=== PATIENT | female | born 1950 | race Caucasian/White ===

== ENCOUNTER 2019-06-13 16:06 | Inpatient (IN) | payer OTHER ==
[~2019-06-13] VITALS: Ht 162.6 cm; Wt 92.5 kg
[~2019-06-13 16:06] MED LIST: ALPR1TAB2 PO; ASPI-630 PO; CLOP75TA PO; CRESTOR20 MG PO; GABA-585 PO; HYDR-2769 PO; INSU100I13 SQ; ISOS30TA4 PO; METO25TA4 PO; MONT10TA49 PO; PRAM0.255 PO; RIVA20TA2 PO
[2019-06-13] MEDS ORDERED: IPRATRPIUM/ALBUTEROL 0.5/2.5MG 3 ML NEBU. NEB ONE (16:30)
--- NOTE | 2019-06-13 16:44 | PHYS DOC ---
Past Medical History Past Medical History: CAD, Diabetes-Type II, High Cholesterol, Hypertension Adult General Chief Complaint Chief Complaint: CHEST PAIN HPI HPI Patient is a 69 year old female patient with stent placement in June 02 and recent hospitalization at [facility] on June 09 with diagnosis of syncope who presents via EMS with complaining of chest pain and shortness of breath. Patient complaining of pressure substernal chest pain with radiation to her back and associated with shortness of breath, dizziness, nausea and generalized weakness. She rated her pain 8/10. Patient had 324 mg of aspirin, sublingual nitroglycerin, nitroglycerin patch, morphine 10 mg IV without change of her pain. Patient has O2 sat of 92% at arrival to ER. Patient states she had the same pain in her previous hospitalization with stent placement. Review of Systems Review of Systems Constitutional: Denies fever or chills [] Eyes: Denies change in visual acuity, redness, or eye pain [] HENT: Denies nasal congestion or sore throat [] Respiratory: Denies cough, reports shortness of breath [] Cardiovascular: No additional information not addressed in HPI [] GI: Denies abdominal pain, nausea, vomiting, bloody stools or diarrhea [] : Denies dysuria or hematuria [] Musculoskeletal: Denies back pain or joint pain [] Integument: Denies rash or skin lesions [] Neurologic: Denies headache, focal weakness or sensory changes [] Endocrine: Denies polyuria or polydipsia [] All other systems were reviewed and found to be within normal limits, except as documented in this note. Current Medications Current Medications Current Medications Medications (Trade) Dose Ordered Sig/Marily Start Time Stop Time Status Last Admin Dose Admin Albuterol/ Ipratropium (Duoneb) 3 ml 1X ONCE 06/13/19 16:30 06/13/19 16:31 DC 06/13/19 16:29 3 ML Lorazepam (Ativan Inj) 1 mg 1X ONCE 06/13/19 16:45 06/13/19 16:46 DC 06/13/19 17:01 1 MG Ondansetron HCl (Zofran) 4 mg 1X ONCE 06/13/19 17:15 06/13/19 17:16 DC 06/13/19 17:21 4 MG Allergies Allergies Allergies Coded Allergies Type Severity Reaction Last Updated Verified fentanyl Allergy Intermediate 06/13/19 Yes oxycodone Allergy Intermediate 06/13/19 Yes prednisone Allergy Unknown 06/02/19 Yes Physical Exam Physical Exam Constitutional: Well developed, well nourished, moderate distress, non-toxic appearance. [] HENT: Normocephalic, atraumatic. Eyes: PERRLA, EOMI, conjunctiva normal, no discharge. [] Neck: Normal range of motion, no tenderness, supple, no stridor. [] Cardiovascular:Heart rate regular rhythm, no murmur [] Lungs & Thorax: Hyperventilation with intercostal retractions and audible breath sounds Abdomen: Bowel sounds normal, soft, no tenderness, no masses, no pulsatile masses. [] Skin: Warm, dry, no erythema, no rash. [] Back: No tenderness, no CVA tenderness. [] Extremities: No tenderness, no cyanosis, no clubbing, ROM intact, bilateral lower extremity trace edema. [] Neurologic: Alert and oriented X 3, no focal deficits noted. [] Psychologic: Affect anxious, judgement normal, mood normal. [] Current Patient Data Vital Signs Vital Signs Date Time Temp Pulse Resp B/P (MAP) Pulse Ox O2 Delivery O2 Flow Rate FiO2 06/13/19 16:44 95 Nasal Cannula 2.0 06/13/19 16:18 98.1 68 25 159/115 (130) 98.1 Lab Values Laboratory Tests Test 06/13/19 16:35 06/13/19 16:40 06/13/19 16:44 White Blood Count 6.0 x10^3/uL (4.0-11.0) Red Blood Count 3.94 x10^6/uL (3.50-5.40) Hemoglobin 12.0 g/dL (12.0-15.5) Hematocrit 35.1 % (36.0-47.0) L Mean Corpuscular Volume 89 fL (79-100) Mean Corpuscular Hemoglobin 31 pg (25-35) Mean Corpuscular Hemoglobin Concent 34 g/dL (31-37) Red Cell Distribution Width 13.7 % (11.5-14.5) Platelet Count 195 x10^3/uL (140-400) Neutrophils (%) (Auto) 64 % (31-73) Lymphocytes (%) (Auto) 23 % (24-48) L Monocytes (%) (Auto) 8 % (0-9) Eosinophils (%) (Auto) 5 % (0-3) H Basophils (%) (Auto) 1 % (0-3) Neutrophils # (Auto) 3.8 x10^3/uL (1.8-7.7) Lymphocytes # (Auto) 1.4 x10^3/uL (1.0-4.8) Monocytes # (Auto) 0.5 x10^3/uL (0.0-1.1) Eosinophils # (Auto) 0.3 x10^3/uL (0.0-0.7) Basophils # (Auto) 0.0 x10^3/uL (0.0-0.2) Prothrombin Time 12.7 SEC (11.7-14.0) Prothrombin Time INR 1.0 (0.8-1.1) D-Dimer (Angeline) 0.53 ug/mlFEU (0.00-0.50) H Sodium Level 142 mmol/L (136-145) Potassium Level 4.2 mmol/L (3.5-5.1) Chloride Level 107 mmol/L (98-107) Carbon Dioxide Level 28 mmol/L (21-32) Anion Gap 7 (6-14) Blood Urea Nitrogen 10 mg/dL (7-20) Creatinine 0.9 mg/dL (0.6-1.0) Estimated GFR (Cockcroft-Gault) 62.1 BUN/Creatinine Ratio 11 (6-20) Glucose Level 182 mg/dL (70-99) H Lactic Acid Level 1.2 mmol/L (0.4-2.0) Calcium Level 9.0 mg/dL (8.5-10.1) Magnesium Level 1.7 mg/dL (1.8-2.4) L Total Bilirubin 0.5 mg/dL (0.2-1.0) Aspartate Amino Transferase (AST) 22 U/L (15-37) Alanine Aminotransferase (ALT) 21 U/L (14-59) Alkaline Phosphatase 107 U/L (46-116) Creatine Kinase 29 U/L (26-192) Troponin I Quantitative < 0.017 ng/mL (0.000-0.055) TO-Kav-W-Type Natriuretic Peptide 331 pg/mL (0-124) H Total Protein 7.1 g/dL (6.4-8.2) Albumin 3.3 g/dL (3.4-5.0) L Albumin/Globulin Ratio 0.9 (1.0-1.7) L Lipase 75 U/L (73-393) O2 Saturation 96 % (92-99) Arterial Blood pH 7.40 (7.35-7.45) Arterial Blood pCO2 at Patient Temp 37 mmHg (35-46) Arterial Blood pO2 at Patient Temp 91 mmHg (65-108) Arterial Blood HCO3 22 mmol/L (21-28) Arterial Blood Base Excess -2 mmol/L (-3-3) FiO2 28 POC Troponin I 0.00 ng/ml (<0.08) Laboratory Tests 06/13/19 16:35 Laboratory Tests 06/13/19 16:35 EKG EKG EKG interpreted EKG at 1460 by me. EKG at 1650 showed sinus rhythm with multiple artifacts at rate of 73, left fourth axis, Q wave in anteroseptal leads, Radiology/Procedures Radiology/Procedures [][facility] [address] [place] [address] IMAGING REPORT Signed PATIENT: VIOLETA VANG ACCOUNT: [id number] : 1950 LOCATION: ER AGE: 69 SEX: F EXAM STATUS: REG ER ORD. PHYSICIAN: LAXMI NUÑEZ MD REASON: chest pain and shortness of breath PROCEDURE: PORTABLE CHEST 1V Single view of the chest. 06/13/2019 4:38 PM Indication: Chest pain, shortness of breath. Comparison: None available Findings: No pneumothorax is identified. Mild hazy opacification of the left lung base is seen which could represent atelectasis or trace effusion. Fullness in the right hilar region could represent vascular crowding given low depth inspiration. Right hilar infiltrate or mass cannot be completely excluded. Heart size is normal. Bony thorax is intact. Postoperative changes to the right shoulder noted. Coronary stent noted. IMPRESSION: 1. Low lung volumes with hazy opacity left lung base possibly representing atelectasis or mild effusion 2. Fullness in the right perihilar region which could represent vascular crowding. Infiltrate or mass is difficult to completely exclude. Consider follow-up two-view chest radiograph with attention to depth of inspiration. Alternatively CT could be performed in the appropriate clinical setting. Electronically signed by: Gio Flowers MD (06/13/2019 4:53 PM) [facility] DICTATED and SIGNED BY: GIO FLOWERS MD DATE: 06/13/191652 Course & Med Decision Making Course & Med Decision Making Pertinent Labs and Imaging studies reviewed. (See chart for details) Evaluation of patient in ER showed 69-year-old female patient with history of percent stent placement and oriented hospitalization for syncope brought in by EMS because of chest pain and shortness of breath. Patient was anxious and had hyperventilation. Patient treated with Ativan and felt better. D-dimer was only 0.[address] of chest was not ordered. Cardiac enzymes was negative. Because of heart score of 6 plan to admit patient. Patient requiring admission for further evaluation and treatment. Discussed with Dr. Lui who is in agreement with admission. Discussed findings and plan with patient and family, who acknowledge understanding and agreement. Dragon Disclaimer Dragon Disclaimer This electronic medical record was generated, in whole or in part, using a voice recognition dictation system. Departure Departure Impression: Primary Impression: Acute chest pain Additional Impressions: Anxiety Shortness of breath Hypomagnesemia CHF (congestive heart failure) Disposition: ADMITTED INPATIENT (at 1659) Admitting Physician: FLAVIO (Dr. Lui accepted admission at 1657) Referrals: TRACEE DIAZ MD (PCP) The HEART Score for CP Pts HEART Score for Chest Pain: HEART Score for Chest Pain Response (Comments) Value History Moderately Suspicious 1 ECG Nonspecific Repolarizatio 1 Age > 65 2 Risk Factors >3 Risk Factors or Hx CAD 2 Total 6 Risk Factors: Risk Factors: DM, Current or recent (<one month) smoker, HTN, HLP, family history of CAD, obesity. Risk Scores: Score 0 - 3: 2.5% MACE over next 6 weeks - Discharge Home Score 4 - 6: 20.3% MACE over next 6 weeks - Admit for Clinical Observation Score 7 - 10: 72.7% MACE over next 6 weeks - Early Invasive Strategies Problem Qualifiers Additional Impressions: CHF (congestive heart failure) Heart failure type: unspecified Heart failure chronicity: unspecified Qualified Codes: I50.9 - Heart failure, unspecified LAXMI NUÑEZ MD Jun 13, 2019 16:44
[2019-06-13 16:46] LABS: BASE EXCESS ABG -2 mmol/L (-3-3); HCO3 ABG 22 mmol/L (21-28); PCO2 ABG 37 mmHg (35-46); PO2 ABG 91 mmHg (65-108); SAT O2 ABG 96 % (92-99)
[2019-06-13 16:47] LABS: FIO2 ABG 28
[2019-06-13 16:50] LABS: BASO % 1 % (0-3); EOS # 0.3 x10^3/uL (0.0-0.7); EOS % 5 % (0-3); HEMATOCRIT 35.1 % (36.0-47.0); LYMPH # 1.4 x10^3/uL (1.0-4.8); LYMPH % 23 % (24-48); MEAN CORPUSCULAR HEMOGLOBIN 31 pg (25-35); MEAN CORPUSCULAR HGB CONC 34 g/dL (31-37); MEAN CORPUSCULAR VOLUME 89 fL (79-100); MONO # 0.5 x10^3/uL (0.0-1.1); MONO % 8 % (0-9); NEUT # 3.8 x10^3/uL (1.8-7.7); NEUT % 64 % (31-73); PLATELET COUNT 195 x10^3/uL (140-400); RED BLOOD COUNT 3.94 x10^6/uL (3.50-5.40); RED CELL DISTRIBUTION WIDTH 13.7 % (11.5-14.5)
--- NOTE | 2019-06-13 16:56 | RAD ---
Single view of the chest. 06/13/2019 4:38 PM Indication: Chest pain, shortness of breath. Comparison: None available Findings: No pneumothorax is identified. Mild hazy opacification of the left lung base is seen which could represent atelectasis or trace effusion. Fullness in the right hilar region could represent vascular crowding given low depth inspiration. Right hilar infiltrate or mass cannot be completely excluded. Heart size is normal. Bony thorax is intact. Postoperative changes to the right shoulder noted. Coronary stent noted. IMPRESSION: 1. Low lung volumes with hazy opacity left lung base possibly representing atelectasis or mild effusion 2. Fullness in the right perihilar region which could represent vascular crowding. Infiltrate or mass is difficult to completely exclude. Consider follow-up two-view chest radiograph with attention to depth of inspiration. Alternatively CT could be performed in the appropriate clinical setting. Electronically signed by: Gio Arzate MD (06/13/2019 4:53 PM) [facility]
[2019-06-13 16:59] LABS: PROTHROMBIN TIME PATIENT 12.7 SEC (11.7-14.0)
[2019-06-13 17:02] LABS: D-DIMER 0.53 ug/mlFEU (0.00-0.50)
[2019-06-13 17:15] LABS: CREATININE 0.9 mg/dL (0.6-1.0); GFR 62.1; POTASSIUM 4.2 mmol/L (3.5-5.1)
[2019-06-13] MEDS ORDERED: ONDANSETRON PF 4 MG/2 ML VIAL. IV ONE (17:15)
[2019-06-13 17:29] LABS: ALBUMIN 3.3 g/dL (3.4-5.0); ALBUMIN/GLOBULIN RATIO 0.9 (1.0-1.7); MAGNESIUM 1.7 mg/dL (1.8-2.4); TOTAL BILIRUBIN 0.5 mg/dL (0.2-1.0); TOTAL PROTEIN 7.1 g/dL (6.4-8.2)
--- NOTE | 2019-06-13 18:47 | PDOC1 ---
History and Physical Date of Admission Date of Admission DATE: 06/13/19 TIME: 18:45 Identification/Chief Complaint Chief Complaint SEEN IN ER , 69 YR OLD Female patient with stent placement in June 02 and recent hospitalization at [facility] on June 09 with diagnosis of syncope who presents via EMS with complaining of chest pain and shortness of breath. complaining of pressure substernal chest pain with radiation to her back and associated with shortness of breath, dizziness, nausea and generalized weakness. rated her pain 8/10. Patient had 324 mg of aspirin, sublingual nitroglycerin, nitroglycerin patch, morphine 10 mg IV without change of her pain.IN ER Past Medical History Past Medical History Past Medical History Past Medical History Past Medical History: CAD, Diabetes-Type II, High Cholesterol, Hypertension FHX HTN Cardiovascular: AFIB, CAD, CHF, HTN, Hyperlipidemia, Other Pulmonary: Asthma, COPD, Pneumonia, Other CENTRAL NERVOUS SYSTEM: CVA, Seizure, Other GI: GERD Heme/Onc: Cancer Psych: Anxiety, Depression Musculoskeletal: low back pain, Osteoarthritis Endocrine: Diabetes Past Surgical History Past Surgical History: Cholecystectomy, Hysterectomy, Other Family History Family History: High Cholestrol, Hypertension Social History Smoke: No ALCOHOL: none Drugs: None Current Problem List Problem List Problems Medical Problems: (1) Acute chest pain Status: Acute (2) Anxiety Status: Acute (3) CHF (congestive heart failure) Status: Acute (4) Hypomagnesemia Status: Acute (5) Shortness of breath Status: Acute Current Medications Current Medications Current Medications Albuterol/ Ipratropium (Duoneb) 3 ml 1X ONCE NEB Last administered on 06/13/19at 16:29; Start 06/13/19 at 16:30; Stop 06/13/19 at 16:31; Status DC Lorazepam (Ativan Inj) 1 mg 1X ONCE IV Last administered on 06/13/19at 17:01; Start 06/13/19 at 16:45; Stop 06/13/19 at 16:46; Status DC Ondansetron HCl (Zofran) 4 mg 1X ONCE IV Last administered on 06/13/19at 17:21; Start 06/13/19 at 17:15; Stop 06/13/19 at 17:16; Status DC Active Scripts Active Reported Xarelto (Rivaroxaban) 20 Mg Tablet 20 Mg PO DAILY Metoprolol Tartrate 25 Mg Tablet 0.5 Tab PO BID Aspirin 81 Mg Tab.chew 1 Tab PO DAILY Clopidogrel (Clopidogrel Bisulfate) 75 Mg Tablet 1 Tab PO DAILY Lantus Solostar (Insulin Glargine,Hum.rec.anlog) 100 Unit/1 Ml Insuln.pen 12 Un it SQ QHS Crestor (Rosuvastatin Calcium) 20 Mg Tablet 20 Mg PO HS Mirapex (Pramipexole Di-Hcl) 0.25 Mg Tablet 1 Tab PO QHS Montelukast Sodium Tablet (Montelukast Sodium) 10 Mg Tablet 10 Mg PO HS Isosorbide Mononitrate Er (Isosorbide Mononitrate) 30 Mg Tab.er.24h 30 Mg PO DAILY Hydrocodone-Apap 10-325 (Hydrocodone Bit/Acetaminophen) 1 Tab Tablet 1 Tab PO PRN Q6HRS PRN Gabapentin (Gabapentin) 100 Mg Capsule 100 Mg PO BID Xanax (Alprazolam) 1 Mg Tablet 1 Tab PO TID Allergies Allergies: Coded Allergies: fentanyl (Verified Allergy, Intermediate, 06/13/19) oxycodone (Verified Allergy, Intermediate, 06/13/19) prednisone (Verified Allergy, Unknown, 06/02/19) ROS Review of System Review of Systems Review of Systems Constitutional: Denies fever or chills [] Eyes: Denies change in visual acuity, redness, or eye pain [] HENT: Denies nasal congestion or sore throat [] Respiratory: Denies cough, reports shortness of breath [] Cardiovascular: No additional information not addressed in HPI [] GI: Denies abdominal pain, nausea, vomiting, bloody stools or diarrhea [] : Denies dysuria or hematuria [] Musculoskeletal: Denies back pain or joint pain [] Integument: Denies rash or skin lesions [] Neurologic: Denies headache, focal weakness or sensory changes [] Endocrine: Denies polyuria or polydipsia [] 14 PT systems were reviewed and found to be within normal limits, except as documented Physical Exam Physical Exam Physical Exam Physical Exam Constitutional: Well developed, well nourished, moderate distress, non-toxic appearance. [] HENT: Normocephalic, atraumatic. Eyes: PERRLA, EOMI, conjunctiva normal, no discharge. [] Neck: Normal range of motion, no tenderness, supple, no stridor. [] Cardiovascular:Heart rate regular rhythm, no murmur [] Lungs & Thorax: Hyperventilation with intercostal retractions and audible breath sounds Abdomen: Bowel sounds normal, soft, no tenderness, no masses, no pulsatile masses. [] Skin: Warm, dry, no erythema, no rash. [] Back: No tenderness, no CVA tenderness. [] Extremities: No tenderness, no cyanosis, no clubbing, ROM intact, bilateral lower extremity trace edema. [] Neurologic: Alert and oriented X 3, no focal deficits noted. [] Psychologic: Affect anxious, judgment normal, mood normal. [] General: Oriented X3, Cooperative, mild distress, moderate distress HEENT: EOMI, Mucous membr. moist/pink Lungs: Clear to auscultation Heart: RRR Breasts: Not examined Abdomen: Normal bowel sounds, Soft PELVIC: Examination not indicated Extremities: No cyanosis Neuro: Normal speech, Sensation intact, Cranial nerves 3-12 NL Vitals Vitals Vital Signs Date Time Temp Pulse Resp B/P (MAP) Pulse Ox O2 Delivery O2 Flow Rate FiO2 06/13/19 16:44 95 Nasal Cannula 2.0 06/13/19 16:18 98.1 68 25 159/115 (130) 98.1 Labs Labs Laboratory Tests Test 06/13/19 16:35 06/13/19 16:40 06/13/19 16:44 White Blood Count 6.0 x10^3/uL (4.0-11.0) Red Blood Count 3.94 x10^6/uL (3.50-5.40) Hemoglobin 12.0 g/dL (12.0-15.5) Hematocrit 35.1 % (36.0-47.0) Mean Corpuscular Volume 89 fL (79-100) Mean Corpuscular Hemoglobin 31 pg (25-35) Mean Corpuscular Hemoglobin Concent 34 g/dL (31-37) Red Cell Distribution Width 13.7 % (11.5-14.5) Platelet Count 195 x10^3/uL (140-400) Neutrophils (%) (Auto) 64 % (31-73) Lymphocytes (%) (Auto) 23 % (24-48) Monocytes (%) (Auto) 8 % (0-9) Eosinophils (%) (Auto) 5 % (0-3) Basophils (%) (Auto) 1 % (0-3) Neutrophils # (Auto) 3.8 x10^3/uL (1.8-7.7) Lymphocytes # (Auto) 1.4 x10^3/uL (1.0-4.8) Monocytes # (Auto) 0.5 x10^3/uL (0.0-1.1) Eosinophils # (Auto) 0.3 x10^3/uL (0.0-0.7) Basophils # (Auto) 0.0 x10^3/uL (0.0-0.2) Prothrombin Time 12.7 SEC (11.7-14.0) Prothromb Time International Ratio 1.0 (0.8-1.1) D-Dimer (Angeline) 0.53 ug/mlFEU (0.00-0.50) Sodium Level 142 mmol/L (136-145) Potassium Level 4.2 mmol/L (3.5-5.1) Chloride Level 107 mmol/L (98-107) Carbon Dioxide Level 28 mmol/L (21-32) Anion Gap 7 (6-14) Blood Urea Nitrogen 10 mg/dL (7-20) Creatinine 0.9 mg/dL (0.6-1.0) Estimated GFR (Cockcroft-Gault) 62.1 BUN/Creatinine Ratio 11 (6-20) Glucose Level 182 mg/dL (70-99) Lactic Acid Level 1.2 mmol/L (0.4-2.0) Calcium Level 9.0 mg/dL (8.5-10.1) Magnesium Level 1.7 mg/dL (1.8-2.4) Total Bilirubin 0.5 mg/dL (0.2-1.0) Aspartate Amino Transf (AST/SGOT) 22 U/L (15-37) Alanine Aminotransferase (ALT/SGPT) 21 U/L (14-59) Alkaline Phosphatase 107 U/L (46-116) Creatine Kinase 29 U/L (26-192) Troponin I Quantitative < 0.017 ng/mL (0.000-0.055) OD-Uxz-K-Type Natriuretic Peptide 331 pg/mL (0-124) Total Protein 7.1 g/dL (6.4-8.2) Albumin 3.3 g/dL (3.4-5.0) Albumin/Globulin Ratio 0.9 (1.0-1.7) Lipase 75 U/L (73-393) O2 Saturation 96 % (92-99) Arterial Blood pH 7.40 (7.35-7.45) Arterial Blood pCO2 at Patient Temp 37 mmHg (35-46) Arterial Blood pO2 at Patient Temp 91 mmHg (65-108) Arterial Blood HCO3 22 mmol/L (21-28) Arterial Blood Base Excess -2 mmol/L (-3-3) FiO2 28 Bedside Troponin I 0.00 ng/ml (<0.08) Laboratory Tests Test 06/13/19 16:35 06/13/19 16:40 06/13/19 16:44 White Blood Count 6.0 x10^3/uL (4.0-11.0) Red Blood Count 3.94 x10^6/uL (3.50-5.40) Hemoglobin 12.0 g/dL (12.0-15.5) Hematocrit 35.1 % (36.0-47.0) Mean Corpuscular Volume 89 fL (79-100) Mean Corpuscular Hemoglobin 31 pg (25-35) Mean Corpuscular Hemoglobin Concent 34 g/dL (31-37) Red Cell Distribution Width 13.7 % (11.5-14.5) Platelet Count 195 x10^3/uL (140-400) Neutrophils (%) (Auto) 64 % (31-73) Lymphocytes (%) (Auto) 23 % (24-48) Monocytes (%) (Auto) 8 % (0-9) Eosinophils (%) (Auto) 5 % (0-3) Basophils (%) (Auto) 1 % (0-3) Neutrophils # (Auto) 3.8 x10^3/uL (1.8-7.7) Lymphocytes # (Auto) 1.4 x10^3/uL (1.0-4.8) Monocytes # (Auto) 0.5 x10^3/uL (0.0-1.1) Eosinophils # (Auto) 0.3 x10^3/uL (0.0-0.7) Basophils # (Auto) 0.0 x10^3/uL (0.0-0.2) Prothrombin Time 12.7 SEC (11.7-14.0) Prothromb Time International Ratio 1.0 (0.8-1.1) D-Dimer (Angeline) 0.53 ug/mlFEU (0.00-0.50) Sodium Level 142 mmol/L (136-145) Potassium Level 4.2 mmol/L (3.5-5.1) Chloride Level 107 mmol/L (98-107) Carbon Dioxide Level 28 mmol/L (21-32) Anion Gap 7 (6-14) Blood Urea Nitrogen 10 mg/dL (7-20) Creatinine 0.9 mg/dL (0.6-1.0) Estimated GFR (Cockcroft-Gault) 62.1 BUN/Creatinine Ratio 11 (6-20) Glucose Level 182 mg/dL (70-99) Lactic Acid Level 1.2 mmol/L (0.4-2.0) Calcium Level 9.0 mg/dL (8.5-10.1) Magnesium Level 1.7 mg/dL (1.8-2.4) Total Bilirubin 0.5 mg/dL (0.2-1.0) Aspartate Amino Transf (AST/SGOT) 22 U/L (15-37) Alanine Aminotransferase (ALT/SGPT) 21 U/L (14-59) Alkaline Phosphatase 107 U/L (46-116) Creatine Kinase 29 U/L (26-192) Troponin I Quantitative < 0.017 ng/mL (0.000-0.055) WH-Cyd-J-Type Natriuretic Peptide 331 pg/mL (0-124) Total Protein 7.1 g/dL (6.4-8.2) Albumin 3.3 g/dL (3.4-5.0) Albumin/Globulin Ratio 0.9 (1.0-1.7) Lipase 75 U/L (73-393) O2 Saturation 96 % (92-99) Arterial Blood pH 7.40 (7.35-7.45) Arterial Blood pCO2 at Patient Temp 37 mmHg (35-46) Arterial Blood pO2 at Patient Temp 91 mmHg (65-108) Arterial Blood HCO3 22 mmol/L (21-28) Arterial Blood Base Excess -2 mmol/L (-3-3) FiO2 28 Bedside Troponin I 0.00 ng/ml (<0.08) Images Images INDICATION: Altered mental status TECHNIQUE: Sequential axial images through the head were obtained without the administration of IV contrast. Comparisons: None FINDINGS: No focal parenchymal lesion or hemorrhage is identified. There is no midline shift or sulcal effacement. Subtle patchy opacity in the deep white matter of the left frontal lobe which appears similar when compared to prior exam in 2015. No acute vascular territory infarction is identified. De Jesus-white distinction is preserved. The ventricular system is within normal limits without compression hydrocephalus. The basal cisterns are well maintained. The visualized portions of the paranasal sinuses and mastoid air cells are well-pneumatized. No acute fractures. IMPRESSION: No acute intracranial abnormality. If symptoms persist MRI would better evaluate. Exposure: One or more of the following in the visualized dose reduction techniques were utilized for this examination: 1. Automated exposure control 2. Adjustment of the MA and/or KV according to patient size Use of iterative of reconstructive technique Single view of the chest. 06/13/2019 4:38 PM Indication: Chest pain, shortness of breath. Comparison: None available Findings: No pneumothorax is identified. Mild hazy opacification of the left lung base is seen which could represent atelectasis or trace effusion. Fullness in the right hilar region could represent vascular crowding given low depth inspiration. Right hilar infiltrate or mass cannot be completely excluded. Heart size is normal. Bony thorax is intact. Postoperative changes to the right shoulder noted. Coronary stent noted. IMPRESSION: 1. Low lung volumes with hazy opacity left lung base possibly representing atelectasis or mild effusion 2. Fullness in the right perihilar region which could represent vascular crowding. Infiltrate or mass is difficult to completely exclude. Consider follow-up two-view chest radiograph with attention to depth of inspiration. Alternatively CT could be performed in the appropriate clinical setting. Electronically signed by: Kristy Flowers MD (06/13/2019 4:53 PM) [facility] DICTATED and SIGNED BY: KRISTY FLOWERS MD DATE: 06/13/19 2810 VTE Prophylaxis Ordered VTE Prophylaxis Devices: Yes VTE Pharmacological Prophylaxi: Yes Assessment/Plan Assessment/Plan IMPRESSION 1. angina, status post percutaneous coronary intervention with drug-eluting stent placement to left circumflex. 2. Coronary artery disease, status post left anterior descending stent placement as continues to be patent. The left heart catheterization, ejection fraction, wall motion were all normal. 3. Type 2 diabetes, 4. Hypertension. 5. Hyperlipidemia. 6. Chronic obstructive pulmonary disease/bronchial asthma. ON CXR Fullness in the right perihilar region which could represent vascular crowding. Infiltrate or mass is difficult to completely exclude. Consider follow-up two-view chest radiograph with attention to depth of inspiration. Alternatively CT could be performed in the appropriate clinical setting. 7. Deep venous thrombosis and pulmonary embolism, on Xarelto. 8. Paroxysmal supraventricular tachycardia. 9. History of cerebrovascular accident. Subtle patchy opacity in the deep white matter of the left frontal lobe which appears similar when compared to prior exam in 2015 PLAN ADMIT SERIAL TROPONIN I CARDIOLOGY CONSULT O2 SUPPORT HOME MEDS ECHO 58 MIN PT EXAM, CHART REVIEW, > 50% OF TIME SPENT WITH EXAM, CHART REVIEW, PT CARE COORDINATION ROD GUSMAN MD Jun 13, 2019 18:47
[2019-06-13] MEDS ORDERED: ACETAMINOPHEN 325 MG TABLET. PO PRN (19:00)
[2019-06-13] MEDS ORDERED: ONDANSETRON PF 4 MG/2 ML VIAL. IV PRN (19:00)
[2019-06-13] MEDS ORDERED: MAG HYDROX/ALUMINUM HYD/SIMETH 30 ML ORAL.SUSP PO PRN (19:00)
[2019-06-13] MEDS ORDERED: guaiFENesin ORAL 200 MG/10 ML LIQUID. PO PRN (19:00)
[2019-06-13] MEDS ORDERED: LORazepam 0.5 MG TABLET PO PRN (19:00)
[2019-06-13] MEDS ORDERED: DOCUSATE SODIUM 100 MG CAPSULE. PO PRN (19:00)
[2019-06-13] MEDS ORDERED: 0.9 % SODIUM CHLORIDE 10 ML DISP.SYRIN. IV PRN (19:00)
[2019-06-13] MEDS ORDERED: cloNIDine HCL 0.1 MG TABLET PO PRN (19:00)
[2019-06-13 20:28] VITALS: BP 133/70
[2019-06-13] MEDS: IPRATRPIUM/ALBUTEROL 0.5/2.5MG 3 ML NEBU. NEB SCH (20:49)
[2019-06-13] MEDS: ALPRAZolam 1 MG TABLET PO SCH (21:48)
[2019-06-13] MEDS: ATORVASTATIN CALCIUM 40 MG TABLET. PO SCH (21:48)
[2019-06-13] MEDS: HYDROcodone/APAP 10/325 1 TAB TABLET PO PRN ×2 (21:48→21:49)
[2019-06-13] MEDS: MONTELUKAST SODIUM 10 MG TABLET. PO SCH (21:48)
[2019-06-13] MEDS: RIVAROXABAN 10 MG TABLET. PO SCH (21:48)
[2019-06-13] MEDS: PRAMIPEXOLE 0.25 MG TABLET. PO SCH (21:48)
[2019-06-13] MEDS: GABAPENTIN 100 MG CAPSULE. PO SCH (21:49)
[2019-06-13] MEDS: METOPROLOL TART IMMED RELEASE 25 MG TABLET. PO SCH (21:49)
[2019-06-13] MEDS: INSULIN GLARGINE SYRINGE. SQ SCH (21:56)
[2019-06-13 22:02] VITALS: BP 136/65
[2019-06-14] MEDS: IPRATRPIUM/ALBUTEROL 0.5/2.5MG 3 ML NEBU. NEB SCH ×7 (00:02→23:55)
[2019-06-14 03:04] VITALS: BP 102/59
[2019-06-14] MEDS: HYDROcodone/APAP 10/325 1 TAB TABLET PO PRN (03:40)
--- NOTE | 2019-06-14 06:23 | EKG ---
[facility] [address] [place] [address] Test Date: 2019-06-13 Test Time: 16:15:48 Pat Name: VIOLETA VANG Department: Room: Gender: F Cipher Expert: : 1950 Requested By: LAXMI NUÑEZ Order Number: [id number] Reading MD: Measurements Intervals [place] Rate: 73 P: SC: QRS: -19 QRSD: 84 T: 28 QT: 408 QTc: 453 Interpretive Statements IRREGULAR RHYTHM, NO P-WAVE FOUND LEFTWARD AXIS QRS(T) CONTOUR ABNORMALITY CONSIDER ANTEROSEPTAL MYOCARDIAL DAMAGE POSSIBLY ABNORMAL ECG RI6.01 Unconfirmed report No previous ECG available for comparison
[2019-06-14 07:00] VITALS: BP 118/76
[2019-06-14] MEDS ORDERED: ANTI-COAG MONITOR BY PHARMACY. MC PRN (08:00)
--- NOTE | 2019-06-14 08:34 | PDOC2 ---
SARMAD PERSAUD PLASTIC EXTRUSION OPERATOR 06/14/19 0834: CARDIAC CONSULT DATE OF CONSULT Date of Consult DATE: 06/14/19 TIME: 08:30 REASON FOR CONSULT Reason for Consult: Angina REFERRING PHYSICIAN Referring Physician: Fullbright SOURCE Source: Chart review, Patient HISTORY OF PRESENT ILLNESS HISTORY OF PRESENT ILLNESS This is a pleasant 69 yo female admitted for complains of dizziness and shortness of breath. Reports that she has been having nonproductive cough and has been wheezing. She has been using her nebulizer quite often. Monday she even passed out which prompted her to go [facility] which she was deemed with acute en cephalopathy and no seizures. She had a recent PCI and has not been having any palpitations. She did have some chest tightness but this was also associated with wheezing and coughing. No significant leg swelling. She has been complaint with her medications. PAST MEDICAL HISTORY Past Medical History Coronary artery disease Diabetes mellitus type 2 Hypertension Hyperlipidemia COPD/asthma DVT/PE Osteoarthritis CVA Lymphoma Anxiety Depression PSVT Seizure PAST SURGICAL HISTORY Past Surgical History Right rotator cuff repair Cholecystectomy Hysterectomy Carpal tunnel release surgery s/p PCI/stent placement FAMILY HISTORY Family History: Coronary Artery Disease SOCIAL HISTORY Smoke: No ALCOHOL: none Drugs: None Lives: with Family CURRENT MEDICATIONS CURRENT MEDICATIONS Current Medications Medications (Trade) Dose Ordered Sig/Marily Route PRN Reason Start Time Stop Time Status Last Admin Dose Admin Albuterol/ Ipratropium (Duoneb) 3 ml 1X ONCE NEB 06/13/19 16:30 06/13/19 16:31 DC 06/13/19 16:29 Lorazepam (Ativan Inj) 1 mg 1X ONCE IV 06/13/19 16:45 06/13/19 16:46 DC 06/13/19 17:01 Ondansetron HCl (Zofran) 4 mg 1X ONCE IV 06/13/19 17:15 06/13/19 17:16 DC 06/13/19 17:21 Alprazolam (Xanax) 1 mg TID PO 06/13/19 21:00 06/13/19 21:48 Gabapentin (Neurontin) 100 mg BID PO 06/13/19 21:00 06/13/19 21:56 Acetaminophen/ Hydrocodone Bitart (Lortab 10/325) 1 tab PRN Q6HRS PRN PO PAIN 06/13/19 19:00 06/14/19 03:40 Metoprolol Tartrate (Lopressor) 12.5 mg BID PO 06/13/19 21:00 06/13/19 21:56 Montelukast Sodium (Singulair) 10 mg HS PO 06/13/19 21:00 06/13/19 21:48 Pramipexole Dihydrochloride (miraPEX) 0.25 mg QHS PO 06/13/19 21:00 06/13/19 21:48 Insulin Glargine (Lantus Syringe) 12 unit QHS SQ 06/13/19 21:00 06/13/19 21:56 Rivaroxaban (Xarelto) 20 mg QEVNG PO 06/13/19 18:00 06/13/19 21:48 Atorvastatin Calcium (Lipitor) 80 mg QHS PO 06/13/19 21:00 06/13/19 21:48 Albuterol/ Ipratropium (Duoneb) 3 ml Q4H NEB 06/13/19 20:00 06/14/19 07:42 Lorazepam (Ativan) 0.5 mg PRN Q4HRS PRN PO ANXIETY / AGITATION 06/13/19 19:00 06/13/19 22:39 ALLERGIES ALLERGIES: Coded Allergies: fentanyl (Verified Allergy, Intermediate, 06/13/19) oxycodone (Verified Allergy, Intermediate, 06/13/19) prednisone (Verified Allergy, Intermediate, 06/13/19) ROS Review of System 14 point ROS evaluated with pertinent positives noted per HPI PHYSICAL EXAM General: Alert, Oriented X3, Cooperative, No acute distress HEENT: Mucous membr. moist/pink Heart: Regular rate (SR), Normal S1, Normal S2, No murmurs Abdomen: Soft, No tenderness Extremities: No cyanosis, No edema Skin: No breakdown, No significant lesion Neuro: Normal speech, Sensation intact Psych/Mental Status: Mental status NL, Mood NL MUSCULOSKELETAL: Osteoarthritic changes both hands VITALS/I&O VITALS/I&O: Vital Signs Date Time Temp Pulse Resp B/P (MAP) Pulse Ox O2 Delivery O2 Flow Rate FiO2 06/14/19 07:42 95 Nasal Cannula 2.0 06/14/19 03:04 97.8 65 20 102/59 (73) 97.8 I & O 06/13/19 06/13/19 06/14/19 15:00 23:00 07:00 Intake Total 120 ml 240 ml Output Total 400 ml 500 ml Balance -280 ml -260 ml LABS Lab: Laboratory Tests Test 06/13/19 16:35 06/13/19 16:40 06/13/19 16:44 06/13/19 20:45 White Blood Count 6.0 x10^3/uL (4.0-11.0) Red Blood Count 3.94 x10^6/uL (3.50-5.40) Hemoglobin 12.0 g/dL (12.0-15.5) Hematocrit 35.1 % (36.0-47.0) L Mean Corpuscular Volume 89 fL (79-100) Mean Corpuscular Hemoglobin 31 pg (25-35) Mean Corpuscular Hemoglobin Concent 34 g/dL (31-37) Red Cell Distribution Width 13.7 % (11.5-14.5) Platelet Count 195 x10^3/uL (140-400) Neutrophils (%) (Auto) 64 % (31-73) Lymphocytes (%) (Auto) 23 % (24-48) L Monocytes (%) (Auto) 8 % (0-9) Eosinophils (%) (Auto) 5 % (0-3) H Basophils (%) (Auto) 1 % (0-3) Neutrophils # (Auto) 3.8 x10^3/uL (1.8-7.7) Lymphocytes # (Auto) 1.4 x10^3/uL (1.0-4.8) Monocytes # (Auto) 0.5 x10^3/uL (0.0-1.1) Eosinophils # (Auto) 0.3 x10^3/uL (0.0-0.7) Basophils # (Auto) 0.0 x10^3/uL (0.0-0.2) Prothrombin Time 12.7 SEC (11.7-14.0) Prothrombin Time INR 1.0 (0.8-1.1) D-Dimer (Angeline) 0.53 ug/mlFEU (0.00-0.50) H Sodium Level 142 mmol/L (136-145) Potassium Level 4.2 mmol/L (3.5-5.1) Chloride Level 107 mmol/L (98-107) Carbon Dioxide Level 28 mmol/L (21-32) Anion Gap 7 (6-14) Blood Urea Nitrogen 10 mg/dL (7-20) Creatinine 0.9 mg/dL (0.6-1.0) Estimated GFR (Cockcroft-Gault) 62.1 BUN/Creatinine Ratio 11 (6-20) Glucose Level 182 mg/dL (70-99) H Lactic Acid Level 1.2 mmol/L (0.4-2.0) Calcium Level 9.0 mg/dL (8.5-10.1) Magnesium Level 1.7 mg/dL (1.8-2.4) L Total Bilirubin 0.5 mg/dL (0.2-1.0) Aspartate Amino Transferase (AST) 22 U/L (15-37) Alanine Aminotransferase (ALT) 21 U/L (14-59) Alkaline Phosphatase 107 U/L (46-116) Creatine Kinase 29 U/L (26-192) Troponin I Quantitative < 0.017 ng/mL (0.000-0.055) [id number]-Type Natriuretic Peptide 331 pg/mL (0-124) H Total Protein 7.1 g/dL (6.4-8.2) Albumin 3.3 g/dL (3.4-5.0) L Albumin/Globulin Ratio 0.9 (1.0-1.7) L Lipase 75 U/L (73-393) O2 Saturation 96 % (92-99) Arterial Blood pH 7.40 (7.35-7.45) Arterial Blood pCO2 at Patient Temp 37 mmHg (35-46) Arterial Blood pO2 at Patient Temp 91 mmHg (65-108) Arterial Blood HCO3 22 mmol/L (21-28) Arterial Blood Base Excess -2 mmol/L (-3-3) FiO2 28 POC Troponin I 0.00 ng/ml (<0.08) Glucose (Fingerstick) 185 mg/dL (70-99) H Test 06/13/19 21:10 06/13/19 23:30 Troponin I Quantitative < 0.017 ng/mL (0.000-0.055) < 0.017 ng/mL (0.000-0.055) Laboratory Tests 06/13/19 16:35 Laboratory Tests 06/13/19 16:35 IMAGES IMAGES FINDINGS: No evidence of a pulmonary embolism. Suboptimal visualization of the more peripheral pulmonary artery branches. No evidence of aortic aneurysm or dissection. Mild aortic calcification. Great vessel origins appear grossly patent. Thyroid appears unremarkable and symmetric. No significant lymph node enlargement. Coronary artery calcifications. No significant pericardial or pleural effusion. Emphysematous changes in both lungs. Ill-defined and mostly linear opacities in both lungs, most likely represent areas of fibrosis and scarring, greatest in the upper lobes. No consolidating airspace infiltrate. There are several areas of slightly more nodular opacity in the right upper lobe, such as on series 3, image 36 and series 3, image 31. No definite dominant mass is identified. Trachea and mainstem bronchi are grossly patent. Degenerative spondylosis. Vertebral body height and alignment are intact. Posterior left rib irregularities, may be due to old fractures. Scans to the upper abdomen are limited by technique. Low-density lesion in the right kidney measures fluid Hounsfield units, most likely a cyst, although measurements may be compromised by artifact, presumably from the patient's arms. IMPRESSION: 1. No evidence of pulmonary embolism. Note that there is limited visualization of the more peripheral pulmonary artery branches, possibly due to suboptimal opacification. 2. Mostly reticular opacities in both lungs, with several areas of mild nodular component. Overall these are thought to most likely be related to chronic scarring or fibrosis. However, follow-up CT chest in about 3-6 months could be of benefit for further evaluation, or sooner if warranted by clinical worsening. 3. Left upper pole renal lesion, likely a cyst. DATE: 06/10/19 1750 ECHOCARDIOGRAM ECHOCARDIOGRAM <Conclusion> The left ventricle is normal size. The left ventricular systolic function is normal and the ejection fraction is within normal range. The Ejection Fraction is 55-60%. There is mild concentric left ventricular hypertrophy. There is no significant aortic valvular stenosis. Doppler and Color Flow revealed no significant aortic regurgitation. Doppler and Color-flow revealed trace mitral regurgitation. Doppler and Color Flow revealed trace to mild tricuspid regurgitation with an estimated PAP of 44 mmHg. DATE: 06/04/19 1203 HEART CATH HEART CATH Conclusion 1. 80% stenosis involving a large caliber left circumflex artery. The previously placed stent in the left anterior descending artery was widely patent. The diagonal branch which is a small to medium caliber vessel appeared to have been jailed by the stent resulting in 80% ostial/proximal segment stenosis. 2. Successful PCI/drug eluting stent placement to the left circumflex artery 3. Normal left ventricle systolic function with ejection fraction estimated at 60% Recommendations 1. Aspirin 325 mg daily 2. Plavix 75 mg daily for preferably one year 3. Cardiovascular risk factor modification DATE: 06/03/19 1102 ASSESSMENT/PLAN ASSESSMENT/PLAN 1. CP: likely due to coughing and bronchospasm 2. CAD: S/P past LAD stent patent per LHC. Recent PCI/PRASHANTH to LCxEF and WM nml 3. DM2: uncontrolled, improving 4. HTN: controlled 5. HLP: on goal 6. Asthma exacerbation with possible pulmonary fibrosis. Reported never a smoker. COPD? 7. DVT/PE: noted 6 mo ago 8. PSVT 9. Hx of CVA with left side hemiparesis 10. Syncope: unclear. x1 Monday nontraumatic. Recommendations 1. Consider for outpt event monitor. Could hold BB if wheezing continues 2. Consult pulmonary 3. Continue with DAPT and secondary prevention measures. BRADEN CORNEJO MD 06/15/19 1811: CARDIAC CONSULT ASSESSMENT/PLAN ASSESSMENT/PLAN Patient seen and examined 06/14/19. Agree with REHAB THERAPIST's assessment and plan. CP atypical, non cardiac and probably from bronchospasm CAD status clinically stable. Continue DAPT Plan outpatient event monitor to evaluate syncope Agree with pulm team consultation Thank you for your consult SARMAD PERSAUD APRN Jun 14, 2019 08:34 BRADEN CORNEJO MD Jun 15, 2019 18:11
[2019-06-14] MEDS ORDERED: ENOXAPARIN 40 MG/0.4 ML SYRINGE. SQ SCH (09:00)
[2019-06-14] MEDS: ASPIRIN CHEWABLE 81 MG TABLET. PO SCH (09:33)
[2019-06-14] MEDS: ALPRAZolam 1 MG TABLET PO SCH ×2 (09:33→13:35)
[2019-06-14 09:34] LABS: CALCIUM 8.4 mg/dL (8.5-10.1); CREATININE 0.9 mg/dL (0.6-1.0); GFR 62.1; MAGNESIUM 1.7 mg/dL (1.8-2.4); POTASSIUM 4.1 mmol/L (3.5-5.1)
[2019-06-14] MEDS: GABAPENTIN 100 MG CAPSULE. PO SCH ×2 (09:34→21:51)
[2019-06-14] MEDS: METOPROLOL TART IMMED RELEASE 25 MG TABLET. PO SCH ×2 (09:34→21:52)
[2019-06-14] MEDS: ISOSORBIDE MONONITRATE ER 30 MG TAB.ER.24H PO SCH (09:34)
[2019-06-14] MEDS: CLOPIDOGREL BISULFATE 75 MG TABLET PO SCH (09:34)
--- NOTE | 2019-06-14 10:08 | PDOC ---
PROGRESS NOTES History of Present Illness History of Present Illness VTE Prophylaxis Ordered VTE Prophylaxis Devices: Yes VTE Pharmacological Prophylaxi: Yes Assessment/Plan Assessment/Plan IMPRESSION 1. angina, status post percutaneous coronary intervention with drug-eluting stent placement to left circumflex. 2. Coronary artery disease, status post left anterior descending stent placement as continues to be patent. The left heart catheterization, ejection fraction, wall motion were all normal. 3. Type 2 diabetes, 4. Hypertension. 5. Hyperlipidemia. 6. Chronic obstructive pulmonary disease/bronchial asthma. ON CXR Fullness in the right perihilar region which could represent vascular crowding. Infiltrate or mass is difficult to completely exclude. Consider follow-up two-view chest radiograph with attention to depth of inspiration. Alternatively CT could be performed in the appropriate clinical setting. 7. Deep venous thrombosis and pulmonary embolism, on Xarelto. 8. Paroxysmal supraventricular tachycardia. 9. History of cerebrovascular accident. Subtle patchy opacity in the deep white matter of the left frontal lobe which appears similar when compared to prior exam in 2015 10. PROB GERD PLAN ADMIT SERIAL TROPONIN I CARDIOLOGY CONSULT O2 SUPPORT HOME MEDS ECHO PENDING outpt event monitor. PULM CONSULT NEBS PULMOCORT 37 MIN PT EXAM, CHART REVIEW, > 50% OF TIME SPENT WITH EXAM, CHART REVIEW, PT CARE COORDINATION Vitals Vitals Vital Signs Date Time Temp Pulse Resp B/P (MAP) Pulse Ox O2 Delivery O2 Flow Rate FiO2 06/14/19 09:35 89 118/76 06/14/19 07:42 95 Nasal Cannula 2.0 06/14/19 07:00 97.5 20 97.5 Physical Exam General: Oriented X3, Cooperative, mild distress, moderate distress Lungs: Other (FEW WHEEZES) Abdomen: Normal bowel sounds, Soft, No tenderness Extremities: No cyanosis Labs LABS Laboratory Tests Test 06/13/19 16:35 06/13/19 16:40 06/13/19 16:44 06/13/19 20:45 White Blood Count 6.0 x10^3/uL (4.0-11.0) Red Blood Count 3.94 x10^6/uL (3.50-5.40) Hemoglobin 12.0 g/dL (12.0-15.5) Hematocrit 35.1 % (36.0-47.0) Mean Corpuscular Volume 89 fL (79-100) Mean Corpuscular Hemoglobin 31 pg (25-35) Mean Corpuscular Hemoglobin Concent 34 g/dL (31-37) Red Cell Distribution Width 13.7 % (11.5-14.5) Platelet Count 195 x10^3/uL (140-400) Neutrophils (%) (Auto) 64 % (31-73) Lymphocytes (%) (Auto) 23 % (24-48) Monocytes (%) (Auto) 8 % (0-9) Eosinophils (%) (Auto) 5 % (0-3) Basophils (%) (Auto) 1 % (0-3) Neutrophils # (Auto) 3.8 x10^3/uL (1.8-7.7) Lymphocytes # (Auto) 1.4 x10^3/uL (1.0-4.8) Monocytes # (Auto) 0.5 x10^3/uL (0.0-1.1) Eosinophils # (Auto) 0.3 x10^3/uL (0.0-0.7) Basophils # (Auto) 0.0 x10^3/uL (0.0-0.2) Prothrombin Time 12.7 SEC (11.7-14.0) Prothromb Time International Ratio 1.0 (0.8-1.1) D-Dimer (Angeline) 0.53 ug/mlFEU (0.00-0.50) Sodium Level 142 mmol/L (136-145) Potassium Level 4.2 mmol/L (3.5-5.1) Chloride Level 107 mmol/L (98-107) Carbon Dioxide Level 28 mmol/L (21-32) Anion Gap 7 (6-14) Blood Urea Nitrogen 10 mg/dL (7-20) Creatinine 0.9 mg/dL (0.6-1.0) Estimated GFR (Cockcroft-Gault) 62.1 BUN/Creatinine Ratio 11 (6-20) Glucose Level 182 mg/dL (70-99) Lactic Acid Level 1.2 mmol/L (0.4-2.0) Calcium Level 9.0 mg/dL (8.5-10.1) Magnesium Level 1.7 mg/dL (1.8-2.4) Total Bilirubin 0.5 mg/dL (0.2-1.0) Aspartate Amino Transf (AST/SGOT) 22 U/L (15-37) Alanine Aminotransferase (ALT/SGPT) 21 U/L (14-59) Alkaline Phosphatase 107 U/L (46-116) Creatine Kinase 29 U/L (26-192) Troponin I Quantitative < 0.017 ng/mL (0.000-0.055) ZM-Hzs-F-Type Natriuretic Peptide 331 pg/mL (0-124) Total Protein 7.1 g/dL (6.4-8.2) Albumin 3.3 g/dL (3.4-5.0) Albumin/Globulin Ratio 0.9 (1.0-1.7) Lipase 75 U/L (73-393) O2 Saturation 96 % (92-99) Arterial Blood pH 7.40 (7.35-7.45) Arterial Blood pCO2 at Patient Temp 37 mmHg (35-46) Arterial Blood pO2 at Patient Temp 91 mmHg (65-108) Arterial Blood HCO3 22 mmol/L (21-28) Arterial Blood Base Excess -2 mmol/L (-3-3) FiO2 28 Bedside Troponin I 0.00 ng/ml (<0.08) Glucose (Fingerstick) 185 mg/dL (70-99) Test 06/13/19 21:10 06/13/19 23:30 06/14/19 08:03 06/14/19 09:10 Troponin I Quantitative < 0.017 ng/mL (0.000-0.055) < 0.017 ng/mL (0.000-0.055) Glucose (Fingerstick) 161 mg/dL (70-99) Sodium Level 142 mmol/L (136-145) Potassium Level 4.1 mmol/L (3.5-5.1) Chloride Level 105 mmol/L (98-107) Carbon Dioxide Level 30 mmol/L (21-32) Anion Gap 7 (6-14) Blood Urea Nitrogen 10 mg/dL (7-20) Creatinine 0.9 mg/dL (0.6-1.0) Estimated GFR (Cockcroft-Gault) 62.1 Glucose Level 192 mg/dL (70-99) Calcium Level 8.4 mg/dL (8.5-10.1) Magnesium Level 1.7 mg/dL (1.8-2.4) Assessment and Plan Assessmemt and Plan Problems Medical Problems: (1) Acute chest pain Status: Acute (2) Anxiety Status: Acute (3) Asthma Status: Chronic (4) CAD (coronary artery disease) Status: Chronic (5) CHF (congestive heart failure) Status: Acute (6) COPD (chronic obstructive pulmonary disease) Status: Chronic (7) DM2 (diabetes mellitus, type 2) Status: Chronic (8) HLD (hyperlipidemia) Status: Chronic (9) HTN (hypertension) Status: Chronic (10) Hypomagnesemia Status: Acute (11) Shortness of breath Status: Acute Comment Review of Relevant I have reviewed the following items alma (where applicable) has been applied. Labs Laboratory Tests Test 06/13/19 16:35 06/13/19 16:40 06/13/19 16:44 06/13/19 20:45 White Blood Count 6.0 x10^3/uL (4.0-11.0) Red Blood Count 3.94 x10^6/uL (3.50-5.40) Hemoglobin 12.0 g/dL (12.0-15.5) Hematocrit 35.1 % (36.0-47.0) Mean Corpuscular Volume 89 fL (79-100) Mean Corpuscular Hemoglobin 31 pg (25-35) Mean Corpuscular Hemoglobin Concent 34 g/dL (31-37) Red Cell Distribution Width 13.7 % (11.5-14.5) Platelet Count 195 x10^3/uL (140-400) Neutrophils (%) (Auto) 64 % (31-73) Lymphocytes (%) (Auto) 23 % (24-48) Monocytes (%) (Auto) 8 % (0-9) Eosinophils (%) (Auto) 5 % (0-3) Basophils (%) (Auto) 1 % (0-3) Neutrophils # (Auto) 3.8 x10^3/uL (1.8-7.7) Lymphocytes # (Auto) 1.4 x10^3/uL (1.0-4.8) Monocytes # (Auto) 0.5 x10^3/uL (0.0-1.1) Eosinophils # (Auto) 0.3 x10^3/uL (0.0-0.7) Basophils # (Auto) 0.0 x10^3/uL (0.0-0.2) Prothrombin Time 12.7 SEC (11.7-14.0) Prothromb Time International Ratio 1.0 (0.8-1.1) D-Dimer (Angeline) 0.53 ug/mlFEU (0.00-0.50) Sodium Level 142 mmol/L (136-145) Potassium Level 4.2 mmol/L (3.5-5.1) Chloride Level 107 mmol/L (98-107) Carbon Dioxide Level 28 mmol/L (21-32) Anion Gap 7 (6-14) Blood Urea Nitrogen 10 mg/dL (7-20) Creatinine 0.9 mg/dL (0.6-1.0) Estimated GFR (Cockcroft-Gault) 62.1 BUN/Creatinine Ratio 11 (6-20) Glucose Level 182 mg/dL (70-99) Lactic Acid Level 1.2 mmol/L (0.4-2.0) Calcium Level 9.0 mg/dL (8.5-10.1) Magnesium Level 1.7 mg/dL (1.8-2.4) Total Bilirubin 0.5 mg/dL (0.2-1.0) Aspartate Amino Transf (AST/SGOT) 22 U/L (15-37) Alanine Aminotransferase (ALT/SGPT) 21 U/L (14-59) Alkaline Phosphatase 107 U/L (46-116) Creatine Kinase 29 U/L (26-192) Troponin I Quantitative < 0.017 ng/mL (0.000-0.055) IR-Hnb-Q-Type Natriuretic Peptide 331 pg/mL (0-124) Total Protein 7.1 g/dL (6.4-8.2) Albumin 3.3 g/dL (3.4-5.0) Albumin/Globulin Ratio 0.9 (1.0-1.7) Lipase 75 U/L (73-393) O2 Saturation 96 % (92-99) Arterial Blood pH 7.40 (7.35-7.45) Arterial Blood pCO2 at Patient Temp 37 mmHg (35-46) Arterial Blood pO2 at Patient Temp 91 mmHg (65-108) Arterial Blood HCO3 22 mmol/L (21-28) Arterial Blood Base Excess -2 mmol/L (-3-3) FiO2 28 Bedside Troponin I 0.00 ng/ml (<0.08) Glucose (Fingerstick) 185 mg/dL (70-99) Test 06/13/19 21:10 06/13/19 23:30 06/14/19 08:03 06/14/19 09:10 Troponin I Quantitative < 0.017 ng/mL (0.000-0.055) < 0.017 ng/mL (0.000-0.055) Glucose (Fingerstick) 161 mg/dL (70-99) Sodium Level 142 mmol/L (136-145) Potassium Level 4.1 mmol/L (3.5-5.1) Chloride Level 105 mmol/L (98-107) Carbon Dioxide Level 30 mmol/L (21-32) Anion Gap 7 (6-14) Blood Urea Nitrogen 10 mg/dL (7-20) Creatinine 0.9 mg/dL (0.6-1.0) Estimated GFR (Cockcroft-Gault) 62.1 Glucose Level 192 mg/dL (70-99) Calcium Level 8.4 mg/dL (8.5-10.1) Magnesium Level 1.7 mg/dL (1.8-2.4) Laboratory Tests Test 06/13/19 16:35 06/13/19 16:40 06/13/19 16:44 06/13/19 20:45 White Blood Count 6.0 x10^3/uL (4.0-11.0) Red Blood Count 3.94 x10^6/uL (3.50-5.40) Hemoglobin 12.0 g/dL (12.0-15.5) Hematocrit 35.1 % (36.0-47.0) Mean Corpuscular Volume 89 fL (79-100) Mean Corpuscular Hemoglobin 31 pg (25-35) Mean Corpuscular Hemoglobin Concent 34 g/dL (31-37) Red Cell Distribution Width 13.7 % (11.5-14.5) Platelet Count 195 x10^3/uL (140-400) Neutrophils (%) (Auto) 64 % (31-73) Lymphocytes (%) (Auto) 23 % (24-48) Monocytes (%) (Auto) 8 % (0-9) Eosinophils (%) (Auto) 5 % (0-3) Basophils (%) (Auto) 1 % (0-3) Neutrophils # (Auto) 3.8 x10^3/uL (1.8-7.7) Lymphocytes # (Auto) 1.4 x10^3/uL (1.0-4.8) Monocytes # (Auto) 0.5 x10^3/uL (0.0-1.1) Eosinophils # (Auto) 0.3 x10^3/uL (0.0-0.7) Basophils # (Auto) 0.0 x10^3/uL (0.0-0.2) Prothrombin Time 12.7 SEC (11.7-14.0) Prothromb Time International Ratio 1.0 (0.8-1.1) D-Dimer (Angeline) 0.53 ug/mlFEU (0.00-0.50) Sodium Level 142 mmol/L (136-145) Potassium Level 4.2 mmol/L (3.5-5.1) Chloride Level 107 mmol/L (98-107) Carbon Dioxide Level 28 mmol/L (21-32) Anion Gap 7 (6-14) Blood Urea Nitrogen 10 mg/dL (7-20) Creatinine 0.9 mg/dL (0.6-1.0) Estimated GFR (Cockcroft-Gault) 62.1 BUN/Creatinine Ratio 11 (6-20) Glucose Level 182 mg/dL (70-99) Lactic Acid Level 1.2 mmol/L (0.4-2.0) Calcium Level 9.0 mg/dL (8.5-10.1) Magnesium Level 1.7 mg/dL (1.8-2.4) Total Bilirubin 0.5 mg/dL (0.2-1.0) Aspartate Amino Transf (AST/SGOT) 22 U/L (15-37) Alanine Aminotransferase (ALT/SGPT) 21 U/L (14-59) Alkaline Phosphatase 107 U/L (46-116) Creatine Kinase 29 U/L (26-192) Troponin I Quantitative < 0.017 ng/mL (0.000-0.055) FT-Zlm-X-Type Natriuretic Peptide 331 pg/mL (0-124) Total Protein 7.1 g/dL (6.4-8.2) Albumin 3.3 g/dL (3.4-5.0) Albumin/Globulin Ratio 0.9 (1.0-1.7) Lipase 75 U/L (73-393) O2 Saturation 96 % (92-99) Arterial Blood pH 7.40 (7.35-7.45) Arterial Blood pCO2 at Patient Temp 37 mmHg (35-46) Arterial Blood pO2 at Patient Temp 91 mmHg (65-108) Arterial Blood HCO3 22 mmol/L (21-28) Arterial Blood Base Excess -2 mmol/L (-3-3) FiO2 28 Bedside Troponin I 0.00 ng/ml (<0.08) Glucose (Fingerstick) 185 mg/dL (70-99) Test 06/13/19 21:10 06/13/19 23:30 06/14/19 08:03 06/14/19 09:10 Troponin I Quantitative < 0.017 ng/mL (0.000-0.055) < 0.017 ng/mL (0.000-0.055) Glucose (Fingerstick) 161 mg/dL (70-99) Sodium Level 142 mmol/L (136-145) Potassium Level 4.1 mmol/L (3.5-5.1) Chloride Level 105 mmol/L (98-107) Carbon Dioxide Level 30 mmol/L (21-32) Anion Gap 7 (6-14) Blood Urea Nitrogen 10 mg/dL (7-20) Creatinine 0.9 mg/dL (0.6-1.0) Estimated GFR (Cockcroft-Gault) 62.1 Glucose Level 192 mg/dL (70-99) Calcium Level 8.4 mg/dL (8.5-10.1) Magnesium Level 1.7 mg/dL (1.8-2.4) Medications Current Medications Albuterol/ Ipratropium (Duoneb) 3 ml 1X ONCE NEB Last administered on 06/13/19at 16:29; Start 06/13/19 at 16:30; Stop 06/13/19 at 16:31; Status DC Lorazepam (Ativan Inj) 1 mg 1X ONCE IV Last administered on 06/13/19at 17:01; Start 06/13/19 at 16:45; Stop 06/13/19 at 16:46; Status DC Ondansetron HCl (Zofran) 4 mg 1X ONCE IV Last administered on 06/13/19at 17:21; Start 06/13/19 at 17:15; Stop 06/13/19 at 17:16; Status DC Alprazolam (Xanax) 1 mg TID PO Last administered on 06/14/19 09:35; Start 06/13/19 at 21:00 Aspirin (Children'S Aspirin) 81 mg DAILY PO Last administered on 06/14/19 09:35; Start 06/14/19 at 09:00 Clopidogrel Bisulfate (Plavix) 75 mg DAILY PO Last administered on 06/14/19 09:35; Start 06/14/19 at 09:00 Gabapentin (Neurontin) 100 mg BID PO Last administered on 06/14/19 09:35; Start 06/13/19 at 21:00 Acetaminophen/ Hydrocodone Bitart (Lortab 10/325) 1 tab PRN Q6HRS PRN PO PAIN MODERATE TO SEVERE Last administered on 06/14/19 03:40; Start 06/13/19 at 19:00 Isosorbide Mononitrate (Imdur) 30 mg DAILY PO Last administered on 06/14/19 09:35; Start 06/14/19 at 09:00 Metoprolol Tartrate (Lopressor) 12.5 mg BID PO Last administered on 06/14/19 09:35; Start 06/13/19 at 21:00 Montelukast Sodium (Singulair) 10 mg HS PO Last administered on 06/13/19 21:48; Start 06/13/19 at 21:00 Pramipexole Dihydrochloride (miraPEX) 0.25 mg QHS PO Last administered on 06/13/19 21:48; Start 06/13/19 at 21:00 Insulin Glargine (Lantus Syringe) 12 unit QHS SQ Last administered on 06/13/19 21:56; Start 06/13/19 at 21:00 Rivaroxaban (Xarelto) 20 mg QEVNG PO Last administered on 06/13/19 21:48; Start 06/13/19 at 18:00 Atorvastatin Calcium (Lipitor) 80 mg QHS PO Last administered on 06/13/19 21:48; Start 06/13/19 at 21:00 Sodium Chloride (Normal Saline Flush) 3 ml QSHIFT PRN IV AFTER MEDS AND BLOOD DRAWS; Start 06/13/19 at 19:00 Ondansetron HCl (Zofran) 4 mg PRN Q4HRS PRN IV NAUSEA/VOMITING; Start 06/13/19 at 19:00 Acetaminophen (Tylenol) 650 mg PRN Q4HRS PRN PO TEMP OVER 100.4F OR MILD PAIN; Start 06/13/19 at 19:00 Al Hydroxide/Mg Hydroxide (Mylanta Plus Xs) 30 ml PRN DAILY PRN PO HEARTBURN / GAS; Start 06/13/19 at 19:00 Clonidine HCl (Catapres) 0.1 mg PRN Q6HRS PRN PO SBP>160 OR DBP>90; Start 06/13/19 at 19:00 Docusate Sodium (Colace) 100 mg PRN BID PRN PO CONSTIPATION; Start 06/13/19 at 19:00 Albuterol/ Ipratropium (Duoneb) 3 ml Q4H NEB Last administered on 06/14/19at 07:42; Start 06/13/19 at 20:00 Guaifenesin (Robitussin) 200 mg PRN Q4HRS PRN PO COUGH; Start 06/13/19 at 19:00 Lorazepam (Ativan) 0.5 mg PRN Q4HRS PRN PO ANXIETY / AGITATION Last administered on 06/13/19at 22:39; Start 06/13/19 at 19:00 Enoxaparin Sodium (Lovenox 40mg Syringe) 40 mg DAILY SQ ; Start 06/14/19 at 09:00; Stop 06/14/19 at 07:51; Status DC Info (Anti-Coagulation Monitoring By Pharmacy) 1 each PRN DAILY PRN [facility] SEE COMMENTS; Start 06/14/19 at 08:00 Active Scripts Active Reported Xarelto (Rivaroxaban) 20 Mg Tablet 20 Mg PO DAILY Metoprolol Tartrate 25 Mg Tablet 0.5 Tab PO BID Aspirin 81 Mg Tab.chew 1 Tab PO DAILY Clopidogrel (Clopidogrel Bisulfate) 75 Mg Tablet 1 Tab PO DAILY Lantus Solostar (Insulin Glargine,Hum.rec.anlog) 100 Unit/1 Ml Insuln.pen 12 Unit SQ QHS Crestor (Rosuvastatin Calcium) 20 Mg Tablet 20 Mg PO HS Mirapex (Pramipexole Di-Hcl) 0.25 Mg Tablet 1 Tab PO QHS Montelukast Sodium Tablet (Montelukast Sodium) 10 Mg Tablet 10 Mg PO HS Isosorbide Mononitrate Er (Isosorbide Mononitrate) 30 Mg Tab.er.24h 30 Mg PO DAILY Hydrocodone-Apap 10-325 (Hydrocodone Bit/Acetaminophen) 1 Tab Tablet 1 Tab PO PRN Q6HRS PRN Gabapentin (Gabapentin) 100 Mg Capsule 100 Mg PO BID Xanax (Alprazolam) 1 Mg Tablet 1 Tab PO TID Vitals/I & O Vital Sign - Last 24 Hours 06/13/19 06/13/19 06/13/19 06/13/19 16:18 16:29 16:44 16:45 Temp 98.1 98.1 Pulse 68 70 Resp 25 25 B/P (MAP) 159/115 (130) 164/85 (111) Pulse Ox 95 95 95 96 O2 Delivery Nasal Cannula Nasal Cannula Nasal Cannula Nasal Cannula O2 Flow Rate 3.0 2.0 2.0 2.0 06/13/19 06/13/19 06/13/19 06/13/19 17:15 17:45 18:15 18:45 Pulse 76 78 66 66 Resp 21 21 19 20 B/P (MAP) 119/63 (81) 114/59 (77) 108/72 (84) 139/71 (93) Pulse Ox 97 97 97 97 O2 Delivery Nasal Cannula Nasal Cannula Nasal Cannula Nasal Cannula O2 Flow Rate 2.0 2.0 2.0 2.0 06/13/19 06/13/19 06/13/19 06/13/19 19:15 20:00 20:28 20:51 Temp 97.9 97.9 Pulse 68 113 Resp 17 18 B/P (MAP) 144/69 (94) 133/70 (91) Pulse Ox 97 98 98 O2 Delivery Nasal Cannula Nasal Cannula Nasal Cannula O2 Flow Rate 2.0 2.0 2.0 2.0 06/13/19 06/13/19 06/13/19 06/14/19 21:56 21:56 22:02 00:03 Temp 97.3 97.3 Pulse 113 96 Resp 18 B/P (MAP) 133/70 136/65 (88) Pulse Ox 98 98 95 O2 Delivery Nasal Cannula Nasal Cannula O2 Flow Rate 2.0 2.0 2.0 06/14/19 06/14/19 06/14/19 06/14/19 02:06 03:04 03:40 03:54 Temp 97.8 97.8 Pulse 65 Resp 20 B/P (MAP) 102/59 (73) Pulse Ox 95 98 98 97 O2 Delivery Nasal Cannula Nasal Cannula Nasal Cannula O2 Flow Rate 2.0 2.0 2.0 2.0 06/14/19 06/14/19 06/14/19 06/14/19 05:00 07:00 07:42 09:35 Temp 97.5 97.5 Pulse 89 89 Resp 20 B/P (MAP) 118/76 (90) 118/76 Pulse Ox 97 92 95 O2 Delivery Nasal Cannula Nasal Cannula O2 Flow Rate 2.0 2.0 2.0 06/14/19 09:35 Pulse 89 B/P (MAP) 118/76 Intake and Output 06/13/19 06/14/19 06/14/19 16:59 00:59 08:59 Intake Total 120 ml 240 ml Output Total 400 ml 500 ml Balance -280 ml -260 ml ROD GUSMAN MD Jun 14, 2019 10:08
[2019-06-14 11:00] VITALS: BP 102/55
[2019-06-14] MEDS ORDERED: MAGNESIUM SULFATE 2GM 50 ML IV ONE (11:00)
[2019-06-14] MEDS ORDERED: FUROSEMIDE 40 MG/4 ML VIAL. IVP ONE (11:15)
--- NOTE | 2019-06-14 11:16 | CONS ---
DATE OF CONSULTATION: PULMONARY CONSULTATION ATTENDING PHYSICIAN: Rufino Lui MD REASON FOR CONSULTATION: Bronchospasm. HISTORY OF PRESENT ILLNESS: The patient is a 69-year-old who has history of coronary artery disease and had recent stent placement on 06/02. She also had recent hospitalization at [facility] on 06/09 with diagnosis of syncope. She was hospitalized again with chest pain and shortness of breath. The patient denies any significant cough, fever or chills. She has some mild shortness of breath and she has been having wheezing. The patient had a left heart catheterization on 06/03/2019 and she had successful PCI of the left circumflex artery. Her left ventricular end-diastolic pressure was 15. Her echocardiogram revealed an ejection fraction of 55%. No significant valvular heart disease. The patient underwent CT angiogram on 06/10 and which was reviewed by me. There was no evidence of pulmonary embolism. The patient had some reticular opacities in both lungs and likely appears to be parenchymal scarring. The patient reports having history of pulmonary embolism on the left lung and DVT in the right leg when she was hospitalized at [facility] in September of this year. She has been on Xarelto. She also was diagnosed with asthma about a year ago. She states she has been on Symbicort at home. She has been noted to be wheezing. PAST MEDICAL HISTORY: History of coronary artery disease, recent stent to RCA. History of diabetes type 2, dyslipidemia, hypertension, atrial fibrillation. History of pneumonia, asthma and history of pulmonary embolism and DVT, September of this year. History of cancer, anxiety, depression, osteoarthritis. PAST SURGICAL HISTORY: Cholecystectomy, hysterectomy and cardiac catheterization with stent. FAMILY HISTORY: Dyslipidemia and hypertension. SOCIAL HISTORY: Does not smoke cigarettes. ALLERGIES: FENTANYL, OXYCODONE, PREDNISONE. CURRENT MEDICATIONS: Reviewed as listed in the MRAD, including metoprolol. She is on DuoNeb. REVIEW OF SYSTEMS: Twelve-point system obtained. Pertinent positives discussed in my history of present illness, otherwise noncontributory. All systems that were negative were reviewed as well. PHYSICAL EXAMINATION: VITAL SIGNS: Reviewed. Blood pressure stable, pulse ox 95% on 2 liters. NECK: Supple. LUNGS: With faint expiratory wheezes. CARDIOVASCULAR: With a regular rate. ABDOMEN: Soft, nontender. EXTREMITIES: With no pitting edema. LABORATORY DATA: Reviewed. White cell count 6.0, hemoglobin 12.0 and platelets are 195. BUN and creatinine normal. ABGs with pH of 7.40, pCO2 of 37, a pO2 of 91. IMPRESSION: 1. Bronchospasm in a patient who has a history of asthma diagnosed about a year ago. However, the chest x-ray done yesterday also shows prominent interstitial markings and I cannot exclude the possibility of mild interstitial edema contributing to bronchospasm. She is also on metoprolol low dose, which can also contribute to bronchospasm as well. 2. The patient with history of pulmonary embolism in the left lung and deep venous thrombosis in the right lower leg in September when she was hospitalized at [facility]. She has been on Xarelto. Her recent CT angiogram on 06/10/2019 shows no convincing evidence of pulmonary embolism. There are some reticular opacities in both lungs, which appears to be parenchymal scarring, especially in the upper lobes. However, that should be a followup CT chest that will be suggested in 3-4 months. 3. No significant history of tobacco use. 4. The patient with known coronary artery disease, status post recent left heart catheterization on 06/03/2019 with successful PCI of the left circumflex artery. She had normal left ventricular ejection fraction. RECOMMENDATIONS: 1. Continue present oxygen. 2. We will optimize bronchodilator treatment. We will add Pulmicort and continue DuoNeb. PATIENT IS ALLERGIC TO PREDNISONE.( told by neurologist not to take it while on seizure meds) 3. If bronchospasm does not improve, then consider holding metoprolol. 4. We will also repeat a chest x-ray and consider diuresis, and see response to her wheezing. 5. Continue present Xarelto. The recent CTA has not shown any evidence of any pulmonary embolism and from a pulmonary standpoint, in future, Xarelto can be stopped unless she needs it for atrial fibrillation. 6. Discussed with RN and will follow along with you. HENRIQUE ORNELAS MD DR: GABBY/oliverio JOB#: [id number] / [id number] STEVAN
[2019-06-14 15:00] VITALS: BP 108/64
[2019-06-14] MEDS: RIVAROXABAN 10 MG TABLET. PO SCH (18:39)
[2019-06-14 19:45] VITALS: BP 113/67
[2019-06-14] MEDS: BUDESONIDE 0.5 MG/2 ML NEBU. NEB SCH (20:13)
[2019-06-14] MEDS: PRAMIPEXOLE 0.25 MG TABLET. PO SCH (21:53)
[2019-06-14] MEDS: MONTELUKAST SODIUM 10 MG TABLET. PO SCH (21:53)
[2019-06-14] MEDS: ATORVASTATIN CALCIUM 40 MG TABLET. PO SCH (21:53)
[2019-06-14] MEDS: INSULIN GLARGINE SYRINGE. SQ SCH (21:56)
[2019-06-14] MEDS: ALPRAZolam 1 MG TABLET PO PRN (23:24)
[2019-06-14 23:48] VITALS: BP 142/71
[2019-06-15 03:45] VITALS: BP 111/57
[2019-06-15] MEDS: IPRATRPIUM/ALBUTEROL 0.5/2.5MG 3 ML NEBU. NEB SCH ×5 (04:00→18:39)
[2019-06-15] MEDS: HYDROcodone/APAP 10/325 1 TAB TABLET PO PRN (06:56)
[2019-06-15 07:00] VITALS: BP 99/57
[2019-06-15] MEDS: BUDESONIDE 0.5 MG/2 ML NEBU. NEB SCH ×2 (07:36→18:39)
[2019-06-15] MEDS: GABAPENTIN 100 MG CAPSULE. PO SCH ×2 (09:04→21:19)
[2019-06-15] MEDS: ISOSORBIDE MONONITRATE ER 30 MG TAB.ER.24H PO SCH (09:04)
[2019-06-15] MEDS: ASPIRIN CHEWABLE 81 MG TABLET. PO SCH (09:04)
[2019-06-15] MEDS: METOPROLOL TART IMMED RELEASE 25 MG TABLET. PO SCH ×2 (09:04→21:19)
[2019-06-15] MEDS: CLOPIDOGREL BISULFATE 75 MG TABLET PO SCH (09:04)
--- NOTE | 2019-06-15 10:06 | PDOC ---
PROGRESS NOTES History of Present Illness History of Present Illness VTE Prophylaxis Ordered VTE Prophylaxis Devices: Yes VTE Pharmacological Prophylaxi: Yes Assessment/Plan Assessment/Plan IMPRESSION 1. angina, status post percutaneous coronary intervention with drug-eluting stent placement to left circumflex. 2. Coronary artery disease, status post left anterior descending stent placement as continues to be patent. The left heart catheterization, ejection fraction, wall motion were all normal. 3. Type 2 diabetes, 4. Hypertension. 5. Hyperlipidemia. 6. Chronic obstructive pulmonary disease/bronchial asthma. ON CXR Fullness in the right perihilar region which could represent vascular crowding. Infiltrate or mass is difficult to completely exclude. Consider follow-up two-view chest radiograph with attention to depth of inspiration. Alternatively CT could be performed in the appropriate clinical setting. 7. Deep venous thrombosis and pulmonary embolism, on Xarelto. 8. Paroxysmal supraventricular tachycardia. 9. History of cerebrovascular accident. Subtle patchy opacity in the deep white matter of the left frontal lobe which appears similar when compared to prior exam in 2015 10. PROB GERD 11 ON ECHO Ejection Fraction WAS 55-60%. mild concentric left ventricular hypertrophy. no significant aortic valvular stenosis. no significant aortic regurgitation. trace mitral regurgitation. trace to mild tricuspid regurgitation with an estimated PAP of 44 mmHg. C/W MOD PULMONARY HYPERTENSION PLAN ADMIT SERIAL TROPONIN I CARDIOLOGY CONSULT O2 SUPPORT HOME MEDS ECHO REVIEWED outpt event monitor. PULM CONSULT NEBS QID PULMACORT 27 MIN PT EXAM, CHART REVIEW, > 50% OF TIME SPENT WITH EXAM, CHART REVIEW, PT CARE COORDINATION Vitals Vitals Vital Signs Date Time Temp Pulse Resp B/P (MAP) Pulse Ox O2 Delivery O2 Flow Rate FiO2 06/15/19 09:05 90 99/57 06/15/19 09:02 97 Nasal Cannula 2.0 06/15/19 07:00 97.8 18 97.8 Physical Exam General: Alert, Oriented X3, Cooperative, No acute distress Heart: Regular rate (SR), Normal S1, Normal S2, No murmurs Lungs: Wheezing, Other (FEW WHEEZES) Abdomen: Soft, No tenderness Extremities: No cyanosis, No edema Skin: No breakdown, No significant lesion Labs LABS APPROVED REPORT EXAM: Two-dimensional and M-mode echocardiogram with Doppler and color Doppler. Other Information Quality : Average HR: 78bpm INDICATION Cardiac Disease: CAD RISK FACTORS Diabetes 2D DIMENSIONS RVDd 3.3 (2.9-3.5cm) Left Atrium(2D) 3.2 (1.6-4.0cm) IVSd 1.4 (0.7-1.1cm) Aortic Root(2D) 3.5 (2.0-3.7cm) LVDd 4.7 (3.9-5.9cm) LVOT Diameter 2.2 (1.8-2.4cm) PWd 1.0 (0.7-1.1cm) LVDs 2.8 (2.5-4.0cm) FS (%) 40.4 % SV 74.0 ml Aortic Valve AoV Peak Best. 133.7cm/s AoV VTI 24.2cm AO Peak GR. 7.2mmHg LVOT Peak Best. 105.6cm/s LVOT VTI 23.48cm AO Mean GR. 3mmHg SOFY (VMAX) 2.09cm2 SOFY (VTI) 3.53cm2 Mitral Valve MV E Velocity 61.1cm/s MV DECEL TIME 286ms MV A Velocity 76.3cm/s MV PHT 83ms E/A Ratio 0.8 MVA (PHT) 2.65cm2 TDI E/Lateral E' 5.7 E/Medial E' 7.2 Pulmonary Valve PV Peak Velocity 96.6cm/s PV Peak Grad. 4mmHg Tricuspid Valve TR P. Velocity 271cm/s RAP ESTIMATE 3mmHg TR Peak Gr. 41mmHg RVSP 44mmHg Pulmonary Vein S1 Velocity 66.8cm/s D2 Velocity 73.7cm/s PVa duration 138msec LEFT VENTRICLE The left ventricle is normal size. There is mild concentric left ventricular hypertrophy. The left ventricular systolic function is normal and the ejection fraction is within normal range. The Ejection Fraction is 55-60%. There is normal LV segmental wall motion. The left ventricular diastolic function and filling is normal for age. RIGHT VENTRICLE The right ventricle is normal size. There is normal right ventricular wall thickness. The right ventricular systolic function is normal. ATRIA The left atrium size is normal. The right atrium size is normal. The interatrial septum is intact with no evidence for an atrial septal defect or patent foramen ovale as noted on 2-D or Doppler imaging. AORTIC VALVE The aortic valve is normal in structure and function. Doppler and Color Flow revealed no significant aortic regurgitation. There is no significant aortic valvular stenosis. MITRAL VALVE The mitral valve is normal in structure and function. There is no evidence of mitral valve prolapse. There is no mitral valve stenosis. Doppler and Color-flow revealed trace mitral regurgitation. TRICUSPID VALVE The tricuspid valve is normal in structure and function. Doppler and Color Flow revealed trace to mild tricuspid regurgitation with an estimated PAP of 44 mmHg. There is no tricuspid valve stenosis. PULMONIC VALVE The pulmonic valve is not well visualized. Doppler and Color Flow revealed trace to mild pulmonic valvular regurgitation. GREAT VESSELS The aortic root is normal in size. The IVC is normal in size and collapses >50% with inspiration. PERICARDIAL EFFUSION There is no evidence of significant pericardial effusion. Critical Notification Critical Value: No <Conclusion> The left ventricle is normal size. The left ventricular systolic function is normal and the ejection fraction is within normal range. The Ejection Fraction is 55-60%. There is mild concentric left ventricular hypertrophy. There is no significant aortic valvular stenosis. Doppler and Color Flow revealed no significant aortic regurgitation. Doppler and Color-flow revealed trace mitral regurgitation. Doppler and Color Flow revealed trace to mild tricuspid regurgitation with an estimated PAP of 44 mmHg. Signed by : Bipin Gomez MD Electronically Approved : 06/04/2019 12:39:41 STATUS: ADM IN TLOC: -------- ---- SPEC #: [id number] ELENITA: 06/13/19 STATUS: RES REQ #: [id number] RECD: 06/13/19 [facility]: LAXMI NUÑEZ MD SOURCE: BLOOD ENTR: 06/13/[address] [facility] [address]: TRACEE DIAZ MD [facility]: ORDERED: BCULT Procedure Result BLOOD CULTURE Preliminary NO GROWTH AFTER 1 DAY Laboratory Tests Test 06/14/19 12:00 06/14/19 17:27 06/14/19 21:17 06/15/19 08:04 Glucose (Fingerstick) 214 mg/dL (70-99) 208 mg/dL (70-99) 187 mg/dL (70-99) 151 mg/dL (70-99) Assessment and Plan Assessmemt and Plan Problems Medical Problems: (1) Acute chest pain Status: Acute (2) Anxiety Status: Acute (3) Asthma Status: Chronic (4) CAD (coronary artery disease) Status: Chronic (5) CHF (congestive heart failure) Status: Acute (6) COPD (chronic obstructive pulmonary disease) Status: Chronic (7) DM2 (diabetes mellitus, type 2) Status: Chronic (8) HLD (hyperlipidemia) Status: Chronic (9) HTN (hypertension) Status: Chronic (10) Hypomagnesemia Status: Acute (11) Shortness of breath Status: Acute Comment Review of Relevant I have reviewed the following items alma (where applicable) has been applied. Labs Laboratory Tests Test 06/13/19 16:35 06/13/19 16:40 06/13/19 16:44 06/13/19 20:45 White Blood Count 6.0 x10^3/uL (4.0-11.0) Red Blood Count 3.94 x10^6/uL (3.50-5.40) Hemoglobin 12.0 g/dL (12.0-15.5) Hematocrit 35.1 % (36.0-47.0) Mean Corpuscular Volume 89 fL (79-100) Mean Corpuscular Hemoglobin 31 pg (25-35) Mean Corpuscular Hemoglobin Concent 34 g/dL (31-37) Red Cell Distribution Width 13.7 % (11.5-14.5) Platelet Count 195 x10^3/uL (140-400) Neutrophils (%) (Auto) 64 % (31-73) Lymphocytes (%) (Auto) 23 % (24-48) Monocytes (%) (Auto) 8 % (0-9) Eosinophils (%) (Auto) 5 % (0-3) Basophils (%) (Auto) 1 % (0-3) Neutrophils # (Auto) 3.8 x10^3/uL (1.8-7.7) Lymphocytes # (Auto) 1.4 x10^3/uL (1.0-4.8) Monocytes # (Auto) 0.5 x10^3/uL (0.0-1.1) Eosinophils # (Auto) 0.3 x10^3/uL (0.0-0.7) Basophils # (Auto) 0.0 x10^3/uL (0.0-0.2) Prothrombin Time 12.7 SEC (11.7-14.0) Prothromb Time International Ratio 1.0 (0.8-1.1) D-Dimer (Angeline) 0.53 ug/mlFEU (0.00-0.50) Sodium Level 142 mmol/L (136-145) Potassium Level 4.2 mmol/L (3.5-5.1) Chloride Level 107 mmol/L (98-107) Carbon Dioxide Level 28 mmol/L (21-32) Anion Gap 7 (6-14) Blood Urea Nitrogen 10 mg/dL (7-20) Creatinine 0.9 mg/dL (0.6-1.0) Estimated GFR (Cockcroft-Gault) 62.1 BUN/Creatinine Ratio 11 (6-20) Glucose Level 182 mg/dL (70-99) Lactic Acid Level 1.2 mmol/L (0.4-2.0) Calcium Level 9.0 mg/dL (8.5-10.1) Magnesium Level 1.7 mg/dL (1.8-2.4) Total Bilirubin 0.5 mg/dL (0.2-1.0) Aspartate Amino Transf (AST/SGOT) 22 U/L (15-37) Alanine Aminotransferase (ALT/SGPT) 21 U/L (14-59) Alkaline Phosphatase 107 U/L (46-116) Creatine Kinase 29 U/L (26-192) Troponin I Quantitative < 0.017 ng/mL (0.000-0.055) TQ-Vzc-S-Type Natriuretic Peptide 331 pg/mL (0-124) Total Protein 7.1 g/dL (6.4-8.2) Albumin 3.3 g/dL (3.4-5.0) Albumin/Globulin Ratio 0.9 (1.0-1.7) Lipase 75 U/L (73-393) O2 Saturation 96 % (92-99) Arterial Blood pH 7.40 (7.35-7.45) Arterial Blood pCO2 at Patient Temp 37 mmHg (35-46) Arterial Blood pO2 at Patient Temp 91 mmHg (65-108) Arterial Blood HCO3 22 mmol/L (21-28) Arterial Blood Base Excess -2 mmol/L (-3-3) FiO2 28 Bedside Troponin I 0.00 ng/ml (<0.08) Glucose (Fingerstick) 185 mg/dL (70-99) Test 06/13/19 21:10 06/13/19 23:30 06/14/19 08:03 06/14/19 09:10 Troponin I Quantitative < 0.017 ng/mL (0.000-0.055) < 0.017 ng/mL (0.000-0.055) Glucose (Fingerstick) 161 mg/dL (70-99) Sodium Level 142 mmol/L (136-145) Potassium Level 4.1 mmol/L (3.5-5.1) Chloride Level 105 mmol/L (98-107) Carbon Dioxide Level 30 mmol/L (21-32) Anion Gap 7 (6-14) Blood Urea Nitrogen 10 mg/dL (7-20) Creatinine 0.9 mg/dL (0.6-1.0) Estimated GFR (Cockcroft-Gault) 62.1 Glucose Level 192 mg/dL (70-99) Calcium Level 8.4 mg/dL (8.5-10.1) Magnesium Level 1.7 mg/dL (1.8-2.4) Test 06/14/19 12:00 06/14/19 17:27 06/14/19 21:17 06/15/19 08:04 Glucose (Fingerstick) 214 mg/dL (70-99) 208 mg/dL (70-99) 187 mg/dL (70-99) 151 mg/dL (70-99) Laboratory Tests Test 06/14/19 12:00 06/14/19 17:27 06/14/19 21:17 06/15/19 08:04 Glucose (Fingerstick) 214 mg/dL (70-99) 208 mg/dL (70-99) 187 mg/dL (70-99) 151 mg/dL (70-99) Microbiology 06/13/19 Blood Culture - Preliminary, Resulted NO GROWTH AFTER 1 DAY Medications Current Medications Albuterol/ Ipratropium (Duoneb) 3 ml 1X ONCE NEB Last administered on 06/13/19at 16:29; Start 06/13/19 at 16:30; Stop 06/13/19 at 16:31; Status DC Lorazepam (Ativan Inj) 1 mg 1X ONCE IV Last administered on 06/13/19at 17:01; Start 06/13/19 at 16:45; Stop 06/13/19 at 16:46; Status DC Ondansetron HCl (Zofran) 4 mg 1X ONCE IV Last administered on 06/13/19at 17:21; Start 06/13/19 at 17:15; Stop 06/13/19 at 17:16; Status DC Alprazolam (Xanax) 1 mg TID PO Last administered on 06/14/19at 13:35; Start 06/13/19 at 21:00; Stop 06/14/19 at 19:15; Status DC Aspirin (Children'S Aspirin) 81 mg DAILY PO Last administered on 06/15/19at 09:05; Start 06/14/19 at 09:00 Clopidogrel Bisulfate (Plavix) 75 mg DAILY PO Last administered on 06/15/19 09:05; Start 06/14/19 at 09:00 Gabapentin (Neurontin) 100 mg BID PO Last administered on 06/15/19 09:05; Start 06/13/19 at 21:00 Acetaminophen/ Hydrocodone Bitart (Lortab 10/325) 1 tab PRN Q6HRS PRN PO PAIN MODERATE TO SEVERE Last administered on 06/15/19 06:56; Start 06/13/19 at 19:00 Isosorbide Mononitrate (Imdur) 30 mg DAILY PO Last administered on 06/15/19 09:05; Start 06/14/19 at 09:00 Metoprolol Tartrate (Lopressor) 12.5 mg BID PO Last administered on 06/15/19 09:05; Start 06/13/19 at 21:00 Montelukast Sodium (Singulair) 10 mg HS PO Last administered on 06/14/19 21:56; Start 06/13/19 at 21:00 Pramipexole Dihydrochloride (miraPEX) 0.25 mg QHS PO Last administered on 06/14/19 21:56; Start 06/13/19 at 21:00 Insulin Glargine (Lantus Syringe) 12 unit QHS SQ Last administered on 06/14/19 21:56; Start 06/13/19 at 21:00 Rivaroxaban (Xarelto) 20 mg QEVNG PO Last administered on 06/14/19 18:39; Start 06/13/19 at 18:00 Atorvastatin Calcium (Lipitor) 80 mg QHS PO Last administered on 06/14/19 21:56; Start 06/13/19 at 21:00 Sodium Chloride (Normal Saline Flush) 3 ml QSHIFT PRN IV AFTER MEDS AND BLOOD DRAWS; Start 06/13/19 at 19:00 Ondansetron HCl (Zofran) 4 mg PRN Q4HRS PRN IV NAUSEA/VOMITING; Start 06/13/19 at 19:00 Acetaminophen (Tylenol) 650 mg PRN Q4HRS PRN PO TEMP OVER 100.4F OR MILD PAIN; Start 06/13/19 at 19:00 Al Hydroxide/Mg Hydroxide (Mylanta Plus Xs) 30 ml PRN DAILY PRN PO HEARTBURN / GAS; Start 06/13/19 at 19:00 Clonidine HCl (Catapres) 0.1 mg PRN Q6HRS PRN PO SBP>160 OR DBP>90; Start 06/13/19 at 19:00 Docusate Sodium (Colace) 100 mg PRN BID PRN PO CONSTIPATION; Start 06/13/19 at 19:00 Albuterol/ Ipratropium (Duoneb) 3 ml Q4H NEB Last administered on 06/15/19at 07: 36; Start 06/13/19 at 20:00 Guaifenesin (Robitussin) 200 mg PRN Q4HRS PRN PO COUGH; Start 06/13/19 at 19:00 Lorazepam (Ativan) 0.5 mg PRN Q4HRS PRN PO ANXIETY / AGITATION Last administered on 06/13/19at 22:39; Start 06/13/19 at 19:00 Enoxaparin Sodium (Lovenox 40mg Syringe) 40 mg DAILY SQ ; Start 06/14/19 at 09:00; Stop 06/14/19 at 07:51; Status DC Info (Anti-Coagulation Monitoring By Pharmacy) 1 each PRN DAILY PRN MC SEE COMMENTS Last administered on 06/14/19at 13:26; Start 06/14/19 at 08:00 Magnesium Sulfate 50 ml @ 25 mls/hr 1X ONCE IV Last administered on 06/14/19at 12:25; Start 06/14/19 at 11:00; Stop 06/14/19 at 12:59; Status DC Furosemide (Lasix) 40 mg 1X ONCE IVP Last administered on 06/14/19at 12:25; Start 06/14/19 at 11:15; Stop 06/14/19 at 11:16; Status DC Budesonide (Pulmicort) 0.5 mg RTBID NEB Last administered on 06/15/19at 07:36; Start 06/14/19 at 20:00 Alprazolam (Xanax) 1 mg PRN TID PRN PO ANXIETY / AGITATION Last administered on 06/14/19at 23:24; Start 06/14/19 at 19:15 Active Scripts Active Reported Xarelto (Rivaroxaban) 20 Mg Tablet 20 Mg PO DAILY Metoprolol Tartrate 25 Mg Tablet 0.5 Tab PO BID Aspirin 81 Mg Tab.chew 1 Tab PO DAILY Clopidogrel (Clopidogrel Bisulfate) 75 Mg Tablet 1 Tab PO DAILY Lantus Solostar (Insulin Glargine,Hum.rec.anlog) 100 Unit/1 Ml Insuln.pen 12 Unit SQ QHS Crestor (Rosuvastatin Calcium) 20 Mg Tablet 20 Mg PO HS Mirapex (Pramipexole Di-Hcl) 0.25 Mg Tablet 1 Tab PO QHS Montelukast Sodium Tablet (Montelukast Sodium) 10 Mg Tablet 10 Mg PO HS Isosorbide Mononitrate Er (Isosorbide Mononitrate) 30 Mg Tab.er.24h 30 Mg PO DAILY Hydrocodone-Apap 10-325 (Hydrocodone Bit/Acetaminophen) 1 Tab Tablet 1 Tab PO PRN Q6HRS PRN Gabapentin (Gabapentin) 100 Mg Capsule 100 Mg PO BID Xanax (Alprazolam) 1 Mg Tablet 1 Tab PO TID Vitals/I & O Vital Sign - Last 24 Hours 06/14/19 06/14/19 06/14/19 06/14/19 11:00 11:27 15:00 15:50 Temp 97.5 97.6 97.5 97.6 Pulse 76 100 Resp 20 20 B/P (MAP) 102/55 (71) 108/64 (79) Pulse Ox 94 95 95 O2 Delivery Nasal Cannula Nasal Cannula Nasal Cannula Room Air O2 Flow Rate 2.0 2.0 2.0 06/14/19 06/14/19 06/14/19 06/14/19 19:37 19:45 20:14 21:56 Temp 97.8 97.8 Pulse 84 84 Resp 26 B/P (MAP) 113/67 (82) 113/67 Pulse Ox 96 95 O2 Delivery Nasal Cannula Nasal Cannula Room Air O2 Flow Rate 2.0 2.0 06/14/19 06/14/19 06/15/19 06/15/19 23:48 23:55 03:45 06:56 Temp 97.7 97.6 97.7 97.6 Pulse 110 76 Resp 32 22 18 B/P (MAP) 142/71 (94) 111/57 (75) Pulse Ox 98 95 92 O2 Delivery Nasal Cannula Room Air Room Air Nasal Cannula O2 Flow Rate 2.0 2.0 06/15/19 06/15/19 06/15/19 06/15/19 07:00 07:37 09:02 09:05 Temp 97.8 97.8 Pulse 90 90 Resp 18 B/P (MAP) 99/57 (71) 99/57 Pulse Ox 97 97 97 O2 Delivery Nasal Cannula Nasal Cannula Nasal Cannula O2 Flow Rate 2.0 2.0 2.0 06/15/19 09:05 Pulse 90 B/P (MAP) 99/57 l Intake and Output 06/14/19 06/14/19 06/15/19 14:59 22:59 06:59 Intake Total 160 ml Output Total 150 ml 600 ml Balance -150 ml -440 ml ROD GUSMAN MD Jun 15, 2019 10:06
[2019-06-15 11:48] VITALS: BP 97/54
[2019-06-15] MEDS: ALPRAZolam 1 MG TABLET PO PRN (12:08)
--- NOTE | 2019-06-15 13:37 | PDOC ---
PULMONARY PROGRESS NOTES Subjective The patient is a 69-year-old who has history of coronary artery disease and had recent stent placement on 06/02. She also had recent hospitalization at [facility] on 06/09 with diagnosis of syncope. She was hospitalized again with chest pain and shortness of breath. The patient denies any significant cough, fever or chills. She has some mild shortness of breath and she has been having wheezing. The patient had a left heart catheterization on 06/03/2019 and she had successful PCI of the left circumflex artery. Her left ventricular end-diastolic pressure was 15. Her echocardiogram revealed an ejection fraction of 55%. No significant valvular heart disease. The patient underwent CT angiogram on 06/10. There was no evidence of pulmonary embolism. The patient had some reticular opacities in both lungs and likely appears to be parenchymal scarring. She also had emphysema. The patient reports having history of pulmonary embolism on the left lung and DVT in the right leg when she was hospitalized at [facility] in September of this year. She has been on Xarelto. She has had lifelong allergic rhinitis. she denies asthma prior to one year ago (?uncertain timing to starting ASA and beta shayna). She also was diagnosed with asthma about a year ago. She states she has been on Symbicort at home. Her wheezing is precipitated by exertion, but not so much airway irritants or ambient weather. She never smoked, but extensive second hand smoke from father, siblings and children. Strong FH of COPD. She also notes that she had seizure after systemic steroids. 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 She has been on inhaled steroids and bronchodilators and feels about the same. Vitals Vital Signs Date Time Temp Pulse Resp B/P (MAP) Pulse Ox O2 Delivery O2 Flow Rate FiO2 06/15/19 11:48 97.8 70 18 97/54 (68) 94 Nasal Cannula 2.0 97.8 Comments no acute distress General: Alert, Oriented X4, No acute distress Lungs: Clear, Other (FEW WHEEZES) Cardiovascular: S1, S2 Abdomen: Soft, Non-tender Neuro Exam: Alert, Oriented, No Focal Findings Extremities: No Edema Skin: Warm Labs Laboratory Tests Test 06/13/19 16:35 06/13/19 16:40 06/13/19 16:44 06/13/19 20:45 White Blood Count 6.0 x10^3/uL (4.0-11.0) Red Blood Count 3.94 x10^6/uL (3.50-5.40) Hemoglobin 12.0 g/dL (12.0-15.5) Hematocrit 35.1 % (36.0-47.0) Mean Corpuscular Volume 89 fL (79-100) Mean Corpuscular Hemoglobin 31 pg (25-35) Mean Corpuscular Hemoglobin Concent 34 g/dL (31-37) Red Cell Distribution Width 13.7 % (11.5-14.5) Platelet Count 195 x10^3/uL (140-400) Neutrophils (%) (Auto) 64 % (31-73) Lymphocytes (%) (Auto) 23 % (24-48) Monocytes (%) (Auto) 8 % (0-9) Eosinophils (%) (Auto) 5 % (0-3) Basophils (%) (Auto) 1 % (0-3) Neutrophils # (Auto) 3.8 x10^3/uL (1.8-7.7) Lymphocytes # (Auto) 1.4 x10^3/uL (1.0-4.8) Monocytes # (Auto) 0.5 x10^3/uL (0.0-1.1) Eosinophils # (Auto) 0.3 x10^3/uL (0.0-0.7) Basophils # (Auto) 0.0 x10^3/uL (0.0-0.2) Prothrombin Time 12.7 SEC (11.7-14.0) Prothromb Time International Ratio 1.0 (0.8-1.1) D-Dimer (Angeline) 0.53 ug/mlFEU (0.00-0.50) Sodium Level 142 mmol/L (136-145) Potassium Level 4.2 mmol/L (3.5-5.1) Chloride Level 107 mmol/L (98-107) Carbon Dioxide Level 28 mmol/L (21-32) Anion Gap 7 (6-14) Blood Urea Nitrogen 10 mg/dL (7-20) Creatinine 0.9 mg/dL (0.6-1.0) Estimated GFR (Cockcroft-Gault) 62.1 BUN/Creatinine Ratio 11 (6-20) Glucose Level 182 mg/dL (70-99) Lactic Acid Level 1.2 mmol/L (0.4-2.0) Calcium Level 9.0 mg/dL (8.5-10.1) Magnesium Level 1.7 mg/dL (1.8-2.4) Total Bilirubin 0.5 mg/dL (0.2-1.0) Aspartate Amino Transf (AST/SGOT) 22 U/L (15-37) Alanine Aminotransferase (ALT/SGPT) 21 U/L (14-59) Alkaline Phosphatase 107 U/L (46-116) Creatine Kinase 29 U/L (26-192) Troponin I Quantitative < 0.017 ng/mL (0.000-0.055) GB-Ayw-J-Type Natriuretic Peptide 331 pg/mL (0-124) Total Protein 7.1 g/dL (6.4-8.2) Albumin 3.3 g/dL (3.4-5.0) Albumin/Globulin Ratio 0.9 (1.0-1.7) Lipase 75 U/L (73-393) O2 Saturation 96 % (92-99) Arterial Blood pH 7.40 (7.35-7.45) Arterial Blood pCO2 at Patient Temp 37 mmHg (35-46) Arterial Blood pO2 at Patient Temp 91 mmHg (65-108) Arterial Blood HCO3 22 mmol/L (21-28) Arterial Blood Base Excess -2 mmol/L (-3-3) FiO2 28 Bedside Troponin I 0.00 ng/ml (<0.08) Glucose (Fingerstick) 185 mg/dL (70-99) Test 06/13/19 21:10 06/13/19 23:30 06/14/19 08:03 06/14/19 09:10 Troponin I Quantitative < 0.017 ng/mL (0.000-0.055) < 0.017 ng/mL (0.000-0.055) Glucose (Fingerstick) 161 mg/dL (70-99) Sodium Level 142 mmol/L (136-145) Potassium Level 4.1 mmol/L (3.5-5.1) Chloride Level 105 mmol/L (98-107) Carbon Dioxide Level 30 mmol/L (21-32) Anion Gap 7 (6-14) Blood Urea Nitrogen 10 mg/dL (7-20) Creatinine 0.9 mg/dL (0.6-1.0) Estimated GFR (Cockcroft-Gault) 62.1 Glucose Level 192 mg/dL (70-99) Calcium Level 8.4 mg/dL (8.5-10.1) Magnesium Level 1.7 mg/dL (1.8-2.4) Test 06/14/19 12:00 06/14/19 17:27 06/14/19 21:17 06/15/19 08:04 Glucose (Fingerstick) 214 mg/dL (70-99) 208 mg/dL (70-99) 187 mg/dL (70-99) 151 mg/dL (70-99) Test 06/15/19 12:01 Glucose (Fingerstick) 191 mg/dL (70-99) Laboratory Tests Test 06/14/19 17:27 06/14/19 21:17 06/15/19 08:04 06/15/19 12:01 Glucose (Fingerstick) 208 mg/dL (70-99) 187 mg/dL (70-99) 151 mg/dL (70-99) 191 mg/dL (70-99) Medications Active Scripts Medications Dose Route/Sig Max Daily Dose Days Date Category Xarelto (Rivaroxaban) 20 Mg Tablet 20 Mg PO DAILY 06/04/19 Reported Metoprolol Tartrate 25 Mg Tablet 0.5 Tab PO BID 06/04/19 Reported Aspirin 81 Mg Tab.chew 1 Tab PO DAILY 06/04/19 Reported Clopidogrel (Clopidogrel Bisulfate) 75 Mg Tablet 1 Tab PO DAILY 06/04/19 Reported Lantus Solostar (Insulin Glargine,Hum.rec.anlog) 100 Unit/1 Ml Insuln.pen 12 Unit SQ QHS 06/03/19 Reported Crestor (Rosuvastatin Calcium) 20 Mg Tablet 20 Mg PO HS 06/03/19 Reported Mirapex (Pramipexole Di-Hcl) 0.25 Mg Tablet 1 Tab PO QHS 06/03/19 Reported Montelukast Sodium Tablet (Montelukast Sodium) 10 Mg Tablet 10 Mg PO HS 06/03/19 Reported Isosorbide Mononitrate Er (Isosorbide Mononitrate) 30 Mg Tab.er.24h 30 Mg PO DAILY 06/03/19 Reported Hydrocodone-Apap 10-325 (Hydrocodone Bit/Acetaminophen) 1 Tab Tablet 1 Tab PO PRN Q6HRS PRN 06/03/19 Reported Gabapentin (Gabapentin) 100 Mg Capsule 100 Mg PO BID 06/03/19 Reported Xanax (Alprazolam) 1 Mg Tablet 1 Tab PO TID 06/03/[address] description above Impression . IMPRESSION: 1. Bronchospasm in a patient who has a history of asthma diagnosed about a year ago. It is possible that this is related to ASA and/or beta shayna. However I do believe that she has an atopic background not necessarily related to those drugs. Those drugs obviously have significant cardiovasccular benefit. She is not wheezing today on my exam which appears to be responding to nebulized bronchodilator and inhaled steroid therapy. 2. mild emphysema in non-smoker. she did have significant second hand exposure, but I am still surprised. She also has strong family hx of COPD in smoking family. that suggest protease inhibitor deficiency. 3. Mild scarring/ interstitial lung disease. 4. The patient with history of pulmonary embolism in the left lung and deep venous thrombosis in the right lower leg in September when she was hospitalized at [facility]. She has been on Xarelto. Her recent CT angiogram on 06/10/2019 shows no convincing evidence of pulmonary embolism. 5. The patient with known coronary artery disease, status post recent left heart catheterization on 06/03/2019 with successful PCI of the left circumflex artery. She had normal left ventricular ejection fraction. Plan . RECOMMENDATIONS: 1. Continue nebulized bronchodilators and steroids. 2. Would cont ASA and beta shayna for now. 3. check alpha one antitrypsin level 4. PFTs and pulmonary follow up after discharge 5. Continue present Xarelto. The recent CTA has not shown any evidence of any pulmonary embolism . [address] in 3 - 4 months Discussed with RN and will follow along with you. SNEHA TAN MD Jun 15, 2019 13:37
[2019-06-15 15:00] VITALS: BP 94/51
[2019-06-15] MEDS: RIVAROXABAN 10 MG TABLET. PO SCH (17:50)
[2019-06-15 19:50] VITALS: BP 111/56
[2019-06-15] MEDS: INSULIN GLARGINE SYRINGE. SQ SCH (21:00)
[2019-06-15] MEDS: MONTELUKAST SODIUM 10 MG TABLET. PO SCH (21:19)
[2019-06-15] MEDS: ATORVASTATIN CALCIUM 40 MG TABLET. PO SCH (21:19)
[2019-06-15] MEDS: PRAMIPEXOLE 0.25 MG TABLET. PO SCH (21:27)
[2019-06-15 23:00] VITALS: BP 111/58
[2019-06-16] MEDS: IPRATRPIUM/ALBUTEROL 0.5/2.5MG 3 ML NEBU. NEB SCH ×4 (00:27→12:07)
[2019-06-16 03:00] VITALS: BP 129/60
[2019-06-16 04:55] LABS: BASO % 1 % (0-3); EOS # 0.4 x10^3/uL (0.0-0.7); EOS % 8 % (0-3); HEMATOCRIT 36.2 % (36.0-47.0); HEMOGLOBIN 12.4 g/dL (12.0-15.5); LYMPH # 0.9 x10^3/uL (1.0-4.8); LYMPH % 17 % (24-48); MEAN CORPUSCULAR HEMOGLOBIN 31 pg (25-35); MEAN CORPUSCULAR HGB CONC 34 g/dL (31-37); MEAN CORPUSCULAR VOLUME 91 fL (79-100); MONO # 0.3 x10^3/uL (0.0-1.1); MONO % 7 % (0-9); NEUT # 3.4 x10^3/uL (1.8-7.7); NEUT % 67 % (31-73); PLATELET COUNT 182 x10^3/uL (140-400); RED CELL DISTRIBUTION WIDTH 13.8 % (11.5-14.5)
[2019-06-16 05:20] LABS: ALBUMIN 3.3 g/dL (3.4-5.0); ALBUMIN/GLOBULIN RATIO 0.9 (1.0-1.7); CALCIUM 9.4 mg/dL (8.5-10.1); CREATININE 0.8 mg/dL (0.6-1.0); GFR 71.1; POTASSIUM 4.4 mmol/L (3.5-5.1); TOTAL BILIRUBIN 0.8 mg/dL (0.2-1.0); TOTAL PROTEIN 7.1 g/dL (6.4-8.2)
[2019-06-16 07:00] VITALS: BP 115/64
[2019-06-16] MEDS: BUDESONIDE 0.5 MG/2 ML NEBU. NEB SCH (08:10)
--- NOTE | 2019-06-16 08:28 | PDOC ---
PROGRESS NOTES History of Present Illness History of Present Illness VTE Prophylaxis Ordered VTE Prophylaxis Devices: Yes VTE Pharmacological Prophylaxi: Yes Assessment/Plan Assessment/Plan IMPRESSION 1. angina, status post percutaneous coronary intervention with drug-eluting stent placement to left circumflex. 2. Coronary artery disease, status post left anterior descending stent placement as continues to be patent. The left heart catheterization, ejection fraction, wall motion were all normal. 3. Type 2 diabetes, 4. Hypertension. 5. Hyperlipidemia. 6. Chronic obstructive pulmonary disease/bronchial asthma. ON CXR Fullness in the right perihilar region which could represent vascular crowding. Infiltrate or mass is difficult to completely exclude. Consider follow-up two-view chest radiograph with attention to depth of inspiration. Alternatively CT could be performed in the appropriate clinical setting. 7. Deep venous thrombosis and pulmonary embolism, on Xarelto. 8. Paroxysmal supraventricular tachycardia. 9. History of cerebrovascular accident. Subtle patchy opacity in the deep white matter of the left frontal lobe which appears similar when compared to prior exam in 2015 10. PROB GERD 11 ON ECHO Ejection Fraction WAS 55-60%. mild concentric left ventricular hypertrophy. no significant aortic valvular stenosis. no significant aortic regurgitation. trace mitral regurgitation. trace to mild tricuspid regurgitation with an estimated PAP of 44 mmHg. C/W MOD PULMONARY HYPERTENSION 12. strong family hx of COPD in smoking family. that suggest protease inhibitor deficiency. PLAN ADMIT SERIAL TROPONIN I CARDIOLOGY CONSULT O2 SUPPORT HOME MEDS ECHO REVIEWED outpt event monitor. PULM CONSULT NEBS QID PULMACORT Discharge Recommendations * Home with Assistance * Home with Home Health 37 MIN PT EXAM, CHART REVIEW d/c planning, > 50% OF TIME SPENT WITH EXAM, CHART REVIEW, PT CARE COORDINATION Vitals Vitals Vital Signs Date Time Temp Pulse Resp B/P (MAP) Pulse Ox O2 Delivery O2 Flow Rate FiO2 06/16/19 08:11 94 Room Air 06/16/19 07:00 97.6 82 18 115/64 (81) 97.6 06/15/19 18:41 2.0 Physical Exam General: Alert, Oriented X3, Cooperative, No acute distress Heart: Regular rate (SR), Normal S1, Normal S2, No murmurs Lungs: Clear, Other (FEW WHEEZES) Abdomen: Normal bowel sounds, Soft, No tenderness Extremities: No clubbing, No cyanosis, No edema Skin: No breakdown, No significant lesion Labs LABS Lee Martinez M.D., Configuration Consultant PATIENT: VIOLETA VANG ACCT: [id number] LOC: [address] [place] [address] U: [id number] AGE/SX: 69/F ROOM: 261 RE06/13/[address]: ROD GUSMAN MD : 1950 BED: 1 DIS: STATUS: ADM IN TLOC: SPEC #: [id number] ELENITA: 06/13/19 STATUS: RES REQ #: [id number] RECD: 06/13/[address] [facility] [address]: LAXMI NUÑEZ MD SOURCE: BLOOD ENTR: 06/13/[address] [facility] [address]: TRACEE DIAZ [facility] BC[facility] Procedure Result BLOOD CULTURE Preliminary NO GROWTH AFTER 2 DAYS Laboratory Tests Test 06/15/19 12:01 06/15/19 16:58 06/15/19 21:13 06/16/19 04:30 Glucose (Fingerstick) 191 mg/dL (70-99) 170 mg/dL (70-99) 190 mg/dL (70-99) White Blood Count 5.0 x10^3/uL (4.0-11.0) Red Blood Count 4.00 x10^6/uL (3.50-5.40) Hemoglobin 12.4 g/dL (12.0-15.5) Hematocrit 36.2 % (36.0-47.0) Mean Corpuscular Volume 91 fL (79-100) Mean Corpuscular Hemoglobin 31 pg (25-35) Mean Corpuscular Hemoglobin Concent 34 g/dL (31-37) Red Cell Distribution Width 13.8 % (11.5-14.5) Platelet Count 182 x10^3/uL (140-400) Neutrophils (%) (Auto) 67 % (31-73) Lymphocytes (%) (Auto) 17 % (24-48) Monocytes (%) (Auto) 7 % (0-9) Eosinophils (%) (Auto) 8 % (0-3) Basophils (%) (Auto) 1 % (0-3) Neutrophils # (Auto) 3.4 x10^3/uL (1.8-7.7) Lymphocytes # (Auto) 0.9 x10^3/uL (1.0-4.8) Monocytes # (Auto) 0.3 x10^3/uL (0.0-1.1) Eosinophils # (Auto) 0.4 x10^3/uL (0.0-0.7) Basophils # (Auto) 0.0 x10^3/uL (0.0-0.2) Sodium Level 141 mmol/L (136-145) Potassium Level 4.4 mmol/L (3.5-5.1) Chloride Level 104 mmol/L (98-107) Carbon Dioxide Level 29 mmol/L (21-32) Anion Gap 8 (6-14) Blood Urea Nitrogen 10 mg/dL (7-20) Creatinine 0.8 mg/dL (0.6-1.0) Estimated GFR (Cockcroft-Gault) 71.1 BUN/Creatinine Ratio 13 (6-20) Glucose Level 137 mg/dL (70-99) Calcium Level 9.4 mg/dL (8.5-10.1) Total Bilirubin 0.8 mg/dL (0.2-1.0) Aspartate Amino Transf (AST/SGOT) 16 U/L (15-37) Alanine Aminotransferase (ALT/SGPT) 16 U/L (14-59) Alkaline Phosphatase 105 U/L (46-116) Total Protein 7.1 g/dL (6.4-8.2) Albumin 3.3 g/dL (3.4-5.0) Albumin/Globulin Ratio 0.9 (1.0-1.7) Test 06/16/19 08:04 Glucose (Fingerstick) 172 mg/dL (70-99) Assessment and Plan Assessmemt and Plan Problems Medical Problems: (1) Acute chest pain Status: Acute (2) Anxiety Status: Acute (3) Asthma Status: Chronic (4) CAD (coronary artery disease) Status: Chronic (5) CHF (congestive heart failure) Status: Acute (6) COPD (chronic obstructive pulmonary disease) Status: Chronic (7) DM2 (diabetes mellitus, type 2) Status: Chronic (8) HLD (hyperlipidemia) Status: Chronic (9) HTN (hypertension) Status: Chronic (10) Hypomagnesemia Status: Acute (11) Shortness of breath Status: Acute * Pillow Squeeze Rehab Potential to Achieve Goals * Fair Learning Preferences * One-on-One Instruction Factors Facilitating Goal Achievement * Prior level of function Problem List (body system elements) * Impaired fnctnl mobility * Balance Clinical Presentation * Stable Evaluation Complexity Level * Low Complexity Patient condition at conclusion of therapy * Pt in chair * Bed alarm on * Call light in reach * Phone in reach * PtIn no apparent distress * Pt denies further needs Communicated Patient Care With (Name, Title) * BREANN Anaya Goal 1 - Bed Mobility Assistance Required * Independent Goal 1 Assessment * Appropriate - Continue Goal 2 - Transfers Assistance Required * Independent Goal 2 - Transfer Type * Sit to Stand Goal 2 Assessment * Appropriate - Continue Goal 3 - Ambulation Assistance Required * Independent Goal 3 - Ambulation Distance * 250' Goal 3 - Ambulation Device * No Device Goal 3 Assessment * Appropriate - Continue Goal 4 - Stairs Assistance Required * Independent Goal 4 - Number of Stairs * 2-4 Goal 4 - Device on Stairs * No Device * Rail on Right Goal 4 Assessment * Appropriate - Continue Duration of Treatment Expected * 1 week Discharge Recommendations * Home with Assistance * Home with Home Health Comment Review of Relevant I have reviewed the following items alma (where applicable) has been applied. Labs Laboratory Tests Test 06/14/19 09:10 06/14/19 12:00 06/14/19 17:27 06/14/19 21:17 Sodium Level 142 mmol/L (136-145) Potassium Level 4.1 mmol/L (3.5-5.1) Chloride Level 105 mmol/L (98-107) Carbon Dioxide Level 30 mmol/L (21-32) Anion Gap 7 (6-14) Blood Urea Nitrogen 10 mg/dL (7-20) Creatinine 0.9 mg/dL (0.6-1.0) Estimated GFR (Cockcroft-Gault) 62.1 Glucose Level 192 mg/dL (70-99) Calcium Level 8.4 mg/dL (8.5-10.1) Magnesium Level 1.7 mg/dL (1.8-2.4) Glucose (Fingerstick) 214 mg/dL (70-99) 208 mg/dL (70-99) 187 mg/dL (70-99) Test 06/15/19 08:04 06/15/19 12:01 06/15/19 16:58 06/15/19 21:13 Glucose (Fingerstick) 151 mg/dL (70-99) 191 mg/dL (70-99) 170 mg/dL (70-99) 190 mg/dL (70-99) Test 06/16/19 04:30 06/16/19 08:04 White Blood Count 5.0 x10^3/uL (4.0-11.0) Red Blood Count 4.00 x10^6/uL (3.50-5.40) Hemoglobin 12.4 g/dL (12.0-15.5) Hematocrit 36.2 % (36.0-47.0) Mean Corpuscular Volume 91 fL (79-100) Mean Corpuscular Hemoglobin 31 pg (25-35) Mean Corpuscular Hemoglobin Concent 34 g/dL (31-37) Red Cell Distribution Width 13.8 % (11.5-14.5) Platelet Count 182 x10^3/uL (140-400) Neutrophils (%) (Auto) 67 % (31-73) Lymphocytes (%) (Auto) 17 % (24-48) Monocytes (%) (Auto) 7 % (0-9) Eosinophils (%) (Auto) 8 % (0-3) Basophils (%) (Auto) 1 % (0-3) Neutrophils # (Auto) 3.4 x10^3/uL (1.8-7.7) Lymphocytes # (Auto) 0.9 x10^3/uL (1.0-4.8) Monocytes # (Auto) 0.3 x10^3/uL (0.0-1.1) Eosinophils # (Auto) 0.4 x10^3/uL (0.0-0.7) Basophils # (Auto) 0.0 x10^3/uL (0.0-0.2) Sodium Level 141 mmol/L (136-145) Potassium Level 4.4 mmol/L (3.5-5.1) Chloride Level 104 mmol/L (98-107) Carbon Dioxide Level 29 mmol/L (21-32) Anion Gap 8 (6-14) Blood Urea Nitrogen 10 mg/dL (7-20) Creatinine 0.8 mg/dL (0.6-1.0) Estimated GFR (Cockcroft-Gault) 71.1 BUN/Creatinine Ratio 13 (6-20) Glucose Level 137 mg/dL (70-99) Calcium Level 9.4 mg/dL (8.5-10.1) Total Bilirubin 0.8 mg/dL (0.2-1.0) Aspartate Amino Transf (AST/SGOT) 16 U/L (15-37) Alanine Aminotransferase (ALT/SGPT) 16 U/L (14-59) Alkaline Phosphatase 105 U/L (46-116) Total Protein 7.1 g/dL (6.4-8.2) Albumin 3.3 g/dL (3.4-5.0) Albumin/Globulin Ratio 0.9 (1.0-1.7) Glucose (Fingerstick) 172 mg/dL (70-99) Laboratory Tests Test 06/15/19 12:01 06/15/19 16:58 06/15/19 21:13 06/16/19 04:30 Glucose (Fingerstick) 191 mg/dL (70-99) 170 mg/dL (70-99) 190 mg/dL (70-99) White Blood Count 5.0 x10^3/uL (4.0-11.0) Red Blood Count 4.00 x10^6/uL (3.50-5.40) Hemoglobin 12.4 g/dL (12.0-15.5) Hematocrit 36.2 % (36.0-47.0) Mean Corpuscular Volume 91 fL (79-100) Mean Corpuscular Hemoglobin 31 pg (25-35) Mean Corpuscular Hemoglobin Concent 34 g/dL (31-37) Red Cell Distribution Width 13.8 % (11.5-14.5) Platelet Count 182 x10^3/uL (140-400) Neutrophils (%) (Auto) 67 % (31-73) Lymphocytes (%) (Auto) 17 % (24-48) Monocytes (%) (Auto) 7 % (0-9) Eosinophils (%) (Auto) 8 % (0-3) Basophils (%) (Auto) 1 % (0-3) Neutrophils # (Auto) 3.4 x10^3/uL (1.8-7.7) Lymphocytes # (Auto) 0.9 x10^3/uL (1.0-4.8) Monocytes # (Auto) 0.3 x10^3/uL (0.0-1.1) Eosinophils # (Auto) 0.4 x10^3/uL (0.0-0.7) Basophils # (Auto) 0.0 x10^3/uL (0.0-0.2) Sodium Level 141 mmol/L (136-145) Potassium Level 4.4 mmol/L (3.5-5.1) Chloride Level 104 mmol/L (98-107) Carbon Dioxide Level 29 mmol/L (21-32) Anion Gap 8 (6-14) Blood Urea Nitrogen 10 mg/dL (7-20) Creatinine 0.8 mg/dL (0.6-1.0) Estimated GFR (Cockcroft-Gault) 71.1 BUN/Creatinine Ratio 13 (6-20) Glucose Level 137 mg/dL (70-99) Calcium Level 9.4 mg/dL (8.5-10.1) Total Bilirubin 0.8 mg/dL (0.2-1.0) Aspartate Amino Transf (AST/SGOT) 16 U/L (15-37) Alanine Aminotransferase (ALT/SGPT) 16 U/L (14-59) Alkaline Phosphatase 105 U/L (46-116) Total Protein 7.1 g/dL (6.4-8.2) Albumin 3.3 g/dL (3.4-5.0) Albumin/Globulin Ratio 0.9 (1.0-1.7) Test 06/16/19 08:04 Glucose (Fingerstick) 172 mg/dL (70-99) Microbiology 06/13/19 Blood Culture - Preliminary, Resulted NO GROWTH AFTER 2 DAYS Medications Current Medications Albuterol/ Ipratropium (Duoneb) 3 ml 1X ONCE NEB Last administered on 06/13/19at 16:29; Start 06/13/19 at 16:30; Stop 06/13/19 at 16:31; Status DC Lorazepam (Ativan Inj) 1 mg 1X ONCE IV Last administered on 06/13/19at 17:01; Start 06/13/19 at 16:45; Stop 06/13/19 at 16:46; Status DC Ondansetron HCl (Zofran) 4 mg 1X ONCE IV Last administered on 06/13/19at 17:21; Start 06/13/19 at 17:15; Stop 06/13/19 at 17:16; Status DC Alprazolam (Xanax) 1 mg TID PO Last administered on 06/14/19at 13:35; Start 06/13/19 at 21:00; Stop 06/14/19 at 19:15; Status DC Aspirin (Children'S Aspirin) 81 mg DAILY PO Last administered on 06/15/19 09:05; Start 06/14/19 at 09:00 Clopidogrel Bisulfate (Plavix) 75 mg DAILY PO Last administered on 06/15/19 09:05; Start 06/14/19 at 09:00 Gabapentin (Neurontin) 100 mg BID PO Last administered on 06/15/19 21:20; Start 06/13/19 at 21:00 Acetaminophen/ Hydrocodone Bitart (Lortab 10/325) 1 tab PRN Q6HRS PRN PO PAIN MODERATE TO SEVERE Last administered on 06/15/19 06:56; Start 06/13/19 at 19:00 Isosorbide Mononitrate (Imdur) 30 mg DAILY PO Last administered on 06/15/19 09:05; Start 06/14/19 at 09:00 Metoprolol Tartrate (Lopressor) 12.5 mg BID PO Last administered on 06/15/19 21:20; Start 06/13/19 at 21:00 Montelukast Sodium (Singulair) 10 mg HS PO Last administered on 06/15/19 21:20; Start 06/13/19 at 21:00 Pramipexole Dihydrochloride (miraPEX) 0.25 mg QHS PO Last administered on 06/15/19 21:30; Start 06/13/19 at 21:00 Insulin Glargine (Lantus Syringe) 12 unit QHS SQ Last administered on 06/15/19 21:30; Start 06/13/19 at 21:00 Rivaroxaban (Xarelto) 20 mg QEVNG PO Last administered on 06/15/19at 17:50; Start 06/13/19 at 18:00 Atorvastatin Calcium (Lipitor) 80 mg QHS PO Last administered on 06/15/19 21:20; Start 06/13/19 at 21:00 Sodium Chloride (Normal Saline Flush) 3 ml QSHIFT PRN IV AFTER MEDS AND BLOOD DRAWS; Start 06/13/19 at 19:00 Ondansetron HCl (Zofran) 4 mg PRN Q4HRS PRN IV NAUSEA/VOMITING; Start 06/13/19 at 19:00 Acetaminophen (Tylenol) 650 mg PRN Q4HRS PRN PO TEMP OVER 100.4F OR MILD PAIN; Start 06/13/19 at 19:00 Al Hydroxide/Mg Hydroxide (Mylanta Plus Xs) 30 ml PRN DAILY PRN PO HEARTBURN / GAS; Start 06/13/19 at 19:00 Clonidine HCl (Catapres) 0.1 mg PRN Q6HRS PRN PO SBP>160 OR DBP>90; Start 06/13/19 at 19:00 Docusate Sodium (Colace) 100 mg PRN BID PRN PO CONSTIPATION; Start 06/13/19 at 19:00 Albuterol/ Ipratropium (Duoneb) 3 ml Q4H NEB Last administered on 06/16/19at 08:10; Start 06/13/19 at 20:00 Guaifenesin (Robitussin) 200 mg PRN Q4HRS PRN PO COUGH; Start 06/13/19 at 19:00 Lorazepam (Ativan) 0.5 mg PRN Q4HRS PRN PO ANXIETY / AGITATION Last administered on 06/13/19at 22:39; Start 06/13/19 at 19:00 Enoxaparin Sodium (Lovenox 40mg Syringe) 40 mg DAILY SQ ; Start 06/14/19 at 09:00; Stop 06/14/19 at 07:51; Status DC Info (Anti-Coagulation Monitoring By Pharmacy) 1 each PRN DAILY PRN MC SEE COMMENTS Last administered on 06/14/19at 13:26; Start 06/14/19 at 08:00 Magnesium Sulfate 50 ml @ 25 mls/hr 1X ONCE IV Last administered on 06/14/19at 12:25; Start 06/14/19 at 11:00; Stop 06/14/19 at 12:59; Status DC Furosemide (Lasix) 40 mg 1X ONCE IVP Last administered on 06/14/19 12:25; Start 06/14/19 at 11:15; Stop 06/14/19 at 11:16; Status DC Budesonide (Pulmicort) 0.5 mg RTBID NEB Last administered on 06/16/19at 08:10; Start 06/14/19 at 20:00 Alprazolam (Xanax) 1 mg PRN TID PRN PO ANXIETY / AGITATION Last administered on 06/15/19at 12:08; Start 06/14/19 at 19:15 Active Scripts Active Reported Xarelto (Rivaroxaban) 20 Mg Tablet 20 Mg PO DAILY Metoprolol Tartrate 25 Mg Tablet 0.5 Tab PO BID Aspirin 81 Mg Tab.chew 1 Tab PO DAILY Clopidogrel (Clopidogrel Bisulfate) 75 Mg Tablet 1 Tab PO DAILY Lantus Solostar (Insulin Glargine,Hum.rec.anlog) 100 Unit/1 Ml Insuln.pen 12 Unit SQ QHS Crestor (Rosuvastatin Calcium) 20 Mg Tablet 20 Mg PO HS Mirapex (Pramipexole Di-Hcl) 0.25 Mg Tablet 1 Tab PO QHS Montelukast Sodium Tablet (Montelukast Sodium) 10 Mg Tablet 10 Mg PO HS Isosorbide Mononitrate Er (Isosorbide Mononitrate) 30 Mg Tab.er.24h 30 Mg PO DAILY Hydrocodone-Apap 10-325 (Hydrocodone Bit/Acetaminophen) 1 Tab Tablet 1 Tab PO PRN Q6HRS PRN Gabapentin (Gabapentin) 100 Mg Capsule 100 Mg PO BID Xanax (Alprazolam) 1 Mg Tablet 1 Tab PO TID Vitals/I & O Vital Sign - Last 24 Hours 06/15/19 06/15/19 06/15/19 06/15/19 09:02 09:05 09:05 11:48 Temp 97.8 97.8 Pulse 90 90 70 Resp 18 B/P (MAP) 99/57 99/57 97/54 (68) Pulse Ox 97 94 O2 Delivery Nasal Cannula Nasal Cannula O2 Flow Rate 2.0 2.0 06/15/19 06/15/19 06/15/19 06/15/19 15:00 15:32 18:41 19:36 Temp 97.6 97.6 Pulse 67 Resp 18 B/P (MAP) 94/51 (65) Pulse Ox 97 97 97 O2 Delivery Nasal Cannula Nasal Cannula Nasal Cannula Room Air O2 Flow Rate 2.0 2.0 2.0 06/15/19 06/15/19 06/15/19 06/16/19 19:50 21:20 23:00 00:28 Temp 97.6 97.7 97.6 97.7 Pulse 95 95 80 Resp 21 20 B/P (MAP) 111/56 (74) 111/56 111/58 (75) Pulse Ox 90 92 93 O2 Delivery Room Air Room Air Room Air 06/16/19 06/16/19 06/16/19 06/16/19 03:00 04:13 07:00 08:11 Temp 97.6 97.6 97.6 97.6 Pulse 86 82 Resp 18 18 B/P (MAP) 129/60 (83) 115/64 (81) Pulse Ox 92 94 94 94 O2 Delivery Room Air Room Air Room Air Room Air Intake and Output 06/15/19 06/15/19 06/16/19 15:00 23:00 07:00 Intake Total 220 ml 420 ml 60 ml Output Total 350 ml 800 ml Balance 220 ml 70 ml -740 ml ROD GUSMAN MD Jun 16, 2019 08:28
[2019-06-16] MEDS: GABAPENTIN 100 MG CAPSULE. PO SCH (08:46)
[2019-06-16] MEDS: ASPIRIN CHEWABLE 81 MG TABLET. PO SCH (08:46)
[2019-06-16] MEDS: METOPROLOL TART IMMED RELEASE 25 MG TABLET. PO SCH (08:47)
[2019-06-16] MEDS: CLOPIDOGREL BISULFATE 75 MG TABLET PO SCH (08:47)
[2019-06-16] MEDS: ISOSORBIDE MONONITRATE ER 30 MG TAB.ER.24H PO SCH (08:47)
[2019-06-16 11:00] VITALS: BP 102/57
--- NOTE | 2019-06-16 11:06 | PDOC3 ---
Discharge Summary Date of Admission: Jun 14, 2019 Date of Discharge: Jun 16, 2019 Follow-Up: 3-5 days Admitting Diagnosis comment: discharge dx Assessment/Plan IMPRESSION 1. angina, status post percutaneous coronary intervention with drug-eluting stent placement to left circumflex. 2. Coronary artery disease, status post left anterior descending stent placement as continues to be patent. The left heart catheterization, ejection fraction, wall motion were all normal. 3. Type 2 diabetes, 4. Hypertension. 5. Hyperlipidemia. 6. Chronic obstructive pulmonary disease/bronchial asthma. ON CXR Fullness in the right perihilar region which could represent vascular crowding. Infiltrate or mass is difficult to completely exclude. Consider follow-up two-view chest radiograph with attention to depth of inspiration. Alternatively CT could be performed in the appropriate clinical setting. 7. Deep venous thrombosis and pulmonary embolism, on Xarelto. 8. Paroxysmal supraventricular tachycardia. 9. History of cerebrovascular accident. Subtle patchy opacity in the deep white matter of the left frontal lobe which appears similar when compared to prior exam in 2014 10. PROB GERD 11 ON ECHO e Ejection Fraction WAS 55-60%. mild concentric left ventricular hypertrophy. no significant aortic valvular stenosis. no significant aortic regurgitation. trace mitral regurgitation. trace to mild tricuspid regurgitation with an estimated PAP of 44 mmHg. C/W MOD PULMONARY HYPERTENSION 12. strong family hx of COPD in smoking family. that suggest protease inhibitor deficiency. PLAN ADMIT SERIAL TROPONIN I CARDIOLOGY CONSULT O2 SUPPORT HOME MEDS ECHO REVIEWED outpt event monitor. PULM CONSULT NEBS QID PULMACORT Discharge Recommendations * Home with Assistance * Home with Home Health 37 MIN PT EXAM, CHART REVIEW d/c planning, > 50% OF TIME SPENT WITH EXAM, CHART REVIEW, PT CARE COORDINATION Vitals FINAL DIAGNOSIS Problems Medical Problems: (1) Acute chest pain Status: Acute (2) Anxiety Status: Acute (3) Asthma Status: Chronic (4) CAD (coronary artery disease) Status: Chronic (5) CHF (congestive heart failure) Status: Acute (6) COPD (chronic obstructive pulmonary disease) Status: Chronic (7) DM2 (diabetes mellitus, type 2) Status: Chronic (8) HLD (hyperlipidemia) Status: Chronic (9) HTN (hypertension) Status: Chronic (10) Hypomagnesemia Status: Acute (11) Shortness of breath Status: Acute Brief Hospital Course Ms. Prasad is a 69 old [sex] who presented with [ angina] CONDITION AT DISCHARGE: Improved Discharge Medications Current Medications Albuterol/ Ipratropium (Duoneb) 3 ml 1X ONCE NEB Last administered on 06/13/19 16:29; Start 06/13/19 at 16:30; Stop 06/13/19 at 16:31; Status DC Lorazepam (Ativan Inj) 1 mg 1X ONCE IV Last administered on 06/13/19at 17:01; Start 06/13/19 at 16:45; Stop 06/13/19 at 16:46; Status DC Ondansetron HCl (Zofran) 4 mg 1X ONCE IV Last administered on 06/13/19 17:21; Start 06/13/19 at 17:15; Stop 06/13/19 at 17:16; Status DC Alprazolam (Xanax) 1 mg TID PO Last administered on 06/14/19at 13:35; Start 06/13/19 at 21:00; Stop 06/14/19 at 19:15; Status DC Aspirin (Children'S Aspirin) 81 mg DAILY PO Last administered on 06/16/19 08:48; Start 06/14/19 at 09:00 Clopidogrel Bisulfate (Plavix) 75 mg DAILY PO Last administered on 06/16/19 08:48; Start 06/14/19 at 09:00 Gabapentin (Neurontin) 100 mg BID PO Last administered on 06/16/19 08:48; Start 06/13/19 at 21:00 Acetaminophen/ Hydrocodone Bitart (Lortab 10/325) 1 tab PRN Q6HRS PRN PO PAIN MODERATE TO SEVERE Last administered on 06/15/19at 06:56; Start 06/13/19 at 19:00 Isosorbide Mononitrate (Imdur) 30 mg DAILY PO Last administered on 06/16/19 08:48; Start 06/14/19 at 09:00 Metoprolol Tartrate (Lopressor) 12.5 mg BID PO Last administered on 06/16/19 08:48; Start 06/13/19 at 21:00 Montelukast Sodium (Singulair) 10 mg HS PO Last administered on 06/15/19at 21:20; Start 06/13/19 at 21:00 Pramipexole Dihydrochloride (miraPEX) 0.25 mg QHS PO Last administered on 06/15/19at 21:30; Start 06/13/19 at 21:00 Insulin Glargine (Lantus Syringe) 12 unit QHS SQ Last administered on 06/15/19at 21:30; Start 06/13/19 at 21:00 Rivaroxaban (Xarelto) 20 mg QEVNG PO Last administered on 06/15/19at 17:50; Start 06/13/19 at 18:00 Atorvastatin Calcium (Lipitor) 80 mg QHS PO Last administered on 06/15/19at 21:20; Start 06/13/19 at 21:00 Sodium Chloride (Normal Saline Flush) 3 ml QSHIFT PRN IV AFTER MEDS AND BLOOD DRAWS; Start 06/13/19 at 19:00 Ondansetron HCl (Zofran) 4 mg PRN Q4HRS PRN IV NAUSEA/VOMITING; Start 06/13/19 at 19:00 Acetaminophen (Tylenol) 650 mg PRN Q4HRS PRN PO TEMP OVER 100.4F OR MILD PAIN; Start 06/13/19 at 19:00 Al Hydroxide/Mg Hydroxide (Mylanta Plus Xs) 30 ml PRN DAILY PRN PO HEARTBURN / GAS; Start 06/13/19 at 19:00 Clonidine HCl (Catapres) 0.1 mg PRN Q6HRS PRN PO SBP>160 OR DBP>90; Start 06/13/19 at 19:00 Docusate Sodium (Colace) 100 mg PRN BID PRN PO CONSTIPATION; Start 06/13/19 at 19:00 Albuterol/ Ipratropium (Duoneb) 3 ml Q4H NEB Last administered on 06/16/19at 08:10; Start 06/13/19 at 20:00 Guaifenesin (Robitussin) 200 mg PRN Q4HRS PRN PO COUGH; Start 06/13/19 at 19:00 Lorazepam (Ativan) 0.5 mg PRN Q4HRS PRN PO ANXIETY / AGITATION Last administered on 06/13/19at 22:39; Start 06/13/19 at 19:00 Enoxaparin Sodium (Lovenox 40mg Syringe) 40 mg DAILY SQ ; Start 06/14/19 at 09:00; Stop 06/14/19 at 07:51; Status DC Info (Anti-Coagulation Monitoring By Pharmacy) 1 each PRN DAILY PRN MC SEE COMMENTS Last administered on 06/14/19at 13:26; Start 06/14/19 at 08:00 Magnesium Sulfate 50 ml @ 25 mls/hr 1X ONCE IV Last administered on 06/14/19at 12:25; Start 06/14/19 at 11:00; Stop 06/14/19 at 12:59; Status DC Furosemide (Lasix) 40 mg 1X ONCE IVP Last administered on 06/14/19at 12:25; Start 06/14/19 at 11:15; Stop 06/14/19 at 11:16; Status DC Budesonide (Pulmicort) 0.5 mg RTBID NEB Last administered on 06/16/19at 08:10; Start 06/14/19 at 20:00 Alprazolam (Xanax) 1 mg PRN TID PRN PO ANXIETY / AGITATION Last administered on 06/15/19at 12:08; Start 06/14/19 at 19:15 Active Scripts Active Reported Xarelto (Rivaroxaban) 20 Mg Tablet 20 Mg PO DAILY Metoprolol Tartrate 25 Mg Tablet 0.5 Tab PO BID Aspirin 81 Mg Tab.chew 1 Tab PO DAILY Clopidogrel (Clopidogrel Bisulfate) 75 Mg Tablet 1 Tab PO DAILY Lantus Solostar (Insulin Glargine,Hum.rec.anlog) 100 Unit/1 Ml Insuln.pen 12 Unit SQ QHS Crestor (Rosuvastatin Calcium) 20 Mg Tablet 20 Mg PO HS Mirapex (Pramipexole Di-Hcl) 0.25 Mg Tablet 1 Tab PO QHS Montelukast Sodium Tablet (Montelukast Sodium) 10 Mg Tablet 10 Mg PO HS Isosorbide Mononitrate Er (Isosorbide Mononitrate) 30 Mg Tab.er.24h 30 Mg PO DAILY Hydrocodone-Apap 10-325 (Hydrocodone Bit/Acetaminophen) 1 Tab Tablet 1 Tab PO PRN Q6HRS PRN Gabapentin (Gabapentin) 100 Mg Capsule 100 Mg PO BID Xanax (Alprazolam) 1 Mg Tablet 1 Tab PO TID Vital Signs Vital Signs Date Time Temp Pulse Resp B/P (MAP) Pulse Ox O2 Delivery O2 Flow Rate FiO2 9/22/19 08:48 82 115/64 06/16/19 08:11 94 Room Air 06/16/19 07:00 97.6 18 97.6 06/15/19 18:41 2.0 Labs Laboratory Tests Test 06/14/19 12:00 06/14/19 17:27 06/14/19 21:17 06/15/19 08:04 Glucose (Fingerstick) 214 mg/dL (70-99) 208 mg/dL (70-99) 187 mg/dL (70-99) 151 mg/dL (70-99) Test 06/15/19 12:01 06/15/19 16:58 06/15/19 21:13 06/16/19 04:30 Glucose (Fingerstick) 191 mg/dL (70-99) 170 mg/dL (70-99) 190 mg/dL (70-99) White Blood Count 5.0 x10^3/uL (4.0-11.0) Red Blood Count 4.00 x10^6/uL (3.50-5.40) Hemoglobin 12.4 g/dL (12.0-15.5) Hematocrit 36.2 % (36.0-47.0) Mean Corpuscular Volume 91 fL (79-100) Mean Corpuscular Hemoglobin 31 pg (25-35) Mean Corpuscular Hemoglobin Concent 34 g/dL (31-37) Red Cell Distribution Width 13.8 % (11.5-14.5) Platelet Count 182 x10^3/uL (140-400) Neutrophils (%) (Auto) 67 % (31-73) Lymphocytes (%) (Auto) 17 % (24-48) Monocytes (%) (Auto) 7 % (0-9) Eosinophils (%) (Auto) 8 % (0-3) Basophils (%) (Auto) 1 % (0-3) Neutrophils # (Auto) 3.4 x10^3/uL (1.8-7.7) Lymphocytes # (Auto) 0.9 x10^3/uL (1.0-4.8) Monocytes # (Auto) 0.3 x10^3/uL (0.0-1.1) Eosinophils # (Auto) 0.4 x10^3/uL (0.0-0.7) Basophils # (Auto) 0.0 x10^3/uL (0.0-0.2) Sodium Level 141 mmol/L (136-145) Potassium Level 4.4 mmol/L (3.5-5.1) Chloride Level 104 mmol/L (98-107) Carbon Dioxide Level 29 mmol/L (21-32) Anion Gap 8 (6-14) Blood Urea Nitrogen 10 mg/dL (7-20) Creatinine 0.8 mg/dL (0.6-1.0) Estimated GFR (Cockcroft-Gault) 71.1 BUN/Creatinine Ratio 13 (6-20) Glucose Level 137 mg/dL (70-99) Calcium Level 9.4 mg/dL (8.5-10.1) Total Bilirubin 0.8 mg/dL (0.2-1.0) Aspartate Amino Transf (AST/SGOT) 16 U/L (15-37) Alanine Aminotransferase (ALT/SGPT) 16 U/L (14-59) Alkaline Phosphatase 105 U/L (46-116) Total Protein 7.1 g/dL (6.4-8.2) Albumin 3.3 g/dL (3.4-5.0) Albumin/Globulin Ratio 0.9 (1.0-1.7) Test 06/16/19 08:04 Glucose (Fingerstick) 172 mg/dL (70-99) Laboratory Tests Test 06/15/19 12:01 06/15/19 16:58 06/15/19 21:13 06/16/19 04:30 Glucose (Fingerstick) 191 mg/dL (70-99) 170 mg/dL (70-99) 190 mg/dL (70-99) White Blood Count 5.0 x10^3/uL (4.0-11.0) Red Blood Count 4.00 x10^6/uL (3.50-5.40) Hemoglobin 12.4 g/dL (12.0-15.5) Hematocrit 36.2 % (36.0-47.0) Mean Corpuscular Volume 91 fL (79-100) Mean Corpuscular Hemoglobin 31 pg (25-35) Mean Corpuscular Hemoglobin Concent 34 g/dL (31-37) Red Cell Distribution Width 13.8 % (11.5-14.5) Platelet Count 182 x10^3/uL (140-400) Neutrophils (%) (Auto) 67 % (31-73) Lymphocytes (%) (Auto) 17 % (24-48) Monocytes (%) (Auto) 7 % (0-9) Eosinophils (%) (Auto) 8 % (0-3) Basophils (%) (Auto) 1 % (0-3) Neutrophils # (Auto) 3.4 x10^3/uL (1.8-7.7) Lymphocytes # (Auto) 0.9 x10^3/uL (1.0-4.8) Monocytes # (Auto) 0.3 x10^3/uL (0.0-1.1) Eosinophils # (Auto) 0.4 x10^3/uL (0.0-0.7) Basophils # (Auto) 0.0 x10^3/uL (0.0-0.2) Sodium Level 141 mmol/L (136-145) Potassium Level 4.4 mmol/L (3.5-5.1) Chloride Level 104 mmol/L (98-107) Carbon Dioxide Level 29 mmol/L (21-32) Anion Gap 8 (6-14) Blood Urea Nitrogen 10 mg/dL (7-20) Creatinine 0.8 mg/dL (0.6-1.0) Estimated GFR (Cockcroft-Gault) 71.1 BUN/Creatinine Ratio 13 (6-20) Glucose Level 137 mg/dL (70-99) Calcium Level 9.4 mg/dL (8.5-10.1) Total Bilirubin 0.8 mg/dL (0.2-1.0) Aspartate Amino Transf (AST/SGOT) 16 U/L (15-37) Alanine Aminotransferase (ALT/SGPT) 16 U/L (14-59) Alkaline Phosphatase 105 U/L (46-116) Total Protein 7.1 g/dL (6.4-8.2) Albumin 3.3 g/dL (3.4-5.0) Albumin/Globulin Ratio 0.9 (1.0-1.7) Test 06/16/19 08:04 Glucose (Fingerstick) 172 mg/dL (70-99) Allergies Allergies Coded Allergies Type Severity Reaction Last Updated Verified fentanyl Allergy Intermediate 06/13/19 Yes oxycodone Allergy Intermediate 06/13/19 Yes prednisone Allergy Intermediate 06/13/19 Yes Disposition/Orders: D/C to Home w/ HH Patient Instructions d/c planning 37 min ROD GUSMAN MD Jun 16, 2019 11:06
[2019-06-16] MEDS ORDERED: IPRA3AMP29 NEB (11:08)
[2019-06-16] MEDS ORDERED: GUAI100L12 PO (11:08)
[2019-06-16] MEDS ORDERED: ACET325T9 PO (11:08)
--- NOTE | 2019-06-16 11:11 | SNU/HH DC ---
DISCHARGE WITH HOME HEALTH DISCHARGE INFORMATION: Final Diagnosis: Problems Medical Problems: (1) Acute chest pain Status: Acute (2) Anxiety Status: Acute (3) Asthma Status: Chronic (4) CAD (coronary artery disease) Status: Chronic (5) CHF (congestive heart failure) Status: Acute (6) COPD (chronic obstructive pulmonary disease) Status: Chronic (7) DM2 (diabetes mellitus, type 2) Status: Chronic (8) HLD (hyperlipidemia) Status: Chronic (9) HTN (hypertension) Status: Chronic (10) Hypomagnesemia Status: Acute (11) Shortness of breath Status: Acute Condition on Discharge: Stable CODE STATUS: Code Status: Full HOME HEALTH: Face to Face: I certify this patient is under my care and that I, or a nurse practitioner or physician's doctor assistant working with me, had a face to face encounter that meets the physician face to face encounter requirements with this patient on []. Medical Complications: COPD RN For Eval/Treatment: Yes Physical Therapy For: Evalulation/Treatment Occupational Therapy For: Evaluation/Treatment Speech Language Pathology For: Evaluation/Treatment Home Health Aide For: Self-care HUMAN RESOURCE PROFESSIONAL For: Community Resources Pt Meets Homebound Status: Unsteady balance w/ amb, POST DISCHARGE ORDERS: Activity Instructions for Disc: Other, see below Weight Bearing Status after Di: As tolerated Bathing Instructions: No Tub Bath until see DIET AFTER DISCHARGE: Cardiac Wound/Incision Care: Keep wound/cast CDI, Other, see below CHECKS AFTER DISCHARGE: Checks after discharge: Check blood press - daily, Check blood sugar, ac/hs, Check your Temp as needed, Weigh Yourself Daily CERTIFICATION STATEMENT: Certification Statement: Certification Statement: Based on the above finding, I certify that this patient is confined to the home and needs intermittent fci care, physical therapy and/or speech therapy, or continues to need occupational therapy.~ This patient is under my care, and I have initiated the establishment of the plan of care.~ This patient will be followed by myself or a community physician who will periodically review the plan of care. Home Meds Active Scripts Guaifenesin (GUAIFENESIN) 100 Mg/5 Ml Liquid, 200 MG PO PRN Q4HRS PRN for COUGH for 30 Days, #120 LIQUID Prov:ROD GUSMAN MD 06/16/19 Acetaminophen (TYLENOL) 325 Mg Tablet, 650 MG PO PRN Q4HRS PRN for TEMP OVER 100.4F OR MILD PAIN for 30 Days, #100 TAB Prov:ROD GUSMAN MD 06/16/19 Ipratropium/Albuterol Sulfate (DUONEB 0.5-3(2.5) MG/3 ML) 3 Ml Ampul.neb, 3 ML NEB Q4H for copd for 30 Days, #180 EACH Prov:ROD GUSMAN MD 06/16/19 Reported Medications Rivaroxaban (XARELTO) 20 Mg Tablet, 20 MG PO DAILY for dvt/pe prevention, TAB 06/04/19 Metoprolol Tartrate (METOPROLOL TARTRATE) 25 Mg Tablet, 0.5 TAB PO BID for heart, #60 TAB 3 Refills 06/04/19 Aspirin (ASPIRIN) 81 Mg Tab.chew, 1 TAB PO DAILY for heart, #30 TAB 3 Refills 06/04/19 Clopidogrel Bisulfate (CLOPIDOGREL) 75 Mg Tablet, 1 TAB PO DAILY for heart stent, #30 TAB 3 Refills 06/04/19 Insulin Glargine,Hum.rec.anlog (LANTUS SOLOSTAR) 100 Unit/1 Ml Insuln.pen, 12 UNIT SQ QHS for , SYR 06/03/19 Rosuvastatin Calcium (CRESTOR) 20 Mg Tablet, 20 MG PO HS for FOR CHOLESTEROL, #30 TAB 0 Refills 06/03/19 Pramipexole Di-Hcl (MIRAPEX) 0.25 Mg Tablet, 1 TAB PO QHS for , #90 TAB 1 Refill 06/03/19 Montelukast Sodium (MONTELUKAST SODIUM TABLET ) 10 Mg Tablet, 10 MG PO HS for FOR ASTHMA, TAB 0 Refills 06/03/19 Isosorbide Mononitrate (ISOSORBIDE MONONITRATE ER) 30 Mg Tab.er.24h, 30 MG PO DAILY for , TAB.SR 06/03/19 Gabapentin (GABAPENTIN ) 100 Mg Capsule, 100 MG PO BID for NEUROGENIC PAIN, CAP 06/03/19 Discontinued Reported Medications Hydrocodone Bit/Acetaminophen (HYDROCODONE-APAP 10-325 ) 1 Tab Tablet, 1 TAB PO PRN Q6HRS PRN for PAIN, TAB 0 Refills 06/03/19 Alprazolam (XANAX) 1 Mg Tablet, 1 TAB PO TID for anxiety, #90 TAB 06/03/19 ROD GUSMAN MD Jun 16, 2019 11:11
--- NOTE | 2019-06-16 13:19 | PDOC ---
PULMONARY PROGRESS NOTES Subjective The patient is a 69-year-old who has history of coronary artery disease and had recent stent placement on 06/02. She also had recent hospitalization at [facility] on 06/09 with diagnosis of syncope. She was hospitalized again with chest pain and shortness of breath. The patient denies any significant cough, fever or chills. She has some mild shortness of breath and she has been having wheezing. The patient had a left heart catheterization on 06/03/2019 and she had successful PCI of the left circumflex artery. Her left ventricular end-diastolic pressure was 15. Her echocardiogram revealed an ejection fraction of 55%. No significant valvular heart disease. The patient underwent CT angiogram on 06/10. There was no evidence of pulmonary embolism. The patient had some reticular opacities in both lungs and likely appears to be parenchymal scarring. She also had emphysema. The patient reports having history of pulmonary embolism on the left lung and DVT in the right leg when she was hospitalized at [facility] in September of this year. She has been on Xarelto. She has had lifelong allergic rhinitis. she denies asthma prior to one year ago (?uncertain timing to starting ASA and beta shayna). She also was diagnosed with asthma about a year ago. She states she has been on Symbicort at home. Her wheezing is precipitated by exertion, but not so much airway irritants or ambient weather. She never smoked, but extensive second hand smoke from father, siblings and children. Strong FH of COPD. She also notes that she had seizure after systemic steroids. 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 She has been on inhaled steroids and bronchodilators. Today she feels markedly improved and without wheezing or shortness of breath. Vitals Vital Signs Date Time Temp Pulse Resp B/P (MAP) Pulse Ox O2 Delivery O2 Flow Rate FiO2 06/16/19 12:07 94 Room Air 06/16/19 11:00 97.6 75 18 102/57 (72) 97.6 06/16/19 08:00 2.0 Comments no acute distress General: Alert, Oriented X4, No acute distress Lungs: Clear, Other (FEW WHEEZES) Cardiovascular: S1, S2 Abdomen: Soft, Non-tender Neuro Exam: Alert, Oriented, No Focal Findings Extremities: No Edema Skin: Warm Labs Laboratory Tests Test 06/14/19 17:27 06/14/19 21:17 06/15/19 08:04 06/15/19 12:01 Glucose (Fingerstick) 208 mg/dL (70-99) 187 mg/dL (70-99) 151 mg/dL (70-99) 191 mg/dL (70-99) Test 06/15/19 16:58 06/15/19 21:13 06/16/19 04:30 06/16/19 08:04 Glucose (Fingerstick) 170 mg/dL (70-99) 190 mg/dL (70-99) 172 mg/dL (70-99) White Blood Count 5.0 x10^3/uL (4.0-11.0) Red Blood Count 4.00 x10^6/uL (3.50-5.40) Hemoglobin 12.4 g/dL (12.0-15.5) Hematocrit 36.2 % (36.0-47.0) Mean Corpuscular Volume 91 fL (79-100) Mean Corpuscular Hemoglobin 31 pg (25-35) Mean Corpuscular Hemoglobin Concent 34 g/dL (31-37) Red Cell Distribution Width 13.8 % (11.5-14.5) Platelet Count 182 x10^3/uL (140-400) Neutrophils (%) (Auto) 67 % (31-73) Lymphocytes (%) (Auto) 17 % (24-48) Monocytes (%) (Auto) 7 % (0-9) Eosinophils (%) (Auto) 8 % (0-3) Basophils (%) (Auto) 1 % (0-3) Neutrophils # (Auto) 3.4 x10^3/uL (1.8-7.7) Lymphocytes # (Auto) 0.9 x10^3/uL (1.0-4.8) Monocytes # (Auto) 0.3 x10^3/uL (0.0-1.1) Eosinophils # (Auto) 0.4 x10^3/uL (0.0-0.7) Basophils # (Auto) 0.0 x10^3/uL (0.0-0.2) Sodium Level 141 mmol/L (136-145) Potassium Level 4.4 mmol/L (3.5-5.1) Chloride Level 104 mmol/L (98-107) Carbon Dioxide Level 29 mmol/L (21-32) Anion Gap 8 (6-14) Blood Urea Nitrogen 10 mg/dL (7-20) Creatinine 0.8 mg/dL (0.6-1.0) Estimated GFR (Cockcroft-Gault) 71.1 BUN/Creatinine Ratio 13 (6-20) Glucose Level 137 mg/dL (70-99) Calcium Level 9.4 mg/dL (8.5-10.1) Total Bilirubin 0.8 mg/dL (0.2-1.0) Aspartate Amino Transf (AST/SGOT) 16 U/L (15-37) Alanine Aminotransferase (ALT/SGPT) 16 U/L (14-59) Alkaline Phosphatase 105 U/L (46-116) Total Protein 7.1 g/dL (6.4-8.2) Albumin 3.3 g/dL (3.4-5.0) Albumin/Globulin Ratio 0.9 (1.0-1.7) Test 06/16/19 12:05 Glucose (Fingerstick) 180 mg/dL (70-99) Laboratory Tests Test 06/15/19 16:58 06/15/19 21:13 06/16/19 04:30 06/16/19 08:04 Glucose (Fingerstick) 170 mg/dL (70-99) 190 mg/dL (70-99) 172 mg/dL (70-99) White Blood Count 5.0 x10^3/uL (4.0-11.0) Red Blood Count 4.00 x10^6/uL (3.50-5.40) Hemoglobin 12.4 g/dL (12.0-15.5) Hematocrit 36.2 % (36.0-47.0) Mean Corpuscular Volume 91 fL (79-100) Mean Corpuscular Hemoglobin 31 pg (25-35) Mean Corpuscular Hemoglobin Concent 34 g/dL (31-37) Red Cell Distribution Width 13.8 % (11.5-14.5) Platelet Count 182 x10^3/uL (140-400) Neutrophils (%) (Auto) 67 % (31-73) Lymphocytes (%) (Auto) 17 % (24-48) Monocytes (%) (Auto) 7 % (0-9) Eosinophils (%) (Auto) 8 % (0-3) Basophils (%) (Auto) 1 % (0-3) Neutrophils # (Auto) 3.4 x10^3/uL (1.8-7.7) Lymphocytes # (Auto) 0.9 x10^3/uL (1.0-4.8) Monocytes # (Auto) 0.3 x10^3/uL (0.0-1.1) Eosinophils # (Auto) 0.4 x10^3/uL (0.0-0.7) Basophils # (Auto) 0.0 x10^3/uL (0.0-0.2) Sodium Level 141 mmol/L (136-145) Potassium Level 4.4 mmol/L (3.5-5.1) Chloride Level 104 mmol/L (98-107) Carbon Dioxide Level 29 mmol/L (21-32) Anion Gap 8 (6-14) Blood Urea Nitrogen 10 mg/dL (7-20) Creatinine 0.8 mg/dL (0.6-1.0) Estimated GFR (Cockcroft-Gault) 71.1 BUN/Creatinine Ratio 13 (6-20) Glucose Level 137 mg/dL (70-99) Calcium Level 9.4 mg/dL (8.5-10.1) Total Bilirubin 0.8 mg/dL (0.2-1.0) Aspartate Amino Transf (AST/SGOT) 16 U/L (15-37) Alanine Aminotransferase (ALT/SGPT) 16 U/L (14-59) Alkaline Phosphatase 105 U/L (46-116) Total Protein 7.1 g/dL (6.4-8.2) Albumin 3.3 g/dL (3.4-5.0) Albumin/Globulin Ratio 0.9 (1.0-1.7) Test 06/16/19 12:05 Glucose (Fingerstick) 180 mg/dL (70-99) Medications Active Scripts Medications Dose Route/Sig Max Daily Dose Days Date Category Xarelto (Rivaroxaban) 20 Mg Tablet 20 Mg PO DAILY 06/04/19 Reported Metoprolol Tartrate 25 Mg Tablet 0.5 Tab PO BID 06/04/19 Reported Aspirin 81 Mg Tab.chew 1 Tab PO DAILY 06/04/19 Reported Clopidogrel (Clopidogrel Bisulfate) 75 Mg Tablet 1 Tab PO DAILY 06/04/19 Reported Lantus Solostar (Insulin Glargine,Hum.rec.anlog) 100 Unit/1 Ml Insuln.pen 12 Unit SQ QHS 06/03/19 Reported Crestor (Rosuvastatin Calcium) 20 Mg Tablet 20 Mg PO HS 06/03/19 Reported Mirapex (Pramipexole Di-Hcl) 0.25 Mg Tablet 1 Tab PO QHS 06/03/19 Reported Montelukast Sodium Tablet (Montelukast Sodium) 10 Mg Tablet 10 Mg PO HS 06/03/19 Reported Isosorbide Mononitrate Er (Isosorbide Mononitrate) 30 Mg Tab.er.24h 30 Mg PO DAILY 06/03/19 Reported Hydrocodone-Apap 10-325 (Hydrocodone Bit/Acetaminophen) 1 Tab Tablet 1 Tab PO PRN Q6HRS PRN 06/03/19 Reported Gabapentin (Gabapentin) 100 Mg Capsule 100 Mg PO BID 06/03/19 Reported Xanax (Alprazolam) 1 Mg Tablet 1 Tab PO TID 06/03/[address] description above Impression . IMPRESSION: 1. Asthma with good response to inhaled bronchodilators and inhaled steroids. It is possible that this is related to ASA and/or beta shayna, but I do not think so. Those drugs obviously have significant cardiovasccular benefit. 2. mild emphysema in non-smoker. she did have significant second hand exposure, but I am still surprised. She also has strong family hx of COPD in smoking family. that suggest protease inhibitor deficiency. 3. Mild scarring/ interstitial lung disease. 4. The patient with history of pulmonary embolism in the left lung and deep venous thrombosis in the right lower leg in September when she was hospitalized at [facility]. She has been on Xarelto. Her recent CT angiogram on 06/10/2019 shows no convincing evidence of pulmonary embolism. 5. The patient with known coronary artery disease, status post recent left heart catheterization on 06/03/2019 with successful PCI of the left circumflex artery. She had normal left ventricular ejection fraction. Plan . RECOMMENDATIONS: 1. Continue nebulized bronchodilators and steroids. when discharged, she should continue inhaled steroids (medium strength such as Flovent 220) and PRN albuterol 2. Would cont ASA and beta shayna. 3. alpha one antitrypsin level drawn and pending 4. PFTs and pulmonary follow up after discharge 5. Continue present Xarelto. The recent CTA has not shown any evidence of any pulmonary embolism . [address] in 3 - 4 months . SNEHA TAN MD Jun 16, 2019 13:19
--- NOTE | 2019-06-16 14:47 | NUR ---
Discharge Note: VIOLETA VANG [address] Discharge instructions and discharge home medications reviewed with Patient and a copy given. All questions have been answered and understanding verbalized. Instructions and handouts were given. Discontinued lines. Patient discharged to home with home health.
[2019-06-18 14:10] LABS: A1A SERUM 154 mg/dL (90-200)
== END 2019-06-16 14:48 | disposition home health service (06) | DRG 202 ==
LOC: ER 16:06 → ED HOLD 18:00 → 2 SOUTH 18:49
PROVIDERS: ADMIT Family Medicine; ATTEND Family Medicine
DX: J45.901 Unspecified asthma with (acute) exacerbation (principal); I47.1 Supraventricular tachycardia; I69.354 Hemiplegia and hemiparesis following cerebral infarction affecting left non-dominant side; I25.119 Atherosclerotic heart disease of native coronary artery with unspecified angina pectoris; E78.00 Pure hypercholesterolemia, unspecified; F41.9 Anxiety disorder, unspecified; E83.42 Hypomagnesemia; I11.0 Hypertensive heart disease with heart failure; I50.9 Heart failure, unspecified; I48.91 Unspecified atrial fibrillation; E78.5 Hyperlipidemia, unspecified; K21.9 Gastro-esophageal reflux disease without esophagitis; F32.9 Major depressive disorder, single episode, unspecified; M19.90 Unspecified osteoarthritis, unspecified site; I08.1 Rheumatic disorders of both mitral and tricuspid valves; E11.9 Type 2 diabetes mellitus without complications; I27.20 Pulmonary hypertension, unspecified; J43.9 Emphysema, unspecified; Z95.5 Presence of coronary angioplasty implant and graft; Z88.6 Allergy status to analgesic agent; Z88.5 Allergy status to narcotic agent; Z88.8 Allergy status to other drugs, medicaments and biological substances; Z82.49 Family history of ischemic heart disease and other diseases of the circulatory system; Z90.710 Acquired absence of both cervix and uterus; Z90.49 Acquired absence of other specified parts of digestive tract; Z86.718 Personal history of other venous thrombosis and embolism; Z86.711 Personal history of pulmonary embolism; Z79.01 Long term (current) use of anticoagulants; Z87.01 Personal history of pneumonia (recurrent); Z85.72 Personal history of non-Hodgkin lymphomas; Z82.5 Family history of asthma and other chronic lower respiratory diseases
CPT/HCPCS: 36415; 36600; 71045; 80048; 80053; 82104; 82550; 82805; 82962; 83605; 83690; 83735; 83880; 84484; 85025; 85379; 85610; 87040; 93005; 94640; 94760; 96374; 96375; J1815; J1940; J2060; J2405; J3475; J7620; J7626; 97110; 97116; 99285-25; G0378

== ENCOUNTER 2019-06-18 11:59 | Inpatient (IN) | payer OTHER ==
[~2019-06-18] VITALS: Ht 172.7 cm; Wt 92.5 kg
[~2019-06-18 11:59] MED LIST changes: +ACET325T9 PO; +GUAI100L12 PO; +IPRA3AMP29 NEB
[2019-06-18] MEDS ORDERED: IPRATRPIUM/ALBUTEROL 0.5/2.5MG 3 ML NEBU. NEB ONE ×2 (12:15→14:15)
--- NOTE | 2019-06-18 12:17 | PHYS DOC ---
Past Medical History Past Medical History: CAD, Diabetes-Type II, High Cholesterol, Hypertension Additional Past Surgical Histo: stent placement 05/26/2019 Alcohol Use: None Drug Use: None Adult General HPI HPI Patient is a 69-year-old female who arrives in the emergency department via EMS. She states that she was doing physical therapy and began expressing some sharp left-sided chest discomfort, which has been waxing and waning, associated with shortness of breath. She states the pain feels similar to the pain that she had when she was hospitalized earlier this month, and went up having a cardiac stent placed. She doesn't a history of COPD and is on oxygen. She has not had any fevers. She denies any cough or pleuritic pain. She has not had any vomiting, numbness, or weakness. She does exhibit a significantly anxious affect. There are no alleviating or exacerbating factors to the patient's symptoms, except as noted above. The patient was hospitalized here once after her stent was placed. Notes from her initial and subsequent hospitalization of been reviewed. Patient was given aspirin and nitroglycerin by EMS. She was given 324 mg of aspirin and nitroglycerin did not affect her pain. Review of Systems Review of Systems Constitutional: Denies fever or chills [] Eyes: Denies change in visual acuity, redness, or eye pain [] HENT: Denies nasal congestion or sore throat [] Respiratory: Denies cough. Reports shortness of breath [] Cardiovascular: No additional information not addressed in HPI [] GI: Denies abdominal pain, nausea, vomiting, bloody stools or diarrhea [] : Denies dysuria or hematuria [] Musculoskeletal: Denies back pain or joint pain [] Integument: Denies rash or skin lesions [] Neurologic: Denies headache, focal weakness or sensory changes [] Endocrine: Denies polyuria or polydipsia [] All other systems were reviewed and found to be within normal limits, except as documented in this note. Current Medications Current Medications Current Medications Medications (Trade) Dose Ordered Sig/Marily Start Time Stop Time Status Last Admin Dose Admin Albuterol/ Ipratropium (Duoneb) 3 ml 1X ONCE 06/18/19 14:15 06/18/19 14:16 DC Lorazepam (Ativan Inj) 0.5 mg 1X ONCE 06/18/19 12:15 06/18/19 12:16 DC 06/18/19 12:31 0.5 MG Methylprednisolone Sodium Succinate (SOLU-Medrol 40MG VIAL) 40 mg 1X ONCE 06/18/19 14:15 06/18/19 14:16 DC Ondansetron HCl (Zofran) 4 mg 1X ONCE 06/18/19 12:30 06/18/19 12:31 DC 06/18/19 12:31 4 MG Allergies Allergies Allergies Coded Allergies Type Severity Reaction Last Updated Verified fentanyl Allergy Intermediate 06/13/19 Yes oxycodone Allergy Intermediate 06/13/19 Yes prednisone Allergy Intermediate 06/13/19 Yes Physical Exam Physical Exam PHYSICAL EXAM: CONSTITUTIONAL: Well developed, well nourished HEAD: normocephalic, atraumatic EENT: PERRL, EOMI. Conjunctivae normal color, sclerae non-icteric; moist mucous membranes. NECK: Supple, non-tender; no meningismus. LUNGS: There are globally diminished breath sounds, with mildly increased work of breathing, there are faint expiratory wheezes. HEART: Regular rate and rhythm, no murmur CHEST: No deformity; non-tender ABDOMEN: The abdomen is soft, and non-tender, no masses or bruits. EXTREM: Normal ROM; no deformity, no calf tenderness. Normal pulses palpable in all extremities. There is no pedal edema. SKIN: No rash; no diaphoresis NEURO: Alert; normal speech and cognition; CN's grossly intact; strength grossly intact without focal deficit. BACK: No CVA TTP. PSYCHIATRIC: The patient exhibits a significantly anxious affect. Current Patient Data Vital Signs Vital Signs Date Time Temp Pulse Resp B/P (MAP) Pulse Ox O2 Delivery O2 Flow Rate FiO2 06/18/19 12:34 96 Room Air 06/18/19 12:34 76 28 133/70 (91) 06/18/19 11:59 98.0 98.0 Lab Values Laboratory Tests Test 06/18/19 12:15 06/18/19 12:55 White Blood Count 6.7 x10^3/uL (4.0-11.0) Red Blood Count 4.26 x10^6/uL (3.50-5.40) Hemoglobin 13.1 g/dL (12.0-15.5) Hematocrit 38.7 % (36.0-47.0) Mean Corpuscular Volume 91 fL (79-100) Mean Corpuscular Hemoglobin 31 pg (25-35) Mean Corpuscular Hemoglobin Concent 34 g/dL (31-37) Red Cell Distribution Width 14.0 % (11.5-14.5) Platelet Count 200 x10^3/uL (140-400) Neutrophils (%) (Auto) 60 % (31-73) Lymphocytes (%) (Auto) 28 % (24-48) Monocytes (%) (Auto) 7 % (0-9) Eosinophils (%) (Auto) 5 % (0-3) H Basophils (%) (Auto) 1 % (0-3) Neutrophils # (Auto) 4.0 x10^3/uL (1.8-7.7) Lymphocytes # (Auto) 1.9 x10^3/uL (1.0-4.8) Monocytes # (Auto) 0.5 x10^3/uL (0.0-1.1) Eosinophils # (Auto) 0.4 x10^3/uL (0.0-0.7) Basophils # (Auto) 0.1 x10^3/uL (0.0-0.2) Prothrombin Time 12.3 SEC (11.7-14.0) Prothrombin Time INR 0.9 (0.8-1.1) Sodium Level 140 mmol/L (136-145) Potassium Level 4.1 mmol/L (3.5-5.1) Chloride Level 104 mmol/L (98-107) Carbon Dioxide Level 25 mmol/L (21-32) Anion Gap 11 (6-14) Blood Urea Nitrogen 12 mg/dL (7-20) Creatinine 0.8 mg/dL (0.6-1.0) Estimated GFR (Cockcroft-Gault) 71.1 BUN/Creatinine Ratio 15 (6-20) Glucose Level 182 mg/dL (70-99) H Calcium Level 9.2 mg/dL (8.5-10.1) Total Bilirubin 0.9 mg/dL (0.2-1.0) Aspartate Amino Transferase (AST) 31 U/L (15-37) Alanine Aminotransferase (ALT) 27 U/L (14-59) Alkaline Phosphatase 128 U/L (46-116) H Troponin I Quantitative < 0.017 ng/mL (0.000-0.055) WV-Wfn-G-Type Natriuretic Peptide 175 pg/mL (0-124) H Total Protein 7.3 g/dL (6.4-8.2) Albumin 3.8 g/dL (3.4-5.0) Albumin/Globulin Ratio 1.1 (1.0-1.7) Laboratory Tests 06/18/19 12:15 Laboratory Tests 06/18/19 12:55 EKG EKG Normal sinus rhythm at a rate of 77 beats for minute, left axis deviation, normal intervals, there are no acute ischemic ST/T changes.[] Radiology/Procedures Radiology/Procedures PROCEDURE: PORTABLE CHEST 1V EXAM: Chest, single view. HISTORY: Chest pain. COMPARISON: 06/13/2019 FINDINGS: A frontal view of the chest is obtained. There is no infiltrate, pleural effusion or pneumothorax. The heart is normal in size. There is a surgical anchor within the right humeral head. IMPRESSION: No acute pulmonary finding. [] Course & Med Decision Making Course & Med Decision Making Pertinent Labs and Imaging studies reviewed. (See chart for details) []2:15 PM: The patient's condition remains stable. I spoke with the hospitalist, who accepted the patient to the hospital for further evaluation and treatment. Hospitalist doxycycline and an influenza swab. Dragon Disclaimer Dragon Disclaimer This electronic medical record was generated, in whole or in part, using a voice recognition dictation system. Departure Departure Impression: Primary Impression: COPD (chronic obstructive pulmonary disease) Additional Impressions: Atypical chest pain CAD (coronary artery disease) Disposition: 09 ADMITTED INPATIENT Admitting Physician: HIMS Condition: STABLE Referrals: TRACEE DIAZ MD (PCP) Problem Qualifiers ALEX ROGER MD Jun 18, 2019 12:17
[2019-06-18] MEDS ORDERED: ONDANSETRON PF 4 MG/2 ML VIAL. IV ONE (12:30)
--- NOTE | 2019-06-18 12:31 | RAD ---
EXAM: Chest, single view. HISTORY: Chest pain. COMPARISON: 06/13/2019 FINDINGS: A frontal view of the chest is obtained. There is no infiltrate, pleural effusion or pneumothorax. The heart is normal in size. There is a surgical anchor within the right humeral head. IMPRESSION: No acute pulmonary finding. Electronically signed by: Yesi Chatterjee MD (06/18/2019 12:28 PM) [place] [id number]
[2019-06-18 12:32] LABS: BASO # 0.1 x10^3/uL (0.0-0.2); BASO % 1 % (0-3); EOS # 0.4 x10^3/uL (0.0-0.7); EOS % 5 % (0-3); HEMATOCRIT 38.7 % (36.0-47.0); HEMOGLOBIN 13.1 g/dL (12.0-15.5); LYMPH # 1.9 x10^3/uL (1.0-4.8); LYMPH % 28 % (24-48); MEAN CORPUSCULAR HEMOGLOBIN 31 pg (25-35); MEAN CORPUSCULAR HGB CONC 34 g/dL (31-37); MEAN CORPUSCULAR VOLUME 91 fL (79-100); MONO # 0.5 x10^3/uL (0.0-1.1); MONO % 7 % (0-9); NEUT % 60 % (31-73); PLATELET COUNT 200 x10^3/uL (140-400); RED BLOOD COUNT 4.26 x10^6/uL (3.50-5.40); WHITE BLOOD COUNT 6.7 x10^3/uL (4.0-11.0)
[2019-06-18 12:38] LABS: PROTHROMBIN TIME PATIENT 12.3 SEC (11.7-14.0)
--- NOTE | 2019-06-18 12:40 | EKG ---
[facility] [address] [place] [address] Test Date: 2019-06-18 Test Time: 12:07:00 Pat Name: VIOLETA VANG Department: Room: Gender: F Optometrist/Practice Owner: : 1950 Requested By: ALEX ROGER Order Number: [id number] Reading MD: Measurements Intervals [place] Rate: 77 P: 90 MO: 170 QRS: -17 QRSD: 80 T: 6 QT: 396 QTc: 450 Interpretive Statements SINUS RHYTHM LEFTWARD AXIS R-S TRANSITION ZONE IN V LEADS DISPLACED TO THE LEFT OTHERWISE NORMAL ECG RI6.01 No previous ECG available for comparison
[2019-06-18 13:46] LABS: CALCIUM 9.2 mg/dL (8.5-10.1); CREATININE 0.8 mg/dL (0.6-1.0); GFR 71.1; POTASSIUM 4.1 mmol/L (3.5-5.1)
[2019-06-18 13:51] LABS: ALBUMIN 3.8 g/dL (3.4-5.0); ALBUMIN/GLOBULIN RATIO 1.1 (1.0-1.7); TOTAL BILIRUBIN 0.9 mg/dL (0.2-1.0); TOTAL PROTEIN 7.3 g/dL (6.4-8.2)
[2019-06-18] MEDS ORDERED: methylPREDNISolone SOD SUCC PF 40 MG/ML VIAL. IV ONE (14:15)
[2019-06-18] MEDS ORDERED: DOXYCYCLINE HYCLATE 100 MG TABLET PO ONE (14:30)
[2019-06-18 16:03] LABS: INFLUENZA A PATIENT NEGATIVE (NEGATIVE); INFLUENZA B PATIENT NEGATIVE (NEGATIVE)
[2019-06-18 17:30] VITALS: BP 112/53
[2019-06-18] MEDS ORDERED: ACETAMINOPHEN 325 MG TABLET. PO PRN (17:45)
[2019-06-18] MEDS: IPRATRPIUM/ALBUTEROL 0.5/2.5MG 3 ML NEBU. NEB SCH ×2 (17:59→20:20)
[2019-06-18] MEDS ORDERED: IV DEXTROSE 5% 250 ML BAG. IV PRN (18:30)
[2019-06-18] MEDS ORDERED: DEXTROSE 50% 25 GM / 50ML DISP.SYRIN. IV PRN (18:30)
[2019-06-18 19:45] VITALS: BP 127/77
--- NOTE | 2019-06-18 20:16 | PDOC1 ---
History and Physical Date of Admission Date of Admission DATE: 06/18/19 TIME: 19:59 Identification/Chief Complaint Chief Complaint sob Problems: (1) Asthma Source Source: Chart review, Patient History of Present Illness History of Present Illness 69-year hx of CAD s/p stenting, asthma dx 1 year ago, recent hospitalization 2 days ago for bronchospasm admitted for sob since 2 days. at baseline can walk to the kitchen. reports chest pain too with sob. noted hx of coronary artery disease and had recent stent placement on 06/02. The patient had a left heart catheterization on 06/03/2019 and she had successful PCI of the left circumflex artery. patient had normal chest xray this admission. got breathing treatment in ED with improvement. trop X 2 negative. states feels better with breathing treatment. patient reports having history of pulmonary embolism on the left lung and DVT in the right leg when she was hospitalized at [facility] in September of this year. She has been on Xarelto. bc of un resolved SOB she was admitted to the hospitalist service for further care. Past Medical History Cardiovascular: AFIB, CAD, CHF, HTN, Hyperlipidemia, Other Pulmonary: Asthma, COPD, Pneumonia, Other CENTRAL NERVOUS SYSTEM: CVA, Seizure, Other GI: GERD Heme/Onc: Cancer Psych: Anxiety, Depression Musculoskeletal: low back pain, Osteoarthritis Endocrine: Diabetes Past Surgical History Past Surgical History: Cholecystectomy, Hysterectomy, Other Family History Family History: Coronary Artery Disease Social History ALCOHOL: none Drugs: None Current Problem List Problem List Problems Medical Problems: (1) Atypical chest pain Status: Acute (2) CAD (coronary artery disease) Status: Chronic (3) COPD (chronic obstructive pulmonary disease) Status: Chronic Current Medications Current Medications Current Medications Lorazepam (Ativan Inj) 0.5 mg 1X ONCE IV Last administered on 06/18/19at 12:31; Start 06/18/19 at 12:15; Stop 06/18/19 at 12:16; Status DC Albuterol/ Ipratropium (Duoneb) 3 ml 1X ONCE NEB Last administered on 06/18/19at 12:33; Start 06/18/19 at 12:15; Stop 06/18/19 at 12:16; Status DC Ondansetron HCl (Zofran) 4 mg 1X ONCE IV Last administered on 06/18/19at 12:31; Start 06/18/19 at 12:30; Stop 06/18/19 at 12:31; Status DC Methylprednisolone Sodium Succinate (SOLU-Medrol 40MG VIAL) 40 mg 1X ONCE IV Last administered on 06/18/19at 14:28; Start 06/18/19 at 14:15; Stop 06/18/19 at 14:16; Status DC Albuterol/ Ipratropium (Duoneb) 3 ml 1X ONCE NEB Last administered on 06/18/19at 14:37; Start 06/18/19 at 14:15; Stop 06/18/19 at 14:16; Status DC Doxycycline Hyclate (Vibra-Tab) 100 mg BID PO ; Start 06/18/19 at 21:00 Doxycycline Hyclate (Vibra-Tab) 100 mg ONCE ONCE PO Last administered on 06/18/19at 14:36; Start 06/18/19 at 14:30; Stop 06/18/19 at 14:31; Status DC Lorazepam (Ativan Inj) 0.5 mg 1X ONCE IV Last administered on 06/18/19at 15:11; Start 06/18/19 at 15:15; Stop 06/18/19 at 15:16; Status DC Acetaminophen (Tylenol) 650 mg PRN Q4HRS PRN PO TEMP OVER 100.4F OR MILD PAIN; Start 06/18/19 at 17:45 Aspirin (Children'S Aspirin) 81 mg DAILY PO ; Start 06/19/19 at 09:00 Clopidogrel Bisulfate (Plavix) 75 mg DAILY PO ; Start 06/19/19 at 09:00 Gabapentin (Neurontin) 100 mg BID PO ; Start 06/18/19 at 21:00 Guaifenesin (Robitussin) 200 mg PRN Q4HRS PRN PO COUGH; Start 06/18/19 at 17:45 Albuterol/ Ipratropium (Duoneb) 3 ml Q4H NEB Last administered on 06/18/19at 18:01; Start 06/18/19 at 17:45 Isosorbide Mononitrate (Imdur) 30 mg DAILY PO ; Start 06/19/19 at 09:00 Metoprolol Tartrate (Lopressor) 12.5 mg BID PO ; Start 06/18/19 at 21:00 Montelukast Sodium (Singulair) 10 mg HS PO ; Start 06/18/19 at 21:00 Pramipexole Dihydrochloride (miraPEX) 0.25 mg QHS PO ; Start 06/18/19 at 21:00 Insulin Glargine (Lantus Syringe) 12 unit QHS SQ ; Start 06/18/19 at 21:00 Rivaroxaban (Xarelto) 20 mg DAILYWBKFT PO ; Start 06/19/19 at 08:00 Atorvastatin Calcium (Lipitor) 80 mg QHS PO ; Start 06/18/19 at 21:00 Methylprednisolone Sodium Succinate (SOLU-Medrol 40MG VIAL) 60 mg Q6HRS IV ; Start 06/19/19 at 00:00 Insulin Human Lispro (HumaLOG) 0-7 UNITS TIDWMEALS SQ ; Start 06/19/19 at 08:00 Dextrose (Dextrose 50%-Water Syringe) 12.5 gm PRN Q15MIN PRN IV SEE COMMENTS; Start 06/18/19 at 18:30 Dextrose 250 ml PRN Q15MIN PRN IV SEE COMMENTS; Start 06/18/19 at 18:30 Active Scripts Active Guaifenesin 100 Mg/5 Ml Liquid 200 Mg PO PRN Q4HRS PRN 30 Days Tylenol (Acetaminophen) 325 Mg Tablet 650 Mg PO PRN Q4HRS PRN 30 Days Duoneb 0.5-3(2.5) Mg/3 Ml (Albuterol/Ipratropium) 3 Ml Ampul.neb 3 Ml NEB Q4H 30 Days Reported Xarelto (Rivaroxaban) 20 Mg Tablet 20 Mg PO DAILY Metoprolol Tartrate 25 Mg Tablet 0.5 Tab PO BID Aspirin 81 Mg Tab.chew 1 Tab PO DAILY Clopidogrel (Clopidogrel Bisulfate) 75 Mg Tablet 1 Tab PO DAILY Lantus Solostar (Insulin Glargine,Hum.rec.anlog) 100 Unit/1 Ml Insuln.pen 12 Unit SQ QHS Crestor (Rosuvastatin Calcium) 20 Mg Tablet 20 Mg PO HS Mirapex (Pramipexole Di-Hcl) 0.25 Mg Tablet 1 Tab PO QHS Montelukast Sodium Tablet (Montelukast Sodium) 10 Mg Tablet 10 Mg PO HS Isosorbide Mononitrate Er (Isosorbide Mononitrate) 30 Mg Tab.er.24h 30 Mg PO DAILY Gabapentin (Gabapentin) 100 Mg Capsule 100 Mg PO BID Allergies Allergies: Coded Allergies: fentanyl (Verified Allergy, Intermediate, 06/13/19) oxycodone (Verified Allergy, Intermediate, 06/13/19) prednisone (Verified Allergy, Intermediate, 06/13/19) ROS Review of System CONSTITUTIONAL: No fever or chills EYES: No recent changes SKIN: No rash or itching CARDIOVASCULAR: No chest pain, syncope, palpitations, or edema RESPIRATORY: No SOB or cough GASTROINTESTINAL: No nausea, vomiting or abdominal pain NEUROLOGICAL: No headaches or weakness ENDOCRINE: No cold or heat intolerance GENITOURINARY: No urgency or frequency of urination MUSCULOSKELETAL: No back pain or joint pain LYMPHATICS: No enlarged lymph nodes PSYCHIATRIC: No anxiety or depression Physical Exam Physical Exam GENERAL: No apparent distress. Alert and oriented. HEENT: Head normocephalic, atraumatic. NECK: Supple LUNGS: Clear to auscultation. HEART: RRR, S1, S2 present, pulses intact ABDOMEN: Soft, positive bowel sounds. EXTREMITIES: No cyanosis or edema. NEUROLOGIC: Normal speech, normal tone PSYCHIATRIC: Normal affect, normal mood. SKIN: No ulceration. Vitals Vitals Vital Signs Date Time Temp Pulse Resp B/P (MAP) Pulse Ox O2 Delivery O2 Flow Rate FiO2 06/18/19 18:01 93 Room Air 06/18/19 17:30 98.2 87 18 112/53 (72) 98.2 Labs Labs Laboratory Tests Test 06/18/19 12:15 06/18/19 12:55 06/18/19 15:35 06/18/19 17:10 White Blood Count 6.7 x10^3/uL (4.0-11.0) Red Blood Count 4.26 x10^6/uL (3.50-5.40) Hemoglobin 13.1 g/dL (12.0-15.5) Hematocrit 38.7 % (36.0-47.0) Mean Corpuscular Volume 91 fL (79-100) Mean Corpuscular Hemoglobin 31 pg (25-35) Mean Corpuscular Hemoglobin Concent 34 g/dL (31-37) Red Cell Distribution Width 14.0 % (11.5-14.5) Platelet Count 200 x10^3/uL (140-400) Neutrophils (%) (Auto) 60 % (31-73) Lymphocytes (%) (Auto) 28 % (24-48) Monocytes (%) (Auto) 7 % (0-9) Eosinophils (%) (Auto) 5 % (0-3) Basophils (%) (Auto) 1 % (0-3) Neutrophils # (Auto) 4.0 x10^3/uL (1.8-7.7) Lymphocytes # (Auto) 1.9 x10^3/uL (1.0-4.8) Monocytes # (Auto) 0.5 x10^3/uL (0.0-1.1) Eosinophils # (Auto) 0.4 x10^3/uL (0.0-0.7) Basophils # (Auto) 0.1 x10^3/uL (0.0-0.2) Prothrombin Time 12.3 SEC (11.7-14.0) Prothromb Time International Ratio 0.9 (0.8-1.1) Sodium Level 140 mmol/L (136-145) Potassium Level 4.1 mmol/L (3.5-5.1) Chloride Level 104 mmol/L (98-107) Carbon Dioxide Level 25 mmol/L (21-32) Anion Gap 11 (6-14) Blood Urea Nitrogen 12 mg/dL (7-20) Creatinine 0.8 mg/dL (0.6-1.0) Estimated GFR (Cockcroft-Gault) 71.1 BUN/Creatinine Ratio 15 (6-20) Glucose Level 182 mg/dL (70-99) Calcium Level 9.2 mg/dL (8.5-10.1) Total Bilirubin 0.9 mg/dL (0.2-1.0) Aspartate Amino Transf (AST/SGOT) 31 U/L (15-37) Alanine Aminotransferase (ALT/SGPT) 27 U/L (14-59) Alkaline Phosphatase 128 U/L (46-116) Troponin I Quantitative < 0.017 ng/mL (0.000-0.055) < 0.017 ng/mL (0.000-0.055) NR-Xjn-V-Type Natriuretic Peptide 175 pg/mL (0-124) Total Protein 7.3 g/dL (6.4-8.2) Albumin 3.8 g/dL (3.4-5.0) Albumin/Globulin Ratio 1.1 (1.0-1.7) Influenza Type A Antigen Negative (NEGATIVE) Influenza Type B Antigen Negative (NEGATIVE) Laboratory Tests Test 06/18/19 12:15 06/18/19 12:55 06/18/19 15:35 06/18/19 17:10 White Blood Count 6.7 x10^3/uL (4.0-11.0) Red Blood Count 4.26 x10^6/uL (3.50-5.40) Hemoglobin 13.1 g/dL (12.0-15.5) Hematocrit 38.7 % (36.0-47.0) Mean Corpuscular Volume 91 fL (79-100) Mean Corpuscular Hemoglobin 31 pg (25-35) Mean Corpuscular Hemoglobin Concent 34 g/dL (31-37) Red Cell Distribution Width 14.0 % (11.5-14.5) Platelet Count 200 x10^3/uL (140-400) Neutrophils (%) (Auto) 60 % (31-73) Lymphocytes (%) (Auto) 28 % (24-48) Monocytes (%) (Auto) 7 % (0-9) Eosinophils (%) (Auto) 5 % (0-3) Basophils (%) (Auto) 1 % (0-3) Neutrophils # (Auto) 4.0 x10^3/uL (1.8-7.7) Lymphocytes # (Auto) 1.9 x10^3/uL (1.0-4.8) Monocytes # (Auto) 0.5 x10^3/uL (0.0-1.1) Eosinophils # (Auto) 0.4 x10^3/uL (0.0-0.7) Basophils # (Auto) 0.1 x10^3/uL (0.0-0.2) Prothrombin Time 12.3 SEC (11.7-14.0) Prothromb Time International Ratio 0.9 (0.8-1.1) Sodium Level 140 mmol/L (136-145) Potassium Level 4.1 mmol/L (3.5-5.1) Chloride Level 104 mmol/L (98-107) Carbon Dioxide Level 25 mmol/L (21-32) Anion Gap 11 (6-14) Blood Urea Nitrogen 12 mg/dL (7-20) Creatinine 0.8 mg/dL (0.6-1.0) Estimated GFR (Cockcroft-Gault) 71.1 BUN/Creatinine Ratio 15 (6-20) Glucose Level 182 mg/dL (70-99) Calcium Level 9.2 mg/dL (8.5-10.1) Total Bilirubin 0.9 mg/dL (0.2-1.0) Aspartate Amino Transf (AST/SGOT) 31 U/L (15-37) Alanine Aminotransferase (ALT/SGPT) 27 U/L (14-59) Alkaline Phosphatase 128 U/L (46-116) Troponin I Quantitative < 0.017 ng/mL (0.000-0.055) < 0.017 ng/mL (0.000-0.055) HD-Hbp-D-Type Natriuretic Peptide 175 pg/mL (0-124) Total Protein 7.3 g/dL (6.4-8.2) Albumin 3.8 g/dL (3.4-5.0) Albumin/Globulin Ratio 1.1 (1.0-1.7) Influenza Type A Antigen Negative (NEGATIVE) Influenza Type B Antigen Negative (NEGATIVE) VTE Prophylaxis Ordered VTE Prophylaxis Devices: No VTE Pharmacological Prophylaxi: Yes Assessment/Plan Assessment/Plan Assessment 1. bronchospasm with acute exacerbation 2. 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 3. No significant history of tobacco use. 4. coronary artery disease, status post recent left heart catheterization on 06/03/2019 with successful PCI of the left circumflex artery. 5. type 2 dm 6. hx of CVA 7. hx of Paroxysmal supraventricular tachycardia. PLAN - continue oxygen, IV steroids, doxy. patient allergic to prednisone - consult pulm - continnue pulm - continue Pulmicort - continue Xarelto. recent CTA has not shown any evidence of any pulmonary embolism . Discussed with RN and will follow along with you. - continue SSI Deep venous thrombosis and pulmonary embolism, on Xarelto. continue BB - continue ASA plavix and statin KAREN BIRCH MD Jun 18, 2019 20:16
[2019-06-18] MEDS ORDERED: traMADol 50 MG TABLET PO PRN (20:30)
[2019-06-18] MEDS: ATORVASTATIN CALCIUM 40 MG TABLET. PO SCH (20:51)
[2019-06-18] MEDS: MONTELUKAST SODIUM 10 MG TABLET. PO SCH (20:51)
[2019-06-18] MEDS: METOPROLOL TART IMMED RELEASE 25 MG TABLET. PO SCH (20:54)
[2019-06-18] MEDS: PRAMIPEXOLE 0.25 MG TABLET. PO SCH (20:55)
[2019-06-18] MEDS: GABAPENTIN 100 MG CAPSULE. PO SCH (20:55)
[2019-06-18] MEDS: DOXYCYCLINE HYCLATE 100 MG TABLET PO SCH (20:55)
[2019-06-18] MEDS: guaiFENesin ORAL 200 MG/10 ML LIQUID. PO PRN (20:55)
[2019-06-18] MEDS: INSULIN GLARGINE SYRINGE. SQ SCH (22:12)
[2019-06-18] MEDS ORDERED: INSULIN LISPRO 300 UNITS/3 ML VIAL. SQ ONE (22:45)
[2019-06-18 23:45] VITALS: BP 107/71
[2019-06-19] MEDS: methylPREDNISolone SOD SUCC PF 40 MG/ML VIAL. IV SCH ×4 (00:02→17:44)
[2019-06-19] MEDS: MORPHINE SULFATE 2 MG/ML VIAL. IV PRN ×4 (00:02→21:42)
[2019-06-19] MEDS: IPRATRPIUM/ALBUTEROL 0.5/2.5MG 3 ML NEBU. NEB SCH ×7 (00:25→23:38)
[2019-06-19] MEDS: guaiFENesin ORAL 200 MG/10 ML LIQUID. PO PRN ×2 (03:39→09:13)
[2019-06-19 03:45] VITALS: BP 121/54
[2019-06-19 07:00] VITALS: BP 116/64
[2019-06-19] MEDS ORDERED: INSULIN LISPRO 300 UNITS/3 ML VIAL. SQ SCH (08:00)
[2019-06-19] MEDS: GABAPENTIN 100 MG CAPSULE. PO SCH ×2 (09:13→21:37)
[2019-06-19] MEDS: CLOPIDOGREL BISULFATE 75 MG TABLET PO SCH (09:13)
[2019-06-19] MEDS: ISOSORBIDE MONONITRATE ER 30 MG TAB.ER.24H PO SCH (09:13)
[2019-06-19] MEDS: DOXYCYCLINE HYCLATE 100 MG TABLET PO SCH ×2 (09:13→21:38)
[2019-06-19] MEDS: RIVAROXABAN 10 MG TABLET. PO SCH (09:14)
[2019-06-19] MEDS: METOPROLOL TART IMMED RELEASE 25 MG TABLET. PO SCH ×2 (09:14→21:37)
[2019-06-19] MEDS: ASPIRIN CHEWABLE 81 MG TABLET. PO SCH (09:14)
--- NOTE | 2019-06-19 10:38 | CONS ---
DATE OF CONSULTATION: 06/19/2019 PULMONARY CONSULTATION ATTENDING PHYSICIAN: Dr. Ariel Coffman. REASON FOR CONSULTATION: Dyspnea, bronchospasm. HISTORY OF PRESENT ILLNESS: The patient is a 69-year-old who has history of coronary artery disease, status post stenting and history of asthma diagnosed about a year ago. She was recently hospitalized for shortness of breath and bronchospasm. She had a history of coronary artery disease and had recently had a left heart catheterization on 06/03/2019 and had successful PCI of left circumflex artery. The patient underwent CT angiogram. There was no evidence of pulmonary embolism. There were parenchymal scarring in the upper lobes and some scattered scars in the midlung as well. No definite mass was seen. She has a history of pulmonary embolism and has been on Xarelto. No PE was observed during this admission. The patient states she was at home and she was having physical therapy when she was noted to be lightheaded and jittery, and then her blood pressure was markedly elevated. As a result, she was referred back to the ER. She is still having some wheezing, mostly upper airway. She has a cough, which is dry. No fever; no chills; no chest pains; no headaches; no nausea, vomiting, diarrhea. Her chest x-ray did not reveal any acute infiltrate. PAST MEDICAL HISTORY: History of atrial fibrillation, history of coronary artery disease, CHF, hypertension, hyperlipidemia, history of DVT in the right leg, history of pulmonary embolism in the left lung when she was hospitalized in [facility] in September of this year, history of GERD, depression, low back pain, osteoarthritis, diabetes. PAST SURGICAL HISTORY: Cholecystectomy and hysterectomy. FAMILY HISTORY: Coronary artery disease. SOCIAL HISTORY: Nonalcoholic. Nonsmoker. ALLERGIES: FENTANYL, OXYCODONE, AND PREDNISONE. CURRENT MEDICATIONS: Reviewed as listed in the MRAD, including IV Solu-Medrol. She is also on metoprolol along with DuoNebs. REVIEW OF SYSTEMS: Twelve-point system obtained. Pertinent positives discussed in my history of present illness, otherwise noncontributory. All systems that were negative were reviewed as well. PHYSICAL EXAMINATION: VITAL SIGNS: Reviewed. Blood pressure stable, pulse ox 91% on room air, afebrile. HEENT: Sclerae nonicteric. NECK: Supple. LUNGS: With faint bilateral expiratory wheezes, mostly upper airway. CARDIOVASCULAR: With a regular rate. ABDOMEN: Soft, nontender. EXTREMITIES: With no pitting edema. LABORATORY DATA: Reviewed. White cell count 6.7, hemoglobin 13.1, platelets are 200. IMPRESSION: 1. Dyspnea secondary to acute asthma exacerbation. The patient has mostly upper airway wheezing. No evidence of congestive heart failure. Recent CT angiogram revealed no evidence of pulmonary embolism. She is ALLERGIC TO CAT DANDER. She does have a dog, which is very close to her and it may be one of the triggers as well. She is currently on metoprolol as well and one needs to closely follow her if the bronchospasm persist. 2. History of pulmonary embolism and deep venous thrombosis in September of this year when she was hospitalized in [facility]. She will be on Xarelto and no evidence of recurrent pulmonary embolism. 3. History of coronary artery disease, status post recent stent for left circumflex. 4. No significant tobacco history. RECOMMENDATIONS: 1. We will continue with present IV steroids. 2. Continue with DuoNebs. 3. Add Pulmicort. 4. At home, she uses Symbicort. 5. If wheezing does not resolve, then consider holding metoprolol. 6. Continue with Xarelto. 7. Continue with Plavix per Cardiology. 8. We will follow along with you. HENRIQUE ORNELAS MD DR: GABBY/oliverio JOB#: [id number] / [id number] STEVAN
[2019-06-19 11:20] VITALS: BP 119/64
[2019-06-19] MEDS ORDERED: INSULIN GLARGINE SYRINGE. SQ SCH (11:45)
[2019-06-19] MEDS: BUDESONIDE 0.5 MG/2 ML NEBU. NEB SCH ×2 (12:17→19:15)
[2019-06-19] MEDS: INSULIN LISPRO 300 UNITS/3 ML VIAL. SQ SCH ×2 (12:24→17:52)
[2019-06-19] MEDS ORDERED: INSULIN GLARGINE SYRINGE. SQ ONE ×2 (12:45→17:15)
--- NOTE | 2019-06-19 15:02 | PDOC ---
PROGRESS NOTES Chief Complaint Chief Complaint sob slightly improved. feels better. difficult with IV access this AM. nurses trying to acquire IV site. History of Present Illness History of Present Illness Assessment 1. bronchospasm with acute exacerbation 2. 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 3. No significant history of tobacco use. 4. coronary artery disease, status post recent left heart catheterization on 06/03/2019 with successful PCI of the left circumflex artery. 5. type 2 dm, with hyperglycemia 6. hx of CVA 7. hx of Paroxysmal supraventricular tachycardia. PLAN - continue oxygen, IV steroids, doxy. patient allergic to prednisone - consult pulm - continue pulmicort - continue Xarelto. recent CTA has not shown any evidence of any pulmonary embolism . - continue SSI Deep venous thrombosis and pulmonary embolism, on Xarelto. continue BB - continue ASA plavix and statin - elevated sugars. add lantus 10 units. Vitals Vitals Vital Signs Date Time Temp Pulse Resp B/P (MAP) Pulse Ox O2 Delivery O2 Flow Rate FiO2 06/19/19 13:20 Room Air 06/19/19 12:19 98 06/19/19 11:20 97.8 20 119/64 (82) 97.8 06/19/19 09:21 107 Physical Exam Lungs: Clear, Other Labs LABS Laboratory Tests Test 06/18/19 15:35 06/18/19 17:10 06/18/19 20:35 06/18/19 22:10 Influenza Type A Antigen Negative (NEGATIVE) Influenza Type B Antigen Negative (NEGATIVE) Troponin I Quantitative < 0.017 ng/mL (0.000-0.055) < 0.017 ng/mL (0.000-0.055) Glucose (Fingerstick) 409 mg/dL (70-99) Test 06/19/19 07:18 06/19/19 11:28 Glucose (Fingerstick) 344 mg/dL (70-99) 456 mg/dL (70-99) Assessment and Plan Assessmemt and Plan Problems Medical Problems: (1) Atypical chest pain Status: Acute (2) CAD (coronary artery disease) Status: Chronic (3) COPD (chronic obstructive pulmonary disease) Status: Chronic Comment Review of Relevant I have reviewed the following items alma (where applicable) has been applied. Labs Laboratory Tests Test 06/18/19 12:15 06/18/19 12:55 06/18/19 15:35 06/18/19 17:10 White Blood Count 6.7 x10^3/uL (4.0-11.0) Red Blood Count 4.26 x10^6/uL (3.50-5.40) Hemoglobin 13.1 g/dL (12.0-15.5) Hematocrit 38.7 % (36.0-47.0) Mean Corpuscular Volume 91 fL (79-100) Mean Corpuscular Hemoglobin 31 pg (25-35) Mean Corpuscular Hemoglobin Concent 34 g/dL (31-37) Red Cell Distribution Width 14.0 % (11.5-14.5) Platelet Count 200 x10^3/uL (140-400) Neutrophils (%) (Auto) 60 % (31-73) Lymphocytes (%) (Auto) 28 % (24-48) Monocytes (%) (Auto) 7 % (0-9) Eosinophils (%) (Auto) 5 % (0-3) Basophils (%) (Auto) 1 % (0-3) Neutrophils # (Auto) 4.0 x10^3/uL (1.8-7.7) Lymphocytes # (Auto) 1.9 x10^3/uL (1.0-4.8) Monocytes # (Auto) 0.5 x10^3/uL (0.0-1.1) Eosinophils # (Auto) 0.4 x10^3/uL (0.0-0.7) Basophils # (Auto) 0.1 x10^3/uL (0.0-0.2) Prothrombin Time 12.3 SEC (11.7-14.0) Prothromb Time International Ratio 0.9 (0.8-1.1) Sodium Level 140 mmol/L (136-145) Potassium Level 4.1 mmol/L (3.5-5.1) Chloride Level 104 mmol/L (98-107) Carbon Dioxide Level 25 mmol/L (21-32) Anion Gap 11 (6-14) Blood Urea Nitrogen 12 mg/dL (7-20) Creatinine 0.8 mg/dL (0.6-1.0) Estimated GFR (Cockcroft-Gault) 71.1 BUN/Creatinine Ratio 15 (6-20) Glucose Level 182 mg/dL (70-99) Calcium Level 9.2 mg/dL (8.5-10.1) Total Bilirubin 0.9 mg/dL (0.2-1.0) Aspartate Amino Transf (AST/SGOT) 31 U/L (15-37) Alanine Aminotransferase (ALT/SGPT) 27 U/L (14-59) Alkaline Phosphatase 128 U/L (46-116) Troponin I Quantitative < 0.017 ng/mL (0.000-0.055) < 0.017 ng/mL (0.000-0.055) YK-Xbu-S-Type Natriuretic Peptide 175 pg/mL (0-124) Total Protein 7.3 g/dL (6.4-8.2) Albumin 3.8 g/dL (3.4-5.0) Albumin/Globulin Ratio 1.1 (1.0-1.7) Influenza Type A Antigen Negative (NEGATIVE) Influenza Type B Antigen Negative (NEGATIVE) Test 06/18/19 20:35 06/18/19 22:10 06/19/19 07:18 06/19/19 11:28 Troponin I Quantitative < 0.017 ng/mL (0.000-0.055) Glucose (Fingerstick) 409 mg/dL (70-99) 344 mg/dL (70-99) 456 mg/dL (70-99) Laboratory Tests Test 06/18/19 15:35 06/18/19 17:10 06/18/19 20:35 06/18/19 22:10 Influenza Type A Antigen Negative (NEGATIVE) Influenza Type B Antigen Negative (NEGATIVE) Troponin I Quantitative < 0.017 ng/mL (0.000-0.055) < 0.017 ng/mL (0.000-0.055) Glucose (Fingerstick) 409 mg/dL (70-99) Test 06/19/19 07:18 06/19/19 11:28 Glucose (Fingerstick) 344 mg/dL (70-99) 456 mg/dL (70-99) Medications Current Medications Lorazepam (Ativan Inj) 0.5 mg 1X ONCE IV Last administered on 06/18/19at 12:31; Start 06/18/19 at 12:15; Stop 06/18/19 at 12:16; Status DC Albuterol/ Ipratropium (Duoneb) 3 ml 1X ONCE NEB Last administered on 06/18/19 12:33; Start 06/18/19 at 12:15; Stop 06/18/19 at 12:16; Status DC Ondansetron HCl (Zofran) 4 mg 1X ONCE IV Last administered on 06/18/19 12:31; Start 06/18/19 at 12:30; Stop 06/18/19 at 12:31; Status DC Methylprednisolone Sodium Succinate (SOLU-Medrol 40MG VIAL) 40 mg 1X ONCE IV Last administered on 06/18/19 14:28; Start 06/18/19 at 14:15; Stop 06/18/19 at 14:16; Status DC Albuterol/ Ipratropium (Duoneb) 3 ml 1X ONCE NEB Last administered on 06/18/19 14:37; Start 06/18/19 at 14:15; Stop 06/18/19 at 14:16; Status DC Doxycycline Hyclate (Vibra-Tab) 100 mg BID PO Last administered on 06/19/19 09:21; Start 06/18/19 at 21:00 Doxycycline Hyclate (Vibra-Tab) 100 mg ONCE ONCE PO Last administered on 06/18/19 14:36; Start 06/18/19 at 14:30; Stop 06/18/19 at 14:31; Status DC Lorazepam (Ativan Inj) 0.5 mg 1X ONCE IV Last administered on 06/18/19 15:11; Start 06/18/19 at 15:15; Stop 06/18/19 at 15:16; Status DC Acetaminophen (Tylenol) 650 mg PRN Q4HRS PRN PO TEMP OVER 100.4F OR MILD PAIN; Start 06/18/19 at 17:45 Aspirin (Children'S Aspirin) 81 mg DAILY PO Last administered on 06/19/19 09:21; Start 06/19/19 at 09:00 Clopidogrel Bisulfate (Plavix) 75 mg DAILY PO Last administered on 06/19/19 09:21; Start 06/19/19 at 09:00 Gabapentin (Neurontin) 100 mg BID PO Last administered on 06/19/19 09:21; Start 06/18/19 at 21:00 Guaifenesin (Robitussin) 200 mg PRN Q4HRS PRN PO COUGH Last administered on 06/19/19 09:21; Start 06/18/19 at 17:45 Albuterol/ Ipratropium (Duoneb) 3 ml Q4H NEB Last administered on 06/19/19 12:17; Start 06/18/19 at 17:45 Isosorbide Mononitrate (Imdur) 30 mg DAILY PO Last administered on 06/19/19 09:21; Start 06/19/19 at 09:00 Metoprolol Tartrate (Lopressor) 12.5 mg BID PO Last administered on 06/19/19 09:21; Start 06/18/19 at 21:00 Montelukast Sodium (Singulair) 10 mg HS PO Last administered on 06/18/19 20:56; Start 06/18/19 at 21:00 Pramipexole Dihydrochloride (miraPEX) 0.25 mg QHS PO Last administered on 06/18/19 20:56; Start 06/18/19 at 21:00 Insulin Glargine (Lantus Syringe) 12 unit QHS SQ Last administered on 06/18/19 22:13; Start 06/18/19 at 21:00 Rivaroxaban (Xarelto) 20 mg DAILYWBKFT PO Last administered on 06/19/19 09:21; Start 06/19/19 at 08:00 Atorvastatin Calcium (Lipitor) 80 mg QHS PO Last administered on 06/18/19 20:56; Start 06/18/19 at 21:00 Methylprednisolone Sodium Succinate (SOLU-Medrol 40MG VIAL) 60 mg Q6HRS IV Last administered on 06/19/19 12:18; Start 06/19/19 at 00:00 Insulin Human Lispro (HumaLOG) 0-7 UNITS TIDWMEALS SQ Last administered on 06/19/19 09:21; Start 06/19/19 at 08:00; Stop 06/19/19 at 11:45; Status DC Dextrose (Dextrose 50%-Water Syringe) 12.5 gm PRN Q15MIN PRN IV SEE COMMENTS; Start 06/18/19 at 18:30 Dextrose 250 ml PRN Q15MIN PRN IV SEE COMMENTS; Start 06/18/19 at 18:30 Tramadol HCl (Ultram) 50 mg PRN Q6HRS PRN PO PAIN Last administered on 06/18/19at 20:56; Start 06/18/19 at 20:30 Morphine Sulfate (Morphine Sulfate) 1 mg PRN Q4HRS PRN IV PAIN Last administered on 06/19/19at 13:20; Start 06/18/19 at 20:30 Lorazepam (Ativan Inj) 2 mg PRN Q6HRS PRN IV ANXIETY / AGITATION Last administered on 06/19/19at 06:05; Start 06/18/19 at 22:45 Insulin Human Lispro (HumaLOG) 10 units 1X ONCE SQ Last administered on 06/19/19at 00:36; Start 06/18/19 at 22:45; Stop 06/18/19 at 22:46; Status DC Budesonide (Pulmicort) 0.5 mg RTBID NEB Last administered on 06/19/19at 12:17; Start 06/19/19 at 10:00 Insulin Glargine (Lantus Syringe) 10 unit 1X SQ ; Start 06/19/19 at 11:45; Stop 06/19/19 at 12:44; Status DC Insulin Human Lispro (HumaLOG) 0-7 UNITS TIDWMEALS SQ Last administered on 06/19/19at 12:24; Start 06/19/19 at 12:00 Insulin Glargine (Lantus Syringe) 10 unit 1X ONCE SQ Last administered on 06/19/19at 12:45; Start 06/19/19 at 12:45; Stop 06/19/19 at 12:46; Status DC Active Scripts Active Guaifenesin 100 Mg/5 Ml Liquid 200 Mg PO PRN Q4HRS PRN 30 Days Tylenol (Acetaminophen) 325 Mg Tablet 650 Mg PO PRN Q4HRS PRN 30 Days Duoneb 0.5-3(2.5) Mg/3 Ml (Albuterol/Ipratropium) 3 Ml Ampul.neb 3 Ml NEB Q4H 30 Days Reported Xarelto (Rivaroxaban) 20 Mg Tablet 20 Mg PO DAILY Metoprolol Tartrate 25 Mg Tablet 0.5 Tab PO BID Aspirin 81 Mg Tab.chew 1 Tab PO DAILY Clopidogrel (Clopidogrel Bisulfate) 75 Mg Tablet 1 Tab PO DAILY Lantus Solostar (Insulin Glargine,Hum.rec.anlog) 100 Unit/1 Ml Insuln.pen 12 Uni t SQ QHS Crestor (Rosuvastatin Calcium) 20 Mg Tablet 20 Mg PO HS Mirapex (Pramipexole Di-Hcl) 0.25 Mg Tablet 1 Tab PO QHS Montelukast Sodium Tablet (Montelukast Sodium) 10 Mg Tablet 10 Mg PO HS Isosorbide Mononitrate Er (Isosorbide Mononitrate) 30 Mg Tab.er.24h 30 Mg PO DAILY Gabapentin (Gabapentin) 100 Mg Capsule 100 Mg PO BID Vitals/I & O Vital Sign - Last 24 Hours 06/18/19 06/18/19 06/18/19 06/18/19 15:08 15:58 16:35 17:05 Pulse 87 90 89 93 Resp 20 20 20 18 B/P (MAP) 145/70 (95) 112/56 (74) 122/63 (82) 111/61 (78) Pulse Ox 93 93 93 93 O2 Delivery Room Air Room Air Room Air 06/18/19 06/18/19 06/18/19 06/18/19 17:30 17:30 18:01 19:45 Temp 98.2 98.4 98.2 98.4 Pulse 87 112 Resp 18 19 B/P (MAP) 112/53 (72) 127/77 (94) Pulse Ox 92 93 95 O2 Delivery Room Air Room Air Room Air Room Air 06/18/19 06/18/19 06/18/19 06/18/19 20:05 20:21 20:56 23:45 Temp 98.3 98.3 Pulse 112 113 Resp 17 B/P (MAP) 127/77 107/71 (83) Pulse Ox 95 95 O2 Delivery Room Air Room Air Room Air 06/19/19 06/19/19 06/19/19 06/19/19 00:25 03:20 03:45 07:00 Temp 97.9 98.6 97.9 98.6 Pulse 107 Resp 17 20 B/P (MAP) 121/54 (76) 116/64 (81) Pulse Ox 93 90 O2 Delivery Room Air Room Air Room Air Room Air 06/19/19 06/19/19 06/19/19 06/19/19 08:00 08:21 09:21 09:21 Pulse 107 107 B/P (MAP) 116/64 116/64 Pulse Ox 91 O2 Delivery Room Air Room Air 06/19/19 06/19/19 06/19/19 11:20 12:19 13:20 Temp 97.8 97.8 Resp 20 B/P (MAP) 119/64 (82) Pulse Ox 91 98 O2 Delivery Room Air Room Air Room Air Intake and Output 06/18/19 06/18/19 06/19/19 15:00 23:00 07:00 Intake Total 300 ml 850 ml Balance 300 ml 850 ml KAREN BIRCH MD Jun 19, 2019 15:02
[2019-06-19 15:28] VITALS: BP 110/54
--- NOTE | 2019-06-19 16:28 | PDOC2 ---
NEUROLOGY CONSULT Date of Admission Date of Admission DATE: 06/19/19 TIME: 16:21 Reason for Consult Reason for Consult: stroke symptoms Referring Physician Referring Physician: Dr. Coffman Source Source: Chart review, Patient History of Present Illness History of Present Illness Patient is a 69-year-old right-handed female admitted for COPD exacerbation. I was called in on a code stroke which started about 1600. The patient had stuttering speech and left-sided weakness. She has had a stroke in the past as well as history of seizure. Past Medical History Cardiovascular: AFIB, CAD, HTN, DC, Hyperlipidemia Pulmonary: Asthma, COPD, Pneumonia, Other (pulmonary embolism, sleep apnea) CENTRAL NERVOUS SYSTEM: CVA, Seizure GI: GERD, Peptic Ulcer disease Heme/Onc: Cancer (lymphoma) Psych: Anxiety, Depression Musculoskeletal: low back pain, Osteoarthritis Endocrine: Diabetes Past Surgical History Past Surgical History: Cholecystectomy, Hysterectomy, Other (coronary stent) Family History Family History: No pertinent hx Social History Social History , ex smoker, no alcohol Current Medications Current Medications Current Medications Lorazepam (Ativan Inj) 0.5 mg 1X ONCE IV Last administered on 06/18/19at 12:31; Start 06/18/19 at 12:15; Stop 06/18/19 at 12:16; Status DC Albuterol/ Ipratropium (Duoneb) 3 ml 1X ONCE NEB Last administered on 06/18/19at 12:33; Start 06/18/19 at 12:15; Stop 06/18/19 at 12:16; Status DC Ondansetron HCl (Zofran) 4 mg 1X ONCE IV Last administered on 06/18/19at 12:31; Start 06/18/19 at 12:30; Stop 06/18/19 at 12:31; Status DC Methylprednisolone Sodium Succinate (SOLU-Medrol 40MG VIAL) 40 mg 1X ONCE IV Last administered on 06/18/19at 14:28; Start 06/18/19 at 14:15; Stop 06/18/19 at 14:16; Status DC Albuterol/ Ipratropium (Duoneb) 3 ml 1X ONCE NEB Last administered on 06/18/19at 14:37; Start 06/18/19 at 14:15; Stop 06/18/19 at 14:16; Status DC Doxycycline Hyclate (Vibra-Tab) 100 mg BID PO Last administered on 06/19/19 09:21; Start 06/18/19 at 21:00 Doxycycline Hyclate (Vibra-Tab) 100 mg ONCE ONCE PO Last administered on 06/18/19 14:36; Start 06/18/19 at 14:30; Stop 06/18/19 at 14:31; Status DC Lorazepam (Ativan Inj) 0.5 mg 1X ONCE IV Last administered on 06/18/19 15:11; Start 06/18/19 at 15:15; Stop 06/18/19 at 15:16; Status DC Acetaminophen (Tylenol) 650 mg PRN Q4HRS PRN PO TEMP OVER 100.4F OR MILD PAIN; Start 06/18/19 at 17:45 Aspirin (Children'S Aspirin) 81 mg DAILY PO Last administered on 06/19/19 09:21; Start 06/19/19 at 09:00 Clopidogrel Bisulfate (Plavix) 75 mg DAILY PO Last administered on 06/19/19 09:21; Start 06/19/19 at 09:00 Gabapentin (Neurontin) 100 mg BID PO Last administered on 06/19/19 09:21; Start 06/18/19 at 21:00 Guaifenesin (Robitussin) 200 mg PRN Q4HRS PRN PO COUGH Last administered on 06/19/19 09:21; Start 06/18/19 at 17:45 Albuterol/ Ipratropium (Duoneb) 3 ml Q4H NEB Last administered on 06/19/19 12:17; Start 06/18/19 at 17:45 Isosorbide Mononitrate (Imdur) 30 mg DAILY PO Last administered on 06/19/19 09:21; Start 06/19/19 at 09:00 Metoprolol Tartrate (Lopressor) 12.5 mg BID PO Last administered on 06/19/19 09:21; Start 06/18/19 at 21:00 Montelukast Sodium (Singulair) 10 mg HS PO Last administered on 06/18/19 20:56; Start 06/18/19 at 21:00 Pramipexole Dihydrochloride (miraPEX) 0.25 mg QHS PO Last administered on 06/18/19 20:56; Start 06/18/19 at 21:00 Insulin Glargine (Lantus Syringe) 12 unit QHS SQ Last administered on 06/18/19 22:13; Start 06/18/19 at 21:00 Rivaroxaban (Xarelto) 20 mg DAILYWBKFT PO Last administered on 06/19/19 09:21; Start 06/19/19 at 08:00 Atorvastatin Calcium (Lipitor) 80 mg QHS PO Last administered on 06/18/19 20:56; Start 06/18/19 at 21:00 Methylprednisolone Sodium Succinate (SOLU-Medrol 40MG VIAL) 60 mg Q6HRS IV Last administered on 06/19/19 12:18; Start 06/19/19 at 00:00 Insulin Human Lispro (HumaLOG) 0-7 UNITS TIDWMEALS SQ Last administered on 06/19/19 09:21; Start 06/19/19 at 08:00; Stop 06/19/19 at 11:45; Status DC Dextrose (Dextrose 50%-Water Syringe) 12.5 gm PRN Q15MIN PRN IV SEE COMMENTS; Start 06/18/19 at 18:30 Dextrose 250 ml PRN Q15MIN PRN IV SEE COMMENTS; Start 06/18/19 at 18:30 Tramadol HCl (Ultram) 50 mg PRN Q6HRS PRN PO PAIN Last administered on 06/18/19at 20:56; Start 06/18/19 at 20:30 Morphine Sulfate (Morphine Sulfate) 1 mg PRN Q4HRS PRN IV PAIN Last administered on 06/19/19at 13:20; Start 06/18/19 at 20:30 Lorazepam (Ativan Inj) 2 mg PRN Q6HRS PRN IV ANXIETY / AGITATION Last administered on 06/19/19 06:05; Start 06/18/19 at 22:45 Insulin Human Lispro (HumaLOG) 10 units 1X ONCE SQ Last administered on 06/19/19at 00:36; Start 06/18/19 at 22:45; Stop 06/18/19 at 22:46; Status DC Budesonide (Pulmicort) 0.5 mg RTBID NEB Last administered on 06/19/19 12:17; Start 06/19/19 at 10:00 Insulin Glargine (Lantus Syringe) 10 unit 1X SQ ; Start 06/19/19 at 11:45; Stop 06/19/19 at 12:44; Status DC Insulin Human Lispro (HumaLOG) 0-7 UNITS TIDWMEALS SQ Last administered on 06/19/19at 12:24; Start 06/19/19 at 12:00 Insulin Glargine (Lantus Syringe) 10 unit 1X ONCE SQ Last administered on 06/19at 12:45; Start 06/19/19 at 12:45; Stop 06/19/19 at 12:46; Status DC Active Scripts Active Guaifenesin 100 Mg/5 Ml Liquid 200 Mg PO PRN Q4HRS PRN 30 Days Tylenol (Acetaminophen) 325 Mg Tablet 650 Mg PO PRN Q4HRS PRN 30 Days Duoneb 0.5-3(2.5) Mg/3 Ml (Albuterol/Ipratropium) 3 Ml Ampul.neb 3 Ml NEB Q4H 30 Days Reported Xarelto (Rivaroxaban) 20 Mg Tablet 20 Mg PO DAILY Metoprolol Tartrate 25 Mg Tablet 0.5 Tab PO BID Aspirin 81 Mg Tab.chew 1 Tab PO DAILY Clopidogrel (Clopidogrel Bisulfate) 75 Mg Tablet 1 Tab PO DAILY Lantus Solostar (Insulin Glargine,Hum.rec.anlog) 100 Unit/1 Ml Insuln.pen 12 Unit SQ QHS Crestor (Rosuvastatin Calcium) 20 Mg Tablet 20 Mg PO HS Mirapex (Pramipexole Di-Hcl) 0.25 Mg Tablet 1 Tab PO QHS Montelukast Sodium Tablet (Montelukast Sodium) 10 Mg Tablet 10 Mg PO HS Isosorbide Mononitrate Er (Isosorbide Mononitrate) 30 Mg Tab.er.24h 30 Mg PO DAILY Gabapentin (Gabapentin) 100 Mg Capsule 100 Mg PO BID Allergies Allergies: Coded Allergies: fentanyl (Verified Allergy, Intermediate, 06/13/19) oxycodone (Verified Allergy, Intermediate, 06/13/19) prednisone (Verified Allergy, Intermediate, 06/13/19) ROS Review of System Negative for fever, chills, weight loss, shortness of breath, chest pain, indigestion, hematochezia, melena, and dysuria. Full 14-point review of systems is negative. Physical Exam Physical Examination General: Well-developed, well-nourished white female in some distress HEENT: Normocephalic and�atraumatic.�Temporal arteries�pulsatile and nontender. Neck: Supple without bruit, no meningismus� Musculoskeletal: Stability:�see neurologic. Gait exam:�see neurologic. Tone:�see neurologic.�Strength:�see neurologic.� Neurological: Mental Status: orientation, memory, attention span/concentration, language, fund of knowledge: She is able to follow some commands and answer some questions. Cranial Nerves:�Pupils equal and reactive to light, extraocular movements are�intact, visual mandel are full to confrontation. Facial sensation is normal. There is no facial asymmetry. Vestibulo-ocular reflex is intact. Palate elevates and tongue protrudes in midline. All other cranial related problems are negative except as mentioned before.�Reflexes:�2+ and symmetric with flexor plantar responses. Motor:�She is trembling on the left side and can stop it on command. Left side is weaker than the right, but there is no pronator drift. Coordination: Not cooperative Gait:�Not tested. Sensory:�Normal pinprick. Vitals VITALS Vital Signs Date Time Temp Pulse Resp B/P (MAP) Pulse Ox O2 Delivery O2 Flow Rate FiO2 06/19/19 15:28 98.3 22 110/54 (72) 96 Room Air 98.3 06/19/19 09:21 107 Labs Labs Laboratory Tests Test 06/18/19 12:15 06/18/19 12:55 06/18/19 15:35 06/18/19 17:10 White Blood Count 6.7 x10^3/uL (4.0-11.0) Red Blood Count 4.26 x10^6/uL (3.50-5.40) Hemoglobin 13.1 g/dL (12.0-15.5) Hematocrit 38.7 % (36.0-47.0) Mean Corpuscular Volume 91 fL (79-100) Mean Corpuscular Hemoglobin 31 pg (25-35) Mean Corpuscular Hemoglobin Concent 34 g/dL (31-37) Red Cell Distribution Width 14.0 % (11.5-14.5) Platelet Count 200 x10^3/uL (140-400) Neutrophils (%) (Auto) 60 % (31-73) Lymphocytes (%) (Auto) 28 % (24-48) Monocytes (%) (Auto) 7 % (0-9) Eosinophils (%) (Auto) 5 % (0-3) Basophils (%) (Auto) 1 % (0-3) Neutrophils # (Auto) 4.0 x10^3/uL (1.8-7.7) Lymphocytes # (Auto) 1.9 x10^3/uL (1.0-4.8) Monocytes # (Auto) 0.5 x10^3/uL (0.0-1.1) Eosinophils # (Auto) 0.4 x10^3/uL (0.0-0.7) Basophils # (Auto) 0.1 x10^3/uL (0.0-0.2) Prothrombin Time 12.3 SEC (11.7-14.0) Prothromb Time International Ratio 0.9 (0.8-1.1) Sodium Level 140 mmol/L (136-145) Potassium Level 4.1 mmol/L (3.5-5.1) Chloride Level 104 mmol/L (98-107) Carbon Dioxide Level 25 mmol/L (21-32) Anion Gap 11 (6-14) Blood Urea Nitrogen 12 mg/dL (7-20) Creatinine 0.8 mg/dL (0.6-1.0) Estimated GFR (Cockcroft-Gault) 71.1 BUN/Creatinine Ratio 15 (6-20) Glucose Level 182 mg/dL (70-99) Calcium Level 9.2 mg/dL (8.5-10.1) Total Bilirubin 0.9 mg/dL (0.2-1.0) Aspartate Amino Transf (AST/SGOT) 31 U/L (15-37) Alanine Aminotransferase (ALT/SGPT) 27 U/L (14-59) Alkaline Phosphatase 128 U/L (46-116) Troponin I Quantitative < 0.017 ng/mL (0.000-0.055) < 0.017 ng/mL (0.000-0.055) GD-Gsz-D-Type Natriuretic Peptide 175 pg/mL (0-124) Total Protein 7.3 g/dL (6.4-8.2) Albumin 3.8 g/dL (3.4-5.0) Albumin/Globulin Ratio 1.1 (1.0-1.7) Influenza Type A Antigen Negative (NEGATIVE) Influenza Type B Antigen Negative (NEGATIVE) Test 06/18/19 20:35 06/18/19 22:10 06/19/19 07:18 06/19/19 11:28 Troponin I Quantitative < 0.017 ng/mL (0.000-0.055) Glucose (Fingerstick) 409 mg/dL (70-99) 344 mg/dL (70-99) 456 mg/dL (70-99) Test 06/19/19 15:51 Glucose (Fingerstick) 470 mg/dL (70-99) Laboratory Tests Test 06/18/19 17:10 06/18/19 20:35 06/18/19 22:10 06/19/19 07:18 Troponin I Quantitative < 0.017 ng/mL (0.000-0.055) < 0.017 ng/mL (0.000-0.055) Glucose (Fingerstick) 409 mg/dL (70-99) 344 mg/dL (70-99) Test 06/19/19 11:28 06/19/19 15:51 Glucose (Fingerstick) 456 mg/dL (70-99) 470 mg/dL (70-99) Assessment/Plan Assessment/Plan Impression: I am skeptical that the patient is having a stroke giving the trembling, which is a positive symptom, the lack of pronator drift, the fact that she can suppress the trembling, the fact that she is anxious and has history of anxiety. I also doubt this is a seizure given her ability to suppress the trembling voluntarily. She is also having chest pain and COPD exacerbation. Recommendations: She is a candidate for alteplase, but I hesitate to give it without a positive finding on a definitive study. Therefore I am skipping right to a stat MRI, unless her recent coronary stent precludes this. Otherwise I will check a head CT Further workup depending on these results. Thank you for letting me help with the patient's care. WING BAZZI MD Jun 19, 2019 16:28
--- NOTE | 2019-06-19 16:41 | RAD ---
MRI brain without contrast dated 06/19/2019. Comparison made to 12/29/2006. CLINICAL INDICATION: Acute left-sided weakness and numbness. Right-sided facial droop. TECHNIQUE: Routine multiplanar multisequence MR imaging of brain performed. No contrast administered. FINDINGS: Ventricles and sulci are within normal limits for age. No midline shift or mass effect. Mild patchy hyperintense FLAIR signal abnormality in the deep/subcortical periventricular white matter. No hemorrhage or extra-axial collection. Posterior fossa and brainstem unremarkable. No evidence of restricted diffusion abnormality. Major intracranial flow-voids are present. Postcontrast imaging was not performed. Visualized paranasal sinuses and mastoid air cells are clear. No apparent calvarial abnormality. Midline structures intact. IMPRESSION: 1. No evidence of acute intracranial hemorrhage, mass or acute infarct. 2. Mild spotty hyperintense FLAIR signal abnormality in the deep/subcortical periventricular white matter, nonspecific but likely related to chronic small vessel ischemic disease. Electronically signed by: Rudolph Nur MD (06/19/2019 4:38 PM) [id number]
[2019-06-19 16:59] LABS: HEMATOCRIT 37.4 % (36.0-47.0); HEMOGLOBIN 12.6 g/dL (12.0-15.5); RED BLOOD COUNT 4.11 x10^6/uL (3.50-5.40); RED CELL DISTRIBUTION WIDTH 14.1 % (11.5-14.5); WHITE BLOOD COUNT 9.5 x10^3/uL (4.0-11.0)
[2019-06-19] MEDS ORDERED: INSULIN NPH/REG INSULIN 70/30 300 UNITS/3 ML INSULN.PEN. SQ SCH (17:00)
[2019-06-19 17:08] LABS: PROTHROMBIN TIME PATIENT 24.2 SEC (11.7-14.0)
[2019-06-19 17:13] LABS: ALBUMIN 3.6 g/dL (3.4-5.0); ALBUMIN/GLOBULIN RATIO 0.9 (1.0-1.7); CALCIUM 9.5 mg/dL (8.5-10.1); CREATININE 1.3 mg/dL (0.6-1.0); GFR 40.6; POTASSIUM 4.8 mmol/L (3.5-5.1); TOTAL BILIRUBIN 0.6 mg/dL (0.2-1.0); TOTAL PROTEIN 7.8 g/dL (6.4-8.2)
[2019-06-19 19:57] VITALS: BP 113/68
[2019-06-19] MEDS: LACTOBACILLUS RHAMNOSUS GG 1 CAPSULE. PO SCH (21:36)
[2019-06-19] MEDS: PRAMIPEXOLE 0.25 MG TABLET. PO SCH (21:37)
[2019-06-19] MEDS: ATORVASTATIN CALCIUM 40 MG TABLET. PO SCH (21:37)
[2019-06-19] MEDS: MONTELUKAST SODIUM 10 MG TABLET. PO SCH (21:37)
[2019-06-19] MEDS: INSULIN GLARGINE SYRINGE. SQ SCH (21:54)
[2019-06-19 23:33] VITALS: BP 109/53
[2019-06-20] MEDS: methylPREDNISolone SOD SUCC PF 40 MG/ML VIAL. IV SCH ×2 (00:03→06:11)
[2019-06-20 03:31] VITALS: BP 118/64
[2019-06-20] MEDS: IPRATRPIUM/ALBUTEROL 0.5/2.5MG 3 ML NEBU. NEB SCH ×4 (03:40→15:43)
[2019-06-20] MEDS: guaiFENesin ORAL 200 MG/10 ML LIQUID. PO PRN ×2 (06:15→08:25)
[2019-06-20] MEDS: BUDESONIDE 0.5 MG/2 ML NEBU. NEB SCH (07:31)
[2019-06-20 07:42] VITALS: BP 118/63
[2019-06-20] MEDS: RIVAROXABAN 10 MG TABLET. PO SCH (08:24)
[2019-06-20] MEDS: GABAPENTIN 100 MG CAPSULE. PO SCH (08:25)
[2019-06-20] MEDS: ASPIRIN CHEWABLE 81 MG TABLET. PO SCH (08:25)
[2019-06-20] MEDS: CLOPIDOGREL BISULFATE 75 MG TABLET PO SCH (08:26)
[2019-06-20] MEDS: METOPROLOL TART IMMED RELEASE 25 MG TABLET. PO SCH (08:26)
[2019-06-20] MEDS: ISOSORBIDE MONONITRATE ER 30 MG TAB.ER.24H PO SCH (08:26)
[2019-06-20] MEDS: LACTOBACILLUS RHAMNOSUS GG 1 CAPSULE. PO SCH (08:26)
[2019-06-20] MEDS: INSULIN LISPRO 300 UNITS/3 ML VIAL. SQ SCH ×2 (08:32→12:52)
--- NOTE | 2019-06-20 08:49 | PDOC ---
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 There is no evidence of organic neurological issue. It sounds like she had a stress reaction related to the steroids. Note normal MRI Plan No additional neurological studies needed. Okay for discharge Subjective feels much better, no neuro complaints Objective Vital Signs Date Time Temp Pulse Resp B/P (MAP) Pulse Ox O2 Delivery O2 Flow Rate FiO2 06/20/19 08:26 94 118/63 06/20/19 07:42 97.8 20 94 Nasal Cannula 2.0 97.8 Intake and Output 06/20/19 06:59 Intake Total 950 ml Output Total 1 ml Balance 949 ml Intake Oral 950 ml Output Stool Total 1 ml # Voids 2 PHYSICAL EXAM Alert. Oriented to time, place and person. PERRL. EOMI. CN: no focal findings. Muscle tone: normal. Muscle strength: 5/5 DTR: 2+ Plantar reflex: flexor Gait: not examined in bed. Sensory exam: no abnormal findings. No cerebellar signs elicited. Review of Relevant I have reviewed the following items alma (where applicable) has been applied. Labs Laboratory Tests Test 06/18/19 12:15 06/18/19 12:55 06/18/19 15:35 06/18/19 17:10 White Blood Count 6.7 x10^3/uL (4.0-11.0) Red Blood Count 4.26 x10^6/uL (3.50-5.40) Hemoglobin 13.1 g/dL (12.0-15.5) Hematocrit 38.7 % (36.0-47.0) Mean Corpuscular Volume 91 fL (79-100) Mean Corpuscular Hemoglobin 31 pg (25-35) Mean Corpuscular Hemoglobin Concent 34 g/dL (31-37) Red Cell Distribution Width 14.0 % (11.5-14.5) Platelet Count 200 x10^3/uL (140-400) Neutrophils (%) (Auto) 60 % (31-73) Lymphocytes (%) (Auto) 28 % (24-48) Monocytes (%) (Auto) 7 % (0-9) Eosinophils (%) (Auto) 5 % (0-3) Basophils (%) (Auto) 1 % (0-3) Neutrophils # (Auto) 4.0 x10^3/uL (1.8-7.7) Lymphocytes # (Auto) 1.9 x10^3/uL (1.0-4.8) Monocytes # (Auto) 0.5 x10^3/uL (0.0-1.1) Eosinophils # (Auto) 0.4 x10^3/uL (0.0-0.7) Basophils # (Auto) 0.1 x10^3/uL (0.0-0.2) Prothrombin Time 12.3 SEC (11.7-14.0) Prothromb Time International Ratio 0.9 (0.8-1.1) Sodium Level 140 mmol/L (136-145) Potassium Level 4.1 mmol/L (3.5-5.1) Chloride Level 104 mmol/L (98-107) Carbon Dioxide Level 25 mmol/L (21-32) Anion Gap 11 (6-14) Blood Urea Nitrogen 12 mg/dL (7-20) Creatinine 0.8 mg/dL (0.6-1.0) Estimated GFR (Cockcroft-Gault) 71.1 BUN/Creatinine Ratio 15 (6-20) Glucose Level 182 mg/dL (70-99) Calcium Level 9.2 mg/dL (8.5-10.1) Total Bilirubin 0.9 mg/dL (0.2-1.0) Aspartate Amino Transf (AST/SGOT) 31 U/L (15-37) Alanine Aminotransferase (ALT/SGPT) 27 U/L (14-59) Alkaline Phosphatase 128 U/L (46-116) Troponin I Quantitative < 0.017 ng/mL (0.000-0.055) < 0.017 ng/mL (0.000-0.055) EL-Iov-J-Type Natriuretic Peptide 175 pg/mL (0-124) Total Protein 7.3 g/dL (6.4-8.2) Albumin 3.8 g/dL (3.4-5.0) Albumin/Globulin Ratio 1.1 (1.0-1.7) Influenza Type A Antigen Negative (NEGATIVE) Influenza Type B Antigen Negative (NEGATIVE) Test 06/18/19 20:35 06/18/19 22:10 06/19/19 07:18 06/19/19 11:28 Troponin I Quantitative < 0.017 ng/mL (0.000-0.055) Glucose (Fingerstick) 409 mg/dL (70-99) 344 mg/dL (70-99) 456 mg/dL (70-99) Test 06/19/19 15:51 06/19/19 16:06 06/19/19 17:37 06/19/19 20:42 Glucose (Fingerstick) 470 mg/dL (70-99) 442 mg/dL (70-99) 372 mg/dL (70-99) White Blood Count 9.5 x10^3/uL (4.0-11.0) Red Blood Count 4.11 x10^6/uL (3.50-5.40) Hemoglobin 12.6 g/dL (12.0-15.5) Hematocrit 37.4 % (36.0-47.0) Mean Corpuscular Volume 91 fL (79-100) Mean Corpuscular Hemoglobin 31 pg (25-35) Mean Corpuscular Hemoglobin Concent 34 g/dL (31-37) Red Cell Distribution Width 14.1 % (11.5-14.5) Platelet Count 227 x10^3/uL (140-400) Prothrombin Time 24.2 SEC (11.7-14.0) Prothromb Time International Ratio 2.2 (0.8-1.1) Sodium Level 138 mmol/L (136-145) Potassium Level 4.8 mmol/L (3.5-5.1) Chloride Level 102 mmol/L (98-107) Carbon Dioxide Level 23 mmol/L (21-32) Anion Gap 13 (6-14) Blood Urea Nitrogen 18 mg/dL (7-20) Creatinine 1.3 mg/dL (0.6-1.0) Estimated GFR (Cockcroft-Gault) 40.6 BUN/Creatinine Ratio 14 (6-20) Glucose Level 477 mg/dL (70-99) Calcium Level 9.5 mg/dL (8.5-10.1) Total Bilirubin 0.6 mg/dL (0.2-1.0) Aspartate Amino Transf (AST/SGOT) 16 U/L (15-37) Alanine Aminotransferase (ALT/SGPT) 25 U/L (14-59) Alkaline Phosphatase 116 U/L (46-116) Total Protein 7.8 g/dL (6.4-8.2) Albumin 3.6 g/dL (3.4-5.0) Albumin/Globulin Ratio 0.9 (1.0-1.7) Test 06/20/19 07:29 Glucose (Fingerstick) 366 mg/dL (70-99) Laboratory Tests Test 06/19/19 11:28 06/19/19 15:51 06/19/19 16:06 06/19/19 17:37 Glucose (Fingerstick) 456 mg/dL (70-99) 470 mg/dL (70-99) 442 mg/dL (70-99) White Blood Count 9.5 x10^3/uL (4.0-11.0) Red Blood Count 4.11 x10^6/uL (3.50-5.40) Hemoglobin 12.6 g/dL (12.0-15.5) Hematocrit 37.4 % (36.0-47.0) Mean Corpuscular Volume 91 fL (79-100) Mean Corpuscular Hemoglobin 31 pg (25-35) Mean Corpuscular Hemoglobin Concent 34 g/dL (31-37) Red Cell Distribution Width 14.1 % (11.5-14.5) Platelet Count 227 x10^3/uL (140-400) Prothrombin Time 24.2 SEC (11.7-14.0) Prothromb Time International Ratio 2.2 (0.8-1.1) Sodium Level 138 mmol/L (136-145) Potassium Level 4.8 mmol/L (3.5-5.1) Chloride Level 102 mmol/L (98-107) Carbon Dioxide Level 23 mmol/L (21-32) Anion Gap 13 (6-14) Blood Urea Nitrogen 18 mg/dL (7-20) Creatinine 1.3 mg/dL (0.6-1.0) Estimated GFR (Cockcroft-Gault) 40.6 BUN/Creatinine Ratio 14 (6-20) Glucose Level 477 mg/dL (70-99) Calcium Level 9.5 mg/dL (8.5-10.1) Total Bilirubin 0.6 mg/dL (0.2-1.0) Aspartate Amino Transf (AST/SGOT) 16 U/L (15-37) Alanine Aminotransferase (ALT/SGPT) 25 U/L (14-59) Alkaline Phosphatase 116 U/L (46-116) Total Protein 7.8 g/dL (6.4-8.2) Albumin 3.6 g/dL (3.4-5.0) Albumin/Globulin Ratio 0.9 (1.0-1.7) Test 06/19/19 20:42 06/20/19 07:29 Glucose (Fingerstick) 372 mg/dL (70-99) 366 mg/dL (70-99) Medications Current Medications Lorazepam (Ativan Inj) 0.5 mg 1X ONCE IV Last administered on 06/18/19at 12:31; Start 06/18/19 at 12:15; Stop 06/18/19 at 12:16; Status DC Albuterol/ Ipratropium (Duoneb) 3 ml 1X ONCE NEB Last administered on 06/18/19at 12:33; Start 06/18/19 at 12:15; Stop 06/18/19 at 12:16; Status DC Ondansetron HCl (Zofran) 4 mg 1X ONCE IV Last administered on 06/18/19at 12:31; Start 06/18/19 at 12:30; Stop 06/18/19 at 12:31; Status DC Methylprednisolone Sodium Succinate (SOLU-Medrol 40MG VIAL) 40 mg 1X ONCE IV Last administered on 06/18/19at 14:28; Start 06/18/19 at 14:15; Stop 06/18/19 at 14:16; Status DC Albuterol/ Ipratropium (Duoneb) 3 ml 1X ONCE NEB Last administered on 06/18/19at 14:37; Start 06/18/19 at 14:15; Stop 06/18/19 at 14:16; Status DC Doxycycline Hyclate (Vibra-Tab) 100 mg BID PO Last administered on 06/19/19at 21:38; Start 06/18/19 at 21:00 Doxycycline Hyclate (Vibra-Tab) 100 mg ONCE ONCE PO Last administered on 06/18/19at 14:36; Start 06/18/19 at 14:30; Stop 06/18/19 at 14:31; Status DC Lorazepam (Ativan Inj) 0.5 mg 1X ONCE IV Last administered on 06/18/19 15:11; Start 06/18/19 at 15:15; Stop 06/18/19 at 15:16; Status DC Acetaminophen (Tylenol) 650 mg PRN Q4HRS PRN PO TEMP OVER 100.4F OR MILD PAIN; Start 06/18/19 at 17:45 Aspirin (Children'S Aspirin) 81 mg DAILY PO Last administered on 06/20/19 08:25; Start 06/19/19 at 09:00 Clopidogrel Bisulfate (Plavix) 75 mg DAILY PO Last administered on 06/20/19 08:26; Start 06/19/19 at 09:00 Gabapentin (Neurontin) 100 mg BID PO Last administered on 06/20/19 08:25; Start 06/18/19 at 21:00 Guaifenesin (Robitussin) 200 mg PRN Q4HRS PRN PO COUGH Last administered on 06/20/19 08:25; Start 06/18/19 at 17:45 Albuterol/ Ipratropium (Duoneb) 3 ml Q4H NEB Last administered on 06/20/19 07:30; Start 06/18/19 at 17:45 Isosorbide Mononitrate (Imdur) 30 mg DAILY PO Last administered on 06/20/19 08:26; Start 06/19/19 at 09:00 Metoprolol Tartrate (Lopressor) 12.5 mg BID PO Last administered on 06/20/19 08:26; Start 06/18/19 at 21:00 Montelukast Sodium (Singulair) 10 mg HS PO Last administered on 06/19/19 21:37; Start 06/18/19 at 21:00 Pramipexole Dihydrochloride (miraPEX) 0.25 mg QHS PO Last administered on 06/19/19 21:37; Start 06/18/19 at 21:00 Insulin Glargine (Lantus Syringe) 12 unit QHS SQ Last administered on 06/19/19 21:54; Start 06/18/19 at 21:00 Rivaroxaban (Xarelto) 20 mg [id number] PO Last administered on 06/20/19 08:24; Start 06/19/19 at 08:00 Atorvastatin Calcium (Lipitor) 80 mg QHS PO Last administered on 06/19/19 21:37; Start 06/18/19 at 21:00 Methylprednisolone Sodium Succinate (SOLU-Medrol 40MG VIAL) 60 mg Q6HRS IV Last administered on 06/20/19at 06:11; Start 06/19/19 at 00:00 Insulin Human Lispro (HumaLOG) 0-7 UNITS TIDWMEALS SQ Last administered on 06/19/19 09:21; Start 06/19/19 at 08:00; Stop 06/19/19 at 11:45; Status DC Dextrose (Dextrose 50%-Water Syringe) 12.5 gm PRN Q15MIN PRN IV SEE COMMENTS; Start 06/18/19 at 18:30 Dextrose 250 ml PRN Q15MIN PRN IV SEE COMMENTS; Start 06/18/19 at 18:30 Tramadol HCl (Ultram) 50 mg PRN Q6HRS PRN PO PAIN Last administered on 06/18/19at 20:56; Start 06/18/19 at 20:30 Morphine Sulfate (Morphine Sulfate) 1 mg PRN Q4HRS PRN IV PAIN Last administered on 06/19/19 21:42; Start 06/18/19 at 20:30 Lorazepam (Ativan Inj) 2 mg PRN Q6HRS PRN IV ANXIETY / AGITATION Last administered on 06/19/19 21:42; Start 06/18/19 at 22:45 Insulin Human Lispro (HumaLOG) 10 units 1X ONCE SQ Last administered on 06/19/19at 00:36; Start 06/18/19 at 22:45; Stop 06/18/19 at 22:46; Status DC Budesonide (Pulmicort) 0.5 mg RTBID NEB Last administered on 06/20/19at 07:31; Start 06/19/19 at 10:00 Insulin Glargine (Lantus Syringe) 10 unit 1X SQ ; Start 06/19/19 at 11:45; Stop 06/19/19 at 12:44; Status DC Insulin Human Lispro (HumaLOG) 0-7 UNITS TIDWMEALS SQ Last administered on 06/20/19at 08:32; Start 06/19/19 at 12:00 Insulin Glargine (Lantus Syringe) 10 unit 1X ONCE SQ Last administered on 06/19/19at 12:45; Start 06/19/19 at 12:45; Stop 06/19/19 at 12:46; Status DC Insulin Human Isoph/Insulin Regular (HumuLIN 70/30) 15 units 1X SQ ; Start 06/19/19 at 17:00; Stop 06/19/19 at 17:09; Status DC Insulin Glargine (Lantus Syringe) 15 unit ONCE ONCE SQ Last administered on 06/19/19at 17:53; Start 06/19/19 at 17:15; Stop 06/19/19 at 17:16; Status DC Lactobacillus Rhamnosus (Culturelle) 1 cap BID PO Last administered on 06/20/19at 08:26; Start 06/19/19 at 21:00 Active Scripts Active Guaifenesin 100 Mg/5 Ml Liquid 200 Mg PO PRN Q4HRS PRN 30 Days Tylenol (Acetaminophen) 325 Mg Tablet 650 Mg PO PRN Q4HRS PRN 30 Days Duoneb 0.5-3(2.5) Mg/3 Ml (Albuterol/Ipratropium) 3 Ml Ampul.neb 3 Ml NEB Q4H 30 Days Reported Xarelto (Rivaroxaban) 20 Mg Tablet 20 Mg PO DAILY Metoprolol Tartrate 25 Mg Tablet 0.5 Tab PO BID Aspirin 81 Mg Tab.chew 1 Tab PO DAILY Clopidogrel (Clopidogrel Bisulfate) 75 Mg Tablet 1 Tab PO DAILY Lantus Solostar (Insulin Glargine,Hum.rec.anlog) 100 Unit/1 Ml Insuln.pen 12 Unit SQ QHS Crestor (Rosuvastatin Calcium) 20 Mg Tablet 20 Mg PO HS Mirapex (Pramipexole Di-Hcl) 0.25 Mg Tablet 1 Tab PO QHS Montelukast Sodium Tablet (Montelukast Sodium) 10 Mg Tablet 10 Mg PO HS Isosorbide Mononitrate Er (Isosorbide Mononitrate) 30 Mg Tab.er.24h 30 Mg PO DAILY Gabapentin (Gabapentin) 100 Mg Capsule 100 Mg PO BID Vitals/I & O Vital Sign - Last 24 Hours 06/19/19 06/19/19 06/19/19 06/19/19 09:21 09:21 11:20 12:19 Temp 97.8 97.8 Pulse 107 107 Resp 20 B/P (MAP) 116/64 116/64 119/64 (82) Pulse Ox 91 98 O2 Delivery Room Air Room Air 06/19/19 06/19/19 06/19/19 06/19/19 13:20 13:50 15:28 17:10 Temp 98.3 98.3 Resp 22 B/P (MAP) 110/54 (72) Pulse Ox 96 95 O2 Delivery Room Air Room Air Room Air Nasal Cannula O2 Flow Rate 2.0 06/19/19 06/19/19 06/19/19 06/19/19 19:17 19:57 20:00 21:37 Temp 97.8 97.8 Pulse 109 109 Resp 16 B/P (MAP) 113/68 (83) 113/68 Pulse Ox 95 94 O2 Delivery Nasal Cannula Nasal Cannula Room Air O2 Flow Rate 2.0 2.0 06/19/19 06/19/19 06/20/19 06/20/19 23:33 23:39 03:31 03:40 Temp 98.6 98.4 98.6 98.4 Pulse 103 97 Resp 16 16 B/P (MAP) 109/53 (71) 118/64 (82) Pulse Ox 90 94 O2 Delivery Room Air Nasal Cannula Nasal Cannula Nasal Cannula O2 Flow Rate 2.0 2.0 2.0 06/20/19 06/20/19 06/20/19 06/20/19 07:31 07:42 08:26 08:26 Temp 97.8 97.8 Pulse 94 94 94 Resp 20 B/P (MAP) 118/63 (81) 118/63 118/63 Pulse Ox 94 94 O2 Delivery Room Air Nasal Cannula O2 Flow Rate 2.0 Intake and Output 06/19/19 06/19/19 06/20/19 14:59 22:59 06:59 Intake Total 550 ml 100 ml 300 ml Output Total 1 ml Balance 550 ml 99 ml 300 ml Images MRI brain without contrast dated 06/19/2019. Comparison made to 12/29/2006. CLINICAL INDICATION: Acute left-sided weakness and numbness. Right-sided facial droop. TECHNIQUE: Routine multiplanar multisequence MR imaging of brain performed. No contrast administered. FINDINGS: Ventricles and sulci are within normal limits for age. No midline shift or mass effect. Mild patchy hyperintense FLAIR signal abnormality in the deep/subcortical periventricular white matter. No hemorrhage or extra-axial collection. Posterior fossa and brainstem unremarkable. No evidence of restricted diffusion abnormality. Major intracranial flow-voids are present. Postcontrast imaging was not performed. Visualized paranasal sinuses and mastoid air cells are clear. No apparent calvarial abnormality. Midline structures intact. IMPRESSION: 1. No evidence of acute intracranial hemorrhage, mass or acute infarct. 2. Mild spotty hyperintense FLAIR signal abnormality in the deep/subcortical periventricular white matter, nonspecific but likely related to chronic small vessel ischemic disease. WING BAZZI MD Jun 20, 2019 08:49
--- NOTE | 2019-06-20 09:10 | PDOC ---
PROGRESS NOTES Chief Complaint Chief Complaint sob slightly improved. feels better. difficult with IV access History of Present Illness History of Present Illness Assessment 1. bronchospasm with acute exacerbation 2. 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 3. No significant history of tobacco use. 4. coronary artery disease, status post recent left heart catheterization on 06/03/2019 with successful PCI of the left circumflex artery. 5. type 2 dm, with hyperglycemia, uncontrolled 6. hx of CVA 7. hx of Paroxysmal supraventricular tachycardia. 8. acute kidney injury, vasomotor nephropathy PLAN - continue oxygen, IV steroids taper , doxy. patient allergic to prednisone - consult pulm - continue pulmicort - continue Xarelto. recent CTA has not shown any evidence of any pulmonary embolism . - continue SSI Deep venous thrombosis and pulmonary embolism, on Xarelto. continue BB - continue ASA plavix and statin - elevated sugars. add lantus 14 units. - hydrate 28 min pt exam, chart review, > 50% of time spent with exam, chart review, pt care coordination Vitals Vitals Vital Signs Date Time Temp Pulse Resp B/P (MAP) Pulse Ox O2 Delivery O2 Flow Rate FiO2 06/20/19 08:26 94 118/63 06/20/19 07:42 97.8 20 94 Nasal Cannula 2.0 97.8 Physical Exam Physical Exam Physical Exam Physical Exam GENERAL: No apparent distress. Alert and oriented. HEENT: Head normocephalic, atraumatic. NECK: Supple LUNGS: Clear to auscultation. HEART: RRR, S1, S2 present, pulses intact ABDOMEN: Soft, positive bowel sounds. EXTREMITIES: No cyanosis or edema. NEUROLOGIC: Normal speech, normal tone PSYCHIATRIC: Normal affect, normal mood. SKIN: No ulceration. General: Alert, Oriented X3, Cooperative, No acute distress Heart: Regular rate, Normal S1 Lungs: Clear, Other Abdomen: Normal bowel sounds, Soft, No tenderness Extremities: No cyanosis Skin: No significant lesion Labs LABS Laboratory Tests Test 06/19/19 11:28 06/19/19 15:51 06/19/19 16:06 06/19/19 17:37 Glucose (Fingerstick) 456 mg/dL (70-99) 470 mg/dL (70-99) 442 mg/dL (70-99) White Blood Count 9.5 x10^3/uL (4.0-11.0) Red Blood Count 4.11 x10^6/uL (3.50-5.40) Hemoglobin 12.6 g/dL (12.0-15.5) Hematocrit 37.4 % (36.0-47.0) Mean Corpuscular Volume 91 fL (79-100) Mean Corpuscular Hemoglobin 31 pg (25-35) Mean Corpuscular Hemoglobin Concent 34 g/dL (31-37) Red Cell Distribution Width 14.1 % (11.5-14.5) Platelet Count 227 x10^3/uL (140-400) Prothrombin Time 24.2 SEC (11.7-14.0) Prothromb Time International Ratio 2.2 (0.8-1.1) Sodium Level 138 mmol/L (136-145) Potassium Level 4.8 mmol/L (3.5-5.1) Chloride Level 102 mmol/L (98-107) Carbon Dioxide Level 23 mmol/L (21-32) Anion Gap 13 (6-14) Blood Urea Nitrogen 18 mg/dL (7-20) Creatinine 1.3 mg/dL (0.6-1.0) Estimated GFR (Cockcroft-Gault) 40.6 BUN/Creatinine Ratio 14 (6-20) Glucose Level 477 mg/dL (70-99) Calcium Level 9.5 mg/dL (8.5-10.1) Total Bilirubin 0.6 mg/dL (0.2-1.0) Aspartate Amino Transf (AST/SGOT) 16 U/L (15-37) Alanine Aminotransferase (ALT/SGPT) 25 U/L (14-59) Alkaline Phosphatase 116 U/L (46-116) Total Protein 7.8 g/dL (6.4-8.2) Albumin 3.6 g/dL (3.4-5.0) Albumin/Globulin Ratio 0.9 (1.0-1.7) Test 06/19/19 20:42 06/20/19 07:29 Glucose (Fingerstick) 372 mg/dL (70-99) 366 mg/dL (70-99) Assessment and Plan Assessmemt and Plan Problems Medical Problems: (1) Atypical chest pain Status: Acute (2) CAD (coronary artery disease) Status: Chronic (3) COPD (chronic obstructive pulmonary disease) Assessment 1. bronchospasm with acute exacerbation 2. 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 3. No significant history of tobacco use. 4. coronary artery disease, status post recent left heart catheterization on 06/03/2019 with successful PCI of the left circumflex artery. 5. type 2 dm, with hyperglycemia 6. hx of CVA 7. hx of Paroxysmal supraventricular tachycardia. PLAN - continue oxygen, IV steroids, doxy. patient allergic to prednisone - consult pulm - continue pulmicort - continue Xarelto. recent CTA has not shown any evidence of any pulmonary embolism . - continue SSI Deep venous thrombosis and pulmonary embolism, on Xarelto. continue BB - continue ASA plavix and statin - elevated sugars. add lantus 10 units. Comment Review of Relevant I have reviewed the following items alma (where applicable) has been applied. Labs Laboratory Tests Test 06/18/19 12:15 06/18/19 12:55 06/18/19 15:35 06/18/19 17:10 White Blood Count 6.7 x10^3/uL (4.0-11.0) Red Blood Count 4.26 x10^6/uL (3.50-5.40) Hemoglobin 13.1 g/dL (12.0-15.5) Hematocrit 38.7 % (36.0-47.0) Mean Corpuscular Volume 91 fL (79-100) Mean Corpuscular Hemoglobin 31 pg (25-35) Mean Corpuscular Hemoglobin Concent 34 g/dL (31-37) Red Cell Distribution Width 14.0 % (11.5-14.5) Platelet Count 200 x10^3/uL (140-400) Neutrophils (%) (Auto) 60 % (31-73) Lymphocytes (%) (Auto) 28 % (24-48) Monocytes (%) (Auto) 7 % (0-9) Eosinophils (%) (Auto) 5 % (0-3) Basophils (%) (Auto) 1 % (0-3) Neutrophils # (Auto) 4.0 x10^3/uL (1.8-7.7) Lymphocytes # (Auto) 1.9 x10^3/uL (1.0-4.8) Monocytes # (Auto) 0.5 x10^3/uL (0.0-1.1) Eosinophils # (Auto) 0.4 x10^3/uL (0.0-0.7) Basophils # (Auto) 0.1 x10^3/uL (0.0-0.2) Prothrombin Time 12.3 SEC (11.7-14.0) Prothromb Time International Ratio 0.9 (0.8-1.1) Sodium Level 140 mmol/L (136-145) Potassium Level 4.1 mmol/L (3.5-5.1) Chloride Level 104 mmol/L (98-107) Carbon Dioxide Level 25 mmol/L (21-32) Anion Gap 11 (6-14) Blood Urea Nitrogen 12 mg/dL (7-20) Creatinine 0.8 mg/dL (0.6-1.0) Estimated GFR (Cockcroft-Gault) 71.1 BUN/Creatinine Ratio 15 (6-20) Glucose Level 182 mg/dL (70-99) Calcium Level 9.2 mg/dL (8.5-10.1) Total Bilirubin 0.9 mg/dL (0.2-1.0) Aspartate Amino Transf (AST/SGOT) 31 U/L (15-37) Alanine Aminotransferase (ALT/SGPT) 27 U/L (14-59) Alkaline Phosphatase 128 U/L (46-116) Troponin I Quantitative < 0.017 ng/mL (0.000-0.055) < 0.017 ng/mL (0.000-0.055) ZR-Ujn-R-Type Natriuretic Peptide 175 pg/mL (0-124) Total Protein 7.3 g/dL (6.4-8.2) Albumin 3.8 g/dL (3.4-5.0) Albumin/Globulin Ratio 1.1 (1.0-1.7) Influenza Type A Antigen Negative (NEGATIVE) Influenza Type B Antigen Negative (NEGATIVE) Test 06/18/19 20:35 06/18/19 22:10 06/19/19 07:18 06/19/19 11:28 Troponin I Quantitative < 0.017 ng/mL (0.000-0.055) Glucose (Fingerstick) 409 mg/dL (70-99) 344 mg/dL (70-99) 456 mg/dL (70-99) Test 06/19/19 15:51 06/19/19 16:06 06/19/19 17:37 06/19/19 20:42 Glucose (Fingerstick) 470 mg/dL (70-99) 442 mg/dL (70-99) 372 mg/dL (70-99) White Blood Count 9.5 x10^3/uL (4.0-11.0) Red Blood Count 4.11 x10^6/uL (3.50-5.40) Hemoglobin 12.6 g/dL (12.0-15.5) Hematocrit 37.4 % (36.0-47.0) Mean Corpuscular Volume 91 fL (79-100) Mean Corpuscular Hemoglobin 31 pg (25-35) Mean Corpuscular Hemoglobin Concent 34 g/dL (31-37) Red Cell Distribution Width 14.1 % (11.5-14.5) Platelet Count 227 x10^3/uL (140-400) Prothrombin Time 24.2 SEC (11.7-14.0) Prothromb Time International Ratio 2.2 (0.8-1.1) Sodium Level 138 mmol/L (136-145) Potassium Level 4.8 mmol/L (3.5-5.1) Chloride Level 102 mmol/L (98-107) Carbon Dioxide Level 23 mmol/L (21-32) Anion Gap 13 (6-14) Blood Urea Nitrogen 18 mg/dL (7-20) Creatinine 1.3 mg/dL (0.6-1.0) Estimated GFR (Cockcroft-Gault) 40.6 BUN/Creatinine Ratio 14 (6-20) Glucose Level 477 mg/dL (70-99) Calcium Level 9.5 mg/dL (8.5-10.1) Total Bilirubin 0.6 mg/dL (0.2-1.0) Aspartate Amino Transf (AST/SGOT) 16 U/L (15-37) Alanine Aminotransferase (ALT/SGPT) 25 U/L (14-59) Alkaline Phosphatase 116 U/L (46-116) Total Protein 7.8 g/dL (6.4-8.2) Albumin 3.6 g/dL (3.4-5.0) Albumin/Globulin Ratio 0.9 (1.0-1.7) Test 06/20/19 07:29 Glucose (Fingerstick) 366 mg/dL (70-99) Laboratory Tests Test 06/19/19 11:28 06/19/19 15:51 06/19/19 16:06 06/19/19 17:37 Glucose (Fingerstick) 456 mg/dL (70-99) 470 mg/dL (70-99) 442 mg/dL (70-99) White Blood Count 9.5 x10^3/uL (4.0-11.0) Red Blood Count 4.11 x10^6/uL (3.50-5.40) Hemoglobin 12.6 g/dL (12.0-15.5) Hematocrit 37.4 % (36.0-47.0) Mean Corpuscular Volume 91 fL (79-100) Mean Corpuscular Hemoglobin 31 pg (25-35) Mean Corpuscular Hemoglobin Concent 34 g/dL (31-37) Red Cell Distribution Width 14.1 % (11.5-14.5) Platelet Count 227 x10^3/uL (140-400) Prothrombin Time 24.2 SEC (11.7-14.0) Prothromb Time International Ratio 2.2 (0.8-1.1) Sodium Level 138 mmol/L (136-145) Potassium Level 4.8 mmol/L (3.5-5.1) Chloride Level 102 mmol/L (98-107) Carbon Dioxide Level 23 mmol/L (21-32) Anion Gap 13 (6-14) Blood Urea Nitrogen 18 mg/dL (7-20) Creatinine 1.3 mg/dL (0.6-1.0) Estimated GFR (Cockcroft-Gault) 40.6 BUN/Creatinine Ratio 14 (6-20) Glucose Level 477 mg/dL (70-99) Calcium Level 9.5 mg/dL (8.5-10.1) Total Bilirubin 0.6 mg/dL (0.2-1.0) Aspartate Amino Transf (AST/SGOT) 16 U/L (15-37) Alanine Aminotransferase (ALT/SGPT) 25 U/L (14-59) Alkaline Phosphatase 116 U/L (46-116) Total Protein 7.8 g/dL (6.4-8.2) Albumin 3.6 g/dL (3.4-5.0) Albumin/Globulin Ratio 0.9 (1.0-1.7) Test 06/19/19 20:42 06/20/19 07:29 Glucose (Fingerstick) 372 mg/dL (70-99) 366 mg/dL (70-99) Medications Current Medications Lorazepam (Ativan Inj) 0.5 mg 1X ONCE IV Last administered on 06/18/19at 12:31; Start 06/18/19 at 12:15; Stop 06/18/19 at 12:16; Status DC Albuterol/ Ipratropium (Duoneb) 3 ml 1X ONCE NEB Last administered on 06/18/19at 12:33; Start 06/18/19 at 12:15; Stop 06/18/19 at 12:16; Status DC Ondansetron HCl (Zofran) 4 mg 1X ONCE IV Last administered on 06/18/19at 12:31; Start 06/18/19 at 12:30; Stop 06/18/19 at 12:31; Status DC Methylprednisolone Sodium Succinate (SOLU-Medrol 40MG VIAL) 40 mg 1X ONCE IV Last administered on 06/18/19at 14:28; Start 06/18/19 at 14:15; Stop 06/18/19 at 14:16; Status DC Albuterol/ Ipratropium (Duoneb) 3 ml 1X ONCE NEB Last administered on 06/18/19at 14:37; Start 06/18/19 at 14:15; Stop 06/18/19 at 14:16; Status DC Doxycycline Hyclate (Vibra-Tab) 100 mg BID PO Last administered on 06/19/19at 21:38; Start 06/18/19 at 21:00 Doxycycline Hyclate (Vibra-Tab) 100 mg ONCE ONCE PO Last administered on 06/18/19at 14:36; Start 06/18/19 at 14:30; Stop 06/18/19 at 14:31; Status DC Lorazepam (Ativan Inj) 0.5 mg 1X ONCE IV Last administered on 06/18/19at 15:11; Start 06/18/19 at 15:15; Stop 06/18/19 at 15:16; Status DC Acetaminophen (Tylenol) 650 mg PRN Q4HRS PRN PO TEMP OVER 100.4F OR MILD PAIN; Start 06/18/19 at 17:45 Aspirin (Children'S Aspirin) 81 mg DAILY PO Last administered on 06/20/19 08:25; Start 06/19/19 at 09:00 Clopidogrel Bisulfate (Plavix) 75 mg DAILY PO Last administered on 06/20/19 08:26; Start 06/19/19 at 09:00 Gabapentin (Neurontin) 100 mg BID PO Last administered on 06/20/19 08:25; Start 06/18/19 at 21:00 Guaifenesin (Robitussin) 200 mg PRN Q4HRS PRN PO COUGH Last administered on 06/20/19 08:25; Start 06/18/19 at 17:45 Albuterol/ Ipratropium (Duoneb) 3 ml Q4H NEB Last administered on 06/20/19 07:30; Start 06/18/19 at 17:45 Isosorbide Mononitrate (Imdur) 30 mg DAILY PO Last administered on 06/20/19 08:26; Start 06/19/19 at 09:00 Metoprolol Tartrate (Lopressor) 12.5 mg BID PO Last administered on 06/20/19 08:26; Start 06/18/19 at 21:00 Montelukast Sodium (Singulair) 10 mg HS PO Last administered on 06/19/19 21:37 ; Start 06/18/19 at 21:00 Pramipexole Dihydrochloride (miraPEX) 0.25 mg QHS PO Last administered on 06/19/19 21:37; Start 06/18/19 at 21:00 Insulin Glargine (Lantus Syringe) 12 unit QHS SQ Last administered on 06/19/19 21:54; Start 06/18/19 at 21:00 Rivaroxaban (Xarelto) 20 mg [id number] PO Last administered on 06/20/19 08:24; Start 06/19/19 at 08:00 Atorvastatin Calcium (Lipitor) 80 mg QHS PO Last administered on 06/19/19 21:37; Start 06/18/19 at 21:00 Methylprednisolone Sodium Succinate (SOLU-Medrol 40MG VIAL) 60 mg Q6HRS IV Last administered on 06/20/19 06:11; Start 06/19/19 at 00:00 Insulin Human Lispro (HumaLOG) 0-7 UNITS TIDWMEALS SQ Last administered on 06/19/19at 09:21; Start 06/19/19 at 08:00; Stop 06/19/19 at 11:45; Status DC Dextrose (Dextrose 50%-Water Syringe) 12.5 gm PRN Q15MIN PRN IV SEE COMMENTS; Start 06/18/19 at 18:30 Dextrose 250 ml PRN Q15MIN PRN IV SEE COMMENTS; Start 06/18/19 at 18:30 Tramadol HCl (Ultram) 50 mg PRN Q6HRS PRN PO PAIN Last administered on 06/18/19at 20:56; Start 06/18/19 at 20:30 Morphine Sulfate (Morphine Sulfate) 1 mg PRN Q4HRS PRN IV PAIN Last administered on 06/19/19at 21:42; Start 06/18/19 at 20:30 Lorazepam (Ativan Inj) 2 mg PRN Q6HRS PRN IV ANXIETY / AGITATION Last administered on 06/19/19at 21:42; Start 06/18/19 at 22:45 Insulin Human Lispro (HumaLOG) 10 units 1X ONCE SQ Last administered on 06/19/19at 00:36; Start 06/18/19 at 22:45; Stop 06/18/19 at 22:46; Status DC Budesonide (Pulmicort) 0.5 mg RTBID NEB Last administered on 06/20/19at 07:31; Start 06/19/19 at 10:00 Insulin Glargine (Lantus Syringe) 10 unit 1X SQ ; Start 06/19/19 at 11:45; Stop 06/19/19 at 12:44; Status DC Insulin Human Lispro (HumaLOG) 0-7 UNITS TIDWMEALS SQ Last administered on 06/20/19at 08:32; Start 06/19/19 at 12:00 Insulin Glargine (Lantus Syringe) 10 unit 1X ONCE SQ Last administered on 06/19/19at 12:45; Start 06/19/19 at 12:45; Stop 06/19/19 at 12:46; Status DC Insulin Human Isoph/Insulin Regular (HumuLIN 70/30) 15 units 1X SQ ; Start 06/19/19 at 17:00; Stop 06/19/19 at 17:09; Status DC Insulin Glargine (Lantus Syringe) 15 unit ONCE ONCE SQ Last administered on 06/19/19at 17:53; Start 06/19/19 at 17:15; Stop 06/19/19 at 17:16; Status DC Lactobacillus Rhamnosus (Culturelle) 1 cap BID PO Last administered on 06/20/19at 08:26; Start 06/19/19 at 21:00 Active Scripts Active Guaifenesin 100 Mg/5 Ml Liquid 200 Mg PO PRN Q4HRS PRN 30 Days Tylenol (Acetaminophen) 325 Mg Tablet 650 Mg PO PRN Q4HRS PRN 30 Days Duoneb 0.5-3(2.5) Mg/3 Ml (Albuterol/Ipratropium) 3 Ml Ampul.neb 3 Ml NEB Q4H 30 Days Reported Xarelto (Rivaroxaban) 20 Mg Tablet 20 Mg PO DAILY Metoprolol Tartrate 25 Mg Tablet 0.5 Tab PO BID Aspirin 81 Mg Tab.chew 1 Tab PO DAILY Clopidogrel (Clopidogrel Bisulfate) 75 Mg Tablet 1 Tab PO DAILY Lantus Solostar (Insulin Glargine,Hum.rec.anlog) 100 Unit/1 Ml Insuln.pen 12 Unit SQ QHS Crestor (Rosuvastatin Calcium) 20 Mg Tablet 20 Mg PO HS Mirapex (Pramipexole Di-Hcl) 0.25 Mg Tablet 1 Tab PO QHS Montelukast Sodium Tablet (Montelukast Sodium) 10 Mg Tablet 10 Mg PO HS Isosorbide Mononitrate Er (Isosorbide Mononitrate) 30 Mg Tab.er.24h 30 Mg PO DAILY Gabapentin (Gabapentin) 100 Mg Capsule 100 Mg PO BID Vitals/I & O Vital Sign - Last 24 Hours 06/19/19 06/19/19 06/19/19 06/19/19 09:21 09:21 11:20 12:19 Temp 97.8 97.8 Pulse 107 107 Resp 20 B/P (MAP) 116/64 116/64 119/64 (82) Pulse Ox 91 98 O2 Delivery Room Air Room Air 06/19/19 06/19/19 06/19/19 06/19/19 13:20 13:50 15:28 17:10 Temp 98.3 98.3 Resp 22 B/P (MAP) 110/54 (72) Pulse Ox 96 95 O2 Delivery Room Air Room Air Room Air Nasal Cannula O2 Flow Rate 2.0 06/19/19 06/19/19 06/19/19 06/19/19 19:17 19:57 20:00 21:37 Temp 97.8 97.8 Pulse 109 109 Resp 16 B/P (MAP) 113/68 (83) 113/68 Pulse Ox 95 94 O2 Delivery Nasal Cannula Nasal Cannula Room Air O2 Flow Rate 2.0 2.0 06/19/19 06/19/19 06/20/19 06/20/19 23:33 23:39 03:31 03:40 Temp 98.6 98.4 98.6 98.4 Pulse 103 97 Resp 16 16 B/P (MAP) 109/53 (71) 118/64 (82) Pulse Ox 90 94 O2 Delivery Room Air Nasal Cannula Nasal Cannula Nasal Cannula O2 Flow Rate 2.0 2.0 2.0 06/20/19 06/20/19 06/20/19 06/20/19 07:31 07:42 08:26 08:26 Temp 97.8 97.8 Pulse 94 94 94 Resp 20 B/P (MAP) 118/63 (81) 118/63 118/63 Pulse Ox 94 94 O2 Delivery Room Air Nasal Cannula O2 Flow Rate 2.0 Intake and Output 06/19/19 06/19/19 06/20/19 15:00 23:00 07:00 Intake Total 550 ml 100 ml 300 ml Output Total 1 ml Balance 550 ml 99 ml 300 ml ROD GUSMAN MD Jun 20, 2019 09:10
[2019-06-20] MEDS: DOXYCYCLINE HYCLATE 100 MG TABLET PO SCH (10:40)
[2019-06-20 11:16] VITALS: BP 137/73
--- NOTE | 2019-06-20 12:41 | PDOC ---
PULMONARY PROGRESS NOTES Subjective feels better wants to go home Vitals Vital Signs Date Time Temp Pulse Resp B/P (MAP) Pulse Ox O2 Delivery O2 Flow Rate FiO2 06/20/19 11:32 94 Room Air 06/20/19 11:16 97.5 98 18 137/73 (94) 2.0 97.5 General: Alert, Oriented X4, No acute distress Lungs: Clear Cardiovascular: S1, S2 Abdomen: Soft, Non-tender Neuro Exam: Alert Extremities: No Edema Skin: Warm Labs Laboratory Tests Test 06/18/19 12:55 06/18/19 15:35 06/18/19 17:10 06/18/19 20:35 Sodium Level 140 mmol/L (136-145) Potassium Level 4.1 mmol/L (3.5-5.1) Chloride Level 104 mmol/L (98-107) Carbon Dioxide Level 25 mmol/L (21-32) Anion Gap 11 (6-14) Blood Urea Nitrogen 12 mg/dL (7-20) Creatinine 0.8 mg/dL (0.6-1.0) Estimated GFR (Cockcroft-Gault) 71.1 BUN/Creatinine Ratio 15 (6-20) Glucose Level 182 mg/dL (70-99) Calcium Level 9.2 mg/dL (8.5-10.1) Total Bilirubin 0.9 mg/dL (0.2-1.0) Aspartate Amino Transf (AST/SGOT) 31 U/L (15-37) Alanine Aminotransferase (ALT/SGPT) 27 U/L (14-59) Alkaline Phosphatase 128 U/L (46-116) Troponin I Quantitative < 0.017 ng/mL (0.000-0.055) < 0.017 ng/mL (0.000-0.055) < 0.017 ng/mL (0.000-0.055) IW-Gbm-O-Type Natriuretic Peptide 175 pg/mL (0-124) Total Protein 7.3 g/dL (6.4-8.2) Albumin 3.8 g/dL (3.4-5.0) Albumin/Globulin Ratio 1.1 (1.0-1.7) Influenza Type A Antigen Negative (NEGATIVE) Influenza Type B Antigen Negative (NEGATIVE) Test 06/18/19 22:10 06/19/19 07:18 06/19/19 11:28 06/19/19 15:51 Glucose (Fingerstick) 409 mg/dL (70-99) 344 mg/dL (70-99) 456 mg/dL (70-99) 470 mg/dL (70-99) Test 06/19/19 16:06 06/19/19 17:37 06/19/19 20:42 06/20/19 07:29 White Blood Count 9.5 x10^3/uL (4.0-11.0) Red Blood Count 4.11 x10^6/uL (3.50-5.40) Hemoglobin 12.6 g/dL (12.0-15.5) Hematocrit 37.4 % (36.0-47.0) Mean Corpuscular Volume 91 fL (79-100) Mean Corpuscular Hemoglobin 31 pg (25-35) Mean Corpuscular Hemoglobin Concent 34 g/dL (31-37) Red Cell Distribution Width 14.1 % (11.5-14.5) Platelet Count 227 x10^3/uL (140-400) Prothrombin Time 24.2 SEC (11.7-14.0) Prothromb Time International Ratio 2.2 (0.8-1.1) Sodium Level 138 mmol/L (136-145) Potassium Level 4.8 mmol/L (3.5-5.1) Chloride Level 102 mmol/L (98-107) Carbon Dioxide Level 23 mmol/L (21-32) Anion Gap 13 (6-14) Blood Urea Nitrogen 18 mg/dL (7-20) Creatinine 1.3 mg/dL (0.6-1.0) Estimated GFR (Cockcroft-Gault) 40.6 BUN/Creatinine Ratio 14 (6-20) Glucose Level 477 mg/dL (70-99) Calcium Level 9.5 mg/dL (8.5-10.1) Total Bilirubin 0.6 mg/dL (0.2-1.0) Aspartate Amino Transf (AST/SGOT) 16 U/L (15-37) Alanine Aminotransferase (ALT/SGPT) 25 U/L (14-59) Alkaline Phosphatase 116 U/L (46-116) Total Protein 7.8 g/dL (6.4-8.2) Albumin 3.6 g/dL (3.4-5.0) Albumin/Globulin Ratio 0.9 (1.0-1.7) Glucose (Fingerstick) 442 mg/dL (70-99) 372 mg/dL (70-99) 366 mg/dL (70-99) Test 06/20/19 10:38 Glucose (Fingerstick) 392 mg/dL (70-99) Laboratory Tests Test 06/19/19 15:51 06/19/19 16:06 06/19/19 17:37 06/19/19 20:42 Glucose (Fingerstick) 470 mg/dL (70-99) 442 mg/dL (70-99) 372 mg/dL (70-99) White Blood Count 9.5 x10^3/uL (4.0-11.0) Red Blood Count 4.11 x10^6/uL (3.50-5.40) Hemoglobin 12.6 g/dL (12.0-15.5) Hematocrit 37.4 % (36.0-47.0) Mean Corpuscular Volume 91 fL (79-100) Mean Corpuscular Hemoglobin 31 pg (25-35) Mean Corpuscular Hemoglobin Concent 34 g/dL (31-37) Red Cell Distribution Width 14.1 % (11.5-14.5) Platelet Count 227 x10^3/uL (140-400) Prothrombin Time 24.2 SEC (11.7-14.0) Prothromb Time International Ratio 2.2 (0.8-1.1) Sodium Level 138 mmol/L (136-145) Potassium Level 4.8 mmol/L (3.5-5.1) Chloride Level 102 mmol/L (98-107) Carbon Dioxide Level 23 mmol/L (21-32) Anion Gap 13 (6-14) Blood Urea Nitrogen 18 mg/dL (7-20) Creatinine 1.3 mg/dL (0.6-1.0) Estimated GFR (Cockcroft-Gault) 40.6 BUN/Creatinine Ratio 14 (6-20) Glucose Level 477 mg/dL (70-99) Calcium Level 9.5 mg/dL (8.5-10.1) Total Bilirubin 0.6 mg/dL (0.2-1.0) Aspartate Amino Transf (AST/SGOT) 16 U/L (15-37) Alanine Aminotransferase (ALT/SGPT) 25 U/L (14-59) Alkaline Phosphatase 116 U/L (46-116) Total Protein 7.8 g/dL (6.4-8.2) Albumin 3.6 g/dL (3.4-5.0) Albumin/Globulin Ratio 0.9 (1.0-1.7) Test 06/20/19 07:29 06/20/19 10:38 Glucose (Fingerstick) 366 mg/dL (70-99) 392 mg/dL (70-99) Medications Active Scripts Medications Dose Route/Sig Max Daily Dose Days Date Category Guaifenesin 100 Mg/5 Ml Liquid 200 Mg PO PRN Q4HRS PRN 30 06/16/19 Rx Tylenol (Acetaminophen) 325 Mg Tablet 650 Mg PO PRN Q4HRS PRN 30 06/16/19 Rx Duoneb 0.5-3(2.5) Mg/3 Ml (Albuterol/Ipratropium) 3 Ml Ampul.neb 3 Ml NEB Q4H 30 06/16/19 Rx Xarelto (Rivaroxaban) 20 Mg Tablet 20 Mg PO DAILY 06/04/19 Reported Metoprolol Tartrate 25 Mg Tablet 0.5 Tab PO BID 06/04/19 Reported Aspirin 81 Mg Tab.chew 1 Tab PO DAILY 06/04/19 Reported Clopidogrel (Clopidogrel Bisulfate) 75 Mg Tablet 1 Tab PO DAILY 06/04/19 Reported Lantus Solostar (Insulin Glargine,Hum.rec.anlog) 100 Unit/1 Ml Insuln.pen 12 Unit SQ QHS 06/03/19 Reported Crestor (Rosuvastatin Calcium) 20 Mg Tablet 20 Mg PO HS 06/03/19 Reported Mirapex (Pramipexole Di-Hcl) 0.25 Mg Tablet 1 Tab PO QHS 06/03/19 Reported Montelukast Sodium Tablet (Montelukast Sodium) 10 Mg Tablet 10 Mg PO HS 06/03/19 Reported Isosorbide Mononitrate Er (Isosorbide Mononitrate) 30 Mg Tab.er.24h 30 Mg PO DAILY 06/03/19 Reported Gabapentin (Gabapentin) 100 Mg Capsule 100 Mg PO BID 06/03/19 Reported Impression . 1. Dyspnea secondary to acute asthma exacerbation. The patient has mostly upper airway wheezing. No evidence of congestive heart failure. Recent CT angiogram revealed no evidence of pulmonary embolism. She is ALLERGIC TO [employer]. She does have a dog, which is very close to her and it may be one of the triggers as well. She is currently on metoprolol as well and one needs to closely follow her if the bronchospasm persist. 2. History of pulmonary embolism and deep venous thrombosis in September of this year when she was hospitalized in [facility]. She will be on Xarelto and no evidence of recurrent pulmonary embolism. 3. History of coronary artery disease, status post recent stent for left circumflex. 4. No significant tobacco history. Plan . 1. Wheezing resolved. change to PO steroid taper 2. Continue with DuoNebs. 3. Pulmicort. 4. At home, she uses Symbicort. 6. Continue with Xarelto. 7. Continue with Plavix per Cardiology. 8. d/w PCP. ok with dc home HENRIQUE ORNELAS MD Jun 20, 2019 12:41
[2019-06-20] MEDS ORDERED: methylPREDNISolone SOD SUCC PF 40 MG/ML VIAL. IV SCH (14:00)
[2019-06-20] MEDS ORDERED: INSULIN GLARGINE SYRINGE. SQ SCH (21:00)
--- NOTE | 2019-06-20 21:42 | PDOC3 ---
Discharge Summary Date of Admission: Jun 18, 2019 Date of Discharge: Jun 20, 2019 Follow-Up: 1-2 days Admitting Diagnosis comment: Chief Complaint Chief Complaint sob slightly improved. feels better. difficult with IV access discharge dx History of Present Illness Assessment 1. bronchospasm with acute exacerbation 2. 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 3. No significant history of tobacco use. 4. coronary artery disease, status post recent left heart catheterization on 06/03/2019 with successful PCI of the left circumflex artery. 5. type 2 dm, with hyperglycemia, uncontrolled 6. hx of CVA 7. hx of Paroxysmal supraventricular tachycardia. 8. acute kidney injury, vasomotor nephropathy PLAN - continue oxygen, IV steroids taper , doxy. patient allergic to prednisone - consult pulm - continue pulmicort - continue Xarelto. recent CTA has not shown any evidence of any pulmonary embolism . - continue SSI Deep venous thrombosis and pulmonary embolism, on Xarelto. continue BB - continue ASA plavix and statin - elevated sugars. add lantus 14 units. - hydrate 33 min pt exam, chart review, d/c planning, left ama > 50% of time spent with exam, chart review, pt care coordination Vitals Vitals Vital Signs Date Time Temp Pulse Resp B/P (MAP) Pulse Ox O2 Delivery O2 Flow Rate FiO2 06/20/19 08:26 94 118/63 06/20/19 07:42 97.8 20 94 Nasal Cannula 2.0 97.8 Physical Exam Physical Exam Physical Exam Physical Exam GENERAL: No apparent distress. Alert and oriented. HEENT: Head normocephalic, atraumatic. NECK: Supple LUNGS: Clear to auscultation. HEART: RRR, S1, S2 present, pulses intact ABDOMEN: Soft, positive bowel sounds. EXTREMITIES: No cyanosis or edema. NEUROLOGIC: Normal speech, normal tone PSYCHIATRIC: Normal affect, normal mood. SKIN: No ulceration. General: Alert, Oriented X3, Cooperative, No acute distress Heart: Regular rate, Normal S1 Lungs: Clear, Other Abdomen: Normal bowel sounds, Soft, No tenderness Extremities: No cyanosis Skin: No significant lesion FINAL DIAGNOSIS Problems Medical Problems: (1) Atypical chest pain Status: Acute (2) CAD (coronary artery disease) Status: Chronic (3) COPD (chronic obstructive pulmonary disease) Status: Chronic Brief Hospital Course Ms. Prasad is a 69 old [sex] who presented with [ ] Discharge Medications Current Medications Lorazepam (Ativan Inj) 0.5 mg 1X ONCE IV Last administered on 06/18/19at 12:31; Start 06/18/19 at 12:15; Stop 06/18/19 at 12:16; Status DC Albuterol/ Ipratropium (Duoneb) 3 ml 1X ONCE NEB Last administered on 06/18/19at 12:33; Start 06/18/19 at 12:15; Stop 06/18/19 at 12:16; Status DC Ondansetron HCl (Zofran) 4 mg 1X ONCE IV Last administered on 06/18/19at 12:31; Start 06/18/19 at 12:30; Stop 06/18/19 at 12:31; Status DC Methylprednisolone Sodium Succinate (SOLU-Medrol 40MG VIAL) 40 mg 1X ONCE IV Last administered on 06/18/19at 14:28; Start 06/18/19 at 14:15; Stop 06/18/19 at 14:16; Status DC Albuterol/ Ipratropium (Duoneb) 3 ml 1X ONCE NEB Last administered on 06/18at 14:37; Start 06/18/19 at 14:15; Stop 06/18/19 at 14:16; Status DC Doxycycline Hyclate (Vibra-Tab) 100 mg BID PO Last administered on 06/20/19at 10:40; Start 06/18/19 at 21:00; Stop 06/20/19 at 16:25; Status DC Doxycycline Hyclate (Vibra-Tab) 100 mg ONCE ONCE PO Last administered on 06/18/19at 14:36; Start 06/18/19 at 14:30; Stop 06/18/19 at 14:31; Status DC Lorazepam (Ativan Inj) 0.5 mg 1X ONCE IV Last administered on 06/18/19at 15:11; Start 06/18/19 at 15:15; Stop 06/18/19 at 15:16; Status DC Acetaminophen (Tylenol) 650 mg PRN Q4HRS PRN PO TEMP OVER 100.4F OR MILD PAIN; Start 06/18/19 at 17:45; Stop 06/20/19 at 16:25; Status DC Aspirin (Children'S Aspirin) 81 mg DAILY PO Last administered on 06/20/19at 08:25; Start 06/19/19 at 09:00; Stop 06/20/19 at 16:25; Status DC Clopidogrel Bisulfate (Plavix) 75 mg DAILY PO Last administered on 06/20/19at 08:26; Start 06/19/19 at 09:00; Stop 06/20/19 at 16:25; Status DC Gabapentin (Neurontin) 100 mg BID PO Last administered on 06/20/19at 08:25; Start 06/18/19 at 21:00; Stop 06/20/19 at 16:25; Status DC Guaifenesin (Robitussin) 200 mg PRN Q4HRS PRN PO COUGH Last administered on 06/20/19at 08:25; Start 06/18/19 at 17:45; Stop 06/20/19 at 16:25; Status DC Albuterol/ Ipratropium (Duoneb) 3 ml Q4H NEB Last administered on 06/20/19at 15:43; Start 06/18/19 at 17:45; Stop 06/20/19 at 16:25; Status DC Isosorbide Mononitrate (Imdur) 30 mg DAILY PO Last administered on 06/20/19at 08:26; Start 06/19/19 at 09:00; Stop 06/20/19 at 16:25; Status DC Metoprolol Tartrate (Lopressor) 12.5 mg BID PO Last administered on 06/20/19at 08:26; Start 06/18/19 at 21:00; Stop 06/20/19 at 16:25; Status DC Montelukast Sodium (Singulair) 10 mg HS PO Last administered on 06/19/19at 21:37; Start 06/18/19 at 21:00; Stop 06/20/19 at 16:25; Status DC Pramipexole Dihydrochloride (miraPEX) 0.25 mg QHS PO Last administered on 06/19/19at 21:37; Start 06/18/19 at 21:00; Stop 06/20/19 at 16:25; Status DC Insulin Glargine (Lantus Syringe) 12 unit QHS SQ Last administered on 06/19/19at 21:54; Start 06/18/19 at 21:00; Stop 06/20/19 at 10:23; Status DC Rivaroxaban (Xarelto) 20 mg DAILYWBKFT PO Last administered on 06/20/19at 08:24; Start 06/19/19 at 08:00; Stop 06/20/19 at 16:25; Status DC Atorvastatin Calcium (Lipitor) 80 mg QHS PO Last administered on 06/19/19at 21:37; Start 06/18/19 at 21:00; Stop 06/20/19 at 16:25; Status DC Methylprednisolone Sodium Succinate (SOLU-Medrol 40MG VIAL) 60 mg Q6HRS IV Last administered on 06/20/19at 06:11; Start 06/19/19 at 00:00; Stop 06/20/19 at 12:32; Status DC Insulin Human Lispro (HumaLOG) 0-7 UNITS TIDWMEALS SQ Last administered on 06/19/19at 09:21; Start 06/19/19 at 08:00; Stop 06/19/19 at 11:45; Status DC Dextrose (Dextrose 50%-Water Syringe) 12.5 gm PRN Q15MIN PRN IV SEE COMMENTS; Start 06/18/19 at 18:30; Stop 06/20/19 at 16:25; Status DC Dextrose 250 ml PRN Q15MIN PRN IV SEE COMMENTS; Start 06/18/19 at 18:30; Stop 06/20/19 at 16:25; Status DC Tramadol HCl (Ultram) 50 mg PRN Q6HRS PRN PO PAIN Last administered on 06/18/19at 20:56; Start 06/18/19 at 20:30; Stop 06/20/19 at 16:25; Status DC Morphine Sulfate (Morphine Sulfate) 1 mg PRN Q4HRS PRN IV PAIN Last administered on 06/19/19at 21:42; Start 06/18/19 at 20:30; Stop 06/20/19 at 16:25; Status DC Lorazepam (Ativan Inj) 2 mg PRN Q6HRS PRN IV ANXIETY / AGITATION Last administered on 06/20/19at 10:40; Start 06/18/19 at 22:45; Stop 06/20/19 at 16:25; Status DC Insulin Human Lispro (HumaLOG) 10 units 1X ONCE SQ Last administered on 06/19/19at 00:36; Start 06/18/19 at 22:45; Stop 06/18/19 at 22:46; Status DC Budesonide (Pulmicort) 0.5 mg RTBID NEB Last administered on 06/20/19at 07:31; Start 06/19/19 at 10:00; Stop 06/20/19 at 16:25; Status DC Insulin Glargine (Lantus Syringe) 10 unit 1X SQ ; Start 06/19/19 at 11:45; Stop 06/19/19 at 12:44; Status DC Insulin Human Lispro (HumaLOG) 0-7 UNITS TIDWMEALS SQ Last administered on 06/20/19at 12:52; Start 06/19/19 at 12:00; Stop 06/20/19 at 16:25; Status DC Insulin Glargine (Lantus Syringe) 10 unit 1X ONCE SQ Last administered on 06/19/19at 12:45; Start 06/19/19 at 12:45; Stop 06/19/19 at 12:46; Status DC Insulin Human Isoph/Insulin Regular (HumuLIN 70/30) 15 units 1X SQ ; Start at 17:00; Stop 06/19/19 at 17:09; Status DC Insulin Glargine (Lantus Syringe) 15 unit ONCE ONCE SQ Last administered on 06/19/19at 17:53; Start 06/19/19 at 17:15; Stop 06/19/19 at 17:16; Status DC Lactobacillus Rhamnosus (Culturelle) 1 cap BID PO Last administered on 06/20/19at 08:26; Start 06/19/19 at 21:00; Stop 06/20/19 at 16:25; Status DC Insulin Glargine (Lantus Syringe) 14 unit QHS SQ ; Start 06/20/19 at 21:00; Stop 06/20/19 at 16:25; Status DC Methylprednisolone Sodium Succinate (SOLU-Medrol 40MG VIAL) 40 mg Q8HRS IV Last administered on 06/20/19at 12:47; Start 06/20/19 at 14:00; Stop 06/20/19 at 16:25; Status DC Active Scripts Active Guaifenesin 100 Mg/5 Ml Liquid 200 Mg PO PRN Q4HRS PRN 30 Days Tylenol (Acetaminophen) 325 Mg Tablet 650 Mg PO PRN Q4HRS PRN 30 Days Duoneb 0.5-3(2.5) Mg/3 Ml (Albuterol/Ipratropium) 3 Ml Ampul.neb 3 Ml NEB Q4H 30 Days Reported Xarelto (Rivaroxaban) 20 Mg Tablet 20 Mg PO DAILY Metoprolol Tartrate 25 Mg Tablet 0.5 Tab PO BID Aspirin 81 Mg Tab.chew 1 Tab PO DAILY Clopidogrel (Clopidogrel Bisulfate) 75 Mg Tablet 1 Tab PO DAILY Lantus Solostar (Insulin Glargine,Hum.rec.anlog) 100 Unit/1 Ml Insuln.pen 12 Unit SQ QHS Crestor (Rosuvastatin Calcium) 20 Mg Tablet 20 Mg PO HS Mirapex (Pramipexole Di-Hcl) 0.25 Mg Tablet 1 Tab PO QHS Montelukast Sodium Tablet (Montelukast Sodium) 10 Mg Tablet 10 Mg PO HS Isosorbide Mononitrate Er (Isosorbide Mononitrate) 30 Mg Tab.er.24h 30 Mg PO DAILY Gabapentin (Gabapentin) 100 Mg Capsule 100 Mg PO BID Vital Signs Vital Signs Date Time Temp Pulse Resp B/P (MAP) Pulse Ox O2 Delivery O2 Flow Rate FiO2 06/20/19 15:44 94 Room Air 06/20/19 11:16 97.5 98 18 137/73 (94) 2.0 97.5 Labs Laboratory Tests Test 06/18/19 22:10 06/19/19 07:18 06/19/19 11:28 06/19/19 15:51 Glucose (Fingerstick) 409 mg/dL (70-99) 344 mg/dL (70-99) 456 mg/dL (70-99) 470 mg/dL (70-99) Test 06/19/19 16:06 06/19/19 17:37 06/19/19 20:42 06/20/19 07:29 White Blood Count 9.5 x10^3/uL (4.0-11.0) Red Blood Count 4.11 x10^6/uL (3.50-5.40) Hemoglobin 12.6 g/dL (12.0-15.5) Hematocrit 37.4 % (36.0-47.0) Mean Corpuscular Volume 91 fL (79-100) Mean Corpuscular Hemoglobin 31 pg (25-35) Mean Corpuscular Hemoglobin Concent 34 g/dL (31-37) Red Cell Distribution Width 14.1 % (11.5-14.5) Platelet Count 227 x10^3/uL (140-400) Prothrombin Time 24.2 SEC (11.7-14.0) Prothromb Time International Ratio 2.2 (0.8-1.1) Sodium Level 138 mmol/L (136-145) Potassium Level 4.8 mmol/L (3.5-5.1) Chloride Level 102 mmol/L (98-107) Carbon Dioxide Level 23 mmol/L (21-32) Anion Gap 13 (6-14) Blood Urea Nitrogen 18 mg/dL (7-20) Creatinine 1.3 mg/dL (0.6-1.0) Estimated GFR (Cockcroft-Gault) 40.6 BUN/Creatinine Ratio 14 (6-20) Glucose Level 477 mg/dL (70-99) Calcium Level 9.5 mg/dL (8.5-10.1) Total Bilirubin 0.6 mg/dL (0.2-1.0) Aspartate Amino Transf (AST/SGOT) 16 U/L (15-37) Alanine Aminotransferase (ALT/SGPT) 25 U/L (14-59) Alkaline Phosphatase 116 U/L (46-116) Total Protein 7.8 g/dL (6.4-8.2) Albumin 3.6 g/dL (3.4-5.0) Albumin/Globulin Ratio 0.9 (1.0-1.7) Glucose (Fingerstick) 442 mg/dL (70-99) 372 mg/dL (70-99) 366 mg/dL (70-99) Test 06/20/19 10:38 Glucose (Fingerstick) 392 mg/dL (70-99) Laboratory Tests Test 06/20/19 07:29 06/20/19 10:38 Glucose (Fingerstick) 366 mg/dL (70-99) 392 mg/dL (70-99) Allergies Allergies Coded Allergies Type Severity Reaction Last Updated Verified fentanyl Allergy Intermediate 06/13/19 Yes oxycodone Allergy Intermediate 06/13/19 Yes prednisone Allergy Intermediate 06/13/19 Yes Disposition/Orders: D/C to Home, Other (left ama,) Patient Instructions d/c planning 33 min ROD GUSMAN MD Jun 20, 2019 21:42
== END 2019-06-20 16:00 | disposition left against medical advice (07) | DRG 190 ==
LOC: ER 11:59 → ED HOLD 14:15 → 6 SOUTH 17:33
PROVIDERS: ADMIT Internal Medicine; ATTEND Internal Medicine
DX: J44.1 Chronic obstructive pulmonary disease with (acute) exacerbation (principal); N17.0 Acute kidney failure with tubular necrosis; J45.901 Unspecified asthma with (acute) exacerbation; E11.65 Type 2 diabetes mellitus with hyperglycemia; I25.10 Atherosclerotic heart disease of native coronary artery without angina pectoris; E78.00 Pure hypercholesterolemia, unspecified; E78.5 Hyperlipidemia, unspecified; I11.0 Hypertensive heart disease with heart failure; G47.30 Sleep apnea, unspecified; F44.5 Conversion disorder with seizures or convulsions; I48.91 Unspecified atrial fibrillation; I50.9 Heart failure, unspecified; F32.9 Major depressive disorder, single episode, unspecified; F41.9 Anxiety disorder, unspecified; K21.9 Gastro-esophageal reflux disease without esophagitis; M19.90 Unspecified osteoarthritis, unspecified site; Z90.710 Acquired absence of both cervix and uterus; Z86.73 Personal history of transient ischemic attack (TIA), and cerebral infarction without residual deficits; Z90.49 Acquired absence of other specified parts of digestive tract; Z88.5 Allergy status to narcotic agent; Z88.8 Allergy status to other drugs, medicaments and biological substances; Z95.5 Presence of coronary angioplasty implant and graft; Z86.711 Personal history of pulmonary embolism; Z86.718 Personal history of other venous thrombosis and embolism; Z82.49 Family history of ischemic heart disease and other diseases of the circulatory system; Z87.11 Personal history of peptic ulcer disease; Z85.72 Personal history of non-Hodgkin lymphomas; Z87.891 Personal history of nicotine dependence; Z53.21 Procedure and treatment not carried out due to patient leaving prior to being seen by health care provider
CPT/HCPCS: 36415; 70551; 71045; 80053; 82962; 83880; 84484; 85025; 85027; 85610; 87804; 93005; 94640; 96374; 96375; 96376; J1815; J2060; J2270; J2405; J2920; J7620; J7626; 99285-25; G0378

== ENCOUNTER 2020-05-12 15:26 | Inpatient (IN) | payer MEDICARE ==
[~2020-05-12] VITALS: Ht 162.6 cm; Wt 97.9 kg
[~2020-05-12 15:26] MED LIST changes: +ALPR2TAB2 PO; +AMOX1TAB61 PO; +CARB1TAB2 PO; +GABA300C18 PO; +GABA600T7 PO; +PANT40TA77 PO; +PHEN100C PO
[2020-05-12] MEDS ORDERED: MORPHINE SULFATE 4 MG/ML VIAL. IV PRN (15:45)
[2020-05-12] MEDS ORDERED: NITROGLYCERIN SUBLINGUAL 0.4 MG BOTTLE OF 25. SL PRN (15:45)
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
[2020-05-12] MEDS ORDERED: IV NORMAL SALINE 500ML BAG 500 ML IV ONE (18:30)
[2020-05-12 18:57] VITALS: BP 112/62
[2020-05-12] MEDS: ATORVASTATIN CALCIUM 40 MG TABLET. PO SCH (21:14)
[2020-05-12] MEDS: MONTELUKAST SODIUM 10 MG TABLET. PO SCH (21:14)
[2020-05-12] MEDS: ALPRAZolam 1 MG TABLET PO PRN (21:14)
[2020-05-12] MEDS: GABAPENTIN 100 MG CAPSULE. PO SCH (21:14)
[2020-05-12] MEDS: PRAMIPEXOLE 0.25 MG TABLET. PO SCH (21:14)
[2020-05-12] MEDS: HYDROcodone/APAP 10/325 1 TAB TABLET PO PRN (21:15)
[2020-05-12] MEDS: METOPROLOL TART IMMED RELEASE 25 MG TABLET. PO SCH (21:15)
[2020-05-12] MEDS: INSULIN GLARGINE SYRINGE. SQ SCH (21:19)
[2020-05-12 23:00] VITALS: BP 110/56
[2020-05-13] VITALS (16 sets, daily range): BP systolic 93–175; BP diastolic 52–97
[2020-05-13 07:31] LABS: BASO % 1 % (0-3); EOS # 0.3 x10^3/uL (0.0-0.7); EOS % 8 % (0-3); HEMATOCRIT 32.9 % (36.0-47.0); HEMOGLOBIN 11.1 g/dL (12.0-15.5); LYMPH % 26 % (24-48); MEAN CORPUSCULAR HEMOGLOBIN 30 pg (25-35); MEAN CORPUSCULAR HGB CONC 34 g/dL (31-37); MEAN CORPUSCULAR VOLUME 89 fL (79-100); MONO # 0.4 x10^3/uL (0.0-1.1); MONO % 10 % (0-9); NEUT # 2.2 x10^3/uL (1.8-7.7); NEUT % 57 % (31-73); PLATELET COUNT 181 x10^3/uL (140-400); RED BLOOD COUNT 3.69 x10^6/uL (3.50-5.40); RED CELL DISTRIBUTION WIDTH 14.2 % (11.5-14.5); WHITE BLOOD COUNT 3.9 x10^3/uL (4.0-11.0)
[2020-05-13 07:32] LABS: PROTHROMBIN TIME PATIENT 13.4 SEC (11.7-14.0)
[2020-05-13 07:52] LABS: ALBUMIN 2.9 g/dL (3.4-5.0); ALBUMIN/GLOBULIN RATIO 0.9 (1.0-1.7); CREATININE 0.8 mg/dL (0.6-1.0); GFR 70.9; POTASSIUM 3.8 mmol/L (3.5-5.1); TOTAL BILIRUBIN 0.5 mg/dL (0.2-1.0)
[2020-05-13] MEDS: CLOPIDOGREL BISULFATE 75 MG TABLET PO SCH (09:32)
[2020-05-13] MEDS: METOPROLOL TART IMMED RELEASE 25 MG TABLET. PO SCH ×2 (09:34→20:58)
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
--- NOTE | 2020-05-13 10:09 | HP ---
ADMIT DATE: 05/13/2020 HISTORY OF PRESENT ILLNESS: The patient is a 70-year-old female patient, who was brought to the Emergency Room of [facility] with sudden-onset chest pain that started about an hour prior to arrival. She came actually by private vehicle. The patient was lying in bed when the pain started. She described it as moderate to severe chest pressure. She feels short of breath. Nothing seems to make it better or worse. She tried 2 nitroglycerin at home without relief. She was recently discharged from [facility] after being admitted there for similar symptoms. They did a stress test and found some abnormal finding, but no intervention was performed. No new stents or surgery. She was told to follow up as an outpatient. She had 2 stents and the most recent one was a year ago. She denied any fever or chills. She had an EKG done, which showed that she was in sinus rhythm at 77 beats per minute with no ST segment elevation or depression. Her first set of cardiac enzymes showed a troponin of less than 0.017. She was admitted to the ICU and has 2 more sets of cardiac enzymes that ruled out myocardial infarction. She was seen in consultation by Cardiology team and they recommended basically to transfer her to [facility] for cardiac catheterization. While in the ICU, she had also seizures, which seemed to be atypical as her previous seizures and according to the nursing staff, the seizure lasted up to 15 minutes, although the patient did not bite her tongue nor did she wet herself. When I saw her immediately after the seizure, she immediately recognized me and did not have any postictal state. I believe that she has had video EEG done at [facility] before and it showed that these are also the seizures and in fact her Keppra was discontinued. She was treated with 2 mg of Ativan and 1000 mg of Keppra and we plan to consult Dr. Chaves when she arrives to [facility] here. PAST MEDICAL HISTORY: Significant for coronary artery disease, status post PCI with stent deployment to the left anterior descending and left circumflex, type 2 diabetes mellitus, hypertension, hyperlipidemia, chronic obstructive pulmonary disease/bronchial asthma, DVT and PE, generalized osteoarthritis, CVA, lymphoma, anxiety and depression, paroxysmal supraventricular tachycardia, and seizures/pseudoseizures. PAST SURGICAL HISTORY: Significant for right rotator cuff repair, cholecystectomy, hysterectomy, carpal tunnel release, cardiac catheterization with PCI and stent deployment. FAMILY HISTORY: Positive for diabetes, heart disease, and hypertension. SOCIAL HISTORY: She is , has 1 son and 2 daughters. She has been a secondhand smoker. She does not herself smoke, drink alcohol, or use any recreational drugs. She is a retired registered nurse. REVIEW OF SYSTEMS: As per history of present illness. MEDICATIONS: She is on following medications: She is on Plavix 75 mg once a day, Crestor 20 mg at bedtime, isosorbide mononitrate 30 mg once a day, metoprolol tartrate 12.5 mg twice a day, hydrocodone/APAP 10/325 one tablet every 6 hours, gabapentin 100 mg twice a day, escitalopram oxalate 10 mg once a day, alprazolam 1 mg 4 times a day, Mirapex 0.5 mg at bedtime. She is also on Singulair 10 mg once a day, Lantus 15 units at bedtime. She was started on Keppra yesterday. PHYSICAL EXAMINATION: GENERAL: When I saw her this morning, she was resting slightly propped up in bed, in no apparent distress. On questioning her, denied any complaint. Her chest pain is much less today than it was yesterday. Apparently, she has had no further seizures episode. When I examined her, she looked pale. No jaundice, cyanosis, or thyromegaly. No jugular venous distention. No lower limb edema. VITAL SIGNS: Her heart rate was 66, blood pressure was 123/59, temperature was 98, respiratory rate was 16, and oxygen saturation was 98% on 2 liters of oxygen. HEAD, EYES, EARS, NOSE, AND THROAT: Normocephalic, atraumatic. NECK: Supple. HEART: Normal first and second heart sounds. No gallop, rub, or murmur. CHEST: Clear to auscultation. No crepitation or rhonchi. ABDOMEN: Distended, soft, nontender. NEUROLOGIC: She is awake, alert, responding appropriately. All cranial nerves intact. EXTREMITIES: She moves extremities without difficulty. LABORATORY WORK: This morning showed white cell count of 3900, hemoglobin 11, hematocrit 33, MCV 89, and platelet count of 181,000. Serum sodium was 143, potassium 3.8, chloride 107, bicarbonate 29, anion gap of 7, BUN 13, creatinine 0.8, estimated GFR was 70 mL per minute. Her glucose 148, calcium was 8. Total bilirubin, AST, ALT, alkaline phosphatase were normal. Total protein was 6, albumin was 2.9. Her prothrombin time, INR, and aPTT were normal. ASSESSMENT AND PLAN: In summary, this is a 70-year-old female patient, who was admitted with chest pain, where she had 3 sets of cardiac enzymes that ruled out acute myocardial infarction. Given that she continued to have this episode of chest pain, a decision was made to transfer her to [facility] to consult the Cardiology team as she is scheduled for cardiac catheterization today. She has also these episodes of seizures that seem to be atypical. The patient did not bite her tongue, did not wet herself. She does not have any postictal state even after receiving 2 mg of Ativan and 1000 mg of Keppra. We will also consult Dr. Chaves to assist with her management. ALFONSO BURNHAM MD DR: SANTI/oliverio JOB#: [id number] / [id number]
[2020-05-13] MEDS: ISOSORBIDE MONONITRATE ER 30 MG TAB.ER.24H PO SCH (10:17)
[2020-05-13] MEDS ORDERED: IOHEXOL 300 MG/ML 100ML VIAL. ONE (11:06)
[2020-05-13] MEDS ORDERED: LIDOCAINE 1% PF 2 ML VIAL. ONE (11:06)
[2020-05-13] MEDS ORDERED: VERAPAMIL 5 MG/2 ML VIAL. ONE (11:13)
[2020-05-13] MEDS ORDERED: HEPARIN for IV BOLUS 10,000 UNIT/10 ML VIAL. ONE (11:13)
[2020-05-13] MEDS ORDERED: diphenhydrAMINE 50 MG/ML VIAL ONE (11:13)
[2020-05-13] MEDS ORDERED: NITROGLYCERIN 200 MCG/2 ML SYRINGE FOR CATH/VASC LAB. ONE (11:13)
[2020-05-13] MEDS ORDERED: MIDAZOLAM HCL/PF 5 MG/5 ML VIAL. ONE (11:13)
--- NOTE | 2020-05-13 11:26 | NUR ---
SS following for discharge planning. SS reviewed pt chart and discussed with pt RN. Pt is from home and is currently requiring oxygen. Pt having heart cath today. SS will continue to follow for discharge planning.
[2020-05-13] MEDS ORDERED: VERAPAMIL 5 MG/2 ML VIAL. IART ONE (11:30)
[2020-05-13] MEDS ORDERED: IOHEXOL 300 MG/ML 100ML VIAL. IART ONE (11:30)
[2020-05-13] MEDS ORDERED: NITROGLYCERIN 200 MCG/2 ML SYRINGE FOR CATH/VASC LAB. IART ONE (11:30)
[2020-05-13] MEDS ORDERED: diphenhydrAMINE 50 MG/ML VIAL IVP ONE (11:30)
[2020-05-13] MEDS ORDERED: LIDOCAINE 1% PF 2 ML VIAL. INJ ONE (11:30)
[2020-05-13] MEDS ORDERED: HEPARIN for IV BOLUS 10,000 UNIT/10 ML VIAL. IART ONE (11:30)
[2020-05-13] MEDS ORDERED: MIDAZOLAM HCL/PF 5 MG/5 ML VIAL. IV ONE (11:30)
[2020-05-13] MEDS ORDERED: LIDOCAINE 1% Multi-Dose 20 ML VIAL. ONE (11:49)
[2020-05-13] MEDS ORDERED: LIDOCAINE 1% Multi-Dose 20 ML VIAL. INJ ONE (12:30)
--- NOTE | 2020-05-13 13:01 | PDOC ---
MODERATE SEDATION ASSESSMENT RISKS/ALTERNATIVES Risks/Alternatives Risks and alternatives of this type of sedation and procedure discussed with: RISK/ALTERNATIVES: Patient H & P ON CHART H & P H & P on chart and reviewed for co-morbid conditions and appropriate labs. H&P ON CHART: Yes STATUS PREG STATUS ASSESSED: N/A MEDS/ALLERGIES REVIEWED Meds/Allergies Reviewed Medications and Allergies including time and route of recently administered narcotics and sedatives. MEDS/ALLERGIES REVIEWED: Yes ASA RATING ASA RATING: III AIRWAY ASSESSMENT Airway Assessment Airway patency, oral function limitations, presence of caps, crowns, dentures, partials, and ability to extend neck assessed. AIRWAY ASSESSMENT: Yes MALLAMPATI SCORE MALLAMPATI SCORE: II PRE-SEDATION ASSESSMENT PRE-SEDATION ASSESSMENT: Yes BRADEN CORNEJO MD May 13, 2020 13:01
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
[2020-05-13] MEDS: GABAPENTIN 100 MG CAPSULE. PO SCH ×3 (14:00→20:58)
[2020-05-13] MEDS: CITALOPRAM 20 MG TABLET. PO SCH (14:41)
[2020-05-13] MEDS: IV 1/2 NORMAL SALINE 1,000 ML IV SCH (14:42)
[2020-05-13] MEDS: ALPRAZolam 1 MG TABLET PO PRN (20:58)
[2020-05-13] MEDS: ATORVASTATIN CALCIUM 40 MG TABLET. PO SCH (20:58)
[2020-05-13] MEDS: HYDROcodone/APAP 10/325 1 TAB TABLET PO PRN (20:58)
[2020-05-13] MEDS: MONTELUKAST SODIUM 10 MG TABLET. PO SCH (20:58)
[2020-05-13] MEDS: PRAMIPEXOLE 0.25 MG TABLET. PO SCH (20:58)
[2020-05-13] MEDS: INSULIN GLARGINE SYRINGE. SQ SCH (21:03)
[2020-05-14 03:50] VITALS: BP 128/51
[2020-05-14] MEDS: IV 1/2 NORMAL SALINE 1,000 ML IV SCH (05:41)
[2020-05-14 07:39] VITALS: BP 145/63
[2020-05-14] MEDS: GABAPENTIN 100 MG CAPSULE. PO SCH (09:27)
[2020-05-14] MEDS: CLOPIDOGREL BISULFATE 75 MG TABLET PO SCH (09:27)
[2020-05-14] MEDS: METOPROLOL TART IMMED RELEASE 25 MG TABLET. PO SCH (09:27)
[2020-05-14] MEDS: CITALOPRAM 20 MG TABLET. PO SCH (09:27)
[2020-05-14] MEDS: ISOSORBIDE MONONITRATE ER 30 MG TAB.ER.24H PO SCH (09:28)
--- NOTE | 2020-05-14 09:28 | SNU/HH DC ---
DISCHARGE WITH HOME HEALTH DISCHARGE INFORMATION: Discharge Date: May 14, 2020 Final Diagnosis: chest pain with patent coronary stents psychogenic non epileptic seizure CAD s/p stents Condition on Discharge: Stable CODE STATUS: Code Status: Full HOME HEALTH: Face to Face: I certify this patient is under my care and that I, or a nurse practitioner or physician's buyer assistant working with me, had a face to face encounter that meets the physician face to face encounter requirements with this patient on 05/14/2020 Medical Complications: Other Mcc For: Admin/Educate Injections RN For Eval/Treatment: Yes Physical Therapy For: Evalulation/Treatment Occupational Therapy For: Evaluation/Treatment Pt Meets Homebound Status: Unsteady balance w/ amb, POST DISCHARGE ORDERS: Activity Instructions for Disc: No restrictions, Activity as tolerated Weight Bearing Status after Di: No restrictions, As tolerated Bathing Instructions: No Tub Bath until see Dr. RAMOS AFTER DISCHARGE: Cardiac Wound/Incision Care: Keep wound/cast CDI, Other, see below CHECKS AFTER DISCHARGE: Checks after discharge: Check blood press - daily, Check blood sugar, ac/hs, Weigh Yourself Daily TREATMENT/EQUIPMENT ORDERS: Adaptive Equipment Issued: None Discharge Respiratory Equipmen: Nebulizer CERTIFICATION STATEMENT: Certification Statement: Certification Statement: Based on the above finding, I certify that this patient is confined to the home and needs intermittent half-way care, physical therapy and/or speech therapy, or continues to need occupational therapy.~ This patient is under my care, and I have initiated the establishment of the plan of care.~ This patient will be followed by myself or a community physician who will periodically review the plan of care. Home Meds Active Scripts Guaifenesin (GUAIFENESIN) 100 Mg/5 Ml Liquid, 200 MG PO PRN Q4HRS PRN for COUGH for 30 Days, #120 LIQUID Prov:ROD GUSMAN MD 06/16/19 Acetaminophen (TYLENOL) 325 Mg Tablet, 650 MG PO PRN Q4HRS PRN for TEMP OVER 100.4F OR MILD PAIN for 30 Days, #100 TAB Prov:ROD GUSMAN MD 06/16/19 Ipratropium/Albuterol Sulfate (DUONEB 0.5-3(2.5) MG/3 ML) 3 Ml Ampul.neb, 3 ML NEB Q4H for copd for 30 Days, #180 EACH Prov:ROD GUSMAN MD 06/16/19 Reported Medications Pantoprazole Sodium (PANTOPRAZOLE SODIUM ) 40 Mg Tablet.dr, 40 MG PO DAILYAC for GERD, TAB 09/14/19 Carbidopa/Levodopa (SINEMET 25-100 MG TABLET) 1 Each Tablet, 1 TAB PO TID for , TAB 09/14/19 Gabapentin (GABAPENTIN ) 300 Mg Capsule, 300 MG PO TID for NEUROGENIC PAIN, CAP 09/14/19 Metoprolol Tartrate (METOPROLOL TARTRATE) 25 Mg Tablet, 0.5 TAB PO BID for heart, #60 TAB 3 Refills 06/04/19 Aspirin (ASPIRIN) 81 Mg Tab.chew, 1 TAB PO DAILY for heart, #30 TAB 3 Refills 06/04/19 Clopidogrel Bisulfate (CLOPIDOGREL) 75 Mg Tablet, 1 TAB PO DAILY for heart stent, #30 TAB 3 Refills 06/04/19 Insulin Glargine,Hum.rec.anlog (LANTUS SOLOSTAR) 100 Unit/1 Ml Insuln.pen, 12 UNIT SQ QHS for , SYR 06/03/19 Rosuvastatin Calcium (CRESTOR) 20 Mg Tablet, 20 MG PO HS for FOR CHOLESTEROL, #30 TAB 0 Refills 06/03/19 Pramipexole Di-Hcl (MIRAPEX) 0.25 Mg Tablet, 1 TAB PO QHS for , #90 TAB 1 Refill 06/03/19 Montelukast Sodium (MONTELUKAST SODIUM TABLET ) 10 Mg Tablet, 10 MG PO HS for FOR ASTHMA, TAB 0 Refills 06/03/19 Isosorbide Mononitrate (ISOSORBIDE MONONITRATE ER) 30 Mg Tab.er.24h, 30 MG PO DAILY for , TAB.SR 06/03/19 Discontinued Reported Medications Phenytoin Sodium Extended (DILANTIN) 100 Mg Capsule, 300 MG PO TID for , CAP 09/14/19 Amoxicillin/Potassium Clav (AUGMENTIN 875-125 TABLET) 1 Each Tablet, 1 TAB PO BID for for 7 Days, #14 TAB 0 Refills 09/14/19 Alprazolam (XANAX) 2 Mg Tablet, 1 TAB PO BID for anxiety, #60 TAB 09/11/19 ALFONSO BURNHAM MD May 14, 2020 09:28
--- NOTE | 2020-05-14 10:22 | NUR ---
SS following up with discharge planning. SS reviewed pt chart and discussed with pt RN. Pt is currently on room air. Discharge orders for home healthcare received. SS met with pt and discussed home healthcare and home healthcare options. Pt requested [facility], ; fax [phone] as first choice and [facility], ; fax [phone], as second choice. SS phoned and faxed discharge orders and referral to [facility]. Pt's RN notified.
--- NOTE | 2020-05-14 10:35 | NUR ---
SS following up with discharge planning. Pt scheduled for psych appointment at the [facility], [address] [place] [id number], , on 05/20/2020 at 1000 with clinician, [place]. Pt instructed to bring insurance card to appointment and wear a mask.
[2020-05-14 10:37] VITALS: BP 144/71
--- NOTE | 2020-05-14 10:44 | NUR ---
This RN called medications into [facility] pharmacy at [phone] Niño. This RN spoke with Elizabeth, pharmacist who filled Citalopram 20 mg daily and Clorazepate 7.5 mg daily. Both filled for 30 days, no refills.
--- NOTE | 2020-05-14 11:14 | PDOC ---
JO ENRIQUEZ CHRIS 05/14/20 1114: CARDIO Progress Notes Date and Time Date of Service 05/14/20 Time of Evaluation 1100 Subjective Subjective: No Chest Pain, No shortness of breath, No Palpitations Vitals Vitals Vital Signs Date Time Temp Pulse Resp B/P (MAP) Pulse Ox O2 Delivery O2 Flow Rate FiO2 05/14/20 10:37 98.0 60 16 144/71 (95) 92 Room Air 98.0 05/13/20 21:58 2.0 Weight Weight [ ] Input and Output Intake and Output Intake and Output 05/14/20 06:59 Intake Total 500 ml Balance 500 ml Intake Oral 500 ml # Voids 2 Physical Exam HEENT: Neck Supple W Full Motion Chest: Symmetric LUNGS: Clear to Auscultation Heart: S1S2, RRR Abdomen: Soft N/T Extremities: No Edema Neurology: alert, oriented, follow commands Assessment Assessment 1. Chest pain, mixed features. AMI ruled out 2. CAD; s/p previous PCI/stent to the LAD and more recent PCI/PRASHANTH to LCx 05/2019. Echocardiogram 06/13 showed normal LV function. Cath without lesions needing intervention 3. Diabetes, II; as per PCP 4. Accelerated hypertension; controlled 5. Hyperlipidemia; statin 6. H/o DVT/PE; treated with Xarelto. 7. Hx of CVA with left side weakness 8. Seizures, suspected psychogenic Recommendations Continue secondary prevention measures including DAPT with ASA, Plavix and imdur Supportive care Okay to discharge from a CV standpoint and f/u in our office with Dr. Golden Justicifation of Admission Dx: Justifications for Admission: Justification of Admission Dx: N/A BRADEN GOLDEN MD 05/14/20 1540: CARDIO Progress Notes Assessment Assessment Patient seen and examined. Agree with CLASSIFIED ADVERTISING MANAGER's assessment and plan. Cardiac catheterization yesterday showed patent previously placed stents in LAD and LCx. Patient currently chest pain-free. Telemetry did not show any significant arrhythmias. Okay for DC from cardiac standpoint and follow-up as scheduled. JO ENRIQUEZ APRN May 14, 2020 11:14 BRADEN GOLDEN MD May 14, 2020 15:40
--- NOTE | 2020-05-14 11:45 | DS ---
DATE OF DISCHARGE: 05/14/2020 HOSPITAL COURSE: The patient is a 70-year-old female patient, who was transferred from [facility] with severe chest pain, did have 3 sets of cardiac enzymes that were negative. She is known to have stents before in her left anterior descending and left circumflex, and she has had cardiac catheterization, which basically showed that her stents are widely patent. Her left ventricular systolic function was normal at 50-55%. She was seen by Dr. Chaves, who again diagnosed her with psychogenic nonepileptic seizures and recommended to avoid all the benzodiazepine and antiseizures. He recommended escitalopram as well as clorazepate. Unfortunately, he did not specify the dose here. When I saw her this morning, she was resting comfortably in bed, no apparent respiratory distress. On questioning her, she denied any complaints. In particular, there was no more chest pain, no more seizures reported. The patient wanted to go home with home health. PHYSICAL EXAMINATION: GENERAL: When I saw her, she was pale. No jaundice, cyanosis or thyromegaly. No jugular venous distention. No limb edema. VITAL SIGNS: Her heart rate was 74, blood pressure was 145/63, temperature was 97.9, respiratory rate was 16, oxygen saturation was 90% on room air. HEAD, EYES, EARS, NOSE AND THROAT: Normocephalic, atraumatic. NECK: Supple. HEART: Showed normal first and second heart sounds. No gallop or murmur. CHEST: Clear to auscultation. No crepitation or rhonchi. NEUROLOGICAL: She was awake, alert, responding appropriately. All cranial nerves intact. EXTREMITIES: She moves all extremities without difficulty. LABORATORY DATA: Her lab work showed white cell count of 3900, hemoglobin 11, hematocrit 33, MCV 89 and platelet count of 181,000. Serum sodium 143, potassium 3.8, chloride 107, bicarbonate 29, anion gap of 7, BUN 13, creatinine 0.8, estimated GFR was 71 mL per minute, her glucose 148, calcium was 8. Total bilirubin, AST, ALT, alkaline phosphatase were normal. Total protein 6. Albumin was 2.9. Her prothrombin time, INR and aPTT were normal. DISCHARGE MEDICATIONS: She was discharged home to continue on Tylenol 650 mg every 4 hours as needed, aspirin 81 mg once a day, carbidopa/levodopa or Sinemet 25/100 one tablet 3 times a day, Plavix 75 mg once a day, gabapentin 300 mg 3 times a day, guaifenesin 200 mg every 4 hours, Lantus insulin 12 units at bedtime, ipratropium bromide/albuterol sulfate by nebulizer every 4 hours, isosorbide mononitrate 30 mg daily, metoprolol 12.5 mg twice a day, montelukast 10 mg at bedtime, Protonix 40 mg once a day, pramipexole or Mirapex 0.25 mg at bedtime, Crestor 20 mg at bedtime. FINAL DISCHARGE DIAGNOSES: 1. Chest pain, acute myocardial infarction was ruled out. She has widely patent stents to the left anterior descending and left circumflex artery. 2. Psychogenic neuroleptic seizures. 3. Coronary artery disease, status post percutaneous coronary intervention with stent deployment. 4. Type 2 diabetes mellitus. 5. Hypertension. 6. Hyperlipidemia. 7. Chronic obstructive pulmonary disease. 8. History of deep venous thrombosis and pulmonary embolism. ALFONSO BURNHAM MD DR: SANTI/oliverio JOB#: [id number] / [id number]
--- NOTE | 2020-05-14 11:55 | NUR ---
Pt left unit at 1155 by ambulation via private vehicle. IV removed with no complications, VSS. Discharge instructions and follow-up discussed in depth with pt. Pt verbalized understanding and had no additional concerns.
== END 2020-05-14 11:55 | disposition home health service (06) | DRG 287 ==
LOC: 2 SOUTH 15:26
PROVIDERS: ADMIT Internal Medicine; ATTEND Internal Medicine
PROC: B2111ZZ Fluoroscopy of Multiple Coronary Arteries using Low Osmolar Contrast (ICD-10-PCS; principal; 2020-05-13)
PROC: B2151ZZ Fluoroscopy of Left Heart using Low Osmolar Contrast (ICD-10-PCS; 2020-05-13)
PROC: 4A023N7 Measurement of Cardiac Sampling and Pressure, Left Heart, Percutaneous Approach (ICD-10-PCS; 2020-05-13)
DX: R07.89 Other chest pain (principal); I69.354 Hemiplegia and hemiparesis following cerebral infarction affecting left non-dominant side; I25.10 Atherosclerotic heart disease of native coronary artery without angina pectoris; F44.5 Conversion disorder with seizures or convulsions; E11.40 Type 2 diabetes mellitus with diabetic neuropathy, unspecified; E78.5 Hyperlipidemia, unspecified; F41.9 Anxiety disorder, unspecified; G20 Parkinson's disease; G25.81 Restless legs syndrome; G43.919 Migraine, unspecified, intractable, without status migrainosus; G89.29 Other chronic pain; I10 Essential (primary) hypertension; I48.91 Unspecified atrial fibrillation; J44.9 Chronic obstructive pulmonary disease, unspecified; F32.9 Major depressive disorder, single episode, unspecified; M15.9 Polyosteoarthritis, unspecified; M48.00 Spinal stenosis, site unspecified; Z62.810 Personal history of physical and sexual abuse in childhood; Z77.22 Contact with and (suspected) exposure to environmental tobacco smoke (acute) (chronic); Z82.49 Family history of ischemic heart disease and other diseases of the circulatory system; Z83.3 Family history of diabetes mellitus; Z85.72 Personal history of non-Hodgkin lymphomas; Z86.711 Personal history of pulmonary embolism; Z86.718 Personal history of other venous thrombosis and embolism; Z90.710 Acquired absence of both cervix and uterus; Z95.5 Presence of coronary angioplasty implant and graft; Z90.49 Acquired absence of other specified parts of digestive tract
CPT/HCPCS: 36415; 80053; 82962; 85025; 85610; 85730; 93458; 96361; 96372; 96374; 99152; 99153; C1760; C1769; C1892; J1200; J1644; J1815; J2250; J3490; J7040; Q9967; 97530-GO; 97530-GP; 97535-GO; 99285-25; C1771; G0378

== ENCOUNTER 2020-10-17 13:34 | Inpatient (IN) | payer MEDICARE ==
[~2020-10-17] VITALS: Ht 162.6 cm; Wt 98.0 kg
[~2020-10-17 13:34] MED LIST changes: +CARB-183 PO; -CARB1TAB2 PO; -ISOS30TA4 PO; +ISOS30TA68 PO
--- NOTE | 2020-10-17 13:49 | PHYS DOC ---
Past Medical History Past Medical History: Asthma, CAD, Diabetes-Type II, High Cholesterol, Hy pertension Additional Past Surgical Histo: stent placement 05/26/2019 Smoking Status: Never Smoker Alcohol Use: None Drug Use: None General Adult EDM: Chief Complaint: Chest pain, fall, possible loss of consciousness, ankle injury. HPI: HPI: This is a pleasant 70-year-old female presented emerge department today after having a possible syncopal episode last night when she fell and injured her left ankle down a few stairs. She does not believe she hit her head but she is not sure whether she passed out. Since falling she has had left ankle pain and swelling. Today she developed chest pain which is a sharp shooting pain centrally in the chest without radiation. Its moderate in severity. No alleviating factors. No exacerbating factors. Not associated with diaphoresis or nausea. She denies abdominal pain. She denies any other injuries. Review of systems negative for abdominal pain vomiting fevers chills or diaphoresis. She denies headache. She denies facial drooping slurred speech double vision or unilateral weakness or sensory changes of her extremities. All other review of systems negative. ED course: 70-year-old female presenting with chest pain leg injury after a fall and a possible syncopal event. EKG reviewed as below. X-rays ordered along with blood work. Head CT ordered and negative for any intracranial hemorrhage. On arrival the patient was mildly tachycardic. Blood pressure mildly elevated 144/60. Oxygen levels within normal limits. Afebrile. CBC shows mild leukocytosis of 12.4. Chemistry panel unremarkable. proBNP is elevated at 665. Troponin within normal limits. Covid test is negative. Chest x-ray was unremarkable. X-ray of the ankle shows a distal tibia and fibula fracture with a mild dislocation. I spoke with our orthopedic surgeon Dr. Jackson who plans on surgically fixing the ankle fracture today. I spoke with Dr. Landrum who accepts patient for admission for chest pain. CT angiogram was negative for pulmonary embolism. The patient was then admitted to Dr. Landrum. Heart Score: HEART Score for Chest Pain: HEART Score for Chest Pain Response (Comments) Value History Moderately Suspicious 1 ECG Nonspecific Repolarizatio 1 Age > 65 2 Risk Factors >3 Risk Factors or Hx CAD 2 Troponin < Normal Limit 0 Total 6 Risk Factors: Risk Factors: DM, Current or recent (<one month) smoker, HTN, HLP, family history of CAD, obesity. Risk Scores: Score 0 - 3: 2.5% MACE over next 6 weeks - Discharge Home Score 4 - 6: 20.3% MACE over next 6 weeks - Admit for Clinical Observation Score 7 - 10: 72.7% MACE over next 6 weeks - Early Invasive Strategies Allergies: Allergies: Allergies Coded Allergies Type Severity Reaction Last Updated Verified fentanyl Allergy Intermediate 06/13/19 Yes oxycodone Allergy Intermediate 06/13/19 Yes prednisone Allergy Intermediate 06/13/19 Yes Physical Exam: PE: Constitutional: Well developed, well nourished, no acute distress, non-toxic appearance. [] Not diaphoretic. HENT: Normocephalic, atraumatic, bilateral external ears normal, oropharynx moist, no oral exudates, nose normal. [] Eyes: PERRLA, EOMI, conjunctiva normal, no discharge. [] Neck: Normal range of motion, no tenderness, supple, no stridor. [] Cardiovascular:Heart rate regular rhythm, no murmur [] Lungs & Thorax: Bilateral breath sounds clear to auscultation [] Abdomen: Bowel sounds normal, soft, no tenderness, no masses, no pulsatile masses. [] Skin: Warm, dry, no erythema, no rash. [] Back: No tenderness, no CVA tenderness. [] Extremities: The patient's left ankle is tender to palpation with swelling at the ankle. She has a palpable DP pulse with 2-second cap refill. Ecchymosis present. No abrasions lacerations. Skin overlying is intact. Nontender in the foot. Mild tenderness proximally in the leg. Nontender in the femur/thigh. No pain in the hip with normal range of motion of the hip. The right upper extremity left upper extremity and right lower extremity are nontender with normal range of motion of the joints palpable pulse and 2-second cap refill. Normal motor and sensory function distally of those extremities as well. Neurologic: Mental status: Awake oriented and alert x3 Cranial nerves: Extraocular movements intact, eyebrows annabelle bilaterally, smile symmetric, uvula elevation nl, shoulder shrug intact bilaterally, tongue protrusion normal Clear speech. Sensation: equal and normal in all extremities Strength: 5/5 in upper and lower extremities bilaterally Psychologic: Affect normal, judgement normal, mood normal. [] EKG: EKG: EKG shows sinus rhythm with a regular rate. ST segments are congruent. Not suggestive of acute ischemia. [] Radiology/Procedures: Radiology/Procedures: [] Course & Med Decision Making: Course & Med Decision Making Pertinent Labs and Imaging studies reviewed. (See chart for details) [] Dragon Disclaimer: Dragon Disclaimer: This electronic medical record was generated, in whole or in part, using a voice recognition dictation system. Departure Departure Impression: Primary Impression: Chest pain Additional Impressions: Ankle injury Ankle fracture Referrals: TRACEE DIAZ MD (PCP) KATHY BOX MD Oct 17, 2020 13:49
[2020-10-17 14:01] LABS: BASO # 0.1 x10^3/uL (0.0-0.2); BASO % 1 % (0-3); EOS % 0 % (0-3); HEMATOCRIT 43.8 % (36.0-47.0); HEMOGLOBIN 14.7 g/dL (12.0-15.5); LYMPH # 1.2 x10^3/uL (1.0-4.8); LYMPH % 9 % (24-48); MEAN CORPUSCULAR HEMOGLOBIN 29 pg (25-35); MEAN CORPUSCULAR HGB CONC 34 g/dL (31-37); MEAN CORPUSCULAR VOLUME 88 fL (79-100); MONO # 0.9 x10^3/uL (0.0-1.1); MONO % 7 % (0-9); NEUT # 10.5 x10^3/uL (1.8-7.7); NEUT % 83 % (31-73); PLATELET COUNT 243 x10^3/uL (140-400); RED CELL DISTRIBUTION WIDTH 14.2 % (11.5-14.5); WHITE BLOOD COUNT 12.7 x10^3/uL (4.0-11.0)
[2020-10-17 14:09] LABS: CALCIUM 9.3 mg/dL (8.5-10.1); GFR 54.8; POTASSIUM 4.1 mmol/L (3.5-5.1)
[2020-10-17 14:15] LABS: DIRECT BILIRUBIN 0.2 mg/dL (0.0-0.2); TOTAL PROTEIN 8.1 g/dL (6.4-8.2)
--- NOTE | 2020-10-17 14:38 | RAD ---
Exam performed: One view chest., Left ankle and left knee Indication: Reason: left ankle and knee pain, pt fell down stairs yesterday / Spl. Instructions: / H istory: Date of Service: 10/17/2020 1:50 PM Comparison: One view chest from 09/09/2020. FINDINGS: Single AP upright portable view chest is obtained. Cardiomediastinal silhouette is within limits of n ormal. No acute infiltrates, effusion or pneumothorax is detected. Chronic interstitial opacities ar e redemonstrated in both lung. The bony structures are normal. AP, lateral and oblique views of the left ankle are obtained. There is an oblique fracture distal fib gabo with a fracture medial malleolus. Slight medial dislocation of the distal tibia in relation to th e talus is noted. There is extensive soft tissue swelling. No definite foreign body identified. AP, lateral and oblique views of the left knee are obtained. Normal alignment of the medial and later al tibiofemoral and patellofemoral joint is maintained. There is no acute fracture or dislocation. No soft tissue swelling or foreign body seen. Impression: Fracture distal tibia and fibula with mild dislocation at the talo tibial joint. No acute abnormality seen in the left knee. No acute cardiopulmonary process is detected. Electronically signed by: Laura Lopez MD (10/17/2020 2:35 PM) [facility] CAMPUSGIANCARLO
[2020-10-17 14:44] LABS: PROTHROMBIN TIME PATIENT 13.4 SEC (11.7-14.0)
[2020-10-17] MEDS ORDERED: CONTRAST GIVEN. MC PRN (14:45)
[2020-10-17] MEDS ORDERED: IOHEXOL 350 MG/ML 100 ML VIAL. IV ONE (14:45)
--- NOTE | 2020-10-17 15:18 | RAD ---
INDICATION: Reason: FALL POSSIBLE HEAD INJURY / Spl. Instructions: / History: COMPARISON: August 2019 TECHNIQUE: Axial CT images obtained through the head without intravenous contrast. One or more of the following individualized dose reduction techniques were utilized for this examinat ion: 1. Automated exposure control; 2. Adjustment of the mA and/or kV according to patient size; 3 . Use of iterative reconstruction technique. FINDINGS: No intracranial hemorrhage. No midline shift. Basal cisterns patents. Ventricles and sulci are globally prominent. No acute osseous abnormality. Orbits and paranasal sinuses unremarkable. Scattered foci of low attenuation within the white matter. Repeat demonstration of linear high density structure within the subcutaneous soft tissues overlying the right frontal region measuring approximately 9 mm which could be from a calcification or high den sity foreign body in the soft tissues. IMPRESSION: 1. No acute intracranial hemorrhage. 2. Scattered regions of low attenuation within the white matter. Non-specific in nature but frequen tly secondary to chronic small vessel ischemic disease. 3. Prominence of ventricles and sulci which is frequently secondary to age related volume loss. Electronically signed by: Filemon Alonzo MD (10/17/2020 3:15 PM) [id number]
--- NOTE | 2020-10-17 15:56 | RAD ---
CTA CHEST History: Chest pain Technique: CT of the chest was performed with intravenous contrast. PE protocol. Maximum intensity pr ojection coronal and sagittal reconstructions were performed. Exposure: One or more of the following individualized dose reduction techniques were utilized for thi s examination: 1. Automated exposure control 2. Adjustment of the mA and/or kV according to patient size 3. Use of iterative reconstruction technique. Comparison: September 11, 2019 Findings: Chest: No acute pulmonary embolism. Unchanged linear filling defect within the right middle lobe pulm onary artery, may relate to sequelae of prior pulmonary embolus. No aortic aneurysm or dissection. Mi ld atheromatous plaque within the aorta. Coronary artery calcifications. Bilateral upper lobe peribronchovascular linear opacities with bronchiectasis, unchanged compared to 2019. No new consolidation. Emphysematous changes. No consolidation. No pleural effusion. No pneumoth orax. Several regions of mucus plugging within the right middle lobe and left upper lobe, unchanged. Unchanged irregular nodular opacity within the left lower lobe (series 3 image 64). Resolved previous ly seen left lower lobe medial nodular opacity. Upper abdomen: Partially imaged left renal hypodensity, likely cyst, unchanged. Bones: Chronic upper sternal fracture. Impression: 1. No acute pulmonary embolism. 2. Linear filling defect within the right middle lobe pulmonary artery, may relate to prior pulmonar y embolus, unchanged. 3. Bilateral upper lobe peribronchovascular scarring with bronchiectasis, unchanged. 4. Areas of mucus plugging, unchanged. 5. Coronary artery calcifications. Electronically signed by: Schuyler Kowalski DO (10/17/2020 3:53 PM) [id number]
[2020-10-17] MEDS ORDERED: MORPHINE SULFATE 2 MG/ML VIAL. IVP PRN (16:30)
[2020-10-17] MEDS ORDERED: IV RINGERS,LACTATED 1000ML 1,000 ML IV SCH (16:30)
[2020-10-17] MEDS: PROCHLORPERAZINE 10 MG/2 ML VIAL. IVP PRN ×2 (16:49→20:19)
[2020-10-17] MEDS ORDERED: SUCCINYLCHOLINE 200 MG/10 ML VIAL. ONE (17:25)
[2020-10-17] MEDS ORDERED: HYDROmorphone 2 MG/ML VIAL ONE ×2 (17:26→20:07)
[2020-10-17] MEDS: HYDROmorphone 2 MG/ML VIAL IVP PRN ×5 (17:47→20:42)
[2020-10-17] MEDS ORDERED: ceFAZolin SODIUM IV Push 1 GM VIAL. IVP ONE (18:03)
[2020-10-17] MEDS ORDERED: SEVOFLURANE 16 TO 30 MINUTES. IH ONE (18:16)
[2020-10-17] MEDS ORDERED: ONDANSETRON PF 4 MG/2 ML VIAL. ONE (18:18)
[2020-10-17] MEDS ORDERED: DEXAMETHASONE SOD PHOS 4 MG/ML VIAL ONE (18:18)
[2020-10-17] MEDS ORDERED: PHENYLEPHRINE in 0.9% NACL PF 1 MG/10 ML SYRINGE. IV ONE (18:23)
--- NOTE | 2020-10-17 18:47 | CONS ---
DATE OF CONSULTATION: 10/17/2020 EMERGENCY DEPARTMENT CONSULTATION REQUESTING PHYSICIAN: James Kevin M.D. REASON FOR CONSULTATION: Left ankle fracture dislocation. HISTORY OF PRESENT ILLNESS: The patient is a 70-year-old female who fell last night, down a few stairs. She twisted her left ankle and has had left ankle pain and swelling since that and inability to really bear weight and get around. She presented to the Emergency Department via EMS earlier today with some sharp chest pain, centrally in the chest without any radiation that was moderate. She does not connected with any type of exertion at all and she thinks she has anxiety, which has been the case before, although she does have a history of a cardiac stent nearly a year and a half ago and has had some anxiety related chest pain since that time, but has not had any of that until the ankle injury occurred. She is not sure whether there was a loss of consciousness. She does not recall hitting her head and really has no head or neck pain. PAST MEDICAL HISTORY: Significant for type 2 diabetes; she says is well controlled, coronary artery disease, hypertension and asthma. PAST SURGICAL HISTORY: Cardiac stent placement in 05/2019. SOCIAL HISTORY: She was previously independently ambulatory, prior to this injury. Denies smoking, alcohol or drug use. ALLERGIES: INCLUDE FENTANYL AND OXYCODONE CAUSING HER MAINLY NAUSEA AND ALSO SENSITIVITY OF PREDNISONE. Denies any antibiotic related allergies. FAMILY HISTORY: Heart disease and obesity. REVIEW OF SYSTEMS: Again, unsure exactly, but does not think she had any loss of consciousness. No neck or back pain, no radiating pain into the extremities, focal weakness, numbness, tingling, visual changes, headache, chest pain is not present at this point. She says it was really only present when she was an ambulance and resolved without other treatment in the Emergency Department. She does deny any other extremity injury aside from the left ankle, which is swollen and unable to bear weight. PHYSICAL EXAMINATION: GENERAL: A pleasant, cooperative 70-year-old female, alert and oriented, no acute distress. VITAL SIGNS: Include a temperature of 98.6, pulse 96, respirations 34, and 95% saturation on room air. HEENT: Atraumatic, normocephalic. MUSCULOSKELETAL: No tenderness over the neck or back on palpation. HEART: Regular rate and rhythm. LUNGS: Clear to auscultation bilaterally. ABDOMEN: Benign. EXTREMITIES: Examination of the left ankle reveals gross instability with some ecchymosis over the medial aspect, but no gross skin compromise. She does have some surrounding edema as well. She can wiggle her toes. Ankle motion is very limited due to severe pain. She has normal examination of the contralateral ankle, bilateral hips and knees as well as normal alignment and stability. No tenderness on palpation of her bilateral shoulders, elbows and wrist. Her distal pulses and sensation are intact in both upper and lower extremities throughout. SKIN: With some moderate ecchymosis medially on the ankle, especially on the left, but distal pulses and capillary refill are intact. IMAGING: X-rays show a trimalleolar ankle fracture with gross instability. IMPRESSION: Left ankle fracture dislocation with gross instability and some medial mild skin compromise. TREATMENT PLAN: I discussed with Dr. Manzanares of Anesthesia, the fact that he is okay with proceeding given her EKG findings, resolution of her chest pain from previously and her revascularization procedure in the past. I went over with her risks, benefits, postoperative course of the procedure including the possibility of infection, nerve or blood vessel damage, nonhealing, medical or other anesthetic complications among others and the restrictions in the interim of restricted weightbearing as a result. All her questions were answered and she wishes to proceed with surgical evaluation and treatment, which will undergo urgently just due to her gross instability and potential of skin compromise given that she is otherwise medically stable. LILLIAM BENITEZ MD DR: ANGIE/oliverio JOB#: [id number] / [id number]
--- NOTE | 2020-10-17 20:09 | PDOC4 ---
Operative Note Operative Note Date of surgery: 10/17/2020 Preoperative diagnosis: Left ankle bimalleolar fracture dislocation Postoperative diagnosis: Same Operative procedure: Operative reduction internal fixation left bimalleolar ankle fracture Surgeon: Manuel Anesthesia: General Estimated blood loss: 25 cc Complications: None Operative indications: Please see my dictated orthopedic consultation for detailed operative indications Operative text: Patient was identified procedure verified patient placed in the supine position on the operating table. After adequate amounts of general anesthesia were administered the left lower extremity was prepped and draped in standard sterile fashion with a thigh tourniquet. After timeout was performed patient procedure identified and verified the left lower extremity was exsanguinated by Esmarch bandage tourniquet inflated to 300 mmHg a medial curvilinear incision was made subperiosteal dissection was carried out and medial malleolar fragment was anatomically reduced and fixated with a total of 2 cannulated 4.0 half threaded screws which gave excellent fixation. A lateral incision was then made subperiosteal dissection was carried out and the distal fibula fracture was anatomically reduced and a 6-hole Adalgisa distal fibular locking plate was selected shaft screw was placed to achieve provisional proximal fixation distal locking screws were then placed and additional shaft screws placed nonlocking fashion. Excellent fixation was obtained and anatomic alignment of the ankle joint mortise obtained. Hardware and reduction were checked under multiple fluoroscopic views. The irrigation carried out normal saline solution subcutaneous closure accomplished with buried Vicryl suture skin closure with zaina sterile dressings were applied a well-padded posterior splint was then applied and patient was returned to recovery room in stable condition having tolerated the procedure well. Toes were noted be warm pink following deflation of tourniquet LILLIAM BENITEZ MD Oct 17, 2020 20:09
[2020-10-17] MEDS ORDERED: ONDANSETRON PF 4 MG/2 ML VIAL. IVP PRN (20:15)
[2020-10-17] MEDS ORDERED: traMADol 50 MG TABLET PO PRN (20:15)
[2020-10-17] MEDS ORDERED: DEXTROSE 50% 25 GM / 50ML DISP.SYRIN. IV PRN (20:15)
[2020-10-17] MEDS ORDERED: POLYETHYLENE GLYCOL 3350 17 GM PACKET. PO PRN (20:15)
[2020-10-17] MEDS ORDERED: PROCHLORPERAZINE 10 MG/2 ML VIAL. ONE (20:17)
[2020-10-17] MEDS ORDERED: INSULIN LISPRO 100 UNIT/ML 3ML VIAL for OP,RR ONLY. SQ PRN (20:45)
[2020-10-17 21:03] VITALS: BP 127/84
[2020-10-17 23:48] VITALS: BP 154/58
[2020-10-18] MEDS: HYDROcodone/APAP 7.5/325MG 1 TAB TABLET PO PRN ×2 (00:04→07:26)
[2020-10-18] MEDS: MORPHINE SULFATE 2 MG/ML VIAL. IVP PRN ×2 (00:05→07:27)
[2020-10-18 02:48] VITALS: BP 102/57
[2020-10-18 04:42] LABS: BASO % 0 % (0-3); EOS % 0 % (0-3); HEMATOCRIT 37.6 % (36.0-47.0); LYMPH # 0.6 x10^3/uL (1.0-4.8); LYMPH % 7 % (24-48); MEAN CORPUSCULAR HEMOGLOBIN 31 pg (25-35); MEAN CORPUSCULAR HGB CONC 35 g/dL (31-37); MEAN CORPUSCULAR VOLUME 89 fL (79-100); MONO # 0.5 x10^3/uL (0.0-1.1); MONO % 6 % (0-9); NEUT # 7.9 x10^3/uL (1.8-7.7); NEUT % 87 % (31-73); PLATELET COUNT 211 x10^3/uL (140-400); RED BLOOD COUNT 4.25 x10^6/uL (3.50-5.40); RED CELL DISTRIBUTION WIDTH 14.4 % (11.5-14.5); WHITE BLOOD COUNT 9.1 x10^3/uL (4.0-11.0)
[2020-10-18 05:13] LABS: CALCIUM 8.6 mg/dL (8.5-10.1); CREATININE 1.1 mg/dL (0.6-1.0); GFR 49.1; POTASSIUM 4.2 mmol/L (3.5-5.1)
[2020-10-18] MEDS ORDERED: MAGNESIUM HYDROXIDE 2,400 MG/30 ML ORAL.SUSP. PO PRN (06:00)
[2020-10-18] MEDS ORDERED: HYDR-2769 PO (06:18)
[2020-10-18] MEDS ORDERED: ALPR1TAB6 PO (06:18)
[2020-10-18 07:00] VITALS: BP 157/70
[2020-10-18] MEDS: SENNOSIDES/DOCUSATE 8.6/50MG TABLET. PO SCH (07:26)
[2020-10-18] MEDS ORDERED: ACETAMINOPHEN 325 MG TABLET. PO PRN (09:15)
--- NOTE | 2020-10-18 09:51 | HP ---
ADMIT DATE: 10/17/2020 HISTORY OF PRESENT ILLNESS: The patient is a 70-year-old female patient, who came to the Emergency Room with the complaint of possible syncopal episode as she fell descending stairs and twisted her left ankle. The patient does not believe that she hit her head, but she is not sure whether she passed out. Since fallen, she has had left ankle pain and swelling. Apparently, her fall happened the night before she arrived to the Emergency Room and on the day of arrival to the Emergency Room, she developed chest pain, which is sharp, shooting pain, centrally in the chest without radiation, moderate in severity. No alleviating or exacerbating factors. There was no nausea or vomiting, no diaphoresis or shortness of breath. She was extensively investigated and had had an EKG, which showed that she was in sinus rhythm with no findings suggestive of acute ischemia. Has had multiple imaging modalities as well as lab work. Her white cell count was slightly elevated at 12.7. Her chemistry was unremarkable and her troponin was less than 0.017. Her PT, INR and aPTT are all within normal range and her SARS-CoV-2 antigen was negative. Her x-ray of the ankle joint showed that the patient has fractured distal tibia and fibula with mild dislocation at the tail of the tibial joint. No acute abnormalities seen in the left knee and no acute cardiopulmonary process detected. Her CT scan of the head showed no acute intracranial hemorrhage, scattered region of low attenuation within the white matter, nonspecific in nature, but secondary to chronic small vessel ischemic disease, prominence of ventricles and sulci which is secondary to age-related volume loss. A CT angio of the chest showed no acute pulmonary emboli. She has linear filling defects within the right middle lobe pulmonary artery, may relate to prior pulmonary embolus, unchanged; bilateral upper lobe peribronchovascular scarring with bronchiectasis, unchanged; areas of mucus plugging, unchanged. The patient was admitted and we did consult the orthopedic surgeon for further evaluation and treatment. PAST MEDICAL HISTORY: Significant for: 1. Coronary artery disease, status post PCI with stent deployment to the left anterior descending and left circumflex arteries. 2. Type 2 diabetes mellitus. 3. Hypertension. 4. Hyperlipidemia. 5. Chronic obstructive pulmonary disease/bronchial asthma. 6. DVT and PE. 7. Generalized osteoarthritis. 8. Cerebrovascular accident. 9. Anxiety and depression. 10. Lymphoma. 11. Paroxysmal supraventricular tachycardia. 12. Seizures/pseudoseizures. The patient was seen for this in multiple hospitals including [facility] and she is diagnosed with psychogenic nonepileptic seizures. PAST SURGICAL HISTORY: Significant for right rotator cuff tear repair, cholecystectomy, hysterectomy, carpal tunnel release, cardiac catheterization with stent deployment to the left anterior descending and circumflex arteries. FAMILY HISTORY: Positive for diabetes, heart disease and hypertension. SOCIAL HISTORY: She is apparently , has 1 son and 2 daughters. She has been a secondhand smoker. She does not herself smoke, drink alcohol or use recreational drugs. She is a retired registered nurse. REVIEW OF SYSTEMS: As per history of present illness. MEDICATIONS: She is currently on following medications: She is on DuoNeb 0.5-2.5 mg 3 mL by nebulizer every 4 hours; Plavix 75 mg once a day; isosorbide mononitrate 30 mg daily; metoprolol tartrate 25 mg tablet, she takes half a tablet twice a day; aspirin 81 mg once a day; hydrocodone/APAP 10/325 one tablet every 6 hours as needed; Tylenol 650 mg p.o. every 4 hours; gabapentin 300 mg 3 times a day; alprazolam 1 mg 3 times a day; Mirapex 0.25 mg at bedtime; montelukast 10 mg at bedtime. She is on Lantus insulin 12 units at bedtime and Crestor 20 mg at bedtime. PHYSICAL EXAMINATION: GENERAL: On arrival to the Emergency Room, she looked well and was clearly in no apparent respiratory distress noted. There was no pallor, jaundice, cyanosis or thyromegaly. No jugular venous distention. No lower limb edema. VITAL SIGNS: Her heart rate was 110, blood pressure was 147/77, temperature was 98.6, respiratory rate was 34 and oxygen saturation was 95% on room air. HEAD, EYES, EARS, NOSE AND THROAT: Showed normocephalic, atraumatic. NECK: Supple. HEART: Normal first and second heart sounds with no gallop, rub or murmur. CHEST: Clear to auscultation. No crepitation or rhonchi. ABDOMEN: Distended, soft, nontender. NEUROLOGIC: She was awake, alert, responding appropriately. All cranial nerves intact. She moves bilateral upper extremities and right lower extremity without difficulty. Her left ankle is tender to palpation with swelling at the ankle joint. She has a palpable dorsalis pedis. No abrasion or laceration is seen. The skin overlying the joint is intact. LABORATORY DATA: While in the Emergency Room, she had lab work, which showed a white cell count of 12,700, hemoglobin 14.7, hematocrit 44, MCV 88 and platelet count of 243,000 with 83% polymorphs, 9% lymphocytes, 7% monocytes. Her chemistry showed a serum sodium 141, potassium 4.1, chloride 103, bicarbonate 25, anion gap of 13, BUN 10, creatinine 1, estimated GFR was 55 mL per minute. Her glucose 139, calcium was 9.3. Total bilirubin, AST, ALT were normal. Alkaline phosphatase slightly elevated. Total protein was 8.1, albumin was 4. Her prothrombin time, INR and aPTT are all normal. ASSESSMENT AND PLAN: In summary, this is a 70-year-old female patient, who came to the Emergency Room with a complaint of pain in her left ankle joint after she fell and twisted her left ankle. X-ray of her left ankle joint showed fracture of the distal tibia and fibula with mild dislocation of the tail of the tibial joint. No acute abnormality seen in the left knee joint and no acute cardiopulmonary process detected. CT scan of the head was unremarkable and CT angio of the chest showed no evidence of pulmonary emboli. The patient was admitted with fracture of distal tibia and fibula with mild dislocation of the talotibial joint. We did consult the orthopedic surgeon as well as the classification case manager. She was started on IV morphine and all her other medications. ALFONSO BURNHAM MD DR: SANTI/oliverio JOB#: [id number] / [id number]
[2020-10-18] MEDS ORDERED: GABAPENTIN 300 MG CAPSULE. PO SCH (10:00)
[2020-10-18] MEDS: METOPROLOL TART IMMED RELEASE 25 MG TABLET. PO SCH ×2 (10:06→19:53)
[2020-10-18] MEDS: ALPRAZolam 1 MG TABLET PO SCH ×4 (10:06→21:11)
[2020-10-18] MEDS: ASPIRIN CHEWABLE 81 MG TABLET. PO SCH (10:07)
[2020-10-18] MEDS: CLOPIDOGREL BISULFATE 75 MG TABLET PO SCH (10:08)
[2020-10-18] MEDS: ISOSORBIDE MONONITRATE ER 30 MG TAB.ER.24H PO SCH (10:09)
[2020-10-18 11:00] VITALS: BP 115/60
--- NOTE | 2020-10-18 11:18 | PDOC ---
PROGRESS NOTES Date of Service DATE: 10/18/20 TIME: 11:15 Subjective Subjective Problems overnight: Ankle does have some burning pain but overall is a bit better since being fixed surgically. Denies any chest pain or other complaints Objective Vital Signs Vital Signs Date Time Temp Pulse Resp B/P (MAP) Pulse Ox O2 Delivery O2 Flow Rate FiO2 10/18/20 10:09 92 157/70 10/18/20 08:25 20 98 Nasal Cannula 4.0 10/18/20 07:00 98.6 98.6 Physical Exam On exam she can wiggle her toes her splint is clean dry intact distal neurovascular status intact Labs Laboratory Tests Test 10/17/20 13:54 10/17/20 14:25 10/17/20 15:30 10/17/20 20:10 White Blood Count 12.7 x10^3/uL (4.0-11.0) Red Blood Count 5.00 x10^6/uL (3.50-5.40) Hemoglobin 14.7 g/dL (12.0-15.5) Hematocrit 43.8 % (36.0-47.0) Mean Corpuscular Volume 88 fL (79-100) Mean Corpuscular Hemoglobin 29 pg (25-35) Mean Corpuscular Hemoglobin Concent 34 g/dL (31-37) Red Cell Distribution Width 14.2 % (11.5-14.5) Platelet Count 243 x10^3/uL (140-400) Neutrophils (%) (Auto) 83 % (31-73) Lymphocytes (%) (Auto) 9 % (24-48) Monocytes (%) (Auto) 7 % (0-9) Eosinophils (%) (Auto) 0 % (0-3) Basophils (%) (Auto) 1 % (0-3) Neutrophils # (Auto) 10.5 x10^3/uL (1.8-7.7) Lymphocytes # (Auto) 1.2 x10^3/uL (1.0-4.8) Monocytes # (Auto) 0.9 x10^3/uL (0.0-1.1) Eosinophils # (Auto) 0.0 x10^3/uL (0.0-0.7) Basophils # (Auto) 0.1 x10^3/uL (0.0-0.2) Sodium Level 141 mmol/L (136-145) Potassium Level 4.1 mmol/L (3.5-5.1) Chloride Level 103 mmol/L (98-107) Carbon Dioxide Level 25 mmol/L (21-32) Anion Gap 13 (6-14) Blood Urea Nitrogen 10 mg/dL (7-20) Creatinine 1.0 mg/dL (0.6-1.0) Estimated GFR (Cockcroft-Gault) 54.8 Glucose Level 139 mg/dL (70-99) Calcium Level 9.3 mg/dL (8.5-10.1) Total Bilirubin 1.0 mg/dL (0.2-1.0) Direct Bilirubin 0.2 mg/dL (0.0-0.2) Aspartate Amino Transf (AST/SGOT) 27 U/L (15-37) Alanine Aminotransferase (ALT/SGPT) 31 U/L (14-59) Alkaline Phosphatase 124 U/L (46-116) Troponin I Quantitative < 0.017 ng/mL (0.000-0.055) CK-Fxc-M-Type Natriuretic Peptide 665 pg/mL (0-124) Total Protein 8.1 g/dL (6.4-8.2) Albumin 4.0 g/dL (3.4-5.0) Lipase 43 U/L (73-393) Prothrombin Time 13.4 SEC (11.7-14.0) Prothromb Time International Ratio 1.1 (0.8-1.1) Activated Partial Thromboplast Time 24 SEC (24-38) SARS-CoV-2 Antigen (Rapid) Negative (NEGATIVE) Glucose (Fingerstick) 151 mg/dL (70-99) Test 10/18/20 04:30 White Blood Count 9.1 x10^3/uL (4.0-11.0) Red Blood Count 4.25 x10^6/uL (3.50-5.40) Hemoglobin 13.0 g/dL (12.0-15.5) Hematocrit 37.6 % (36.0-47.0) Mean Corpuscular Volume 89 fL (79-100) Mean Corpuscular Hemoglobin 31 pg (25-35) Mean Corpuscular Hemoglobin Concent 35 g/dL (31-37) Red Cell Distribution Width 14.4 % (11.5-14.5) Platelet Count 211 x10^3/uL (140-400) Neutrophils (%) (Auto) 87 % (31-73) Lymphocytes (%) (Auto) 7 % (24-48) Monocytes (%) (Auto) 6 % (0-9) Eosinophils (%) (Auto) 0 % (0-3) Basophils (%) (Auto) 0 % (0-3) Neutrophils # (Auto) 7.9 x10^3/uL (1.8-7.7) Lymphocytes # (Auto) 0.6 x10^3/uL (1.0-4.8) Monocytes # (Auto) 0.5 x10^3/uL (0.0-1.1) Eosinophils # (Auto) 0.0 x10^3/uL (0.0-0.7) Basophils # (Auto) 0.0 x10^3/uL (0.0-0.2) Sodium Level 142 mmol/L (136-145) Potassium Level 4.2 mmol/L (3.5-5.1) Chloride Level 105 mmol/L (98-107) Carbon Dioxide Level 26 mmol/L (21-32) Anion Gap 11 (6-14) Blood Urea Nitrogen 17 mg/dL (7-20) Creatinine 1.1 mg/dL (0.6-1.0) Estimated GFR (Cockcroft-Gault) 49.1 Glucose Level 190 mg/dL (70-99) Calcium Level 8.6 mg/dL (8.5-10.1) Laboratory Tests Test 10/17/20 13:54 10/17/20 14:25 10/17/20 15:30 10/17/20 20:10 White Blood Count 12.7 x10^3/uL (4.0-11.0) Red Blood Count 5.00 x10^6/uL (3.50-5.40) Hemoglobin 14.7 g/dL (12.0-15.5) Hematocrit 43.8 % (36.0-47.0) Mean Corpuscular Volume 88 fL (79-100) Mean Corpuscular Hemoglobin 29 pg (25-35) Mean Corpuscular Hemoglobin Concent 34 g/dL (31-37) Red Cell Distribution Width 14.2 % (11.5-14.5) Platelet Count 243 x10^3/uL (140-400) Neutrophils (%) (Auto) 83 % (31-73) Lymphocytes (%) (Auto) 9 % (24-48) Monocytes (%) (Auto) 7 % (0-9) Eosinophils (%) (Auto) 0 % (0-3) Basophils (%) (Auto) 1 % (0-3) Neutrophils # (Auto) 10.5 x10^3/uL (1.8-7.7) Lymphocytes # (Auto) 1.2 x10^3/uL (1.0-4.8) Monocytes # (Auto) 0.9 x10^3/uL (0.0-1.1) Eosinophils # (Auto) 0.0 x10^3/uL (0.0-0.7) Basophils # (Auto) 0.1 x10^3/uL (0.0-0.2) Sodium Level 141 mmol/L (136-145) Potassium Level 4.1 mmol/L (3.5-5.1) Chloride Level 103 mmol/L (98-107) Carbon Dioxide Level 25 mmol/L (21-32) Anion Gap 13 (6-14) Blood Urea Nitrogen 10 mg/dL (7-20) Creatinine 1.0 mg/dL (0.6-1.0) Estimated GFR (Cockcroft-Gault) 54.8 Glucose Level 139 mg/dL (70-99) Calcium Level 9.3 mg/dL (8.5-10.1) Total Bilirubin 1.0 mg/dL (0.2-1.0) Direct Bilirubin 0.2 mg/dL (0.0-0.2) Aspartate Amino Transf (AST/SGOT) 27 U/L (15-37) Alanine Aminotransferase (ALT/SGPT) 31 U/L (14-59) Alkaline Phosphatase 124 U/L (46-116) Troponin I Quantitative < 0.017 ng/mL (0.000-0.055) WU-[id number]-[id number]-Type Natriuretic Peptide 665 pg/mL (0-124) Total Protein 8.1 g/dL (6.4-8.2) Albumin 4.0 g/dL (3.4-5.0) Lipase 43 U/L (73-393) Prothrombin Time 13.4 SEC (11.7-14.0) Prothromb Time International Ratio 1.1 (0.8-1.1) Activated Partial Thromboplast Time 24 SEC (24-38) SARS-CoV-2 Antigen (Rapid) Negative (NEGATIVE) Glucose (Fingerstick) 151 mg/dL (70-99) Test 10/18/20 04:30 White Blood Count 9.1 x10^3/uL (4.0-11.0) Red Blood Count 4.25 x10^6/uL (3.50-5.40) Hemoglobin 13.0 g/dL (12.0-15.5) Hematocrit 37.6 % (36.0-47.0) Mean Corpuscular Volume 89 fL (79-100) Mean Corpuscular Hemoglobin 31 pg (25-35) Mean Corpuscular Hemoglobin Concent 35 g/dL (31-37) Red Cell Distribution Width 14.4 % (11.5-14.5) Platelet Count 211 x10^3/uL (140-400) Neutrophils (%) (Auto) 87 % (31-73) Lymphocytes (%) (Auto) 7 % (24-48) Monocytes (%) (Auto) 6 % (0-9) Eosinophils (%) (Auto) 0 % (0-3) Basophils (%) (Auto) 0 % (0-3) Neutrophils # (Auto) 7.9 x10^3/uL (1.8-7.7) Lymphocytes # (Auto) 0.6 x10^3/uL (1.0-4.8) Monocytes # (Auto) 0.5 x10^3/uL (0.0-1.1) Eosinophils # (Auto) 0.0 x10^3/uL (0.0-0.7) Basophils # (Auto) 0.0 x10^3/uL (0.0-0.2) Sodium Level 142 mmol/L (136-145) Potassium Level 4.2 mmol/L (3.5-5.1) Chloride Level 105 mmol/L (98-107) Carbon Dioxide Level 26 mmol/L (21-32) Anion Gap 11 (6-14) Blood Urea Nitrogen 17 mg/dL (7-20) Creatinine 1.1 mg/dL (0.6-1.0) Estimated GFR (Cockcroft-Gault) 49.1 Glucose Level 190 mg/dL (70-99) Calcium Level 8.6 mg/dL (8.5-10.1) Imaging Intra-Op fluoroscopic views show anatomic reduction of bimalleolar ankle fracture Assessment Assessment POD#1 ORIF bimalleolar ankle fracture Plan Plan of Care Mobilize nonweightbearing with physical therapy She could continue Plavix for anticoagulation at present per the mri technician discretion Follow-up Dr. Jackson 2 weeks for wound check staple removal and likely placement in a cam walker boot but continue nonweightbearing estimated 6 weeks based on healing Justicifation of Admission Dx: Justifications for Admission: Justification of Admission Dx: N/A LILLIAM JACKSON MD Oct 18, 2020 11:17
[2020-10-18] MEDS: IPRATRPIUM/ALBUTEROL 0.5/2.5MG 3 ML NEBU. NEB SCH ×5 (13:15→23:47)
[2020-10-18 15:00] VITALS: BP 97/53
--- NOTE | 2020-10-18 15:37 | PDOC2 ---
CONSULT Date of Consult Date of Consult DATE: 10/18/20 TIME: 15:30 Reason for Consult Reason for Consult: Chest pain Referring Physician Referring Physician: Dr. Niño Identification/Chief Complaint Chief Complaint Possible syncopal episode Source Source: Chart review, Patient History of Present Illness Reason for Visit: The patient is a 70-year-old female who reports an episode of dizziness and possible syncope with a fall several days ago. She did not go to the hospital immediately but the following day had episodes of chest pressure. She then went to the hospital and was found to have a distal tibia and fibula fracture. Work- up included a CT angiogram of the chest that was negative for a pulmonary embolism. CT head scan was negative for intracranial hemorrhages. Troponin was less than 0.017. The patient was then transferred and underwent an ORIF of the left by male ER ankle fracture on 10/17. When seen this morning the patient reports feeling well. She denies chest pain, shortness of breath, dizziness or lightheadedness. She does have a history of coronary disease with stent in 2019. Her EKG shows no acute ischemic changes. Troponin as noted above is normal. Rhythm has been stable. She does carry a diagnosis of psychogenic nonepileptic seizures. Past Medical History Cardiovascular: AFIB, CAD, HTN, [place], Hyperlipidemia Pulmonary: COPD, Pulmonary embolus, Other CENTRAL NERVOUS SYSTEM: CVA, Seizure, Other GI: GERD, Peptic Ulcer disease Heme/Onc: Cancer Psych: Anxiety, Depression Musculoskeletal: low back pain, Osteoarthritis Endocrine: Diabetes Past Surgical History Past Surgical History: Cholecystectomy, Hysterectomy, Other (Coronary stents) Family History Family History: Coronary Artery Disease Social History No ALCOHOL: none Drugs: None Lives: with Family Current Problem List Problem List Problems Medical Problems: (1) Ankle fracture Status: Acute (2) Ankle injury Status: Acute (3) Chest pain Status: Acute Current Medications Current Medications Current Medications Iohexol (Omnipaque 350 Mg/ml) 90 ml 1X ONCE IV Last administered on 10/17/20at 15:04; Start 10/17/20 at 14:45; Stop 10/17/20 at 14:46; Status DC Info (CONTRAST GIVEN -- Rx MONITORING) 1 each PRN DAILY PRN MC SEE COMMENTS; Start 10/17/20 at 14:45; Stop 10/19/20 at 14:44 Morphine Sulfate (Morphine Sulfate) 1 mg PRN Q10MIN PRN IVP SEVERE PAIN 7-10 Last administered on 10/17/20at 16:48; Start 10/17/20 at 16:30; Stop 10/17/20 at 23:59; Status DC Ringer's Solution 1,000 ml @ 30 mls/hr Q24H IV Last administered on 10/17/20at 16:49; Start 10/17/20 at 16:30; Stop 10/18/20 at 04:29; Status DC Hydromorphone HCl (Dilaudid) 0.5 mg PRN Q10MIN PRN IVP SEVERE PAIN 7-10, 2nd CHOICE Last administered on 10/17/20at 20:42; Start 10/17/20 at 16:30; Stop 10/17/20 at 23:59; Status DC Prochlorperazine Edisylate (Compazine) 5 mg PACU PRN PRN IVP NAUSEA, MRX1 Last administered on 10/17/20at 20:19; Start 10/17/20 at 16:30; Stop 10/17/20 at 23:59; Status DC Succinylcholine Chloride (Anectine) 200 mg STK-MED ONCE .ROUTE ; Start 10/17/20 at 17:25; Stop 10/17/20 at 17:26; Status DC Hydromorphone HCl (Dilaudid) 2 mg STK-MED ONCE .ROUTE ; Start 10/17/20 at 17:26; Stop 10/17/20 at 17:26; Status DC Cefazolin Sodium (Ancef) 1 gm STK-MED ONCE IVP ; Start 10/17/20 at 18:03; Stop 10/17/20 at 18:04; Status DC Sevoflurane (Ultane) 15 ml STK-MED ONCE IH ; Start 10/17/20 at 18:16; Stop 10/17/20 at 18:17; Status DC Dexamethasone Sodium Phosphate (Decadron) 4 mg STK-MED ONCE .ROUTE ; Start 10/17/20 at 18:18; Stop 10/17/20 at 18:18; Status DC Ondansetron HCl (Zofran) 4 mg STK-MED ONCE .ROUTE ; Start 10/17/20 at 18:18; Stop 10/17/20 at 18:18; Status DC Phenylephrine HCl (PHENYLEPHRINE in 0.9% NACL PF) 1 mg STK-MED ONCE IV ; Start 10/17/20 at 18:23; Stop 10/17/20 at 18:24; Status DC Hydromorphone HCl (Dilaudid) 2 mg STK-MED ONCE .ROUTE ; Start 10/17/20 at 20:07; Stop 10/17/20 at 20:07; Status DC Tramadol HCl (Ultram) 50 mg PRN QID PRN PO MILD PAIN 1-3; Start 10/17/20 at 20:15 Morphine Sulfate (Morphine Sulfate) 2 mg PRN Q1HR PRN IVP SEVERE PAIN 7-10 Last administered on 10/18/20at 07:27; Start 10/17/20 at 20:15 Senna/Docusate Sodium (Senna Plus) 1 tab DAILY PO Last administered on 10/18/20at 07:26; Start 10/18/20 at 09:00 Polyethylene Glycol (miraLAX PACKET) 17 gm PRN DAILY PRN PO CONSTIPATION; Start 10/17/20 at 20:15 Ondansetron HCl (Zofran) 4 mg PRN Q4HRS PRN IVP NAUSEA/VOMITING; Start 10/17/20 at 20:15 Magnesium Hydroxide (Milk Of Magnesia) 2,400 mg 1X PRN PRN PO CONSTIPATION; Start 10/18/20 at 06:00; Stop 10/19/20 at 05:59 Bisacodyl (Dulcolax Supp) 10 mg 1X PRN PRN MS CONSTIPATION; Start 10/18/20 at 16:00; Stop 10/19/20 at 15:59 Acetaminophen/ Hydrocodone Bitart (Lortab 7.5/325) 1 tab PRN Q4HRS PRN PO MODERATE TO SEVERE PAIN Last administered on 10/18/20at 07:26; Start 10/17/20 at 20:15 Dextrose (Dextrose 50%-Water Syringe) 12.5 gm PRN Q15MIN PRN IV SEE COMMENTS; Start 10/17/20 at 20:15 Cefazolin Sodium/ Dextrose 50 ml @ 100 mls/hr Q6H IV Last administered on 10/18/20at 15:15; Start 10/18/20 at 00:00; Stop 10/18/20 at 12:29; Status DC Prochlorperazine Edisylate (Compazine) 10 mg STK-MED ONCE .ROUTE ; Start 10/17/20 at 20:17; Stop 10/17/20 at 20:17; Status DC Insulin Human Lispro (HumaLOG VIAL for OP,RR ONLY) 0-10 units PRN Q1HR PRN SQ PER PROTOCOL Last administered on 10/17/20at 20:55; Start 10/17/20 at 20:45; Stop 10/17/20 at 23:59; Status DC Acetaminophen (Tylenol) 650 mg PRN Q4HRS PRN PO TEMP OVER 100.4F OR MILD PAIN; Start 10/18/20 at 09:15 Alprazolam (Xanax) 1 mg TID PO Last administered on 10/18/20at 10:06; Start 10/18/20 at 10:00 Aspirin (Aspirin Chewable) 81 mg DAILY PO Last administered on 10/18/20at 10:07; Start 10/18/20 at 10:00 Clopidogrel Bisulfate (Plavix) 75 mg DAILY PO Last administered on 10/18/20at 10:08; Start 10/18/20 at 10:00 Gabapentin (Neurontin) 300 mg TID PO ; Start 10/18/20 at 10:00; Stop 10/18/20 at 10:14; Status DC Acetaminophen/ Hydrocodone Bitart (Lortab 10/325) 1 tab PRN Q6HRS PRN PO MODERATE TO SEVERE PAIN; Start 10/18/20 at 09:15 Albuterol/ Ipratropium (Duoneb) 3 ml Q4H NEB ; Start 10/18/20 at 09:15 Isosorbide Mononitrate (Imdur) 30 mg DAILY PO Last administered on 10/18/20at 10:09; Start 10/18/20 at 10:00 Metoprolol Tartrate (Lopressor) 12.5 mg BID PO Last administered on 10/18/20at 10:06; Start 10/18/20 at 10:00 Montelukast Sodium (Singulair) 10 mg HS PO ; Start 10/18/20 at 21:00 Pramipexole Dihydrochloride (miraPEX) 0.25 mg QHS PO ; Start 10/18/20 at 21:00 Insulin Glargine (Lantus Syringe) 12 unit QHS SQ ; Start 10/18/20 at 21:00 Atorvastatin Calcium (Lipitor) 80 mg QHS PO ; Start 10/18/20 at 21:00 Gabapentin (Neurontin) 300 mg HS PO ; Start 10/18/20 at 21:00 Active Scripts Active Tylenol (Acetaminophen) 325 Mg Tablet 650 Mg PO PRN Q4HRS PRN 30 Days Duoneb 0.5-3(2.5) Mg/3 Ml (Albuterol/Ipratropium) 3 Ml Ampul.neb 3 Ml NEB Q4H 30 Days Reported Alprazolam 1 Mg Tablet 1 Tab PO TID Hydrocodone-Apap 10-325 (Hydrocodone Bit/Acetaminophen) 1 Tab Tablet 1 Tab PO PRN Q6HRS PRN Gabapentin (Gabapentin) 300 Mg Capsule 300 Mg PO HS Metoprolol Tartrate 25 Mg Tablet 0.5 Tab PO BID Aspirin 81 Mg Tab.chew 1 Tab PO DAILY Clopidogrel (Clopidogrel Bisulfate) 75 Mg Tablet 1 Tab PO DAILY Lantus Solostar (Insulin Glargine,Hum.rec.anlog) 100 Unit/1 Ml Insuln.pen 12 Unit SQ QHS Crestor (Rosuvastatin Calcium) 20 Mg Tablet 20 Mg PO HS Mirapex (Pramipexole Di-Hcl) 0.25 Mg Tablet 1 Tab PO QHS Montelukast Sodium Tablet (Montelukast Sodium) 10 Mg Tablet 10 Mg PO HS Isosorbide Mononitrate Er (Isosorbide Mononitrate) 30 Mg Tab.er.24h 30 Mg PO DAILY Allergies Allergies: Coded Allergies: fentanyl (Verified Allergy, Intermediate, 06/13/19) oxycodone (Verified Allergy, Intermediate, 06/13/19) prednisone (Verified Allergy, Intermediate, 06/13/19) ROS Cardiovascular: yes Chest Pain Neurological: Yes Weakness Physical Exam General: No acute distress HEENT: Atraumatic Lungs: Clear to auscultation Heart: Regular rate Abdomen: Normal bowel sounds Vitals VITALS Vital Signs Date Time Temp Pulse Resp B/P (MAP) Pulse Ox O2 Delivery O2 Flow Rate FiO2 10/18/20 15:00 97.7 83 16 97/53 (68) 95 Nasal Cannula 4.0 97.7 Labs Labs Laboratory Tests Test 10/17/20 13:54 10/17/20 14:25 10/17/20 15:30 10/17/20 20:10 White Blood Count 12.7 x10^3/uL (4.0-11.0) Red Blood Count 5.00 x10^6/uL (3.50-5.40) Hemoglobin 14.7 g/dL (12.0-15.5) Hematocrit 43.8 % (36.0-47.0) Mean Corpuscular Volume 88 fL (79-100) Mean Corpuscular Hemoglobin 29 pg (25-35) Mean Corpuscular Hemoglobin Concent 34 g/dL (31-37) Red Cell Distribution Width 14.2 % (11.5-14.5) Platelet Count 243 x10^3/uL (140-400) Neutrophils (%) (Auto) 83 % (31-73) Lymphocytes (%) (Auto) 9 % (24-48) Monocytes (%) (Auto) 7 % (0-9) Eosinophils (%) (Auto) 0 % (0-3) Basophils (%) (Auto) 1 % (0-3) Neutrophils # (Auto) 10.5 x10^3/uL (1.8-7.7) Lymphocytes # (Auto) 1.2 x10^3/uL (1.0-4.8) Monocytes # (Auto) 0.9 x10^3/uL (0.0-1.1) Eosinophils # (Auto) 0.0 x10^3/uL (0.0-0.7) Basophils # (Auto) 0.1 x10^3/uL (0.0-0.2) Sodium Level 141 mmol/L (136-145) Potassium Level 4.1 mmol/L (3.5-5.1) Chloride Level 103 mmol/L (98-107) Carbon Dioxide Level 25 mmol/L (21-32) Anion Gap 13 (6-14) Blood Urea Nitrogen 10 mg/dL (7-20) Creatinine 1.0 mg/dL (0.6-1.0) Estimated GFR (Cockcroft-Gault) 54.8 Glucose Level 139 mg/dL (70-99) Calcium Level 9.3 mg/dL (8.5-10.1) Total Bilirubin 1.0 mg/dL (0.2-1.0) Direct Bilirubin 0.2 mg/dL (0.0-0.2) Aspartate Amino Transf (AST/SGOT) 27 U/L (15-37) Alanine Aminotransferase (ALT/SGPT) 31 U/L (14-59) Alkaline Phosphatase 124 U/L (46-116) Troponin I Quantitative < 0.017 ng/mL (0.000-0.055) WO-Epj-Y-Type Natriuretic Peptide 665 pg/mL (0-124) Total Protein 8.1 g/dL (6.4-8.2) Albumin 4.0 g/dL (3.4-5.0) Lipase 43 U/L (73-393) Prothrombin Time 13.4 SEC (11.7-14.0) Prothromb Time International Ratio 1.1 (0.8-1.1) Activated Partial Thromboplast Time 24 SEC (24-38) SARS-CoV-2 Antigen (Rapid) Negative (NEGATIVE) Glucose (Fingerstick) 151 mg/dL (70-99) Test 10/18/20 04:30 White Blood Count 9.1 x10^3/uL (4.0-11.0) Red Blood Count 4.25 x10^6/uL (3.50-5.40) Hemoglobin 13.0 g/dL (12.0-15.5) Hematocrit 37.6 % (36.0-47.0) Mean Corpuscular Volume 89 fL (79-100) Mean Corpuscular Hemoglobin 31 pg (25-35) Mean Corpuscular Hemoglobin Concent 35 g/dL (31-37) Red Cell Distribution Width 14.4 % (11.5-14.5) Platelet Count 211 x10^3/uL (140-400) Neutrophils (%) (Auto) 87 % (31-73) Lymphocytes (%) (Auto) 7 % (24-48) Monocytes (%) (Auto) 6 % (0-9) Eosinophils (%) (Auto) 0 % (0-3) Basophils (%) (Auto) 0 % (0-3) Neutrophils # (Auto) 7.9 x10^3/uL (1.8-7.7) Lymphocytes # (Auto) 0.6 x10^3/uL (1.0-4.8) Monocytes # (Auto) 0.5 x10^3/uL (0.0-1.1) Eosinophils # (Auto) 0.0 x10^3/uL (0.0-0.7) Basophils # (Auto) 0.0 x10^3/uL (0.0-0.2) Sodium Level 142 mmol/L (136-145) Potassium Level 4.2 mmol/L (3.5-5.1) Chloride Level 105 mmol/L (98-107) Carbon Dioxide Level 26 mmol/L (21-32) Anion Gap 11 (6-14) Blood Urea Nitrogen 17 mg/dL (7-20) Creatinine 1.1 mg/dL (0.6-1.0) Estimated GFR (Cockcroft-Gault) 49.1 Glucose Level 190 mg/dL (70-99) Calcium Level 8.6 mg/dL (8.5-10.1) Laboratory Tests Test 10/17/20 20:10 10/18/20 04:30 Glucose (Fingerstick) 151 mg/dL (70-99) White Blood Count 9.1 x10^3/uL (4.0-11.0) Red Blood Count 4.25 x10^6/uL (3.50-5.40) Hemoglobin 13.0 g/dL (12.0-15.5) Hematocrit 37.6 % (36.0-47.0) Mean Corpuscular Volume 89 fL (79-100) Mean Corpuscular Hemoglobin 31 pg (25-35) Mean Corpuscular Hemoglobin Concent 35 g/dL (31-37) Red Cell Distribution Width 14.4 % (11.5-14.5) Platelet Count 211 x10^3/uL (140-400) Neutrophils (%) (Auto) 87 % (31-73) Lymphocytes (%) (Auto) 7 % (24-48) Monocytes (%) (Auto) 6 % (0-9) Eosinophils (%) (Auto) 0 % (0-3) Basophils (%) (Auto) 0 % (0-3) Neutrophils # (Auto) 7.9 x10^3/uL (1.8-7.7) Lymphocytes # (Auto) 0.6 x10^3/uL (1.0-4.8) Monocytes # (Auto) 0.5 x10^3/uL (0.0-1.1) Eosinophils # (Auto) 0.0 x10^3/uL (0.0-0.7) Basophils # (Auto) 0.0 x10^3/uL (0.0-0.2) Sodium Level 142 mmol/L (136-145) Potassium Level 4.2 mmol/L (3.5-5.1) Chloride Level 105 mmol/L (98-107) Carbon Dioxide Level 26 mmol/L (21-32) Anion Gap 11 (6-14) Blood Urea Nitrogen 17 mg/dL (7-20) Creatinine 1.1 mg/dL (0.6-1.0) Estimated GFR (Cockcroft-Gault) 49.1 Glucose Level 190 mg/dL (70-99) Calcium Level 8.6 mg/dL (8.5-10.1) Images Images CTA of the chest is negative for pulmonary embolism. CT of the head shows no acute intracranial hemorrhage. Assessment/Plan Assessment/Plan 1. Distal tibia and fibula fracture. Repaired with an ORIF yesterday. Patient is doing well. She is followed by the orthopedic surgery service. 2. Episode of possible near syncope or syncope. Rhythm stable overnight. Troponin normal. CT head scan with no acute changes. We will continue on monitoring. Patient does have a history of psychogenic nonepileptic seizures. 3. Chest pain. History of coronary disease as noted above with stents in 2019. Troponin normal. Pain resolved. Continue present treatment. 4. Hypertension. Blood pressure is under control. We will continue to monitor. 5. Hyperlipidemia. Continue present treatments. 6. Diabetes mellitus. As per the primary service. Thank you for allowing us to participate in the care of your patient. VALENCIA WHITAKER MD Oct 18, 2020 15:37
[2020-10-18] MEDS ORDERED: BISACODYL 10 MG SUPP.RECT. PR PRN (16:00)
[2020-10-18] MEDS: HYDROcodone/APAP 10/325 1 TAB TABLET PO PRN (16:53)
[2020-10-18 19:00] VITALS: BP 109/60
[2020-10-18] MEDS: MONTELUKAST SODIUM 10 MG TABLET. PO SCH (19:52)
[2020-10-18] MEDS: PRAMIPEXOLE 0.25 MG TABLET. PO SCH (19:52)
[2020-10-18] MEDS: ATORVASTATIN CALCIUM 40 MG TABLET. PO SCH (19:52)
[2020-10-18] MEDS: GABAPENTIN 300 MG CAPSULE. PO SCH (19:52)
--- NOTE | 2020-10-18 19:59 | PN ---
DATE: 10/18/2020 SUBJECTIVE: The patient was admitted yesterday after she fell and apparently twisted her left ankle joint with resultant fracture of distal tibia and fibula with mild dislocation of the talotibial joint. She was seen by Dr. Angel Jackson and underwent operative reduction and internal fixation of her left bimalleolar ankle fracture successfully. PHYSICAL EXAMINATION: GENERAL: When I saw her this morning, she was resting slightly propped up in bed, in no apparent respiratory distress. No pallor, jaundice, cyanosis or thyromegaly. No jugular venous distention. No lower limb edema. VITAL SIGNS: Her heart rate was 92, blood pressure was 157/70, temperature 98.6, respiratory rate was 16, and oxygen saturation was 95% on 4 liters of oxygen. HEAD, EYES, EARS, NOSE AND THROAT: Showed normocephalic, atraumatic. NECK: Supple. HEART: Normal first and second heart sounds with no gallop, rub or murmur. CHEST: Clear to auscultation. No crepitation or rhonchi. ABDOMEN: Distended, soft, nontender. NEUROLOGIC: She was awake, alert, responding appropriately. All cranial nerves intact. She moves extremities without difficulty, though she is nonweightbearing to the left lower extremity. LABORATORY DATA: Her lab work showed a white cell count of 9100, hemoglobin 13, hematocrit 37, MCV 89 and platelet count 211,000. Her chemistry showed a serum sodium 142, potassium 4.2, chloride 105, bicarbonate 26, anion gap of 11, BUN 17, creatinine 1.1, estimated GFR was 49 mL per minute. Her glucose was 190, calcium was 8.6. ASSESSMENT AND PLAN: 1. Fall with resultant left ankle bimalleolar fracture dislocations, status post open reduction and internal fixation of left bimalleolar ankle fracture. The patient is nonweightbearing for at least 6 weeks. 2. The patient has multiple other medical problems including: A. Coronary artery disease, status post stent deployment in 05/2019 to the left circumflex artery and left anterior descending. B. Type 2 diabetes mellitus. C. Hypertension. D. Hyperlipidemia. E. Chronic obstructive pulmonary disease/bronchial asthma. F. Deep vein thrombosis and pulmonary embolism. G. Psychogenic nonepileptic seizures. ALFONSO BURNHAM MD DR: SANTI/oliverio JOB#: [id number] / [id number]
[2020-10-18] MEDS: INSULIN GLARGINE SYRINGE. SQ SCH (21:11)
[2020-10-18 22:58] VITALS: BP 107/67
[2020-10-19 02:50] VITALS: BP 108/52
[2020-10-19] MEDS: IPRATRPIUM/ALBUTEROL 0.5/2.5MG 3 ML NEBU. NEB SCH ×5 (04:13→21:29)
[2020-10-19 07:00] VITALS: BP 107/56
[2020-10-19] MEDS: METOPROLOL TART IMMED RELEASE 25 MG TABLET. PO SCH ×2 (08:27→20:40)
[2020-10-19] MEDS: ASPIRIN CHEWABLE 81 MG TABLET. PO SCH (08:27)
[2020-10-19] MEDS: CLOPIDOGREL BISULFATE 75 MG TABLET PO SCH (08:27)
[2020-10-19] MEDS: HYDROcodone/APAP 10/325 1 TAB TABLET PO PRN (08:27)
[2020-10-19] MEDS: ALPRAZolam 1 MG TABLET PO SCH ×3 (08:28→20:43)
[2020-10-19] MEDS: SENNOSIDES/DOCUSATE 8.6/50MG TABLET. PO SCH (08:28)
[2020-10-19] MEDS: ISOSORBIDE MONONITRATE ER 30 MG TAB.ER.24H PO SCH (08:28)
--- NOTE | 2020-10-19 08:51 | PN ---
DATE: 10/19/2020 SUBJECTIVE: The patient is resting, slightly propped up, eating her breakfast comfortably, in no apparent distress. She did have an episode of anxiety last night; however, her pain is well controlled. She managed to walk with a walker, hopping on her right foot. She managed to go to the chair and also to the bedside commode. PHYSICAL EXAMINATION: GENERAL: When I examined her this morning, she looked pale, but no jaundice, cyanosis or thyromegaly. No jugular venous distention or limb edema. VITAL SIGNS: Her heart rate was 77, blood pressure was 107/56, temperature was 97.6, respiratory rate was 18 and oxygen saturation was 96% on room air. HEAD, EYES, EARS, NOSE AND THROAT: Showed normocephalic, atraumatic. NECK: Supple. HEART: Normal first and second heart sounds. No gallop, rub or murmur. CHEST: Clear to auscultation. No crepitation or rhonchi. ABDOMEN: Distended, soft and nontender. NEUROLOGIC: She is grossly intact. Her intake over the last 24 hours was 850 and output was 400. LABORATORY DATA: As of yesterday showed a white cell count of 9100, hemoglobin 13, hematocrit 37, MCV 89 and platelet count 211,000 with a manual differential showed 87% polymorphs, 7% lymphocytes and 6% monocytes. Her chemistry showed a serum sodium 142, potassium 4.2, chloride 105, bicarbonate 26, anion gap of 11, BUN 17 and creatinine 1.1. Estimated GFR was 49 mL per minute. Her glucose was 190 and calcium was 8.6. ASSESSMENT: 1. Fall with resultant left ankle trimalleolar fracture and dislocation, status post open reduction and internal fixation of left bimalleolar ankle fracture. She is nonweightbearing for at least [address] Jackson. 2. The patient has had an episode of syncope, near syncope. 3. Chest pain; however, her cardiac enzymes that ruled out acute myocardial infarction. She is known to have coronary artery disease, status post stent deployment to both left anterior descending and left circumflex artery in 05/2019. 4. Type 2 diabetes mellitus. 5. Hypertension. 6. Hyperlipidemia. 7. Chronic obstructive pulmonary disease/bronchial asthma. 8. Deep vein thrombosis and pulmonary embolism. 9. Psychogenic nonepileptic seizures. PLAN: To continue with physical and occupational therapy. Continue to monitor her blood sugar. Continue with aspirin and Plavix for coronary artery disease. Given that her drug-eluting stents were placed about 16 months ago, I wonder whether it is time to discontinue Plavix and start her on some form of anticoagulation like Eliquis. ALFONSO BURNHAM MD DR: SANTI/oliverio JOB#: [id number] / [id number]
[2020-10-19 10:15] VITALS: BP 96/56
--- NOTE | 2020-10-19 10:15 | EKG ---
[facility] [address] [place] [address] Test Date: 2020-10-17 Test Time: 13:45:15 Pat Name: VIOLETA VANG Department: Room: Gender: F [employer]: : 1950 Requested By: KATHY BOX Order Number: [id number] Reading MD: Measurements Intervals [place] Rate: 97 P: 116 [place]: 164 QRS: -25 QRSD: 78 T: 40 QT: 362 QTc: 464 Interpretive Statements SINUS RHYTHM LEFTWARD AXIS ST & T ABNORMALITY, CONSIDER HIGH LATERAL ISCHEMIA OR LEFT VENTRICULAR STRAIN INFERIOR ISCHEMIA OR LEFT VENTRICULAR STRAIN ABNORMAL ECG RI6.02 No previous ECG available for comparison
--- NOTE | 2020-10-19 12:37 | PDOC ---
CARDIO Progress Notes Date and Time Date of Service 10/19/20 Time of Evaluation 1230 Subjective Subjective: No Chest Pain, No shortness of breath, No Palpitations, No Dizziness, Other (c/o left ankle pain) Vitals Vitals Vital Signs Date Time Temp Pulse Resp B/P (MAP) Pulse Ox O2 Delivery O2 Flow Rate FiO2 10/19/20 11:40 94 Room Air 10/19/20 10:15 97.6 80 16 96/56 (69) 97.6 10/19/20 07:00 4.0 Weight Weight [ ] Input and Output Intake and Output Intake and Output 10/19/20 07:00 Intake Total 580 ml Output Total 750 ml Balance -170 ml Intake Oral 580 ml Output Urine Total 750 ml Laboratory Labs Laboratory Tests Test 10/18/20 20:45 10/19/20 07:01 10/19/20 11:10 Glucose (Fingerstick) 202 mg/dL (70-99) 159 mg/dL (70-99) 176 mg/dL (70-99) Physical Exam HEENT: Neck Supple W Full Motion Chest: Symmetric Heart: RRR Abdomen: Soft N/T Extremities: No Edema Neurology: alert, oriented, follow commands Assessment Assessment 1. Traumatic fall secondary to syncopal episode. No acute events on tele. CT head without acute findings. 2. Distal tibia and fibula fracture. s/p ORIF. POD #2. Is doing well post- operatively. 3. Chest pain, mixed features. AMI ruled out 4. CAD; s/p previous PCI/stent to the LAD and more recent PCI/PRASHANTH to LCx 05/2019. Echocardiogram 06/13 showed normal LV function. Cath 05/14 without lesions needing intervention 5. Diabetes, II; as per PCP 6. Accelerated hypertension; now controlled 7. Hyperlipidemia; statin 8. H/o DVT/PE 9. Hx of CVA with left side weakness 10. Seizures, suspected psychogenic 11. PSVT; brief bursts of SVT noted on tele. BB therapy.Check TSH Recommendations Continue secondary prevention measures including DAPT with ASA/Plavix, Imdur, metoprolol, and statin therapy Consider outpatient event monitor to rule out contributing arrhythmias Supportive care Continue post-op management as per ortho Justicifation of Admission Dx: Justifications for Admission: Justification of Admission Dx: N/A JO ENRIQUEZ APRN Oct 19, 2020 12:37
[2020-10-19] MEDS: MORPHINE SULFATE 2 MG/ML VIAL. IVP PRN ×2 (13:36→22:32)
[2020-10-19 14:29] VITALS: BP 99/55
[2020-10-19 19:25] VITALS: BP 114/59
[2020-10-19] MEDS: MONTELUKAST SODIUM 10 MG TABLET. PO SCH (20:40)
[2020-10-19] MEDS: GABAPENTIN 300 MG CAPSULE. PO SCH (20:40)
[2020-10-19] MEDS: PRAMIPEXOLE 0.25 MG TABLET. PO SCH (20:40)
[2020-10-19] MEDS: ATORVASTATIN CALCIUM 40 MG TABLET. PO SCH (20:42)
[2020-10-19] MEDS: INSULIN GLARGINE SYRINGE. SQ SCH (21:37)
[2020-10-19 23:00] VITALS: BP 115/61
[2020-10-20] MEDS: IPRATRPIUM/ALBUTEROL 0.5/2.5MG 3 ML NEBU. NEB SCH ×3 (00:16→07:48)
[2020-10-20] MEDS: HYDROcodone/APAP 10/325 1 TAB TABLET PO PRN ×2 (00:24→08:41)
[2020-10-20 03:25] VITALS: BP 117/59
[2020-10-20 06:55] LABS: HEMATOCRIT 31.7 % (36.0-47.0); HEMOGLOBIN 10.7 g/dL (12.0-15.5); RED BLOOD COUNT 3.53 x10^6/uL (3.50-5.40); WHITE BLOOD COUNT 3.7 x10^3/uL (4.0-11.0)
[2020-10-20 07:00] VITALS: BP 108/48
[2020-10-20 07:16] LABS: ALBUMIN 2.6 g/dL (3.4-5.0); ALBUMIN/GLOBULIN RATIO 0.8 (1.0-1.7); CALCIUM 8.1 mg/dL (8.5-10.1); CREATININE 0.8 mg/dL (0.6-1.0); GFR 70.9; POTASSIUM 3.1 mmol/L (3.5-5.1); TOTAL BILIRUBIN 0.6 mg/dL (0.2-1.0); TOTAL PROTEIN 5.7 g/dL (6.4-8.2)
--- NOTE | 2020-10-20 07:29 | SNU/HH DC ---
DISCHARGE WITH HOME HEALTH DISCHARGE INFORMATION: Discharge Date: Oct 20, 2020 Final Diagnosis: Problems Medical Problems: (1) Ankle fracture Status: Acute (2) Ankle injury Status: Acute (3) Chest pain Status: Acute Condition on Discharge: Stable CODE STATUS: Code Status: Full HOME HEALTH: Face to Face: I certify this patient is under my care and that I, or a nurse practitioner or physician's music assistant working with me, had a face to face encounter that meets the physician face to face encounter requirements with this patient on 10/20/2020 Group Home For: Medication Management RN For Eval/Treatment: Yes Physical Therapy For: Evalulation/Treatment Occupational Therapy For: Evaluation/Treatment Pt Meets Homebound Status: Unsteady balance w/ amb, POST DISCHARGE ORDERS: Activity Instructions for Disc: No restrictions, Activity as tolerated Weight Bearing Status after Di: No restrictions, As tolerated Bathing Instructions: No Tub Bath until see Dr. RAMOS AFTER DISCHARGE: Cardiac Wound/Incision Care: No wound care needed CHECKS AFTER DISCHARGE: Checks after discharge: Check blood press - daily, Check blood sugar, ac/hs, Weigh Yourself Daily TREATMENT/EQUIPMENT ORDERS: Adaptive Equipment Issued: None, Commode, Platform walker, Wheelchair Discharge Respiratory Equipmen: Nebulizer CERTIFICATION STATEMENT: Certification Statement: Certification Statement: Based on the above finding, I certify that this patient is confined to the home and needs intermittent long-term care, physical therapy and/or speech therapy, or continues to need occupational therapy.~ This patient is under my care, and I have initiated the establishment of the plan of care.~ This patient will be followed by myself or a community physician who will periodically review the plan of care. Home Meds Active Scripts Acetaminophen (TYLENOL) 325 Mg Tablet, 650 MG PO PRN Q4HRS PRN for TEMP OVER 100.4F OR MILD PAIN for 30 Days, #100 TAB Prov:ROD GUSMAN MD 06/16/19 Ipratropium/Albuterol Sulfate (DUONEB 0.5-3(2.5) MG/3 ML) 3 Ml Ampul.neb, 3 ML NEB Q4H for copd for 30 Days, #180 EACH Prov:ROD GUSMAN MD 06/16/19 Reported Medications Alprazolam (ALPRAZOLAM) 1 Mg Tablet, 1 TAB PO TID for anxiety, #90 TAB 10/18/20 Hydrocodone Bit/Acetaminophen (HYDROCODONE-APAP 10325 ) 1 Tab Tablet, 1 TAB PO PRN Q6HRS PRN for PAIN, TAB 0 Refills 10/18/20 Gabapentin (GABAPENTIN ) 300 Mg Capsule, 300 MG PO HS for NEUROGENIC PAIN, CAP 09/14/19 Metoprolol Tartrate (METOPROLOL TARTRATE) 25 Mg Tablet, 0.5 TAB PO BID for heart, #60 TAB 3 Refills 06/04/19 Aspirin (ASPIRIN) 81 Mg Tab.chew, 1 TAB PO DAILY for heart, #30 TAB 3 Refills 06/04/19 Clopidogrel Bisulfate (CLOPIDOGREL) 75 Mg Tablet, 1 TAB PO DAILY for heart stent, #30 TAB 3 Refills 06/04/19 Insulin Glargine,Hum.rec.anlog (LANTUS SOLOSTAR) 100 Unit/1 Ml Insuln.pen, 12 UNIT SQ QHS for , SYR 06/03/19 Rosuvastatin Calcium (CRESTOR) 20 Mg Tablet, 20 MG PO HS for FOR CHOLESTEROL, #30 TAB 0 Refills 06/03/19 Pramipexole Di-Hcl (MIRAPEX) 0.25 Mg Tablet, 1 TAB PO QHS for , #90 TAB 1 Refill 06/03/19 Montelukast Sodium (MONTELUKAST SODIUM TABLET ) 10 Mg Tablet, 10 MG PO HS for FOR ASTHMA, TAB 0 Refills 06/03/19 Isosorbide Mononitrate (ISOSORBIDE MONONITRATE ER) 30 Mg Tab.er.24h, 30 MG PO DAILY for , TAB.SR 06/03/19 ALFONSO BURNHAM MD Oct 20, 2020 07:28
[2020-10-20] MEDS ORDERED: POTASSIUM CHLORIDE 20 MEQ TABLET.ER. PO ONE (08:00)
[2020-10-20] MEDS: ASPIRIN CHEWABLE 81 MG TABLET. PO SCH (08:41)
[2020-10-20] MEDS: SENNOSIDES/DOCUSATE 8.6/50MG TABLET. PO SCH (08:41)
[2020-10-20] MEDS: ISOSORBIDE MONONITRATE ER 30 MG TAB.ER.24H PO SCH (08:42)
[2020-10-20] MEDS: ALPRAZolam 1 MG TABLET PO SCH (08:42)
[2020-10-20 08:43] VITALS: BP 108/48
[2020-10-20] MEDS: METOPROLOL TART IMMED RELEASE 25 MG TABLET. PO SCH (08:43)
[2020-10-20] MEDS: CLOPIDOGREL BISULFATE 75 MG TABLET PO SCH (08:43)
--- NOTE | 2020-10-20 10:07 | NUR ---
SS following for discharge planning. SS reviewed pt chart and discussed with pt RN. Pt is from home with spouse and is currently on room air. COVID19 negative. Discharge orders received for home healthcare. Script for wheelchair and commode received. SS phoned and faxed scripts and clinical to [facility], ; fax [phone]. SS met with pt and discussed discharge planning and home healthcare. Pt requesting referral be phoned and faxed to [facility], ; fax [phone]. Pt reported that she has no preference if second choice is needed. SS phoned and faxed discharge orders and referral to [facility]. SS will continue to follow for discharge planning.
--- NOTE | 2020-10-20 10:23 | DS ---
DATE OF DISCHARGE: HOSPITAL COURSE: The patient is a 70-year-old female patient, who apparently fell and twisted her left ankle with resultant trimalleolar fracture. She did also complain of chest pain and her x-ray showed that she has distal tibia and fibular fracture with mild dislocation of the tail of the tibial joint. No acute abnormality was seen in her left knee joint and chest x-ray was unremarkable. CT scan of the head was unremarkable. CT angio of the chest showed no evidence of pulmonary emboli. She was seen in consultation by the orthopedic surgeon, underwent open reduction and internal fixation of her left trimalleolar fracture and she was seen in consultation also by the cooking chef; however, there is no evidence of acute myocardial infarction. The patient is nonweightbearing on her left lower extremity and the patient wanted to go home with home health as her is now living with her and therefore, a decision was made to discharge her home with home health. PHYSICAL EXAMINATION: GENERAL: When I saw her this morning, she was pale, but no jaundice, cyanosis or thyromegaly. No jugular venous distention or limb edema. VITAL SIGNS: Her heart rate was 77, blood pressure was 108/48, temperature 97.5, respiratory rate was 18 and oxygen saturation was 97% on room air. HEAD, EYES, EARS, NOSE AND THROAT: Showed normocephalic, atraumatic. NECK: Supple. HEART: Normal first and second heart sounds with no gallop, rub or murmur. CHEST: Clear to auscultation. No crepitation or rhonchi. ABDOMEN: Distended, soft, nontender. NEUROLOGIC: She was awake, alert, responding appropriately. All cranial nerves are intact. She moves her both upper extremities and lower extremities without difficulty. She is nonweightbearing on her left lower extremity. Her intake over the last 24 hours was 600, output was 750. LABORATORY DATA: As of this morning, her white cell count was 3700, hemoglobin 11, hematocrit 32, MCV 90 and platelet count of 156,000. Her serum sodium was 141, potassium 3.1, chloride 107, bicarbonate 30, anion gap of 7, BUN 11, creatinine 0.8, estimated GFR was 70 mL per minute. Her glucose was 219, calcium was 8.1. Total bilirubin, AST, ALT, alkaline phosphatase were normal. Her total protein 5.7, albumin was 2.6. DISCHARGE MEDICATIONS: She was discharged home to continue Tylenol 650 mg every 4 hours, alprazolam 1 mg 3 times a day, aspirin 81 mg once a day, Plavix 75 mg daily, gabapentin 300 mg at bedtime, hydrocodone/APAP 10/325 one tablet every 6 hours. She is on Lantus insulin 12 units at bedtime, ipratropium bromide, albuterol sulfate in 3 mL by nebulizer every 4 hours, isosorbide mononitrate 30 mg once a day, metoprolol tartrate 12.5 mg twice a day, Singulair 10 mg at bedtime, Mirapex 0.25 mg at bedtime and Crestor 20 mg at bedtime. FINAL DISCHARGE DIAGNOSES: 1. Fall with resultant left ankle bimalleolar fracture with dislocation, status post open reduction and internal fixation. She is nonweightbearing for at least [address] Jackson. According to Dr. Gonzales, she is not a candidate for anticoagulation given that she has psychogenic nonepileptic seizures. 2. The patient has had an episode of syncope or near syncope; however, there is no evidence of any intracranial pathology. 3. Chest pain; however, her cardiac enzymes that ruled out acute myocardial infarction. She is known to have coronary artery disease, status post stent deployment to the left anterior descending and right and left circumflex artery in 05/2019. 4. Type 2 diabetes mellitus, seems to be reasonably controlled. 5. Hypertension. 6. Hyperlipidemia. 7. Chronic obstructive pulmonary disease. 8. History of deep vein thrombosis and pulmonary embolism. ALFONSO BURNHAM MD DR: SANTI/oliverio JOB#: [id number] / [id number]
--- NOTE | 2020-10-20 11:14 | PDOC ---
CARDIO Progress Notes Date and Time Date of Service 10/20/20 Time of Evaluation 1111 Subjective Subjective: No Chest Pain, No shortness of breath, No Palpitations, No Dizziness Vitals Vitals Vital Signs Date Time Temp Pulse Resp B/P (MAP) Pulse Ox O2 Delivery O2 Flow Rate FiO2 10/20/20 09:41 18 Room Air 10/20/20 08:43 77 108/48 10/20/20 07:50 97 10/20/20 07:00 97.5 97.5 10/20/20 00:24 4.0 Weight Weight [ ] Input and Output Intake and Output Intake and Output 10/20/20 07:00 Intake Total 1200 ml Output Total 700 ml Balance 500 ml Intake Oral 1200 ml Output Urine Total 700 ml # Voids 4 Laboratory Labs Laboratory Tests Test 10/19/20 16:07 10/19/20 20:40 10/20/20 05:00 10/20/20 06:10 Glucose (Fingerstick) 192 mg/dL (70-99) 138 mg/dL (70-99) Magnesium Level 2.1 mg/dL (1.8-2.4) Thyroid Stimulating Hormone (TSH) 1.205 uIU/mL (0.358-3.74) Sodium Level 141 mmol/L (136-145) Potassium Level 3.1 mmol/L (3.5-5.1) Chloride Level 104 mmol/L (98-107) Carbon Dioxide Level 30 mmol/L (21-32) Anion Gap 7 (6-14) Blood Urea Nitrogen 11 mg/dL (7-20) Creatinine 0.8 mg/dL (0.6-1.0) Estimated GFR (Cockcroft-Gault) 70.9 BUN/Creatinine Ratio 14 (6-20) Glucose Level 219 mg/dL (70-99) Calcium Level 8.1 mg/dL (8.5-10.1) Total Bilirubin 0.6 mg/dL (0.2-1.0) Aspartate Amino Transf (AST/SGOT) 18 U/L (15-37) Alanine Aminotransferase (ALT/SGPT) 17 U/L (14-59) Alkaline Phosphatase 92 U/L (46-116) Total Protein 5.7 g/dL (6.4-8.2) Albumin 2.6 g/dL (3.4-5.0) Albumin/Globulin Ratio 0.8 (1.0-1.7) Test 10/20/20 06:18 10/20/20 07:23 White Blood Count 3.7 x10^3/uL (4.0-11.0) Red Blood Count 3.53 x10^6/uL (3.50-5.40) Hemoglobin 10.7 g/dL (12.0-15.5) Hematocrit 31.7 % (36.0-47.0) Mean Corpuscular Volume 90 fL (79-100) Mean Corpuscular Hemoglobin 30 pg (25-35) Mean Corpuscular Hemoglobin Concent 34 g/dL (31-37) Red Cell Distribution Width 14.0 % (11.5-14.5) Platelet Count 156 x10^3/uL (140-400) Glucose (Fingerstick) 181 mg/dL (70-99) Physical Exam HEENT: Neck Supple W Full Motion Chest: Symmetric Heart: RRR Abdomen: Soft N/T Extremities: No Edema, Other (left lower ext immobilizer ) Neurology: alert, oriented, follow commands Assessment Assessment 1. Traumatic fall secondary to syncopal episode. No acute events on tele. CT head without acute findings. 2. Distal tibia and fibula fracture. s/p ORIF. POD #3. Is doing well post- operatively. 3. Chest pain, mixed features. AMI ruled out 4. CAD; s/p previous PCI/stent to the LAD and more recent PCI/PRASHANTH to LCx 05/2019. Echocardiogram 06/13 showed normal LV function. Cath 05/14 without lesions needing intervention 5. Diabetes, II; as per PCP 6. Accelerated hypertension; now controlled 7. Hyperlipidemia; statin 8. H/o DVT/PE 9. Hx of CVA with left side weakness 10. Seizures, suspected psychogenic 11. PSVT; brief bursts of SVT noted on tele. BB therapy. TSH WNL 12. Hypokalemia; replaced Recommendations Continue secondary prevention measures including DAPT with ASA/Plavix, Imdur, metoprolol, and statin therapy Will arranged outpatient event monitor to rule out contributing arrhythmias Supportive care Continue post-op management as per ortho Okay to discharge from a CV standpoint and follow up in our office as scheduled Justicifation of Admission Dx: Justifications for Admission: Justification of Admission Dx: N/A JO ENRIQUEZ APRN Oct 20, 2020 11:14
--- NOTE | 2020-10-20 11:23 | NUR ---
SS following up with discharge planning. Pt accepted on services with [facility]. Nathan toribio [facility] contacted SS and reported that DME will be delivered to pt's home today. Pt's RN, pt, and pt's spouse notified.
--- NOTE | 2020-10-20 11:35 | NUR ---
Discharge Note: VIOLETA VANG Discharge instructions and discharge home medications reviewed with Patient and a copy given. All questions have been answered and understanding verbalized. Patient instructed to follow up with Dr. Jackson in 2 weeks and to leave dressing intact. Patient also instructed to not bear weight on left foot for 6 weeks. The following instructions and handouts were given: Bimalleolar ankle fracture ORIF after care Discontinued lines and drains: Peripheral IV intact. Patient discharged to Home w/services with Spouse via Wheelchair
== END 2020-10-20 11:35 | disposition home health service (06) | DRG 492 ==
LOC: ER 13:34 → ED HOLD 16:31 → 2 NORTH 18:21
PROVIDERS: ADMIT Internal Medicine; ATTEND Internal Medicine
PROC: 0QSK04Z Reposition Left Fibula with Internal Fixation Device, Open Approach (ICD-10-PCS; 2020-10-17)
PROC: 0QSH04Z Reposition Left Tibia with Internal Fixation Device, Open Approach (ICD-10-PCS; principal; 2020-10-17 18:00)
DX: S82.842A Displaced bimalleolar fracture of left lower leg, initial encounter for closed fracture (principal); N17.0 Acute kidney failure with tubular necrosis; I47.1 Supraventricular tachycardia; I69.354 Hemiplegia and hemiparesis following cerebral infarction affecting left non-dominant side; D72.829 Elevated white blood cell count, unspecified; E11.9 Type 2 diabetes mellitus without complications; E78.00 Pure hypercholesterolemia, unspecified; E78.5 Hyperlipidemia, unspecified; E87.6 Hypokalemia; F41.9 Anxiety disorder, unspecified; F44.5 Conversion disorder with seizures or convulsions; I10 Essential (primary) hypertension; I25.10 Atherosclerotic heart disease of native coronary artery without angina pectoris; I48.91 Unspecified atrial fibrillation; J44.9 Chronic obstructive pulmonary disease, unspecified; M15.9 Polyosteoarthritis, unspecified; F32.9 Major depressive disorder, single episode, unspecified; W01.0XXA Fall on same level from slipping, tripping and stumbling without subsequent striking against object, initial encounter; Z20.822 Contact with and (suspected) exposure to COVID-19; Z83.3 Family history of diabetes mellitus; Z77.22 Contact with and (suspected) exposure to environmental tobacco smoke (acute) (chronic); K21.9 Gastro-esophageal reflux disease without esophagitis; S82.402A Unspecified fracture of shaft of left fibula, initial encounter for closed fracture; Y93.89 Activity, other specified; Y92.89 Other specified places as the place of occurrence of the external cause; Y99.8 Other external cause status; Z88.5 Allergy status to narcotic agent; Z88.8 Allergy status to other drugs, medicaments and biological substances; Z82.49 Family history of ischemic heart disease and other diseases of the circulatory system; Z85.72 Personal history of non-Hodgkin lymphomas; Z86.711 Personal history of pulmonary embolism; Z86.718 Personal history of other venous thrombosis and embolism; Z87.11 Personal history of peptic ulcer disease; Z87.891 Personal history of nicotine dependence; Z90.710 Acquired absence of both cervix and uterus; Z95.5 Presence of coronary angioplasty implant and graft; I25.2 Old myocardial infarction
CPT/HCPCS: 36415; 70450; 71045; 71275; 73562; 73610; 76000; 80048; 80053; 80076; 82962; 83690; 83735; 83880; 84443; 84484; 85025; 85027; 85610; 85730; 87426; 93005; 94640; 94760; 96361; 96374; 99285; C1713; J0330; J0690; J0780; J1100; J1170; J1815; J2270; J2370; J2405; J7120; Q9967; U0003; 97110-GP; 97116-GP; 97530-GO; 97530-GP; 97535-GO; G0378

== ENCOUNTER 2021-12-20 23:13 | Inpatient (IN) | payer MEDICARE ==
[~2021-12-20] VITALS: Ht 162.6 cm; Wt 95.6 kg
[2021-12-20 22:20] VITALS: BP 152/73
[~2021-12-20 23:13] MED LIST changes: +ALPR1TAB6 PO
[2021-12-20] MEDS ORDERED: LOSA50TA15 PO (23:46)
[2021-12-20] MEDS ORDERED: APIX5TAB PO (23:46)
[2021-12-20] MEDS ORDERED: HYDR-2767 PO (23:46)
[2021-12-20] MEDS ORDERED: PRAM0.5T5 PO (23:46)
[2021-12-20] MEDS ORDERED: ALBU2.5V8 INH (23:46)
[2021-12-21] MEDS ORDERED: DEXTROSE 50% 25 GM / 50ML DISP.SYRIN. IV PRN (00:30)
[2021-12-21] MEDS ORDERED: BENZONATATE 100 MG CAPSULE. PO PRN (00:30)
[2021-12-21] MEDS ORDERED: IV DEXTROSE 5% 250 ML BAG. IV PRN (00:30)
[2021-12-21] MEDS: ALPRAZolam 1 MG TABLET PO SCH ×5 (00:44→21:15)
[2021-12-21] MEDS: guaiFENesin DM 200MG/20MG 10 ML SYRUP PO PRN ×2 (05:25→23:32)
[2021-12-21 07:30] VITALS: BP 121/67
[2021-12-21 07:52] LABS: BASO % 1 % (0-3); EOS # 0.2 x10^3/uL (0.0-0.7); EOS % 6 % (0-3); HEMATOCRIT 39.8 % (36.0-47.0); HEMOGLOBIN 13.3 g/dL (12.0-15.5); LYMPH # 1.1 x10^3/uL (1.0-4.8); LYMPH % 28 % (24-48); MEAN CORPUSCULAR HEMOGLOBIN 30 pg (25-35); MEAN CORPUSCULAR HGB CONC 34 g/dL (31-37); MEAN CORPUSCULAR VOLUME 88 fL (79-100); MONO # 0.4 x10^3/uL (0.0-1.1); MONO % 10 % (0-9); NEUT # 2.1 x10^3/uL (1.8-7.7); NEUT % 55 % (31-73); PLATELET COUNT 238 x10^3/uL (140-400); RED BLOOD COUNT 4.51 x10^6/uL (3.50-5.40); RED CELL DISTRIBUTION WIDTH 13.6 % (11.5-14.5); WHITE BLOOD COUNT 3.9 x10^3/uL (4.0-11.0)
[2021-12-21 08:08] LABS: CALCIUM 8.8 mg/dL (8.5-10.1); CREATININE 0.9 mg/dL (0.6-1.0); GFR 61.7; POTASSIUM 3.4 mmol/L (3.5-5.1)
[2021-12-21] MEDS ORDERED: IOHEXOL 300 MG/ML 100ML VIAL. IV ONE (10:30)
[2021-12-21] MEDS ORDERED: CONTRAST GIVEN. MC PRN (10:30)
[2021-12-21] MEDS ORDERED: ACETAMINOPHEN 325 MG TABLET. PO PRN (10:45)
[2021-12-21] MEDS ORDERED: HYDROcodone/APAP 10/325 1 TAB TABLET PO PRN (10:45)
[2021-12-21] MEDS ORDERED: MAGNESIUM HYDROXIDE 2,400 MG/30 ML ORAL.SUSP. PO PRN (10:45)
[2021-12-21] MEDS ORDERED: ZOLPIDEM 5 MG TABLET. PO PRN (10:45)
[2021-12-21] MEDS ORDERED: guaiFENesin/CODEINE 100mg/10mg 5 ML LIQUID PO PRN (10:45)
[2021-12-21] MEDS ORDERED: MORPHINE SULFATE 2 MG/ML INJ. IV PRN (10:45)
[2021-12-21] MEDS ORDERED: hydrALAZINE 20 MG/ML VIAL. IVP PRN (10:45)
--- NOTE | 2021-12-21 11:02 | PDOC1 ---
History and Physical Date of Admission Date of Admission DATE: 12/21/21 TIME: 10:12 Identification/Chief Complaint Chief Complaint Cough, chest pain Source Source: Patient History of Present Illness History of Present Illness Patient is a 71-year-old female with past medical history COPD, asthma, CAD with stents, lymphoma, who presents as a transfer from [facility] ED with complaints of worsening cough over the past week. She was seen by a PA at an outside clinic and given azithromycin, of which she took for 4 days without improvement. She also reports use of a home breathing treatment without significant improve ment. Yesterday at [facility] ED, a chest x-ray noted new left suprahilar infiltrate favoring area of pneumonia. However a chest CT with IV contrast is recommended to exclude underlying malignancy. At the time of my evaluation she is complaining of left-sided chest pain, and she is unsure if it is related to her coughing. She was seen by her strap folding machine operator 2 weeks ago, who noted some blockage of her cardiac stents but did not schedule any intervention at this time. Despite her diagnosis of COPD, she states she is not a smoker. Her last COPD exacerbation was some years ago. Patient denies fever, chills, sputum production. Past Medical History Cardiovascular: AFIB, CAD, HTN, AR, Hyperlipidemia Pulmonary: COPD, Pulmonary embolus, Other CENTRAL NERVOUS SYSTEM: CVA, Seizure, Other GI: GERD, Peptic Ulcer disease Heme/Onc: Cancer Psych: Anxiety, Depression Musculoskeletal: low back pain, Osteoarthritis Endocrine: Diabetes Past Surgical History Past Surgical History: Cholecystectomy, Hysterectomy, Other Family History Family History: Cancer (Lung cancer in father and sister), Coronary Artery Disease Social History Smoke: No ALCOHOL: none Drugs: None Current Medications Current Medications Current Medications Benzonatate (Tessalon Perle) 100 mg PRN TID PRN PO COUGH 1ST CHOICE Last administered on 12/21/21at 00:44; Start 12/21/21 at 00:30 Alprazolam (Xanax) 1 mg QID PO Last administered on 12/21/21at 00:44; Start 12/21/21 at 00:30 Dextrose (Dextrose 50%-Water Syringe) 12.5 gm PRN Q15MIN PRN IV SEE COMMENTS; Start 12/21/21 at 00:30; Status UNV Dextrose (Iv Dextrose 5%) 250 ml PRN Q15MIN PRN IV SEE COMMENTS; Start 12/21/21 at 00:30 Guaifenesin (Robitussin Dm) 10 ml PRN Q6HRS PRN PO COUGH 2ND CHOICE Last administered on 12/21/21at 05:25; Start 12/21/21 at 04:00 Active Scripts Active Duoneb 0.5-3(2.5) Mg/3 Ml (Albuterol/Ipratropium) 3 Ml Ampul.neb 3 Ml NEB Q4H 30 Days Reported Proair Hfa Inhaler (Albuterol Sulfate) 8.5 Gm Hfa.aer.ad 2 Puff INH PRN Q4HRS PRN Eliquis (Apixaban) 5 Mg Tablet 5 Mg PO BID Hydrocodone-Acetamin 10-325 mg (Hydrocodone/Acetaminophen) 1 Each Tablet 1 Tab PO TID PRN Losartan Potassium 50 Mg Tablet 1 Tab PO DAILY Mirapex (Pramipexole Di-Hcl) 0.5 Mg Tablet 1 Tab PO QHS Alprazolam 1 Mg Tablet 1 Tab PO QID Gabapentin (Gabapentin) 300 Mg Capsule 300 Mg PO HS Lantus Solostar (Insulin Glargine,Hum.rec.anlog) 100 Unit/1 Ml Insuln.pen 12 Unit SQ QHS Crestor (Rosuvastatin Calcium) 20 Mg Tablet 20 Mg PO HS Montelukast Sodium Tablet (Montelukast Sodium) 10 Mg Tablet 10 Mg PO HS Allergies Allergies: Coded Allergies: bee venom protein (honey bee) (Verified Allergy, Severe, 12/20/21) oxycodone (Verified Allergy, Intermediate, 06/13/19) prednisone (Verified Allergy, Intermediate, 06/13/19) ROS Review of System GENERAL: No history of weight change, weakness or fevers. SKIN: No bruising, hair changes or rashes. EYES: No blurred, double or loss of vision. NOSE AND THROAT: No history of nosebleeds, hoarseness or sore throat. HEART: Chest pain. Denies palpitations. LUNGS: Cough and shortness of breath. Denies hemoptysis. GASTROINTESTINAL: Denies nausea, vomiting, abdominal pain. GENITOURINARY: Denies dysuria, frequency, urgency, hematuria. NEUROLOGIC: Denies history of numbness, tingling, tremor or weakness. PSYCHIATRIC: Denies anxiety, denies depression. ENDOCRINE: No history of heat or cold intolerance, polyuria or polydipsia. EXTREMITIES: Denies muscle weakness, joint pain, pain on walking or stiffness. Physical Exam Physical Exam General: Alert, Oriented X3, Cooperative, No acute distress HEENT: PERRLA, EOMI Lungs: Left upper lobe with crackles and surrounding wheezing Heart: RRR, no murmurs Cardiovascular: S1, S2 Abdomen: Normal bowel sounds, Soft, No tenderness Extremities: No clubbing, No cyanosis Skin: No rashes, No significant lesion Neuro: Normal speech, Normal tone, Sensation intact Psych/Mental Status: Mental status NL, Mood NL Vitals Vitals Vital Signs Date Time Temp Pulse Resp B/P (MAP) Pulse Ox O2 Delivery O2 Flow Rate FiO2 12/21/21 07:30 98.5 86 18 121/67 (85) 92 Room Air 98.5 Labs Labs Laboratory Tests Test 12/21/21 07:20 12/21/21 07:55 White Blood Count 3.9 x10^3/uL (4.0-11.0) Red Blood Count 4.51 x10^6/uL (3.50-5.40) Hemoglobin 13.3 g/dL (12.0-15.5) Hematocrit 39.8 % (36.0-47.0) Mean Corpuscular Volume 88 fL (79-100) Mean Corpuscular Hemoglobin 30 pg (25-35) Mean Corpuscular Hemoglobin Concent 34 g/dL (31-37) Red Cell Distribution Width 13.6 % (11.5-14.5) Platelet Count 238 x10^3/uL (140-400) Neutrophils (%) (Auto) 55 % (31-73) Lymphocytes (%) (Auto) 28 % (24-48) Monocytes (%) (Auto) 10 % (0-9) Eosinophils (%) (Auto) 6 % (0-3) Basophils (%) (Auto) 1 % (0-3) Neutrophils # (Auto) 2.1 x10^3/uL (1.8-7.7) Lymphocytes # (Auto) 1.1 x10^3/uL (1.0-4.8) Monocytes # (Auto) 0.4 x10^3/uL (0.0-1.1) Eosinophils # (Auto) 0.2 x10^3/uL (0.0-0.7) Basophils # (Auto) 0.0 x10^3/uL (0.0-0.2) Sodium Level 141 mmol/L (136-145) Potassium Level 3.4 mmol/L (3.5-5.1) Chloride Level 103 mmol/L (98-107) Carbon Dioxide Level 32 mmol/L (21-32) Anion Gap 6 (6-14) Blood Urea Nitrogen 7 mg/dL (7-20) Creatinine 0.9 mg/dL (0.6-1.0) Estimated GFR (Cockcroft-Gault) 61.7 Glucose Level 205 mg/dL (70-99) Calcium Level 8.8 mg/dL (8.5-10.1) Glucose (Fingerstick) 199 mg/dL (70-99) Laboratory Tests Test 12/21/21 07:20 12/21/21 07:55 White Blood Count 3.9 x10^3/uL (4.0-11.0) Red Blood Count 4.51 x10^6/uL (3.50-5.40) Hemoglobin 13.3 g/dL (12.0-15.5) Hematocrit 39.8 % (36.0-47.0) Mean Corpuscular Volume 88 fL (79-100) Mean Corpuscular Hemoglobin 30 pg (25-35) Mean Corpuscular Hemoglobin Concent 34 g/dL (31-37) Red Cell Distribution Width 13.6 % (11.5-14.5) Platelet Count 238 x10^3/uL (140-400) Neutrophils (%) (Auto) 55 % (31-73) Lymphocytes (%) (Auto) 28 % (24-48) Monocytes (%) (Auto) 10 % (0-9) Eosinophils (%) (Auto) 6 % (0-3) Basophils (%) (Auto) 1 % (0-3) Neutrophils # (Auto) 2.1 x10^3/uL (1.8-7.7) Lymphocytes # (Auto) 1.1 x10^3/uL (1.0-4.8) Monocytes # (Auto) 0.4 x10^3/uL (0.0-1.1) Eosinophils # (Auto) 0.2 x10^3/uL (0.0-0.7) Basophils # (Auto) 0.0 x10^3/uL (0.0-0.2) Sodium Level 141 mmol/L (136-145) Potassium Level 3.4 mmol/L (3.5-5.1) Chloride Level 103 mmol/L (98-107) Carbon Dioxide Level 32 mmol/L (21-32) Anion Gap 6 (6-14) Blood Urea Nitrogen 7 mg/dL (7-20) Creatinine 0.9 mg/dL (0.6-1.0) Estimated GFR (Cockcroft-Gault) 61.7 Glucose Level 205 mg/dL (70-99) Calcium Level 8.8 mg/dL (8.5-10.1) Glucose (Fingerstick) 199 mg/dL (70-99) Images Images PATIENT: VIOLETA VANG ACCOUNT: [id number] : 1950 LOCATION: ER AGE: 71 SEX: F EXAM STATUS: REG ER ORD. PHYSICIAN: KIM SANCHEZ REASON: Cough, abx use x5 days, diminished sounds L side PROCEDURE: CHEST PA & LATERAL EXAMINATION: Chest radiograph. VIEWS: Frontal and lateral views of the chest COMPARISON: Chest radiograph from 10/13/2021 INDICATION:71 years, Female, cough, antibiotic use x5 days. FINDINGS: Stable cardiomediastinal silhouette. Chronic bilateral interstitial lung infiltrates and/or chronic bronchitis are again noted. There is a new 2.8 cm opacity in the left suprahilar region. No pleural effusion or pneumothorax. No acute osseous process. IMPRESSION: New left suprahilar infiltrate favoring area of pneumonia. Chest CT with IV contrast is recommended to exclude underlying malignancy. VTE Prophylaxis Ordered VTE Prophylaxis Devices: No VTE Pharmacological Prophylaxi: Yes Assessment/Plan Assessment/Plan Left lung pneumonia Acute COPD Possible left lobe malignancy Plan: We will obtain CT chest with IV contrast given her history of lymphoma to better evaluate left upper lobe infiltrate and rule out malignancy. Continue treatment for left upper lobe pneumonia with Rocephin and doxycycline Symptomatic management FEN - Cardiac diet PPX - Eliquis DNR Dispo - inpatient for above Advance Care Planning: Total time spent [id number] with patient 16 minutes in discussion with goals of care, comfort care, end-of-life care, code status; patient names (Nathan Teran) as surrogate decision-maker. Justifications for Admission Other Justification STEPHAN YO MD Dec 21, 2021 11:02
--- NOTE | 2021-12-21 11:07 | NUR ---
SS following for discharge planning. SS reviewed pt chart and discussed with pt RN. Pt is from home and is currently on room air. Pt on IV Rocephin and IV Doxycycline. Chest CT ordered. PT/OT ordered. SS will continue to follow for discharge planning.
[2021-12-21 11:15] VITALS: BP 107/75
[2021-12-21] MEDS: IPRATRPIUM/ALBUTEROL 0.5/2.5MG 3 ML NEBU. NEB SCH ×3 (12:00→20:18)
[2021-12-21] MEDS: LOSARTAN POTASSIUM 50 MG TABLET. PO SCH (12:17)
[2021-12-21] MEDS: APIXABAN 5 MG TABLET. PO SCH ×2 (12:17→21:15)
--- NOTE | 2021-12-21 13:46 | EKG ---
[facility] [address] [place] [address] Test Date: 2021-12-21 Test Time: 13:20:38 Pat Name: VIOLETA VANG Department: Room: 203 1 Gender: F Splicer Machine Operator: HANNAH : 1950 Requested By: STEPHAN YO Order Number: [id number] Reading MD: Juan Pablo Golden Measurements Intervals Alden Rate: 90 P: -9 NM: 168 QRS: -23 QRSD: 84 T: 28 QT: 386 QTc: 477 Interpretive Statements SINUS RHYTHM LEFTWARD AXIS PROLONGED QT Electronically Signed On 12-25-2021 21:44:01 CDT by Juan Pablo Golden
--- NOTE | 2021-12-21 14:31 | RAD ---
EXAMINATION: CT head without IV contrast INDICATION:71 years, Female, possible stroke. COMPARISON: Head CT from 10/17/2020 TECHNIQUE: Spiral acquisition of contiguous images from the skull base to the vertex were obtained. S agittal and coronal 2D reformatted series were provided by the technologist. Soft tissue and bone win tia algorithms were reviewed. Exposure: One or more of the following individualized dose reduction techniques were utilized for thi s examination: 1. Automated exposure control 2. Adjustment of the mA and/or kV according to patient size 3. Use of iterative reconstruction technique. FINDINGS: Neither mass, midline shift, intracranial hemorrhage, acute/subacute ischemic changes, nor extraaxial fluid collections are seen. Brain parenchymal volume loss. Supratentorial periventricular white mat ter hypodensities, indeterminate but most likely representing chronic microangiopathic disease. The v entricular system is within normal limits of variation. Complete opacification of the right maxillary sinus. Paranasal sinuses and mastoid air cells are clear., mastoid air cells, and middle ears are clear.The orbital contents appear within normal limits. 3 demonstrated a linear high densities structures are w ithin the subcutaneous soft tissues overlying the right frontal region measuring 9 mm which could be from a calcification or a high density foreign body in the soft tissues. IMPRESSION: 1. No evidence of acute intracranial abnormality. 2. Supratentorial periventricular white matter hypodensities, indeterminate but most likely represent ing chronic microangiopathic disease. 3. Right maxillary sinusitis These findings were discussed with Rosalia Valdez at 12/21/2021 2:[address] Sandhu Electronically signed by: Beneidcto Sandhu DO (12/21/2021 2:29 PM) [id number]
--- NOTE | 2021-12-21 15:16 | PDOC2 ---
NEUROLOGY CONSULT Date of Service DOS: DATE: 12/21/21 TIME: 14:55 History of Present Illness History of Present Illness The patient is a 71-year-old right-handed female transferred from [facility] yesterday after presenting with 1 week of coughing. She has a history of COPD not related to smoking, she was placed on antibiotics and cough medication but has not been feeling any better. For the past 3 days she is also had dysphagia, generalized weakness, and fatigue. Chest x-ray showed a new left-sided infiltrate and the patient was transferred here. Today at about 1315, patient suddenly became unresponsive. She was not responding to the nurse even with sternal rub for about 2 minutes. A code stroke was called. The patient did have a negative head CT. The consult was called to my office at 14:26. I abdoul ollow the patient in my clinic for psychogenic nonepileptic seizures and migraine headaches. I last saw her on 07/24/2020. She has been doing well on clorazepate and escitalopram. At one point her primary physician stopped the clorazepate and raised her alprazolam dose, but that did not cover the nonepileptic seizures so we resumed the clorazepate. Again, I have not seen her in 17 months, and review the office chart shows that she is no longer on clonazepam. I discussed her spell today and she says it felt like one of her nonepileptic seizures. She is very nervous and anxious about her current illness as well as some family issues. She is feeling better now. She does have a dull headache. She also has generalized weakness. Past Medical History Cardiovascular: CAD, CHF, HTN, Hyperlipidemia Pulmonary: Asthma, COPD, Pulmonary embolus, Other (Sleep apnea) CENTRAL NERVOUS SYSTEM: CVA, Migraine, Seizure (Psychogenic nonepileptic), Other (Restless legs) Psych: Anxiety, Depression Musculoskeletal: Osteoarthritis Past Surgical History Past Surgical History: Appendectomy, Cholecystectomy, CABG, Hysterectomy, Other (Coronary stents, right rotator cuff, carpal tunnel) Family History Family History: Cancer Social History Social History No tobacco or alcohol, retired Current Medications Current Medications Current Medications Benzonatate (Tessalon Perle) 100 mg PRN TID PRN PO COUGH 1ST CHOICE Last administered on 12/21/21at 00:44; Start 12/21/21 at 00:30 Alprazolam (Xanax) 1 mg QID PO Last administered on 12/21/21at 12:19; Start 12/21/21 at 00:30 Dextrose (Dextrose 50%-Water Syringe) 12.5 gm PRN Q15MIN PRN IV SEE COMMENTS; Start 12/21/21 at 00:30; Status UNV Dextrose (Iv Dextrose 5%) 250 ml PRN Q15MIN PRN IV SEE COMMENTS; Start 12/21/21 at 00:30 Guaifenesin (Robitussin Dm) 10 ml PRN Q6HRS PRN PO COUGH 2ND CHOICE Last administered on 12/21/21at 05:25; Start 12/21/21 at 04:00 Albuterol/ Ipratropium (Duoneb) 3 ml RTQID NEB ; Start 12/21/21 at 12:00 Iohexol (Omnipaque 300 Mg/ml) 75 ml 1X ONCE IV Last administered on 12/21/21at 10:42; Start 12/21/21 at 10:30; Stop 12/21/21 at 10:31; Status DC Info (CONTRAST GIVEN -- Rx MONITORING) 1 each PRN DAILY PRN MC SEE COMMENTS; Start 12/21/21 at 10:30; Stop 12/23/21 at 10:29 Hydralazine HCl (Apresoline Inj) 10 mg PRN Q4HRS PRN IVP ELEVATED BP, SEE COMMENTS; Start 12/21/21 at 10:45 Apixaban (Eliquis) 5 mg BID PO Last administered on 12/21/21at 12:17; Start 12/21/21 at 11:00 Gabapentin (Neurontin) 300 mg HS PO ; Start 12/21/21 at 21:00 Acetaminophen/ Hydrocodone Bitart (Lortab 10/325) 1 tab TID PRN PO PAIN Last administered on 12/21/21at 12:19; Start 12/21/21 at 10:45 Losartan Potassium (Cozaar) 50 mg DAILY PO Last administered on 12/21/21at 12:17; Start 12/21/21 at 11:00 Montelukast Sodium (Singulair) 10 mg HS PO ; Start 12/21/21 at 21:00 Insulin Glargine (Lantus Syringe) 12 unit QHS SQ ; Start 12/21/21 at 21:00 Pramipexole Dihydrochloride (miraPEX) 0.5 mg QHS PO ; Start 12/21/21 at 21:00 Atorvastatin Calcium (Lipitor) 80 mg HS PO ; Start 12/21/21 at 21:00 Guaifenesin/ Codeine Phosphate (Robitussin Ac) 5 ml PRN Q6HRS PRN PO COUGH; Start 12/21/21 at 10:45 Zolpidem Tartrate (Ambien) 5 mg PRN QHS PRN PO INSOMNIA, MAY REPEAT IN 1HR; Start 12/21/21 at 10:45 Morphine Sulfate (Morphine Sulfate) 2 mg PRN Q1HR PRN IV PAIN; Start 12/21/21 at 10:45 Acetaminophen (Tylenol) 650 mg PRN Q6HRS PRN PO Headaches, Temp > 101.5F; Start 12/21/21 at 10:45 Magnesium Hydroxide (Milk Of Magnesia) 2,400 mg PRN Q12HR PRN PO CONSTIPATION; Start 12/21/21 at 10:45 Ceftriaxone Sodium (Rocephin) 1 gm Q24H IVP ; Start 12/21/21 at 12:00; Stop 12/26/21 at 11:59 Doxycycline Hyclate 100 mg/ Dextrose 100 ml @ 50 mls/hr Q12HR IV ; Start 12/21/21 at 12:00 Active Scripts Active Duoneb 0.5-3(2.5) Mg/3 Ml (Albuterol/Ipratropium) 3 Ml Ampul.neb 3 Ml NEB Q4H 30 Days Reported Proair Hfa Inhaler (Albuterol Sulfate) 8.5 Gm Hfa.aer.ad 2 Puff INH PRN Q4HRS PRN Eliquis (Apixaban) 5 Mg Tablet 5 Mg PO BID Hydrocodone-Acetamin 10-325 mg (Hydrocodone/Acetaminophen) 1 Each Tablet 1 Tab PO TID PRN Losartan Potassium 50 Mg Tablet 1 Tab PO DAILY Mirapex (Pramipexole Di-Hcl) 0.5 Mg Tablet 1 Tab PO QHS Alprazolam 1 Mg Tablet 1 Tab PO QID Gabapentin (Gabapentin) 300 Mg Capsule 300 Mg PO HS Lantus Solostar (Insulin Glargine,Hum.rec.anlog) 100 Unit/1 Ml Insuln.pen 12 Unit SQ QHS Crestor (Rosuvastatin Calcium) 20 Mg Tablet 20 Mg PO HS Montelukast Sodium Tablet (Montelukast Sodium) 10 Mg Tablet 10 Mg PO HS Allergies Allergies: Coded Allergies: bee venom protein (honey bee) (Verified Allergy, Severe, 12/20/21) oxycodone (Verified Allergy, Intermediate, 06/13/19) prednisone (Verified Allergy, Intermediate, 06/13/19) ROS Review of System Negative for fever, chills, weight loss, chest pain, indigestion, hematochezia, melena, and dysuria. Positive for dyspnea. Full 14-point review of systems is negative. Physical Exam Physical Examination General: Well-developed, well-nourished white female in no acute distress HEENT: Normocephalic andatraumatic. Temporal arteriespulsatile and nontender. Neck: Supple without bruit, no meningismus Musculoskeletal: Stability:see neurologic. Gait exam:see neurologic. Tone:see neurologic.Strength:see neurologic. Neurological: Mental Status:intact, orientation, memory, attention span/concentration, language, fund of knowledge normal. Cranial Nerves:Pupils equal and reactive to light, extraocular movements areintact, visual mandel are full to confrontation. Facial sensation is normal. There is no facial asymmetry. Vestibulo-ocular reflex is intact. Palate elevates and tongue protrudes in midline. All other cranial related problems are negative except as mentioned before.Reflexes:2+ and symmetric with flexor plantar responses. Motor:3-4/5 strength bilaterally, no focal findings, with normal tone and bulk. Coordination:Finger-nose finger and jxud-dy-jool testing are normal. Rapid alternating movements and fine finger movements are intact. Not tested. Sensory:Stocking loss Vitals VITALS Vital Signs Date Time Temp Pulse Resp B/P (MAP) Pulse Ox O2 Delivery O2 Flow Rate FiO2 12/21/21 12:19 22 96 Room Air 12/21/21 12:17 97 107/75 12/21/21 11:15 97.7 97.7 Labs Labs [facility] Laboratory Tests Test 12/20/21 13:05 12/20/21 17:28 White Blood Count 7.3 x10^3/uL (4.0-11.0) Red Blood Count 4.57 x10^6/uL (3.50-5.40) Hemoglobin 13.8 g/dL (12.0-15.5) Hematocrit 40.4 % (36.0-47.0) Mean Corpuscular Volume 88 fL (79-100) Mean Corpuscular Hemoglobin 30 pg (25-35) Mean Corpuscular Hemoglobin Concent 34 g/dL (31-37) Red Cell Distribution Width 13.5 % (11.5-14.5) Platelet Count 236 x10^3/uL (140-400) Neutrophils (%) (Auto) 74 % (31-73) Lymphocytes (%) (Auto) 17 % (24-48) Monocytes (%) (Auto) 6 % (0-9) Eosinophils (%) (Auto) 3 % (0-3) Basophils (%) (Auto) 0 % (0-3) Neutrophils # (Auto) 5.4 x10^3uL (1.8-7.7) Lymphocytes # (Auto) 1.2 x10^3/uL (1.0-4.8) Monocytes # (Auto) 0.5 x10^3/uL (0.0-1.1) Eosinophils # (Auto) 0.2 x10^3/uL (0.0-0.7) Basophils # (Auto) 0.0 x10^3/uL (0.0-0.2) Sodium Level 139 mmol/L (136-145) Potassium Level 3.7 mmol/L (3.5-5.1) Chloride Level 101 mmol/L (98-107) Carbon Dioxide Level 31 mmol/L (21-32) Anion Gap 7 (6-14) Blood Urea Nitrogen 4 mg/dL (7-20) Creatinine 0.8 mg/dL (0.6-1.0) Estimated GFR (Cockcroft-Gault) 70.7 BUN/Creatinine Ratio 5 (6-20) Glucose Level 183 mg/dL (70-99) Lactic Acid Level 0.8 mmol/L (0.4-2.0) Calcium Level 8.9 mg/dL (8.5-10.1) Total Bilirubin 0.8 mg/dL (0.2-1.0) Aspartate Amino Transf (AST/SGOT) 15 U/L (15-37) Alanine Aminotransferase (ALT/SGPT) 25 U/L (14-59) Alkaline Phosphatase 128 U/L (46-116) Troponin I High Sensitivity 10 ng/L (4-50) ZQ-Iaz-P-Type Natriuretic Peptide 106 pg/mL (0-124) Total Protein 7.1 g/dL (6.4-8.2) Albumin 3.7 g/dL (3.4-5.0) Albumin/Globulin Ratio 1.1 (1.0-1.7) Urine Collection Type Unknown Urine Color Yellow Urine Clarity Hazy Urine pH 7.0 Urine Specific [place] 1.025 Urine Protein Neg (NEG-TRACE) Urine Glucose (UA) Neg mg/dL (NEG) Urine Ketones (Stick) Trace mg/dL (NEG) Urine Blood Neg (NEG) Urine Nitrite Neg (NEG) Urine Bilirubin Neg (NEG) Urine Urobilinogen Dipstick 1.0 mg/dL (0.2 mg/dL) Urine Leukocyte Esterase Neg (NEG) Urine RBC 1-2 /HPF (0-2) Urine WBC 1-4 /HPF (0-4) Urine Squamous Epithelial Cells Many /LPF Urine Bacteria Few /HPF (0-FEW) Urine Mucus Mod /LPF Laboratory Tests Test 12/21/21 07:20 12/21/21 07:55 12/21/21 12:00 12/21/21 12:25 White Blood Count 3.9 x10^3/uL (4.0-11.0) Red Blood Count 4.51 x10^6/uL (3.50-5.40) Hemoglobin 13.3 g/dL (12.0-15.5) Hematocrit 39.8 % (36.0-47.0) Mean Corpuscular Volume 88 fL (79-100) Mean Corpuscular Hemoglobin 30 pg (25-35) Mean Corpuscular Hemoglobin Concent 34 g/dL (31-37) Red Cell Distribution Width 13.6 % (11.5-14.5) Platelet Count 238 x10^3/uL (140-400) Neutrophils (%) (Auto) 55 % (31-73) Lymphocytes (%) (Auto) 28 % (24-48) Monocytes (%) (Auto) 10 % (0-9) Eosinophils (%) (Auto) 6 % (0-3) Basophils (%) (Auto) 1 % (0-3) Neutrophils # (Auto) 2.1 x10^3/uL (1.8-7.7) Lymphocytes # (Auto) 1.1 x10^3/uL (1.0-4.8) Monocytes # (Auto) 0.4 x10^3/uL (0.0-1.1) Eosinophils # (Auto) 0.2 x10^3/uL (0.0-0.7) Basophils # (Auto) 0.0 x10^3/uL (0.0-0.2) Sodium Level 141 mmol/L (136-145) Potassium Level 3.4 mmol/L (3.5-5.1) Chloride Level 103 mmol/L (98-107) Carbon Dioxide Level 32 mmol/L (21-32) Anion Gap 6 (6-14) Blood Urea Nitrogen 7 mg/dL (7-20) Creatinine 0.9 mg/dL (0.6-1.0) Estimated GFR (Cockcroft-Gault) 61.7 Glucose Level 205 mg/dL (70-99) Calcium Level 8.8 mg/dL (8.5-10.1) Glucose (Fingerstick) 199 mg/dL (70-99) 231 mg/dL (70-99) Troponin I High Sensitivity 7 ng/L (4-50) Test 12/21/21 13:24 Glucose (Fingerstick) 263 mg/dL (70-99) Laboratory Tests Test 12/21/21 07:20 12/21/21 07:55 12/21/21 12:00 12/21/21 12:25 White Blood Count 3.9 x10^3/uL (4.0-11.0) Red Blood Count 4.51 x10^6/uL (3.50-5.40) Hemoglobin 13.3 g/dL (12.0-15.5) Hematocrit 39.8 % (36.0-47.0) Mean Corpuscular Volume 88 fL (79-100) Mean Corpuscular Hemoglobin 30 pg (25-35) Mean Corpuscular Hemoglobin Concent 34 g/dL (31-37) Red Cell Distribution Width 13.6 % (11.5-14.5) Platelet Count 238 x10^3/uL (140-400) Neutrophils (%) (Auto) 55 % (31-73) Lymphocytes (%) (Auto) 28 % (24-48) Monocytes (%) (Auto) 10 % (0-9) Eosinophils (%) (Auto) 6 % (0-3) Basophils (%) (Auto) 1 % (0-3) Neutrophils # (Auto) 2.1 x10^3/uL (1.8-7.7) Lymphocytes # (Auto) 1.1 x10^3/uL (1.0-4.8) Monocytes # (Auto) 0.4 x10^3/uL (0.0-1.1) Eosinophils # (Auto) 0.2 x10^3/uL (0.0-0.7) Basophils # (Auto) 0.0 x10^3/uL (0.0-0.2) Sodium Level 141 mmol/L (136-145) Potassium Level 3.4 mmol/L (3.5-5.1) Chloride Level 103 mmol/L (98-107) Carbon Dioxide Level 32 mmol/L (21-32) Anion Gap 6 (6-14) Blood Urea Nitrogen 7 mg/dL (7-20) Creatinine 0.9 mg/dL (0.6-1.0) Estimated GFR (Cockcroft-Gault) 61.7 Glucose Level 205 mg/dL (70-99) Calcium Level 8.8 mg/dL (8.5-10.1) Glucose (Fingerstick) 199 mg/dL (70-99) 231 mg/dL (70-99) Troponin I High Sensitivity 7 ng/L (4-50) Test 12/21/21 13:24 Glucose (Fingerstick) 263 mg/dL (70-99) Images Images CT head without IV contrast INDICATION:71 years, Female, possible stroke. COMPARISON: Head CT from 10/17/2020 TECHNIQUE: Spiral acquisition of contiguous images from the skull base to the vertex were obtained. Sagittal and coronal 2D reformatted series were provided by the technologist. Soft tissue and bone window algorithms were reviewed. Exposure: One or more of the following individualized dose reduction techniques were utilized for this examination: 1. Automated exposure control 2. Adjustment of the mA and/or kV according to patient size 3. Use of iterative reconstruction technique. FINDINGS: Neither mass, midline shift, intracranial hemorrhage, acute/subacute ischemic changes, nor extraaxial fluid collections are seen. Brain parenchymal volume loss. 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 The ventricular system is within normal limits of variation. Complete opacification of the right maxillary sinus. Paranasal sinuses and mastoid air cells are clear., mastoid air cells, and middle ears are clear.The orbital contents appear within normal limits. 3 demonstrated a linear high densities structures are within the subcutaneous soft tissues overlying the right frontal region measuring 9 mm which could be from a calcification or a high density foreign body in the soft tissues. IMPRESSION: 1. No evidence of acute intracranial abnormality. 2. 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 3. Right maxillary sinusitis Assessment/Plan Assessment/Plan Impression: Spell of unresponsiveness in a patient with psychogenic nonepileptic seizures, no focal findings now to suggest that she had a stroke, will keep the possibility of a transient ischemic attack in mind. She is diffusely weak. She has a stocking sensory loss but I doubt that this is a Guillain-Noel syndrome. The dysphagia is concerning, nonetheless. Dysphagia Evidence of peripheral neuropathy History of psychogenic nonepileptic seizures History of migraine headaches Pneumonia Recommendations: CT angiogram, will probably need to be delayed until tomorrow because she had a CT of the chest with contrast today. Swallow evaluation Hold on resuming benzodiazepine for her psychogenic nonepileptic seizures. Clorazepate is not on our formulary. Hold on brain MRI Rehabilitation modalities Treatment of pneumonia Frequent neuro checks Thank you for letting me help with the patient's care. WING BAZZI MD Dec 21, 2021 15:16
[2021-12-21 15:19] VITALS: BP 113/46
--- NOTE | 2021-12-21 16:06 | RAD ---
EXAMINATION: CT Chest With IV contrast INDICATION:71 years, Female, left upper lobe infiltrate, evaluate for malignancy. COMPARISON: 10/17/2020. TECHNIQUE: Spiral CT was obtained from the jugular notch through the posterior costophrenic recess. S agittal and coronal reformats were obtained. Exposure: One or more of the following individualized dose reduction techniques were utilized for thi s examination: 1. Automated exposure control 2. Adjustment of the mA and/or kV according to patient size 3. Use of iterative reconstruction technique. FINDINGS: LUNGS/PLEURA: Central airways are patent. Similar bilateral upper lobe peribronchvacular scarring wit h bronchiectasis. Emphysematous changes. Redemonstrated scattered mucous plugging in the right middle and left upper lobes, similar to prior exam. No focal consolidation, pleural effusion or pneumothora x. Stable 4 mm irregular sub-solid pulmonary nodule in the left lower lobe (series 3 image 27). MEDIASTINUM: No pathologic mediastinal or hilar adenopathy. The thoracic aorta and pulmonary arteries are normal in caliber. The heart is normal in size. No pericardial effusion. Moderate calcified cristian nary atherosclerosis. The visualized thyroid and the esophagus are unremarkable. AXILLA/SOFT TISSUE: No supraclavicular or axillary adenopathy. Regional soft tissues are within marla l limits. UPPER ABDOMEN: Stable left renal cyst. Severe atrophic pancreas. BONES: No evidence of acute fractures or aggressive osseous lesions. IMPRESSION: Stable 4 mm sub-solid pulmonary nodule in the left lower lobe. Otherwise, no pulmonary masses or susp icious lymph nodes. Electronically signed by: Noe Arzate MD (12/21/2021 4:04 PM) [id number]
[2021-12-21] MEDS: DOXYCYCLINE HYCLATE 100 MG in IV DEXTROSE 5% 100ML 100 ML IV SCH ×2 (16:44→21:16)
[2021-12-21] MEDS: cefTRIAXone IV Push 1 GM VIAL. IVP SCH (16:45)
[2021-12-21 19:00] VITALS: BP 107/48
[2021-12-21] MEDS: PRAMIPEXOLE 0.25 MG TABLET. PO SCH (21:15)
[2021-12-21] MEDS: GABAPENTIN 300 MG CAPSULE. PO SCH (21:15)
[2021-12-21] MEDS: MONTELUKAST SODIUM 10 MG TABLET. PO SCH (21:15)
[2021-12-21] MEDS: ATORVASTATIN CALCIUM 40 MG TABLET. PO SCH (21:15)
[2021-12-21] MEDS: INSULIN GLARGINE SYRINGE. SQ SCH (21:18)
[2021-12-21 23:00] VITALS: BP 102/54
[2021-12-22 03:00] VITALS: BP 107/58
[2021-12-22 07:00] VITALS: BP 113/58
[2021-12-22] MEDS ORDERED: IOHEXOL 300 MG/ML 100ML VIAL. IV ONE (08:00)
[2021-12-22] MEDS: IPRATRPIUM/ALBUTEROL 0.5/2.5MG 3 ML NEBU. NEB SCH ×4 (08:39→18:28)
[2021-12-22] MEDS: APIXABAN 5 MG TABLET. PO SCH ×2 (08:49→22:05)
[2021-12-22] MEDS: ALPRAZolam 1 MG TABLET PO SCH ×4 (08:49→22:05)
[2021-12-22] MEDS: LOSARTAN POTASSIUM 50 MG TABLET. PO SCH (08:50)
[2021-12-22] MEDS: DOXYCYCLINE HYCLATE 100 MG in IV DEXTROSE 5% 100ML 100 ML IV SCH ×2 (09:24→22:01)
--- NOTE | 2021-12-22 10:15 | PDOC ---
PROGRESS NOTES Date of Service DATE: 12/22/21 TIME: 10:12 Assessment Spell of unresponsiveness in a patient with psychogenic nonepileptic seizures, no focal findings now to suggest that she had a stroke. Stronger today Dysphagia Evidence of peripheral neuropathy History of psychogenic nonepileptic seizures History of migraine headaches Pneumonia Plan Await CT angiogram (had trouble with IV access this morning) Swallow evaluation, held yesterday as patient just had gotten some morphine Hold on resuming benzodiazepine for her psychogenic nonepileptic seizures. Clorazepate is not on our formulary. Hold on brain MRI Rehabilitation modalities Treatment of pneumonia Frequent neuro checks Subjective Feels better Objective Vital Signs Date Time Temp Pulse Resp B/P (MAP) Pulse Ox O2 Delivery O2 Flow Rate FiO2 12/22/21 08:50 79 113/58 12/22/21 08:39 95 Room Air 12/22/21 07:00 98.2 16 98.2 12/21/21 15:46 3.0 Intake and Output 12/22/21 07:00 Intake Total 970 ml Balance 970 ml Intake Oral 970 ml # Voids 3 PHYSICAL EXAM Alert. Oriented to time, place and person. PERRL. EOMI. CN: no focal findings. Muscle tone: normal. Muscle strength: 4/5 DTR: 2+ Plantar reflex: Flexor Gait: not examined in bed. Sensory exam: Stocking loss. No cerebellar signs elicited. Review of Relevant I have reviewed the following items alma (where applicable) has been applied. Labs Laboratory Tests Test 12/21/21 07:20 12/21/21 07:55 12/21/21 12:00 12/21/21 12:25 White Blood Count 3.9 x10^3/uL (4.0-11.0) Red Blood Count 4.51 x10^6/uL (3.50-5.40) Hemoglobin 13.3 g/dL (12.0-15.5) Hematocrit 39.8 % (36.0-47.0) Mean Corpuscular Volume 88 fL (79-100) Mean Corpuscular Hemoglobin 30 pg (25-35) Mean Corpuscular Hemoglobin Concent 34 g/dL (31-37) Red Cell Distribution Width 13.6 % (11.5-14.5) Platelet Count 238 x10^3/uL (140-400) Neutrophils (%) (Auto) 55 % (31-73) Lymphocytes (%) (Auto) 28 % (24-48) Monocytes (%) (Auto) 10 % (0-9) Eosinophils (%) (Auto) 6 % (0-3) Basophils (%) (Auto) 1 % (0-3) Neutrophils # (Auto) 2.1 x10^3/uL (1.8-7.7) Lymphocytes # (Auto) 1.1 x10^3/uL (1.0-4.8) Monocytes # (Auto) 0.4 x10^3/uL (0.0-1.1) Eosinophils # (Auto) 0.2 x10^3/uL (0.0-0.7) Basophils # (Auto) 0.0 x10^3/uL (0.0-0.2) Sodium Level 141 mmol/L (136-145) Potassium Level 3.4 mmol/L (3.5-5.1) Chloride Level 103 mmol/L (98-107) Carbon Dioxide Level 32 mmol/L (21-32) Anion Gap 6 (6-14) Blood Urea Nitrogen 7 mg/dL (7-20) Creatinine 0.9 mg/dL (0.6-1.0) Estimated GFR (Cockcroft-Gault) 61.7 Glucose Level 205 mg/dL (70-99) Calcium Level 8.8 mg/dL (8.5-10.1) Glucose (Fingerstick) 199 mg/dL (70-99) 231 mg/dL (70-99) Troponin I High Sensitivity 7 ng/L (4-50) Test 12/21/21 13:24 12/21/21 16:54 12/21/21 17:40 12/21/21 20:00 Glucose (Fingerstick) 263 mg/dL (70-99) 197 mg/dL (70-99) Troponin I High Sensitivity 7 ng/L (4-50) 9 ng/L (4-50) Test 12/21/21 20:59 12/22/21 07:24 Glucose (Fingerstick) 243 mg/dL (70-99) 157 mg/dL (70-99) Laboratory Tests Test 12/21/21 12:00 12/21/21 12:25 12/21/21 13:24 12/21/21 16:54 Glucose (Fingerstick) 231 mg/dL (70-99) 263 mg/dL (70-99) 197 mg/dL (70-99) Troponin I High Sensitivity 7 ng/L (4-50) Test 12/21/21 17:40 12/21/21 20:00 12/21/21 20:59 12/22/21 07:24 Troponin I High Sensitivity 7 ng/L (4-50) 9 ng/L (4-50) Glucose (Fingerstick) 243 mg/dL (70-99) 157 mg/dL (70-99) Medications Current Medications Benzonatate (Tessalon Perle) 100 mg PRN TID PRN PO COUGH 1ST CHOICE Last administered on 12/21/21at 00:44; Start 12/21/21 at 00:30 Alprazolam (Xanax) 1 mg QID PO Last administered on 12/22/21at 08:49; Start 12/21/21 at 00:30 Dextrose (Dextrose 50%-Water Syringe) 12.5 gm PRN Q15MIN PRN IV SEE COMMENTS; Start 12/21/21 at 00:30; Status UNV Dextrose (Iv Dextrose 5%) 250 ml PRN Q15MIN PRN IV SEE COMMENTS; Start 12/21/21 at 00:30 Guaifenesin (Robitussin Dm) 10 ml PRN Q6HRS PRN PO COUGH 2ND CHOICE Last administered on 12/21/21at 23:32; Start 12/21/21 at 04:00 Albuterol/ Ipratropium (Duoneb) 3 ml RTQID NEB Last administered on 12/22/21at 08:39; Start 12/21/21 at 12:00 Iohexol (Omnipaque 300 Mg/ml) 75 ml 1X ONCE IV Last administered on 12/21/21at 10:42; Start 12/21/21 at 10:30; Stop 12/21/21 at 10:31; Status DC Info (CONTRAST GIVEN -- Rx MONITORING) 1 each PRN DAILY PRN MC SEE COMMENTS; Start 12/21/21 at 10:30; Stop 12/23/21 at 10:29 Hydralazine HCl (Apresoline Inj) 10 mg PRN Q4HRS PRN IVP ELEVATED BP, SEE COMMENTS; Start 12/21/21 at 10:45 Apixaban (Eliquis) 5 mg BID PO Last administered on 12/22/21 08:49; Start 12/21/21 at 11:00 Gabapentin (Neurontin) 300 mg HS PO Last administered on 12/21/21at 21:15; Start 12/21/21 at 21:00 Acetaminophen/ Hydrocodone Bitart (Lortab 10/325) 1 tab TID PRN PO PAIN Last administered on 12/21/21 12:19; Start 12/21/21 at 10:45 Losartan Potassium (Cozaar) 50 mg DAILY PO Last administered on 12/22/21 08:50; Start 12/21/21 at 11:00 Montelukast Sodium (Singulair) 10 mg HS PO Last administered on 12/21/21 21:15; Start 12/21/21 at 21:00 Insulin Glargine (Lantus Syringe) 12 unit QHS SQ Last administered on 12/21/21 21:18; Start 12/21/21 at 21:00 Pramipexole Dihydrochloride (miraPEX) 0.5 mg QHS PO Last administered on 12/21/21 21:15; Start 12/21/21 at 21:00 Atorvastatin Calcium (Lipitor) 80 mg HS PO Last administered on 12/21/21 21:15; Start 12/21/21 at 21:00 Guaifenesin/ Codeine Phosphate (Robitussin Ac) 5 ml PRN Q6HRS PRN PO COUGH; Start 12/21/21 at 10:45 Zolpidem Tartrate (Ambien) 5 mg PRN QHS PRN PO INSOMNIA, MAY REPEAT IN 1HR Last administered on 12/21/21 23:35; Start 12/21/21 at 10:45 Morphine Sulfate (Morphine Sulfate) 2 mg PRN Q1HR PRN IV PAIN Last administered on 12/21/21at 16:43; Start 12/21/21 at 10:45 Acetaminophen (Tylenol) 650 mg PRN Q6HRS PRN PO Headaches, Temp > 101.5F; Start 12/21/21 at 10:45 Magnesium Hydroxide (Milk Of Magnesia) 2,400 mg PRN Q12HR PRN PO CONSTIPATION; Start 12/21/21 at 10:45 Ceftriaxone Sodium (Rocephin) 1 gm Q24H IVP Last administered on 12/21/21at 16:45; Start 12/21/21 at 12:00; Stop 12/26/21 at 11:59 Doxycycline Hyclate 100 mg/ Dextrose 100 ml @ 50 mls/hr Q12HR IV Last administered on 12/22/21at 09:24; Start 12/21/21 at 12:00 Iohexol (Omnipaque 300 Mg/ml) 75 ml 1X ONCE IV ; Start 12/22/21 at 08:00; Stop 12/22/21 at 08:04; Status DC Active Scripts Active Duoneb 0.5-3(2.5) Mg/3 Ml (Albuterol/Ipratropium) 3 Ml Ampul.neb 3 Ml NEB Q4H 30 Days Reported Proair Hfa Inhaler (Albuterol Sulfate) 8.5 Gm Hfa.aer.ad 2 Puff INH PRN Q4HRS PRN Eliquis (Apixaban) 5 Mg Tablet 5 Mg PO BID Hydrocodone-Acetamin 10-325 mg (Hydrocodone/Acetaminophen) 1 Each Tablet 1 Tab PO TID PRN Losartan Potassium 50 Mg Tablet 1 Tab PO DAILY Mirapex (Pramipexole Di-Hcl) 0.5 Mg Tablet 1 Tab PO QHS Alprazolam 1 Mg Tablet 1 Tab PO QID Gabapentin (Gabapentin) 300 Mg Capsule 300 Mg PO HS Lantus Solostar (Insulin Glargine,Hum.rec.anlog) 100 Unit/1 Ml Insuln.pen 12 Unit SQ QHS Crestor (Rosuvastatin Calcium) 20 Mg Tablet 20 Mg PO HS Montelukast Sodium Tablet (Montelukast Sodium) 10 Mg Tablet 10 Mg PO HS Vitals/I & O Vital Sign - Last 24 Hours 12/21/21 12/21/21 12/21/21 12/21/21 11:15 12:17 12:19 15:19 Temp 97.7 97.6 97.7 97.6 Pulse 97 97 69 Resp 20 22 18 B/P (MAP) 107/75 (86) 107/75 113/46 (68) Pulse Ox 92 96 96 O2 Delivery Room Air Room Air Room Air 12/21/21 12/21/21 12/21/21 12/21/21 15:46 17:13 19:00 20:05 Temp 97.6 97.6 Pulse 101 Resp 22 18 B/P (MAP) 107/48 (67) Pulse Ox 92 93 91 O2 Delivery Nasal Cannula Room Air Room Air O2 Flow Rate 3.0 12/21/21 12/21/21 12/22/21 12/22/21 20:18 23:00 03:00 07:00 Temp 97.6 97.6 98.2 97.6 97.6 98.2 Pulse 85 81 79 Resp 18 16 16 B/P (MAP) 102/54 (70) 107/58 (74) 113/58 (76) Pulse Ox 98 93 91 91 O2 Delivery Room Air 12/22/21 12/22/21 08:39 08:50 Pulse 79 B/P (MAP) 113/58 Pulse Ox 95 O2 Delivery Room Air Intake and Output 12/21/21 12/21/21 12/22/21 15:00 23:00 07:00 Intake Total 650 ml 320 ml 0 ml Balance 650 ml 320 ml 0 ml Justicifation of Admission Dx: Justifications for Admission: Justification of Admission Dx: N/A WING BAZZI MD Dec 22, 2021 10:15
[2021-12-22 11:00] VITALS: BP 113/60
--- NOTE | 2021-12-22 11:22 | CONS ---
DATE OF CONSULTATION: 12/22/2021 PULMONARY CONSULTATION ATTENDING PHYSICIAN: Armen Irwin MD REASON FOR CONSULTATION: Lung nodule, cough. HISTORY OF PRESENT ILLNESS: The patient is a 71-year-old female who denies any history of tobacco use. She has history of asthma. She has history of CAD with stents and history of lymphoma. She was transferred from [facility] as she was complaining of cough for the last 4-5 days. It was nonproductive. No hemoptysis. No weight loss. No leg edema. No nausea or vomiting. No diarrhea. No chest pain. The patient failed outpatient azithromycin. She was given breathing treatment. She was transferred to our facility for further care. The patient also had a CT chest, which was reviewed by me, dated 12/21/2021. There is evidence of upper lobe parenchymal scarring. There is a 4 mm nodule in the left lower lobe. There is also a parenchymal nodule, which is slightly larger in the right lower lobe. Not been reported. A consultation requested for further evaluation and management. PAST MEDICAL HISTORY: Significant for history of atrial fibrillation, coronary artery disease, hypertension, VA, hyperlipidemia, history of pulmonary embolism, COPD, CVA, seizure, GERD, peptic ulcer disease, anxiety, depression, osteoarthritis and diabetes. PAST SURGICAL HISTORY: Cholecystectomy and hysterectomy. FAMILY HISTORY: Lung cancer in father and sister. ALLERGIES: All reviewed as listed in the MRAD. MEDICATIONS: Reviewed as listed in the MRAD. SYSTEM REVIEW: Twelve-point review of system obtained. Pertinent positives discussed in my present illness, otherwise noncontributory. All systems that were negative were reviewed as well. SOCIAL HISTORY: Denies any tobacco use. PHYSICAL EXAMINATION: VITAL SIGNS: Reviewed. Pulse ox 95% on room air. NECK: Supple. LUNGS: Clear. CARDIOVASCULAR: With a regular rate. ABDOMEN: Soft, nontender. EXTREMITIES: With no pitting edema. LABORATORY DATA: Labs were reviewed. White cell count 3.9, hemoglobin 13.3 and platelets are 238. BUN normal, creatinine normal. IMPRESSION: 1. Acute bronchitis with no obvious evidence of pneumonia. 2. History of asthma, but no significant history of tobacco use. Mild asthma exacerbation, contributed by bronchitis. 3. Abnormal CT chest with upper lobe parenchymal scarring. She also has a 4 mm stable nodule in the left lower lobe. There is also a parenchymal nodule in the right lower lobe, not reported. Both stable. We will discuss with Radiology. She will need a followup CT in 6 months. 4. h/o pulmonary embolism diagnosed 2 years ago at [facility]. Has been on anticoagulation with Eliquis since then. Underlying malignancy/lymphoma being the risk factor. 5. History of lymphoma. Patient according to her history has been in remission since 2 years. Being followed at [facility]. RECOMMENDATIONS: 1. Continue with present empiric antibiotics. 2. P.r.n. bronchodilators. 3. Continue to have a followup CT chest in about 6 months. 4. Discussed with Dr. Landrum and we will follow along with you. 5. Eliquis lifelong. 5. Follow neurology recommendations GABBY/JONA DR: Evelio TID: [id number] STEVAN
--- NOTE | 2021-12-22 12:16 | PDOC ---
[employer] PROGRESS NOTE Date of Service DOS: DATE: 12/22/21 TIME: 12:10 Chief Complaint Chief Complaint Left lung pneumonia Acute COPD Possible left lobe malignancy Left lobe pulmonary nodule History of Present Illness History of Present Illness Patient is a 71-year-old female with past medical history COPD, asthma, CAD with stents, lymphoma, who presents as a transfer from [facility] ED with complaints of worsening cough over the past week. She was seen by a PA at an outside clinic and given azithromycin, of which she took for 4 days without improvement. She also reports use of a home breathing treatment without significant improvement. Yesterday at [facility] ED, a chest x-ray noted new left suprahilar infiltrate favoring area of pneumonia. However a chest CT with IV contrast is recommended to exclude underlying malignancy. At the time of my evaluation she is complaining of left-sided chest pain, and she is unsure if it is related to her coughing. She was seen by her seconds handler 2 weeks ago, who noted some blockage of her cardiac stents but did not schedule any intervention at this time. Despite her diagnosis of COPD, she states she is not a smoker. Her last COPD exacerbation was some years ago. Patient denies fever, chills, sputum production. 12/22: Patient seen and evaluated bedside. She had unresponsive episode yesterday, concern for CVA. Neurology has been consulted. Had CT head that was negative for bleed, per Dr. Chaves preferring to hold off on MRI for now. 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 Consultation was placed to pulmonology regarding pulmonary nodule. CT chest with contrast showed 4 mm stable left pulmonary nodule, concerning given her history of lymphoma. Pulmonology following. Patient states she feels better and appears much more alert and conversive today. Still complains of chest congestion; recommended guaifenesin. Continue treatment for pneumonia/COPD. Discussed with RN. Vitals/I&O Vitals/I&O: Vital Signs Date Time Temp Pulse Resp B/P (MAP) Pulse Ox O2 Delivery O2 Flow Rate FiO2 12/22/21 11:00 97.6 93 18 113/60 (77) 94 97.6 12/22/21 08:39 Room Air 12/21/21 15:46 3.0 I & O 12/21/21 12/21/21 12/22/21 15:00 23:00 07:00 Intake Total 650 ml 320 ml 0 ml Balance 650 ml 320 ml 0 ml Physical Exam General: Alert, Cooperative Heart: Regular rate Lungs: Wheezing, Crackles Abdomen: Soft Extremities: No cyanosis, No edema Skin: No rashes Labs Labs: Laboratory Tests Test 12/21/21 12:25 12/21/21 13:24 12/21/21 16:54 12/21/21 17:40 Troponin I High Sensitivity 7 ng/L (4-50) 7 ng/L (4-50) Glucose (Fingerstick) 263 mg/dL (70-99) 197 mg/dL (70-99) Test 12/21/21 20:00 12/21/21 20:59 12/22/21 07:24 Troponin I High Sensitivity 9 ng/L (4-50) Glucose (Fingerstick) 243 mg/dL (70-99) 157 mg/dL (70-99) Comment Review of Relevant I have reviewed the following items alma (where applicable) has been applied. Medications: Current Medications Medications (Trade) Dose Ordered Sig/Marily Route PRN Reason Start Time Stop Time Status Last Admin Dose Admin Gabapentin (Neurontin) 300 mg HS PO 12/21/21 21:00 12/21/21 21:15 Montelukast Sodium (Singulair) 10 mg HS PO 12/21/21 21:00 12/21/21 21:15 Insulin Glargine (Lantus Syringe) 12 unit QHS SQ 12/21/21 21:00 12/21/21 21:18 Pramipexole Dihydrochloride (miraPEX) 0.5 mg QHS PO 12/21/21 21:00 12/21/21 21:15 Atorvastatin Calcium (Lipitor) 80 mg HS PO 12/21/21 21:00 12/21/21 21:15 Justifications for Admission Other Justification STEPHAN YO MD Dec 22, 2021 12:16
--- NOTE | 2021-12-22 12:28 | NUR ---
Call placed to Dr. Chaves's office regarding inability to gain IV access for patient. Patient requires IV access for CT scan and IV antibiotics, awaiting callback.
[2021-12-22 13:47] LABS: BASO % 1 % (0-3); EOS # 0.2 x10^3/uL (0.0-0.7); EOS % 4 % (0-3); HEMOGLOBIN 12.2 g/dL (12.0-15.5); LYMPH % 21 % (24-48); MEAN CORPUSCULAR HEMOGLOBIN 29 pg (25-35); MEAN CORPUSCULAR HGB CONC 33 g/dL (31-37); MEAN CORPUSCULAR VOLUME 88 fL (79-100); MONO # 0.3 x10^3/uL (0.0-1.1); MONO % 7 % (0-9); NEUT # 3.4 x10^3/uL (1.8-7.7); NEUT % 68 % (31-73); PLATELET COUNT 222 x10^3/uL (140-400); RED CELL DISTRIBUTION WIDTH 13.4 % (11.5-14.5)
[2021-12-22 14:01] LABS: CALCIUM 8.8 mg/dL (8.5-10.1); CREATININE 0.9 mg/dL (0.6-1.0); GFR 61.7; POTASSIUM 3.6 mmol/L (3.5-5.1)
[2021-12-22 15:00] VITALS: BP 106/49
--- NOTE | 2021-12-22 15:52 | NUR ---
Allergies and reactions: Oxycodone, prednisone INR BUN 7 Cr 0.9 Platelets 238 Blood culture done 12/21 blood culture results No growth Order Verified y Consent signed y Previous PICC placement n Past Medical/Surgical history and current diagnosis reviewed y Patient Medical /Surgical History Related to PICC line placement Infectious Disease consult Special considerations for Midline line placement None Midline placement indication Poor peripheral intravenous access Maxi CRAIN Addendum: 12/22/21 at 1846 by KATHRYN KIMBALL RN Amended: Links added.
[2021-12-22] MEDS: cefTRIAXone IV Push 1 GM VIAL. IVP SCH (16:41)
--- NOTE | 2021-12-22 18:44 | NUR ---
Procedure: Following complete explanation of the MIDLINE procedure including the indications, risks, and potential complications, informed consent was obtained. The possibility for infection was discussed along with signs, symptoms, and prevention. All the questions were answered. Written and verbal patient education was provided. Hand hygiene performed. Standardized central line checklist was utilized. The patient was placed in the supine position, the arm was prepped with chlorhexidine and patient draped with maximum sterile barrier. 2 mL 1% lidocaine was infiltrated into the skin to provide local anesthesia. A thorough assessment of RIGHT upper extremity completed. Using real-time ultrasound guidance and standardized micro puncture set, the BASILLIC vein was punctured and a peel away sheath was placed using the modified Seldinger technique. A tip location device was used to ensure adequate catheter placement. The catheter was secured using a securement device and an antimicrobial patch was applied directly on the insertion site followed by a transparent dressing. All ports withdraw blood and flush without resistance. Patient tolerated the procedure without apparent complication(s). SINGLE L[employer] MIDLINE placement successful and uncomplicated. Placement verified by EKG tip confirmation system and/or chest x-ray. Tip located in the axilla region. Complications: NONE Addendum: 12/22/21 at 1846 by KATHRYN KIMBALL RN Amended: Links added.
[2021-12-22 19:10] VITALS: BP 117/60
[2021-12-22] MEDS: ATORVASTATIN CALCIUM 40 MG TABLET. PO SCH (22:04)
[2021-12-22] MEDS: PRAMIPEXOLE 0.25 MG TABLET. PO SCH (22:05)
[2021-12-22] MEDS: MONTELUKAST SODIUM 10 MG TABLET. PO SCH (22:05)
[2021-12-22] MEDS: GABAPENTIN 300 MG CAPSULE. PO SCH (22:05)
[2021-12-22] MEDS: INSULIN GLARGINE SYRINGE. SQ SCH (22:17)
[2021-12-22 23:45] VITALS: BP 120/60
[2021-12-23 04:15] VITALS: BP 101/39
[2021-12-23 05:11] LABS: BASO % 1 % (0-3); EOS # 0.3 x10^3/uL (0.0-0.7); EOS % 7 % (0-3); HEMATOCRIT 35.3 % (36.0-47.0); HEMOGLOBIN 11.7 g/dL (12.0-15.5); LYMPH % 26 % (24-48); MEAN CORPUSCULAR HEMOGLOBIN 30 pg (25-35); MEAN CORPUSCULAR HGB CONC 33 g/dL (31-37); MEAN CORPUSCULAR VOLUME 89 fL (79-100); MONO # 0.4 x10^3/uL (0.0-1.1); MONO % 11 % (0-9); NEUT # 2.1 x10^3/uL (1.8-7.7); NEUT % 55 % (31-73); PLATELET COUNT 239 x10^3/uL (140-400); RED BLOOD COUNT 3.97 x10^6/uL (3.50-5.40); RED CELL DISTRIBUTION WIDTH 13.3 % (11.5-14.5); WHITE BLOOD COUNT 3.9 x10^3/uL (4.0-11.0)
[2021-12-23 06:01] LABS: CREATININE 0.8 mg/dL (0.6-1.0); GFR 70.7; POTASSIUM 3.9 mmol/L (3.5-5.1)
[2021-12-23 07:00] VITALS: BP 91/50
[2021-12-23] MEDS: IPRATRPIUM/ALBUTEROL 0.5/2.5MG 3 ML NEBU. NEB SCH ×2 (07:06→11:15)
[2021-12-23] MEDS ORDERED: IOHEXOL 300 MG/ML 100ML VIAL. IV ONE (08:30)
[2021-12-23] MEDS ORDERED: CONTRAST GIVEN. MC PRN (08:45)
[2021-12-23] MEDS: LOSARTAN POTASSIUM 50 MG TABLET. PO SCH (08:49)
[2021-12-23] MEDS ORDERED: LACTOBACILLUS RHAMNOSUS GG 1 CAPSULE. PO SCH (09:00)
[2021-12-23] MEDS: APIXABAN 5 MG TABLET. PO SCH (09:20)
[2021-12-23] MEDS: ALPRAZolam 1 MG TABLET PO SCH (09:20)
[2021-12-23] MEDS: DOXYCYCLINE HYCLATE 100 MG in IV DEXTROSE 5% 100ML 100 ML IV SCH (09:20)
--- NOTE | 2021-12-23 10:00 | PDOC ---
PULMONARY PROGRESS NOTES DATE: 12/23/21 TIME: 09:58 Subjective Cough is better. Does not feel well. No shortness of breath. Vitals Vital Signs Date Time Temp Pulse Resp B/P (MAP) Pulse Ox O2 Delivery O2 Flow Rate FiO2 12/23/21 08:49 88 91/51 12/23/21 07:06 94 Room Air 12/23/21 07:00 97.9 18 97.9 General: Alert, Oriented X4, No acute distress Lungs: Clear Cardiovascular: S1, S2 Abdomen: Soft, Non-tender Neuro Exam: Alert Extremities: No Edema Labs Laboratory Tests Test 12/21/21 12:00 12/21/21 12:25 12/21/21 13:24 12/21/21 16:54 Glucose (Fingerstick) 231 mg/dL (70-99) 263 mg/dL (70-99) 197 mg/dL (70-99) Troponin I High Sensitivity 7 ng/L (4-50) Test 12/21/21 17:40 12/21/21 20:00 12/21/21 20:59 12/22/21 07:24 Troponin I High Sensitivity 7 ng/L (4-50) 9 ng/L (4-50) Glucose (Fingerstick) 243 mg/dL (70-99) 157 mg/dL (70-99) Test 12/22/21 12:15 12/22/21 13:35 12/22/21 17:05 12/22/21 22:13 Glucose (Fingerstick) 163 mg/dL (70-99) 204 mg/dL (70-99) 224 mg/dL (70-99) White Blood Count 5.0 x10^3/uL (4.0-11.0) Red Blood Count 4.20 x10^6/uL (3.50-5.40) Hemoglobin 12.2 g/dL (12.0-15.5) Hematocrit 37.0 % (36.0-47.0) Mean Corpuscular Volume 88 fL (79-100) Mean Corpuscular Hemoglobin 29 pg (25-35) Mean Corpuscular Hemoglobin Concent 33 g/dL (31-37) Red Cell Distribution Width 13.4 % (11.5-14.5) Platelet Count 222 x10^3/uL (140-400) Neutrophils (%) (Auto) 68 % (31-73) Lymphocytes (%) (Auto) 21 % (24-48) Monocytes (%) (Auto) 7 % (0-9) Eosinophils (%) (Auto) 4 % (0-3) Basophils (%) (Auto) 1 % (0-3) Neutrophils # (Auto) 3.4 x10^3/uL (1.8-7.7) Lymphocytes # (Auto) 1.0 x10^3/uL (1.0-4.8) Monocytes # (Auto) 0.3 x10^3/uL (0.0-1.1) Eosinophils # (Auto) 0.2 x10^3/uL (0.0-0.7) Basophils # (Auto) 0.0 x10^3/uL (0.0-0.2) Sodium Level 141 mmol/L (136-145) Potassium Level 3.6 mmol/L (3.5-5.1) Chloride Level 105 mmol/L (98-107) Carbon Dioxide Level 29 mmol/L (21-32) Anion Gap 7 (6-14) Blood Urea Nitrogen 9 mg/dL (7-20) Creatinine 0.9 mg/dL (0.6-1.0) Estimated GFR (Cockcroft-Gault) 61.7 Glucose Level 193 mg/dL (70-99) Calcium Level 8.8 mg/dL (8.5-10.1) Test 12/23/21 04:20 12/23/21 08:25 White Blood Count 3.9 x10^3/uL (4.0-11.0) Red Blood Count 3.97 x10^6/uL (3.50-5.40) Hemoglobin 11.7 g/dL (12.0-15.5) Hematocrit 35.3 % (36.0-47.0) Mean Corpuscular Volume 89 fL (79-100) Mean Corpuscular Hemoglobin 30 pg (25-35) Mean Corpuscular Hemoglobin Concent 33 g/dL (31-37) Red Cell Distribution Width 13.3 % (11.5-14.5) Platelet Count 239 x10^3/uL (140-400) Neutrophils (%) (Auto) 55 % (31-73) Lymphocytes (%) (Auto) 26 % (24-48) Monocytes (%) (Auto) 11 % (0-9) Eosinophils (%) (Auto) 7 % (0-3) Basophils (%) (Auto) 1 % (0-3) Neutrophils # (Auto) 2.1 x10^3/uL (1.8-7.7) Lymphocytes # (Auto) 1.0 x10^3/uL (1.0-4.8) Monocytes # (Auto) 0.4 x10^3/uL (0.0-1.1) Eosinophils # (Auto) 0.3 x10^3/uL (0.0-0.7) Basophils # (Auto) 0.0 x10^3/uL (0.0-0.2) Sodium Level 144 mmol/L (136-145) Potassium Level 3.9 mmol/L (3.5-5.1) Chloride Level 105 mmol/L (98-107) Carbon Dioxide Level 32 mmol/L (21-32) Anion Gap 7 (6-14) Blood Urea Nitrogen 12 mg/dL (7-20) Creatinine 0.8 mg/dL (0.6-1.0) Estimated GFR (Cockcroft-Gault) 70.7 Glucose Level 149 mg/dL (70-99) Calcium Level 9.0 mg/dL (8.5-10.1) Glucose (Fingerstick) 139 mg/dL (70-99) Laboratory Tests Test 12/22/21 12:15 12/22/21 13:35 12/22/21 17:05 12/22/21 22:13 Glucose (Fingerstick) 163 mg/dL (70-99) 204 mg/dL (70-99) 224 mg/dL (70-99) White Blood Count 5.0 x10^3/uL (4.0-11.0) Red Blood Count 4.20 x10^6/uL (3.50-5.40) Hemoglobin 12.2 g/dL (12.0-15.5) Hematocrit 37.0 % (36.0-47.0) Mean Corpuscular Volume 88 fL (79-100) Mean Corpuscular Hemoglobin 29 pg (25-35) Mean Corpuscular Hemoglobin Concent 33 g/dL (31-37) Red Cell Distribution Width 13.4 % (11.5-14.5) Platelet Count 222 x10^3/uL (140-400) Neutrophils (%) (Auto) 68 % (31-73) Lymphocytes (%) (Auto) 21 % (24-48) Monocytes (%) (Auto) 7 % (0-9) Eosinophils (%) (Auto) 4 % (0-3) Basophils (%) (Auto) 1 % (0-3) Neutrophils # (Auto) 3.4 x10^3/uL (1.8-7.7) Lymphocytes # (Auto) 1.0 x10^3/uL (1.0-4.8) Monocytes # (Auto) 0.3 x10^3/uL (0.0-1.1) Eosinophils # (Auto) 0.2 x10^3/uL (0.0-0.7) Basophils # (Auto) 0.0 x10^3/uL (0.0-0.2) Sodium Level 141 mmol/L (136-145) Potassium Level 3.6 mmol/L (3.5-5.1) Chloride Level 105 mmol/L (98-107) Carbon Dioxide Level 29 mmol/L (21-32) Anion Gap 7 (6-14) Blood Urea Nitrogen 9 mg/dL (7-20) Creatinine 0.9 mg/dL (0.6-1.0) Estimated GFR (Cockcroft-Gault) 61.7 Glucose Level 193 mg/dL (70-99) Calcium Level 8.8 mg/dL (8.5-10.1) Test 12/23/21 04:20 12/23/21 08:25 White Blood Count 3.9 x10^3/uL (4.0-11.0) Red Blood Count 3.97 x10^6/uL (3.50-5.40) Hemoglobin 11.7 g/dL (12.0-15.5) Hematocrit 35.3 % (36.0-47.0) Mean Corpuscular Volume 89 fL (79-100) Mean Corpuscular Hemoglobin 30 pg (25-35) Mean Corpuscular Hemoglobin Concent 33 g/dL (31-37) Red Cell Distribution Width 13.3 % (11.5-14.5) Platelet Count 239 x10^3/uL (140-400) Neutrophils (%) (Auto) 55 % (31-73) Lymphocytes (%) (Auto) 26 % (24-48) Monocytes (%) (Auto) 11 % (0-9) Eosinophils (%) (Auto) 7 % (0-3) Basophils (%) (Auto) 1 % (0-3) Neutrophils # (Auto) 2.1 x10^3/uL (1.8-7.7) Lymphocytes # (Auto) 1.0 x10^3/uL (1.0-4.8) Monocytes # (Auto) 0.4 x10^3/uL (0.0-1.1) Eosinophils # (Auto) 0.3 x10^3/uL (0.0-0.7) Basophils # (Auto) 0.0 x10^3/uL (0.0-0.2) Sodium Level 144 mmol/L (136-145) Potassium Level 3.9 mmol/L (3.5-5.1) Chloride Level 105 mmol/L (98-107) Carbon Dioxide Level 32 mmol/L (21-32) Anion Gap 7 (6-14) Blood Urea Nitrogen 12 mg/dL (7-20) Creatinine 0.8 mg/dL (0.6-1.0) Estimated GFR (Cockcroft-Gault) 70.7 Glucose Level 149 mg/dL (70-99) Calcium Level 9.0 mg/dL (8.5-10.1) Glucose (Fingerstick) 139 mg/dL (70-99) Medications Active Scripts Medications Dose Route/Sig Max Daily Dose Days Date Category Proair Hfa Inhaler (Albuterol Sulfate) 8.5 Gm Hfa.aer.ad 2 Puff INH PRN Q4HRS PRN 12/20/21 Reported Eliquis (Apixaban) 5 Mg Tablet 5 Mg PO BID 12/20/21 Reported Hydrocodone-Acetamin 10-325 mg (Hydrocodone/Acetaminophen) 1 Each Tablet 1 Tab PO TID PRN 12/20/21 Reported Losartan Potassium 50 Mg Tablet 1 Tab PO DAILY 12/20/21 Reported Mirapex (Pramipexole Di-Hcl) 0.5 Mg Tablet 1 Tab PO QHS 12/20/21 Reported Alprazolam 1 Mg Tablet 1 Tab PO QID 10/18/20 Reported Gabapentin (Gabapentin) 300 Mg Capsule 300 Mg PO HS 09/14/19 Reported Duoneb 0.5-3(2.5) Mg/3 Ml (Albuterol/Ipratropium) 3 Ml Ampul.neb 3 Ml NEB Q4H 30 06/16/19 Rx Lantus Solostar (Insulin Glargine,Hum.rec.anlog) 100 Unit/1 Ml Insuln.pen 12 Unit SQ QHS 06/03/19 Reported Crestor (Rosuvastatin Calcium) 20 Mg Tablet 20 Mg PO HS 06/03/19 Reported Montelukast Sodium Tablet (Montelukast Sodium) 10 Mg Tablet 10 Mg PO HS 06/03/19 Reported Impression . 1. Acute bronchitis with no obvious evidence of pneumonia. 2. History of asthma, but no significant history of tobacco use. Mild asthma exacerbation, contributed by bronchitis. 3. Abnormal CT chest with upper lobe parenchymal scarring. She also has a 4 mm stable nodule in the left lower lobe. There is also a parenchymal nodule in the right lower lobe, not reported. Both stable. . She will need a followup CT in 6 months. 4. h/o pulmonary embolism diagnosed 2 years ago at [facility]. Has been on chronic anticoagulation with Eliquis since then. Underlying malignancy/lymphoma could be the contributing factor. Would recommend lifelong anticoagulation as long as it safe. 5. History of lymphoma, not in remission for 2 years per history. Being followed at [facility]. Plan . RECOMMENDATIONS: 1. Continue with present empiric antibiotics. 2. P.r.n. bronchodilators. 3. Continue to have a followup CT chest in about 6 months. Patient's physic ians are at [facility] including medical oncology. She prefers to have a follow-up CT over there. 4. Follow neurology recommendations and awaiting further work-up. 5. HENRIQUE Medina MD Dec 23, 2021 10:00
[2021-12-23 11:00] VITALS: BP 119/53
--- NOTE | 2021-12-23 11:53 | PDOC ---
PROGRESS NOTES Date of Service DATE: 12/23/21 TIME: 11:51 Assessment Spell of unresponsiveness in a patient with psychogenic nonepileptic seizures, no focal findings now to suggest that she had a stroke. Thinks she had a minor episode this morning, overall feels well CT angiogram negative to my eye, radiology interpretation pending Dysphagia. Speech evaluation noted, they recommend outpatient GI evaluation. Symptoms have been chronic, patient told them Evidence of peripheral neuropathy History of psychogenic nonepileptic seizures History of migraine headaches Pneumonia Plan Await CT angiogram report Outpatient GI swallow evaluation Hold on resuming benzodiazepine for her psychogenic nonepileptic seizures. Clorazepate is not on our formulary. Hold on brain MRI Rehabilitation modalities Treatment of pneumonia Okay for discharge Follow-up with me as needed Discussed with Dr. Landrum Subjective Thinks she had a minor episode this morning Objective Vital Signs Date Time Temp Pulse Resp B/P (MAP) Pulse Ox O2 Delivery O2 Flow Rate FiO2 12/23/21 11:15 95 Room Air 12/23/21 11:00 97.9 78 18 119/53 (75) 97.9 Intake and Output 12/23/21 07:00 Intake Total 580 ml Balance 580 ml Intake Oral 480 ml IV Total 100 ml # Voids 4 PHYSICAL EXAM Alert. Oriented to time, place and person. Hoarse voice PERRL. EOMI. CN: no focal findings. Muscle tone: normal. Muscle strength: 4/5 DTR: 2+ Plantar reflex: Flexor Gait: not examined in bed. Sensory exam: Stocking loss. No cerebellar signs elicited. Review of Relevant I have reviewed the following items alma (where applicable) has been applied. Labs Laboratory Tests Test 12/21/21 12:00 12/21/21 12:25 12/21/21 13:24 12/21/21 16:54 Glucose (Fingerstick) 231 mg/dL (70-99) 263 mg/dL (70-99) 197 mg/dL (70-99) Troponin I High Sensitivity 7 ng/L (4-50) Test 12/21/21 17:40 12/21/21 20:00 12/21/21 20:59 12/22/21 07:24 Troponin I High Sensitivity 7 ng/L (4-50) 9 ng/L (4-50) Glucose (Fingerstick) 243 mg/dL (70-99) 157 mg/dL (70-99) Test 12/22/21 12:15 12/22/21 13:35 12/22/21 17:05 12/22/21 22:13 Glucose (Fingerstick) 163 mg/dL (70-99) 204 mg/dL (70-99) 224 mg/dL (70-99) White Blood Count 5.0 x10^3/uL (4.0-11.0) Red Blood Count 4.20 x10^6/uL (3.50-5.40) Hemoglobin 12.2 g/dL (12.0-15.5) Hematocrit 37.0 % (36.0-47.0) Mean Corpuscular Volume 88 fL (79-100) Mean Corpuscular Hemoglobin 29 pg (25-35) Mean Corpuscular Hemoglobin Concent 33 g/dL (31-37) Red Cell Distribution Width 13.4 % (11.5-14.5) Platelet Count 222 x10^3/uL (140-400) Neutrophils (%) (Auto) 68 % (31-73) Lymphocytes (%) (Auto) 21 % (24-48) Monocytes (%) (Auto) 7 % (0-9) Eosinophils (%) (Auto) 4 % (0-3) Basophils (%) (Auto) 1 % (0-3) Neutrophils # (Auto) 3.4 x10^3/uL (1.8-7.7) Lymphocytes # (Auto) 1.0 x10^3/uL (1.0-4.8) Monocytes # (Auto) 0.3 x10^3/uL (0.0-1.1) Eosinophils # (Auto) 0.2 x10^3/uL (0.0-0.7) Basophils # (Auto) 0.0 x10^3/uL (0.0-0.2) Sodium Level 141 mmol/L (136-145) Potassium Level 3.6 mmol/L (3.5-5.1) Chloride Level 105 mmol/L (98-107) Carbon Dioxide Level 29 mmol/L (21-32) Anion Gap 7 (6-14) Blood Urea Nitrogen 9 mg/dL (7-20) Creatinine 0.9 mg/dL (0.6-1.0) Estimated GFR (Cockcroft-Gault) 61.7 Glucose Level 193 mg/dL (70-99) Calcium Level 8.8 mg/dL (8.5-10.1) Test 12/23/21 04:20 12/23/21 08:25 White Blood Count 3.9 x10^3/uL (4.0-11.0) Red Blood Count 3.97 x10^6/uL (3.50-5.40) Hemoglobin 11.7 g/dL (12.0-15.5) Hematocrit 35.3 % (36.0-47.0) Mean Corpuscular Volume 89 fL (79-100) Mean Corpuscular Hemoglobin 30 pg (25-35) Mean Corpuscular Hemoglobin Concent 33 g/dL (31-37) Red Cell Distribution Width 13.3 % (11.5-14.5) Platelet Count 239 x10^3/uL (140-400) Neutrophils (%) (Auto) 55 % (31-73) Lymphocytes (%) (Auto) 26 % (24-48) Monocytes (%) (Auto) 11 % (0-9) Eosinophils (%) (Auto) 7 % (0-3) Basophils (%) (Auto) 1 % (0-3) Neutrophils # (Auto) 2.1 x10^3/uL (1.8-7.7) Lymphocytes # (Auto) 1.0 x10^3/uL (1.0-4.8) Monocytes # (Auto) 0.4 x10^3/uL (0.0-1.1) Eosinophils # (Auto) 0.3 x10^3/uL (0.0-0.7) Basophils # (Auto) 0.0 x10^3/uL (0.0-0.2) Sodium Level 144 mmol/L (136-145) Potassium Level 3.9 mmol/L (3.5-5.1) Chloride Level 105 mmol/L (98-107) Carbon Dioxide Level 32 mmol/L (21-32) Anion Gap 7 (6-14) Blood Urea Nitrogen 12 mg/dL (7-20) Creatinine 0.8 mg/dL (0.6-1.0) Estimated GFR (Cockcroft-Gault) 70.7 Glucose Level 149 mg/dL (70-99) Calcium Level 9.0 mg/dL (8.5-10.1) Glucose (Fingerstick) 139 mg/dL (70-99) Laboratory Tests Test 12/22/21 12:15 12/22/21 13:35 12/22/21 17:05 12/22/21 22:13 Glucose (Fingerstick) 163 mg/dL (70-99) 204 mg/dL (70-99) 224 mg/dL (70-99) White Blood Count 5.0 x10^3/uL (4.0-11.0) Red Blood Count 4.20 x10^6/uL (3.50-5.40) Hemoglobin 12.2 g/dL (12.0-15.5) Hematocrit 37.0 % (36.0-47.0) Mean Corpuscular Volume 88 fL (79-100) Mean Corpuscular Hemoglobin 29 pg (25-35) Mean Corpuscular Hemoglobin Concent 33 g/dL (31-37) Red Cell Distribution Width 13.4 % (11.5-14.5) Platelet Count 222 x10^3/uL (140-400) Neutrophils (%) (Auto) 68 % (31-73) Lymphocytes (%) (Auto) 21 % (24-48) Monocytes (%) (Auto) 7 % (0-9) Eosinophils (%) (Auto) 4 % (0-3) Basophils (%) (Auto) 1 % (0-3) Neutrophils # (Auto) 3.4 x10^3/uL (1.8-7.7) Lymphocytes # (Auto) 1.0 x10^3/uL (1.0-4.8) Monocytes # (Auto) 0.3 x10^3/uL (0.0-1.1) Eosinophils # (Auto) 0.2 x10^3/uL (0.0-0.7) Basophils # (Auto) 0.0 x10^3/uL (0.0-0.2) Sodium Level 141 mmol/L (136-145) Potassium Level 3.6 mmol/L (3.5-5.1) Chloride Level 105 mmol/L (98-107) Carbon Dioxide Level 29 mmol/L (21-32) Anion Gap 7 (6-14) Blood Urea Nitrogen 9 mg/dL (7-20) Creatinine 0.9 mg/dL (0.6-1.0) Estimated GFR (Cockcroft-Gault) 61.7 Glucose Level 193 mg/dL (70-99) Calcium Level 8.8 mg/dL (8.5-10.1) Test 12/23/21 04:20 12/23/21 08:25 White Blood Count 3.9 x10^3/uL (4.0-11.0) Red Blood Count 3.97 x10^6/uL (3.50-5.40) Hemoglobin 11.7 g/dL (12.0-15.5) Hematocrit 35.3 % (36.0-47.0) Mean Corpuscular Volume 89 fL (79-100) Mean Corpuscular Hemoglobin 30 pg (25-35) Mean Corpuscular Hemoglobin Concent 33 g/dL (31-37) Red Cell Distribution Width 13.3 % (11.5-14.5) Platelet Count 239 x10^3/uL (140-400) Neutrophils (%) (Auto) 55 % (31-73) Lymphocytes (%) (Auto) 26 % (24-48) Monocytes (%) (Auto) 11 % (0-9) Eosinophils (%) (Auto) 7 % (0-3) Basophils (%) (Auto) 1 % (0-3) Neutrophils # (Auto) 2.1 x10^3/uL (1.8-7.7) Lymphocytes # (Auto) 1.0 x10^3/uL (1.0-4.8) Monocytes # (Auto) 0.4 x10^3/uL (0.0-1.1) Eosinophils # (Auto) 0.3 x10^3/uL (0.0-0.7) Basophils # (Auto) 0.0 x10^3/uL (0.0-0.2) Sodium Level 144 mmol/L (136-145) Potassium Level 3.9 mmol/L (3.5-5.1) Chloride Level 105 mmol/L (98-107) Carbon Dioxide Level 32 mmol/L (21-32) Anion Gap 7 (6-14) Blood Urea Nitrogen 12 mg/dL (7-20) Creatinine 0.8 mg/dL (0.6-1.0) Estimated GFR (Cockcroft-Gault) 70.7 Glucose Level 149 mg/dL (70-99) Calcium Level 9.0 mg/dL (8.5-10.1) Glucose (Fingerstick) 139 mg/dL (70-99) Microbiology 12/21/21 Blood Culture - Preliminary, Resulted NO GROWTH AFTER 1 DAY Medications Current Medications Benzonatate (Tessalon Perle) 100 mg PRN TID PRN PO COUGH 1ST CHOICE Last administered on 12/21/21at 00:44; Start 12/21/21 at 00:30 Alprazolam (Xanax) 1 mg QID PO Last administered on 12/23/21at 09:20; Start 12/21/21 at 00:30 Dextrose (Dextrose 50%-Water Syringe) 12.5 gm PRN Q15MIN PRN IV SEE COMMENTS; Start 12/21/21 at 00:30; Status UNV Dextrose (Iv Dextrose 5%) 250 ml PRN Q15MIN PRN IV SEE COMMENTS; Start 12/21/21 at 00:30 Guaifenesin (Robitussin Dm) 10 ml PRN Q6HRS PRN PO COUGH 2ND CHOICE Last administered on 12/21/21at 23:32; Start 12/21/21 at 04:00 Albuterol/ Ipratropium (Duoneb) 3 ml RTQID NEB Last administered on 12/23/21at 11:15; Start 12/21/21 at 12:00 Iohexol (Omnipaque 300 Mg/ml) 75 ml 1X ONCE IV Last administered on 12/21/21at 10:42; Start 12/21/21 at 10:30; Stop 12/21/21 at 10:31; Status DC Info (CONTRAST GIVEN -- Rx MONITORING) 1 each PRN DAILY PRN MC SEE COMMENTS; Start 12/21/21 at 10:30; Stop 12/23/21 at 10:29; Status Cancel Hydralazine HCl (Apresoline Inj) 10 mg PRN Q4HRS PRN IVP ELEVATED BP, SEE COMMENTS; Start 12/21/21 at 10:45 Apixaban (Eliquis) 5 mg BID PO Last administered on 12/23/21at 09:20; Start 12/21/21 at 11:00 Gabapentin (Neurontin) 300 mg HS PO Last administered on 3/30/22at 22:05; Start 12/21/21 at 21:00 Acetaminophen/ Hydrocodone Bitart (Lortab 10/325) 1 tab TID PRN PO PAIN Last administered on 12/21/21 12:19; Start 12/21/21 at 10:45 Losartan Potassium (Cozaar) 50 mg DAILY PO Last administered on 12/22/21 08:50; Start 12/21/21 at 11:00 Montelukast Sodium (Singulair) 10 mg HS PO Last administered on 12/22/21 22:05; Start 12/21/21 at 21:00 Insulin Glargine (Lantus Syringe) 12 unit QHS SQ Last administered on 12/22/21 22:17; Start 12/21/21 at 21:00 Pramipexole Dihydrochloride (miraPEX) 0.5 mg QHS PO Last administered on 12/22/21 22:05; Start 12/21/21 at 21:00 Atorvastatin Calcium (Lipitor) 80 mg HS PO Last administered on 12/22/21 22:04; Start 12/21/21 at 21:00 Guaifenesin/ Codeine Phosphate (Robitussin Ac) 5 ml PRN Q6HRS PRN PO COUGH, 3RD CHOICE; Start 12/21/21 at 10:45 Zolpidem Tartrate (Ambien) 5 mg PRN QHS PRN PO INSOMNIA, MAY REPEAT IN 1HR Last administered on 12/21/21 23:35; Start 12/21/21 at 10:45 Morphine Sulfate (Morphine Sulfate) 2 mg PRN Q1HR PRN IV PAIN Last administered on 12/21/21at 16:43; Start 12/21/21 at 10:45 Acetaminophen (Tylenol) 650 mg PRN Q6HRS PRN PO Headaches, Temp > 101.5F; Start 12/21/21 at 10:45 Magnesium Hydroxide (Milk Of Magnesia) 2,400 mg PRN Q12HR PRN PO CONSTIPATION; Start 12/21/21 at 10:45 Ceftriaxone Sodium (Rocephin) 1 gm Q24H IVP Last administered on 12/22/21 16:41; Start 12/21/21 at 12:00; Stop 12/23/21 at 10:31; Status DC Doxycycline Hyclate 100 mg/ Dextrose 100 ml @ 50 mls/hr Q12HR IV Last administered on 12/23/21at 09:20; Start 12/21/21 at 12:00; Stop 12/23/21 at 13:00 Iohexol (Omnipaque 300 Mg/ml) 75 ml 1X ONCE IV ; Start 12/22/21 at 08:00; Stop 12/22/21 at 08:04; Status DC Lactobacillus Rhamnosus (Culturelle) 1 cap BID PO Last administered on 12/23/21at 09:20; Start 12/23/21 at 09:00 Iohexol (Omnipaque 300 Mg/ml) 75 ml 1X ONCE IV Last administered on 12/23/21at 09:40; Start 12/23/21 at 08:30; Stop 12/23/21 at 08:43; Status DC Info (CONTRAST GIVEN -- Rx MONITORING) 1 each PRN DAILY PRN MC SEE COMMENTS; Start 12/23/21 at 08:45; Stop 12/25/21 at 08:44 Doxycycline Hyclate (Vibra-Tab) 100 mg BID PO ; Start 12/23/21 at 21:00 Cefdinir (Omnicef) 300 mg BID PO ; Start 12/23/21 at 12:00; Stop 12/26/21 at 23:00 Active Scripts Active Duoneb 0.5-3(2.5) Mg/3 Ml (Albuterol/Ipratropium) 3 Ml Ampul.neb 3 Ml NEB Q4H 30 Days Reported Proair Hfa Inhaler (Albuterol Sulfate) 8.5 Gm Hfa.aer.ad 2 Puff INH PRN Q4HRS PRN Eliquis (Apixaban) 5 Mg Tablet 5 Mg PO BID Hydrocodone-Acetamin 10-325 mg (Hydrocodone/Acetaminophen) 1 Each Tablet 1 Tab PO TID PRN Losartan Potassium 50 Mg Tablet 1 Tab PO DAILY Mirapex (Pramipexole Di-Hcl) 0.5 Mg Tablet 1 Tab PO QHS Alprazolam 1 Mg Tablet 1 Tab PO QID Gabapentin (Gabapentin) 300 Mg Capsule 300 Mg PO HS Lantus Solostar (Insulin Glargine,Hum.rec.anlog) 100 Unit/1 Ml Insuln.pen 12 Unit SQ QHS Crestor (Rosuvastatin Calcium) 20 Mg Tablet 20 Mg PO HS Montelukast Sodium Tablet (Montelukast Sodium) 10 Mg Tablet 10 Mg PO HS Vitals/I & O Vital Sign - Last 24 Hours 12/22/21 12/22/21 12/22/21 12/22/21 12:08 15:00 16:19 18:28 Temp 97.8 97.8 Pulse 99 Resp 16 B/P (MAP) 106/49 (68) Pulse Ox 96 96 95 O2 Delivery Room Air Room Air Room Air 12/22/21 12/22/21 12/22/21 12/23/21 19:10 20:00 23:45 04:15 Temp 98.5 98.3 98.4 98.5 98.3 98.4 Pulse 105 74 79 Resp 20 18 20 B/P (MAP) 117/60 (79) 120/60 (80) 101/39 (59) Pulse Ox 93 95 93 O2 Delivery Room Air Room Air Room Air Room Air 12/23/21 12/23/21 12/23/21 12/23/21 07:00 07:06 08:00 08:49 Temp 97.9 97.9 Pulse 88 88 Resp 18 B/P (MAP) 91/50 (64) 91/51 Pulse Ox 94 O2 Delivery Room Air Room Air 12/23/21 12/23/21 11:00 11:15 Temp 97.9 97.9 Pulse 78 Resp 18 B/P (MAP) 119/53 (75) Pulse Ox 91 95 O2 Delivery Room Air Room Air Intake and Output 12/22/21 12/22/21 12/23/21 15:00 23:00 07:00 Intake Total 120 ml 460 ml Balance 120 ml 460 ml Justicifation of Admission Dx: Justifications for Admission: Justification of Admission Dx: N/A WING BAZZI MD Dec 23, 2021 11:53
[2021-12-23] MEDS ORDERED: CEFDINIR 300 MG CAPSULE PO SCH (12:00)
--- NOTE | 2021-12-23 12:00 | PDOC ---
[employer] PROGRESS NOTE Date of Service DOS: DATE: 12/23/21 TIME: 11:54 Chief Complaint Chief Complaint Left lung pneumonia Acute COPD Possible left lobe malignancy Left lobe pulmonary nodule History of Present Illness History of Present Illness Patient is a 71-year-old female with past medical history COPD, asthma, CAD with stents, lymphoma, who presents as a transfer from [facility] ED with complaints of worsening cough over the past week. She was seen by a PA at an outside clinic and given azithromycin, of which she took for 4 days without improvement. She also reports use of a home breathing treatment without significant improvement. Yesterday at [facility] ED, a chest x-ray noted new left suprahilar infiltrate favoring area of pneumonia. However a chest CT with IV contrast is recommended to exclude underlying malignancy. At the time of my evaluation she is complaining of left-sided chest pain, and she is unsure if it is related to her coughing. She was seen by her manager business systems 2 weeks ago, who noted some blockage of her cardiac stents but did not schedule any intervention at this time. Despite her diagnosis of COPD, she states she is not a smoker. Her last COPD exacerbation was some years ago. Patient denies fever, chills, sputum production. 12/22: Patient seen and evaluated bedside. She had unresponsive episode yesterday, concern for CVA. Neurology has been consulted. Had CT head that was negative for bleed, per Dr. Chaves preferring to hold off on MRI for now. 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 Consultation was placed to pulmonology regarding pulmonary nodule. CT chest with contrast showed 4 mm stable left pulmonary nodule, concerning given her history of lymphoma. Pulmonology following. Patient states she feels better and appears much more alert and conversive today. Still complains of chest congestion; recommended guaifenesin. Continue treatment for pneumonia/COPD. Discussed with RN. 12/23: Patient seen at bedside. Still complains of cough today. Dr. Figueroa comfortable with repeat CT in 6 [address]. Chaves has no further neurological concerns. Will discharge patient on cefdinir and doxycycline. Greater than 30 minutes spent managing the discharge this patient. Vitals/I&O Vitals/I&O: Vital Signs Date Time Temp Pulse Resp B/P (MAP) Pulse Ox O2 Delivery O2 Flow Rate FiO2 12/23/21 11:15 95 Room Air 12/23/21 11:00 97.9 78 18 119/53 (75) 97.9 I & O 12/22/21 12/22/21 12/23/21 15:00 23:00 07:00 Intake Total 120 ml 460 ml Balance 120 ml 460 ml Physical Exam General: Alert, Cooperative Heart: Regular rate Lungs: Crackles Abdomen: Soft Extremities: No cyanosis, No edema Skin: No rashes Labs Labs: Laboratory Tests Test 12/22/21 12:15 12/22/21 13:35 12/22/21 17:05 12/22/21 22:13 Glucose (Fingerstick) 163 mg/dL (70-99) 204 mg/dL (70-99) 224 mg/dL (70-99) White Blood Count 5.0 x10^3/uL (4.0-11.0) Red Blood Count 4.20 x10^6/uL (3.50-5.40) Hemoglobin 12.2 g/dL (12.0-15.5) Hematocrit 37.0 % (36.0-47.0) Mean Corpuscular Volume 88 fL (79-100) Mean Corpuscular Hemoglobin 29 pg (25-35) Mean Corpuscular Hemoglobin Concent 33 g/dL (31-37) Red Cell Distribution Width 13.4 % (11.5-14.5) Platelet Count 222 x10^3/uL (140-400) Neutrophils (%) (Auto) 68 % (31-73) Lymphocytes (%) (Auto) 21 % (24-48) Monocytes (%) (Auto) 7 % (0-9) Eosinophils (%) (Auto) 4 % (0-3) Basophils (%) (Auto) 1 % (0-3) Neutrophils # (Auto) 3.4 x10^3/uL (1.8-7.7) Lymphocytes # (Auto) 1.0 x10^3/uL (1.0-4.8) Monocytes # (Auto) 0.3 x10^3/uL (0.0-1.1) Eosinophils # (Auto) 0.2 x10^3/uL (0.0-0.7) Basophils # (Auto) 0.0 x10^3/uL (0.0-0.2) Sodium Level 141 mmol/L (136-145) Potassium Level 3.6 mmol/L (3.5-5.1) Chloride Level 105 mmol/L (98-107) Carbon Dioxide Level 29 mmol/L (21-32) Anion Gap 7 (6-14) Blood Urea Nitrogen 9 mg/dL (7-20) Creatinine 0.9 mg/dL (0.6-1.0) Estimated GFR (Cockcroft-Gault) 61.7 Glucose Level 193 mg/dL (70-99) Calcium Level 8.8 mg/dL (8.5-10.1) Test 12/23/21 04:20 12/23/21 08:25 White Blood Count 3.9 x10^3/uL (4.0-11.0) Red Blood Count 3.97 x10^6/uL (3.50-5.40) Hemoglobin 11.7 g/dL (12.0-15.5) Hematocrit 35.3 % (36.0-47.0) Mean Corpuscular Volume 89 fL (79-100) Mean Corpuscular Hemoglobin 30 pg (25-35) Mean Corpuscular Hemoglobin Concent 33 g/dL (31-37) Red Cell Distribution Width 13.3 % (11.5-14.5) Platelet Count 239 x10^3/uL (140-400) Neutrophils (%) (Auto) 55 % (31-73) Lymphocytes (%) (Auto) 26 % (24-48) Monocytes (%) (Auto) 11 % (0-9) Eosinophils (%) (Auto) 7 % (0-3) Basophils (%) (Auto) 1 % (0-3) Neutrophils # (Auto) 2.1 x10^3/uL (1.8-7.7) Lymphocytes # (Auto) 1.0 x10^3/uL (1.0-4.8) Monocytes # (Auto) 0.4 x10^3/uL (0.0-1.1) Eosinophils # (Auto) 0.3 x10^3/uL (0.0-0.7) Basophils # (Auto) 0.0 x10^3/uL (0.0-0.2) Sodium Level 144 mmol/L (136-145) Potassium Level 3.9 mmol/L (3.5-5.1) Chloride Level 105 mmol/L (98-107) Carbon Dioxide Level 32 mmol/L (21-32) Anion Gap 7 (6-14) Blood Urea Nitrogen 12 mg/dL (7-20) Creatinine 0.8 mg/dL (0.6-1.0) Estimated GFR (Cockcroft-Gault) 70.7 Glucose Level 149 mg/dL (70-99) Calcium Level 9.0 mg/dL (8.5-10.1) Glucose (Fingerstick) 139 mg/dL (70-99) Comment Review of Relevant I have reviewed the following items alma (where applicable) has been applied. Medications: Current Medications Medications (Trade) Dose Ordered Sig/Marily Route PRN Reason Start Time Stop Time Status Last Admin Dose Admin Lactobacillus Rhamnosus (Culturelle) 1 cap BID PO 12/23/21 09:00 12/23/21 09:20 Iohexol (Omnipaque 300 Mg/ml) 75 ml 1X ONCE IV 12/23/21 08:30 12/23/21 08:43 DC 12/23/21 09:40 Justifications for Admission Other Justification STEPHAN YO MD Dec 23, 2021 12:00
--- NOTE | 2021-12-23 12:01 | PDOC3 ---
Discharge Summary Visit Information Date of Admission: Dec 21, 2021 Date of Discharge: Dec 23, 2021 Brief Hospital Course Allergies Allergies Coded Allergies Type Severity Reaction Last Updated Verified bee venom protein (honey bee) Allergy Severe 12/20/21 Yes oxycodone Allergy Intermediate 06/13/19 Yes prednisone Allergy Intermediate 06/13/19 Yes Vital Signs Vital Signs Date Time Temp Pulse Resp B/P (MAP) Pulse Ox O2 Delivery O2 Flow Rate FiO2 12/23/21 11:15 95 Room Air 12/23/21 11:00 97.9 78 18 119/53 (75) 97.9 Lab Results Laboratory Tests Test 12/21/21 12:25 12/21/21 13:24 12/21/21 16:54 12/21/21 17:40 Troponin I High Sensitivity 7 ng/L (4-50) 7 ng/L (4-50) Glucose (Fingerstick) 263 mg/dL (70-99) 197 mg/dL (70-99) Test 12/21/21 20:00 12/21/21 20:59 12/22/21 07:24 12/22/21 12:15 Troponin I High Sensitivity 9 ng/L (4-50) Glucose (Fingerstick) 243 mg/dL (70-99) 157 mg/dL (70-99) 163 mg/dL (70-99) Test 12/22/21 13:35 12/22/21 17:05 12/22/21 22:13 12/23/21 04:20 White Blood Count 5.0 x10^3/uL (4.0-11.0) 3.9 x10^3/uL (4.0-11.0) Red Blood Count 4.20 x10^6/uL (3.50-5.40) 3.97 x10^6/uL (3.50-5.40) Hemoglobin 12.2 g/dL (12.0-15.5) 11.7 g/dL (12.0-15.5) Hematocrit 37.0 % (36.0-47.0) 35.3 % (36.0-47.0) Mean Corpuscular Volume 88 fL (79-100) 89 fL (79-100) Mean Corpuscular Hemoglobin 29 pg (25-35) 30 pg (25-35) Mean Corpuscular Hemoglobin Concent 33 g/dL (31-37) 33 g/dL (31-37) Red Cell Distribution Width 13.4 % (11.5-14.5) 13.3 % (11.5-14.5) Platelet Count 222 x10^3/uL (140-400) 239 x10^3/uL (140-400) Neutrophils (%) (Auto) 68 % (31-73) 55 % (31-73) Lymphocytes (%) (Auto) 21 % (24-48) 26 % (24-48) Monocytes (%) (Auto) 7 % (0-9) 11 % (0-9) Eosinophils (%) (Auto) 4 % (0-3) 7 % (0-3) Basophils (%) (Auto) 1 % (0-3) 1 % (0-3) Neutrophils # (Auto) 3.4 x10^3/uL (1.8-7.7) 2.1 x10^3/uL (1.8-7.7) Lymphocytes # (Auto) 1.0 x10^3/uL (1.0-4.8) 1.0 x10^3/uL (1.0-4.8) Monocytes # (Auto) 0.3 x10^3/uL (0.0-1.1) 0.4 x10^3/uL (0.0-1.1) Eosinophils # (Auto) 0.2 x10^3/uL (0.0-0.7) 0.3 x10^3/uL (0.0-0.7) Basophils # (Auto) 0.0 x10^3/uL (0.0-0.2) 0.0 x10^3/uL (0.0-0.2) Sodium Level 141 mmol/L (136-145) 144 mmol/L (136-145) Potassium Level 3.6 mmol/L (3.5-5.1) 3.9 mmol/L (3.5-5.1) Chloride Level 105 mmol/L (98-107) 105 mmol/L (98-107) Carbon Dioxide Level 29 mmol/L (21-32) 32 mmol/L (21-32) Anion Gap 7 (6-14) 7 (6-14) Blood Urea Nitrogen 9 mg/dL (7-20) 12 mg/dL (7-20) Creatinine 0.9 mg/dL (0.6-1.0) 0.8 mg/dL (0.6-1.0) Estimated GFR (Cockcroft-Gault) 61.7 70.7 Glucose Level 193 mg/dL (70-99) 149 mg/dL (70-99) Calcium Level 8.8 mg/dL (8.5-10.1) 9.0 mg/dL (8.5-10.1) Glucose (Fingerstick) 204 mg/dL (70-99) 224 mg/dL (70-99) Test 12/23/21 08:25 Glucose (Fingerstick) 139 mg/dL (70-99) Laboratory Tests Test 12/22/21 12:15 12/22/21 13:35 12/22/21 17:05 12/22/21 22:13 Glucose (Fingerstick) 163 mg/dL (70-99) 204 mg/dL (70-99) 224 mg/dL (70-99) White Blood Count 5.0 x10^3/uL (4.0-11.0) Red Blood Count 4.20 x10^6/uL (3.50-5.40) Hemoglobin 12.2 g/dL (12.0-15.5) Hematocrit 37.0 % (36.0-47.0) Mean Corpuscular Volume 88 fL (79-100) Mean Corpuscular Hemoglobin 29 pg (25-35) Mean Corpuscular Hemoglobin Concent 33 g/dL (31-37) Red Cell Distribution Width 13.4 % (11.5-14.5) Platelet Count 222 x10^3/uL (140-400) Neutrophils (%) (Auto) 68 % (31-73) Lymphocytes (%) (Auto) 21 % (24-48) Monocytes (%) (Auto) 7 % (0-9) Eosinophils (%) (Auto) 4 % (0-3) Basophils (%) (Auto) 1 % (0-3) Neutrophils # (Auto) 3.4 x10^3/uL (1.8-7.7) Lymphocytes # (Auto) 1.0 x10^3/uL (1.0-4.8) Monocytes # (Auto) 0.3 x10^3/uL (0.0-1.1) Eosinophils # (Auto) 0.2 x10^3/uL (0.0-0.7) Basophils # (Auto) 0.0 x10^3/uL (0.0-0.2) Sodium Level 141 mmol/L (136-145) Potassium Level 3.6 mmol/L (3.5-5.1) Chloride Level 105 mmol/L (98-107) Carbon Dioxide Level 29 mmol/L (21-32) Anion Gap 7 (6-14) Blood Urea Nitrogen 9 mg/dL (7-20) Creatinine 0.9 mg/dL (0.6-1.0) Estimated GFR (Cockcroft-Gault) 61.7 Glucose Level 193 mg/dL (70-99) Calcium Level 8.8 mg/dL (8.5-10.1) Test 12/23/21 04:20 12/23/21 08:25 White Blood Count 3.9 x10^3/uL (4.0-11.0) Red Blood Count 3.97 x10^6/uL (3.50-5.40) Hemoglobin 11.7 g/dL (12.0-15.5) Hematocrit 35.3 % (36.0-47.0) Mean Corpuscular Volume 89 fL (79-100) Mean Corpuscular Hemoglobin 30 pg (25-35) Mean Corpuscular Hemoglobin Concent 33 g/dL (31-37) Red Cell Distribution Width 13.3 % (11.5-14.5) Platelet Count 239 x10^3/uL (140-400) Neutrophils (%) (Auto) 55 % (31-73) Lymphocytes (%) (Auto) 26 % (24-48) Monocytes (%) (Auto) 11 % (0-9) Eosinophils (%) (Auto) 7 % (0-3) Basophils (%) (Auto) 1 % (0-3) Neutrophils # (Auto) 2.1 x10^3/uL (1.8-7.7) Lymphocytes # (Auto) 1.0 x10^3/uL (1.0-4.8) Monocytes # (Auto) 0.4 x10^3/uL (0.0-1.1) Eosinophils # (Auto) 0.3 x10^3/uL (0.0-0.7) Basophils # (Auto) 0.0 x10^3/uL (0.0-0.2) Sodium Level 144 mmol/L (136-145) Potassium Level 3.9 mmol/L (3.5-5.1) Chloride Level 105 mmol/L (98-107) Carbon Dioxide Level 32 mmol/L (21-32) Anion Gap 7 (6-14) Blood Urea Nitrogen 12 mg/dL (7-20) Creatinine 0.8 mg/dL (0.6-1.0) Estimated GFR (Cockcroft-Gault) 70.7 Glucose Level 149 mg/dL (70-99) Calcium Level 9.0 mg/dL (8.5-10.1) Glucose (Fingerstick) 139 mg/dL (70-99) Brief Hospital Course Left lung pneumonia Acute COPD Possible left lobe malignancy Left lobe pulmonary nodule History of Present Illness Patient is a 71-year-old female with past medical history COPD, asthma, CAD with stents, lymphoma, who presents as a transfer from [facility] ED with complaints of worsening cough over the past week. She was seen by a PA at an outside clinic and given azithromycin, of which she took for 4 days without improvement. She also reports use of a home breathing treatment without significant improvement. Yesterday at [facility] ED, a chest x-ray noted new left suprahilar infiltrate favoring area of pneumonia. However a chest CT with IV contrast is recommended to exclude underlying malignancy. At the time of my evaluation she is complaining of left-sided chest pain, and she is unsure if it is related to her coughing. She was seen by her professor of musicology 2 weeks ago, who noted some blockage of her cardiac stents but did not schedule any intervention at this time. Despite her diagnosis of COPD, she states she is not a smoker. Her last COPD exacerbation was some years ago. Patient denies fever, chills, sputum production. 12/22: Patient seen and evaluated bedside. She had unresponsive episode yesterday, concern for CVA. Neurology has been consulted. Had CT head that was negative for bleed, per Dr. Chaves preferring to hold off on MRI for now. 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 Consultation was placed to pulmonology regarding pulmonary nodule. CT chest with contrast showed 4 mm stable left pulmonary nodule, concerning given her history of lymphoma. Pulmonology following. Patient states she feels better and appears much more alert and conversive today. Still complains of chest congestion; recommended guaifenesin. Continue treatment for pneumonia/COPD. Discussed with RN. 12/23: Patient seen at bedside. Still complains of cough today. Dr. Figueroa comfortable with repeat CT in 6 months for pulmonary nodule. Dr. Chaves has no further neurological concerns. Will discharge patient on cefdinir and doxycycline. Greater than 30 minutes spent managing the discharge this patient. Discharge Information Condition at Discharge: Stable Disposition/Orders: D/C to Home Scheduled Alprazolam (Alprazolam) 1 Mg Tablet, 1 TAB PO QID for anxiety, #90 (Reported) Entered as Reported by: MELANIE FRAIRE on 10/18/20 0618 Last Action: Edited on 12/20/212345 by OTIS PINA Apixaban (Eliquis) 5 Mg Tablet, 5 MG PO BID for afib, (Reported) Entered as Reported by: OTIS PINA on 12/20/212345 Last Action: Continued on 12/21/211039 by STEPHAN YO MD Gabapentin (Gabapentin ) 300 Mg Capsule, 300 MG PO HS for NEUROGENIC PAIN, (Reported) Entered as Reported by: CRISTOPHER WHITTAKER RN on 09/14/19 1111 Last Action: Continued on 12/21/21 104 by STEPHAN YO MD Insulin Glargine,Hum.rec.anlog (Lantus Solostar) 100 Unit/1 Ml Insuln.pen, 12 UNIT SQ QHS for , (Reported) Entered as Reported by: Iva Goyal on 06/03/19 1523 Last Action: Converted on 12/21/211039 by STEPHAN YO MD Ipratropium/Albuterol Sulfate (Duoneb 0.5-3(2.5) Mg/3 Ml) 3 Ml Ampul.neb, 3 ML NEB Q4H for copd for 30 Days, #180 Prescribed by: ROD GUSMAN MD on 06/16/19 1108 Last Action: Reviewed on 12/20/212345 by OTIS PINA Losartan Potassium (Losartan Potassium) 50 Mg Tablet, 1 TAB PO DAILY for HTN, (Reported) Entered as Reported by: OTIS PINA on 12/20/212345 Last Action: Continued on 12/21/211039 by STEPHAN YO MD Montelukast Sodium (Montelukast Sodium Tablet ) 10 Mg Tablet, 10 MG PO HS for FOR ASTHMA, Ref 0 (Reported) Entered as Reported by: Iva Goyal on 06/03/191521 Last Action: Continued on 12/21/211039 by STEPHAN YO MD Pramipexole Di-Hcl (Mirapex) 0.5 Mg Tablet, 1 TAB PO QHS for RLS, (Reported) Entered as Reported by: OTIS PINA on 12/20/212345 Last Action: Converted on 12/21/211039 by STEHPAN YO MD Rosuvastatin Calcium (Crestor) 20 Mg Tablet, 20 MG PO HS for FOR CHOLESTEROL, #30 Ref 0 (Reported) Entered as Reported by: Iva Goyal on 06/03/191521 Last Action: Converted on 12/21/211039 by STEPHAN YO MD Scheduled PRN Albuterol Sulfate (Proair Hfa Inhaler) 8.5 Gm Hfa.aer.ad, 2 PUFF INH PRN Q4HRS PRN for SHORTNESS OF BREATH, Ref 0 (Reported) Entered as Reported by: OTIS PINA on 12/20/212345 Last Action: New Order on 12/20/212345 by OTIS PINA Hydrocodone/Acetaminophen (Hydrocodone-Acetamin 10-325 mg) 1 Each Tablet, 1 TAB PO TID PRN for PAIN, (Reported) Entered as Reported by: OTIS PINA on 12/20/212345 Last Action: Continued on 12/21/211039 by STEPHAN YO MD Justicifation of Admission Dx: Justifications for Admission: Justification of Admission Dx: N/A STEPHAN YO MD Dec 23, 2021 12:01
[2021-12-23] MEDS ORDERED: CEFD300C PO (12:04)
[2021-12-23] MEDS ORDERED: DOXY100T PO (12:04)
[2021-12-23] MEDS ORDERED: GUAI120L35 PO (12:13)
[2021-12-23] MEDS ORDERED: DEXT15LI PO (14:00)
--- NOTE | 2021-12-23 16:37 | RAD ---
EXAM: CTA HEAD AND NECK W/WO CONTRAST DATE: 12/23/2021 9:35 AM INDICATION: TIA TECHNIQUE: CTA angiogram of the head and neck was obtained after IV bolus administration of 75 cc of Omnipaque 300. The images were sent to workstation and multiplanar reconstructions were obtained. Mu ltiplanar reconstruction images to include MIP and 3-D reconstruction images are submitted. One or more of the following dose reduction techniques were utilized: Automated exposure control (AEC ), Adjustment of mA and/or kV according to patient size, Use of iterative reconstruction technique guardado ch as ASiR, CT scan done according to ALARA and image gently/image wisely COMPARISON: Noncontrast CT head done earlier. FINDINGS: CTA Head: The visualized distal internal carotid arteries, anterior and middle cerebral arteries are patent and normal caliber. The distal vertebral arteries, basilar artery, and posterior cerebral arteries are p atent and normal caliber. No aneurysm or arteriovenous malformation is seen. CTA Neck: Right carotid: The right common carotid artery is patent and normal caliber. Atherosclerosis of the c arotid bifurcation. No stenosis of the right internal carotid artery per NASCET criteria. The right e xternal carotid artery is patent. Left carotid: The left common carotid artery is patent and normal caliber. Atherosclerosis of the car otid bifurcation. No stenosis of the left internal carotid artery per NASCET criteria. The left exter nal carotid artery is patent. Right vertebral: The right vertebral artery is patent and normal caliber. Left vertebral: The left vertebral artery is patent and normal caliber. The visualized portions of the aortic arch are normal. The origins of the brachiocephalic and subclav stu arteries are normal. No cervical lymphadenopathy. The thyroid gland is normal. The parotid and submandibular glands are no rmal. The visualized aerodigestive tract is unremarkable. Moderate to severe multilevel degenerative disc height loss. Multilevel disc protrusions and marginal osteophytes results in multilevel spinal canal stenosis. Multilevel uncovertebral and facet arthrosi s with multilevel neural foraminal narrowing. Biapical subpleural fibrosis with architectural distortion and traction bronchiolectasis. IMPRESSION: 1. No intracranial large vessel occlusion. 2. No stenosis of the cervical carotid or vertebral arteries. PQRS Compliance Statement - Stenosis calculations for CT, MR and conventional angiography are based u anayeli measurement of the distal ICA diameter in accordance with the NASCET methodology. Electronically signed by: Sukhwinder Andrade MD (12/23/2021 4:35 PM) [id number]
[2021-12-23] MEDS ORDERED: DOXYCYCLINE HYCLATE 100 MG TABLET PO SCH (21:00)
== END 2021-12-23 16:30 | disposition home or self-care (01) | DRG 871 ==
LOC: 2 NORTH 23:13
PROVIDERS: ADMIT Student in an Organized Health Care Education/Training Program; ATTEND Student in an Organized Health Care Education/Training Program
DX: A41.9 Sepsis, unspecified organism (principal); J15.6 Pneumonia due to other Gram-negative bacteria; J15.9 Unspecified bacterial pneumonia; J45.901 Unspecified asthma with (acute) exacerbation; J44.0 Chronic obstructive pulmonary disease with (acute) lower respiratory infection; E78.5 Hyperlipidemia, unspecified; F41.9 Anxiety disorder, unspecified; F44.5 Conversion disorder with seizures or convulsions; G25.81 Restless legs syndrome; G43.909 Migraine, unspecified, not intractable, without status migrainosus; E11.42 Type 2 diabetes mellitus with diabetic polyneuropathy; I11.0 Hypertensive heart disease with heart failure; I25.10 Atherosclerotic heart disease of native coronary artery without angina pectoris; I48.91 Unspecified atrial fibrillation; I50.9 Heart failure, unspecified; J20.9 Acute bronchitis, unspecified; F32.A Depression, unspecified; G47.30 Sleep apnea, unspecified; K21.9 Gastro-esophageal reflux disease without esophagitis; M54.50 Low back pain, unspecified; Z66 Do not resuscitate; R13.10 Dysphagia, unspecified; M19.90 Unspecified osteoarthritis, unspecified site; I25.2 Old myocardial infarction; Z90.49 Acquired absence of other specified parts of digestive tract; Z79.01 Long term (current) use of anticoagulants; Z79.4 Long term (current) use of insulin; Z79.899 Other long term (current) drug therapy; Z80.1 Family history of malignant neoplasm of trachea, bronchus and lung; Z82.49 Family history of ischemic heart disease and other diseases of the circulatory system; Z86.711 Personal history of pulmonary embolism; Z86.73 Personal history of transient ischemic attack (TIA), and cerebral infarction without residual deficits; Z87.11 Personal history of peptic ulcer disease; Z90.710 Acquired absence of both cervix and uterus; Z95.1 Presence of aortocoronary bypass graft; Z95.5 Presence of coronary angioplasty implant and graft; Z88.8 Allergy status to other drugs, medicaments and biological substances; Z88.5 Allergy status to narcotic agent; R91.8 Other nonspecific abnormal finding of lung field
CPT/HCPCS: 36415; 36569; 70450; 70496; 70498; 71260; 80048; 82962; 84484; 85025; 87040; 93005; 94640; 94760; J0696; J1815; J2270; J3490; J7060; Q9967; 92610-GN; 97116-GP; 97530-GO; G0378